=== PATIENT | female | born 1950 | race Caucasian/White ===

== ENCOUNTER 2019-11-02 08:11 | Outpatient (CLI) | payer MEDICARE, OTHER, SELFPAY ==
--- NOTE | ~2019-11-02 | CT_ITS ---
EXAMINATION: CT abdomen pelvis wo/w con EXAM DATE: 11/02/2019 08:54 INDICATION: Left kidney neoplasm. TECHNIQUE: Spiral CT of the abdomen without contrast followed by both abdomen and pelvis with 100 cc intravenous Omnipaque 350. Axial, coronal and sagittal images were reviewed. The dose-length produc t (DLP) for this examination was 1644.03 mGy-cm. The exposure was tailored according to patient size (auto mA exposure control), and iterative reconstruction (ASIR) was used as additional dose reductio n technique. There is no prior study for comparison. FINDINGS: There is a splenule. The liver, spleen, adrenal glands and pancreas are unremarkable. The re are surgical clips in the gallbladder fossa. Some biliary duct dilation which is common finding f ollowing cholecystectomy. Portal and splenic veins are patent. Noncontrast study demonstrates multiple left calyceal stones, left renal pelvic stone casting the inf erior calyces. Previously seen 5 mm right calyceal stone is no longer identified. Kidneys enhance sym metrically. There is no hydronephrosis. There is solid relatively homogeneously enhancing left renal mass at the mid pole posterior lateral cortex measuring 3.4 cm, not significantly changed. There is another slightly more heterogeneously enhancing mass in the left kidney lower pole posterior medially measuring about 2.8 cm. This also appears not significantly changed. The uterus is not identified a nd has likely been surgically resected. The bladder is unremarkable. There is no retroperitoneal or pelvic lymphadenopathy. There is mild to moderate scattered arteriosclerotic disease. The appendix is not positively visualized. There is no pericecal inflammatory change to suggest appe ndicitis. The stomach and small bowel are unremarkable. There is expected amount of colonic stool. There is mild sigmoid colonic diverticulosis. There is no adjacent inflammatory change to suggest d iverticulitis. No free intraperitoneal gas. There is cardiomegaly. There are no pleural or pericar dial effusions. There are dense mitral annular calcifications. There is a right lower lobe nodule me asuring 9 mm, stable. There are no osteoblastic or osteolytic lesions identified. IMPRESSION: 1. Two enhancing left renal masses, not significantly changed in size and appearance. 2. Stable right lower lobe pulmonary nodule. 3. Mild colonic diverticulosis. 4. Left nephrolithiasis. Reviewed, dictated and finalized at location A. ON ATTENDANT IMPRESSION: 1. Two enhancing left renal masses, not significantly changed in size and appe arance. 2. Stable right lower lobe pulmonary nodule. 3. Mild colonic diverticulosis. 4. Left nephrolithiasis.
[2019-11-02 08:44] LABS: Blood Urea Nitrogen 18 mg/dL (8-26); Estimated Glomerular Filt Rate 44
== END 2019-11-02 08:12 | disposition home or self-care (01) ==
PROVIDERS: PCP Family Medicine; Visit Provider Urology
DX: D41.02 Neoplasm of uncertain behavior of left kidney (principal); R91.1 Solitary pulmonary nodule; K57.90 Diverticulosis of intestine, part unspecified, without perforation or abscess without bleeding; N20.0 Calculus of kidney
CPT/HCPCS: 74178; Q9967

== ENCOUNTER 2019-11-07 09:12 | Outpatient (CLI) | payer MEDICARE, OTHER, SELFPAY | END 2019-11-07 09:13 | disposition home or self-care (01) | LOC: ANHAUDIO 09:17 | PROVIDERS: PCP Family Medicine; Visit Provider Family Medicine | DX: H91.93 Unspecified hearing loss, bilateral (principal) | CPT/HCPCS: 92557 ==

== ENCOUNTER 2020-06-05 08:53 | Outpatient (CLI) | payer MEDICARE, OTHER, SELFPAY ==
--- NOTE | ~2020-06-05 | MM_ITS ---
EXAMINATION: MM screening catrina BI w power HISTORY: Screening mammogram TECHNIQUE: Craniocaudal and mediolateral oblique 3-D tomosynthesis images were obtained and synthetic 2-D images were generated. Bilateral rotated lateral cc views. CAD analysis was submitted and interp reted. COMPARISON: 06/01/2019, 05/17/2018, 03/15/2017 bilateral digital screening mammogram examinations BREAST PARENCHYMAL COMPOSITION: There are scattered areas of fibroglandular density. FINDINGS: Surgical clips are noted on the right; history of partial right mastectomy for breast cance r. There is a history of bilateral breast reduction surgery. Scattered bilateral benign calcification s are noted. There is no evidence of suspicious mass, calcification, or architectural distortion to s uggest malignancy in either breast. There has been no suspicious interval change. IMPRESSION: 1. No mammographic evidence of malignancy. 2. Recommend routine screening mammography in one year. BI-RADS Category 2: Benign finding(s). Reviewed, dictated and finalized at location A.
== END 2020-06-05 08:54 | disposition home or self-care (01) ==
PROVIDERS: PCP Family Medicine; Visit Provider Family Medicine
DX: Z12.31 Encounter for screening mammogram for malignant neoplasm of breast (principal)
CPT/HCPCS: 77063; 77067

== ENCOUNTER 2020-09-04 05:48 | Day surgery (SDC) | payer MEDICARE, OTHER, SELFPAY ==
[2020-09-04] VITALS (12 sets, daily range): BP systolic 116–142; BP diastolic 51–73; PULSE 72–94; RESP 8–20; TEMP 36.3–36.7; O2SAT 93–100
--- NOTE | ~2020-09-04 | XR_ITS ---
EXAMINATION: XR retrograde pyelo w/stent LT EXAM DATE: 09/04/2020 10:31 INDICATION: Left-sided obstructive nephropathy, left renal masses. TECHNIQUE: Fluoroscopy used during XR retrograde pyelo w/stent LT performed by Dr. Raul roy MD. The DAP for this procedure was 386 radcm2. FINDINGS: Left ureter was cannulated, injected. There is severe left-sided hydroureteronephrosis. A double-J ureteral stent was positioned. Correlate with procedure note. IMPRESSION: Fluoroscopy used during XR retrograde pyelo w/stent LT. Reviewed, dictated and finalized at location B. SOFTWARE DEVELOPER
--- NOTE | ~2020-09-04 | CT_ITS ---
EXAMINATION: CT abdomen pelvis wo con DATE: 09/04/2020 06:17 INDICATION: Left flank tenderness. History of nephrolithiasis. TECHNIQUE: Computed tomography (CT) of the abdomen and pelvis was performed without intravenous contr ast. Automated exposure control and iterative reconstruction technique were employed. Exam dose: 579 .21 mGy-cm total exam DLP. COMPARISON: 11/02/2019 CT abdomen without and with IV contrast material FINDINGS: Stable approximately 8.7 mm right lower lobe nodule (series 4 image 14). A couple of severa l millimeter nodular densities are noted at the lingula. Cardiomegaly. Coronary artery calcifications. Prominent mitral annular calcification. No pericardial or pleural effusion. Status post cholecystectomy. No hepatic, splenic, pancreatic, and adrenal space-occupying mass lesion . Small nonobstructing right renal calculus. There is extensive nephrolithiasis on the left with numerous calculi, some quite large, particularly at the lower pole of the kidney. Density measurements range from approximately 1000 to 1400 Hounsfiel d units. Moderately severe left hydroureteronephrosis and perinephric stranding and mild pyelosinus extravasat ion due to a large left ureterovesical junction calculus measuring up to 6.6 x 7.3 x 8 mm dimension, with attenuation of 1600 Hounsfield units. Stable previously reported approximately 2.8 and 3.4 cm left renal masses. There is atherosclerotic calcification of the abdominal aorta and iliac arteries but no aneurysm. No intraperitoneal or retroperitoneal or pelvic mass lesion or adenopathy or ascites is noted otherwise. Diverticulosis of the colon; no CT evidence of diverticulitis. No bowel obstruction, bowel wall thick ening, pneumatosis or intraperitoneal free air. Diffuse idiopathic skeletal hyperostosis of the thoracic spine. Moderately severe degenerative disc d isease at L1-2. No suspicious osteolytic or osteoblastic lesions are noted. IMPRESSION: Moderately severe left hydroureteronephrosis, perinephric stranding and pyelosinus extra vasation secondary to left ureterovesical junction up to 8 mm calculus Prominent left nephrolithiasis Slight right nephrolithiasis Cardiomegaly, coronary artery atherosclerosis Status post cholecystectomy Stable right lower lobe 8 mm nodule Reviewed, dictated and finalized at Location A. Reviewed, dictated and finalized at location A. NICIAN PREVENTATIVE MEDICINE IMPRESSION: Moderately severe left hydroureteronephrosis, perinephric strandin g and pyelosinus extravasation secondary to left ureterovesical junction up to 8 mm calculus Prominent left nephrolithiasis Slight right nephrolithiasis Cardiomegaly, coronary artery atherosclerosis Status post cholecystectomy Stable right lower lobe 8 mm nodule
--- NOTE | 2020-09-04 05:51 | ED.ABDPAIN ---
HPI - Abdominal Pain General Chief Complaint: Urogenital-Female Stated Complaint: Kidney Stone Time Seen by Provider: 09/04/20 05:50 Source: patient and family Mode of arrival: wheelchair Limitations: no limitations History of Present Illness HPI narrative: Patient is a 70-year-old female with a history of Parkinson's disease, nephrolithiasis who presents for evaluation of left-sided flank pain. Patient initially started with some dysuria and urinary frequency on Wednesday which symptoms spontaneously resolved. She states she has had some dull, aching left flank pain tonight that seems consistent with pain she has had with past kidney stones. She denies fever, chills, nausea or vomiting. Pain radiates into the left lower abdomen. She continues to have frequency without dysuria or hematuria. Patient follows with Dr. Pires. Related Data Home Medications Medication Instructions Recorded Confirmed aspirin 81 mg tablet,delayed 81 mg PO DAILY 10/12/19 02/29/20 release carbidopa ER 25 mg-levodopa 100 mg 1 tablet PO TID 10/12/19 02/29/20 tablet,extended release cariprazine 4.5 mg capsule 4.5 mg PO DAILY 10/12/19 02/29/20 diazepam 5 mg tablet 5 mg PO DAILY PRN tablet 10/12/19 02/29/20 lamotrigine 200 mg tablet 200 mg PO DAILY tablet 10/12/19 02/29/20 memantine 28 mg capsule 28 mg PO DAILY 10/12/19 02/29/20 sprinkle,extended release 24hr Allergies Allergy/AdvReac Type Severity Reaction Status Date / Time codeine Allergy Unknown Unknown Verified 02/29/20 14:34 Review of Systems Review of Systems: Narrative: CONSTITUTIONAL: Denies fever, chills, or sweats. ENT: Denies rhinorrhea, congestion, sore throat, or otalgia. CARDIOVASCULAR: Denies chest pain, palpitations, or edema. RESPIRATORY: Denies cough or dyspnea. GASTROINTESTINAL: Reports right-sided abdominal pain, denies nausea or vomiting GENITOURINARY: Denies dysuria or hematuria. Reports frequency of urination. SKIN: Denies rash or itching. MUSCULOSKELETAL: Reports left flank pain, denies other joint pain, or myalgia. NEUROLOGIC: Denies headache, numbness, or weakness. [facility] Past Medical History Medical History (Updated 09/04/20 @ 07:25 by Zara Dyer MD) Anxiety Bipolar affective disorder Breast cancer 03/2012 Dyslipidemia Essential (primary) hypertension History of right breast cancer Hypertension Hypertrophic obstructive cardiomyopathy Meniere disease Renal calculus Unspecified osteoarthritis, unspecified site Surgical History Surgical History H/O total hysterectomy with bilateral salpingo-oophorectomy (BSO) History of breast surgery 03/2012 History of partial mastectomy 2011 Hx of section Hx of total knee arthroplasty Family History Family History Father Family history of diabetes mellitus in first degree relative, Onset Age: 77 Mother Family history of malignant neoplasm of ovary, Onset Age: 62 Grandparent Diabetes mellitus, Onset Age: 80 Other Hypertension Social History Social History Smoking status: Never smoker Second hand tobacco smoke exposure: No Alcohol intake: never Substance use: never Substance use type: does not use Exam Narrative: Exam Narrative: GENERAL: Awake, alert, hard of hearing, conversant HEAD: Normocephalic, atraumatic. EYES: PERRLA and EOMI. ENT: Nares clear, no rhinorrhea or epistaxis. Mucous membranes moist. NECK: Supple. CHEST: No respiratory distress, breathing even and non labored HEART: Regular rate, sinus rhythm ABDOMEN:Non distended, no reproducible left lower quadrant tenderness, no rebound, no rigidity, no guarding, positive left flank tenderness, no right flank tenderness EXTREMITIES: Normal range of motion. No edema. SKIN: Warm, dry, no rash. NEURO:No focal deficits. Alert and oriented x3
[2020-09-04 06:13] LABS: Basophils Absolute Auto 0.1 K/mm3 (0.0-0.1); Basophils Percent Auto 0.5 % (0.2-1.2); Eosinophils Absolute Auto 0.2 K/mm3 (0-0.3); Eosinophils Percent Auto 2.5 % (0-4.4); Hematocrit 42.2 % (37.0-47.0); Hemoglobin 13.4 g/dL (12.0-15.0); Immature Granulocyte Absolute 0.04 K/mm3 (0.00-0.031); Immature Granulocyte Percent A 0.4 % (0-0.5); Lymphocytes Absolute Auto 1.42 K/mm3 (0.9-3.2); Lymphocytes Percent Auto 14.7 % (18.3-44.2); Mean Corpuscular HGB Conc 31.8 g/dl (32-36); Mean Corpuscular Hemoglobin 29.6 pg (26-34); Mean Corpuscular Volume 93.2 fl (80-100); Mean Platelet Volume 9.2 fl (7.4-10.4); Monocytes Absolute Auto 0.8 K/mm3 (0.1-0.6); Neutrophils Absolute Auto 7.2 K/mm3 (1.3-6.7); Neutrophils Percent Auto 73.9 % (45.5-73.1); Platelet Count Result 188 k/mm3 (150-375); Red Blood Count 4.53 M/mm3 (4.2-5.4); Red Cell Distribution Width 12.2 % (11.5-14.5); White Blood Count 9.7 K/mm3 (4.5-10.0)
[2020-09-04 06:24] LABS: Alanine Aminotransferase 13 U/L (4-35); Albumin Level 4.1 g/dL (3.5-5.1); Alkaline Phosphatase 110 U/L (38-126); Anion Gap 5 mmol/L (8-16); Aspartate Amino Transferase 29 U/L (14-36); Bilirubin,Total 0.8 mg/dL (0.2-1.3); Blood Urea Nitrogen 16 mg/dL (7-17); Calcium 9.5 mg/dL (8.4-10.2); Carbon Dioxide 34 mmol/L (22-30); Chloride 104 mmol/L (98-107); Estimated CRCL calculation 41 ml/min; Estimated Glomerular Filt Rate 55; Glucose 118 mg/dL (65-105); Potassium 3.3 mmol/L (3.4-5.0); Sodium 143 mmol/L (137-145)
[2020-09-04] MEDS: ONDANSETRON INJ 4 MG/2 ML VIAL IV PUSH (06:25)
[2020-09-04] MEDS: MORPHINE SULFATE (*CRX) 4 MG/ML INJ 2 MG IV PUSH (06:25)
[2020-09-04] MEDS: SODIUM CHLORIDE 0.9% IV 1,000 ML 999 ML IV CONT (06:26)
--- NOTE | 2020-09-04 07:20 | PM.IMHP ---
H&P: HPI History of Present Illness Date/Time: 09/04/20 07:20 Chief Complaint: 8 mm left UVJ calculus with hydronephrosis Narrative: Karina Arroyo is a 70 year old female with Parkinson's disease and a history of kidney stones who presented to the emergency room with left renal colic. It progressed to the point where she was having significant pain. Evaluation in the emergency room with a CT scan revealed an 8 mm left UVJ stone with moderate hydronephrosis and perinephric stranding. She has no white count or fever at this time. Given the size of the stone and discomfort she is reluctant to manage as an outpatient. Will proceed with definitive treatment with cystoscopy, ureteroscopy with laser of stone and stone extraction with stent placement today. Review of Systems Review of Systems: All systems reviewed & are unremarkable except as noted in HPI and below PMFSH Past Medical History Medical History Anxiety Bipolar affective disorder Breast cancer 03/2012 Dyslipidemia Essential (primary) hypertension History of right breast cancer Hypertension Hypertrophic obstructive cardiomyopathy Meniere disease Renal calculus Unspecified osteoarthritis, unspecified site Surgical History Surgical History H/O total hysterectomy with bilateral salpingo-oophorectomy (BSO) History of breast surgery 03/2012 History of partial mastectomy 2011 Hx of section Hx of total knee arthroplasty Family History Family History Father Family history of diabetes mellitus in first degree relative, Onset Age: 77 Mother Family history of malignant neoplasm of ovary, Onset Age: 62 Grandparent Diabetes mellitus, Onset Age: 80 Other Hypertension Social History Social History Smoking status: Never smoker Second hand tobacco smoke exposure: No Alcohol intake: never Substance use: never Substance use type: does not use Meds Home Medications and Allergies Home Medications Medication Instructions Recorded Confirmed Type aspirin 81 mg tablet,delayed 81 mg PO DAILY 10/12/19 02/29/20 History release carbidopa ER 25 mg-levodopa 100 mg 1 tablet PO TID 10/12/19 02/29/20 History tablet,extended release cariprazine 4.5 mg capsule 4.5 mg PO DAILY 10/12/19 02/29/20 History diazepam 5 mg tablet 5 mg PO DAILY PRN tablet 10/12/19 02/29/20 History lamotrigine 200 mg tablet 200 mg PO DAILY tablet 10/12/19 02/29/20 History memantine 28 mg capsule 28 mg PO DAILY 10/12/19 02/29/20 History sprinkle,extended release 24hr neomycin 3.5 mg-polymyxin 10,000 1 drop EACH EYE Q6H #7.5 ml 02/29/20 02/29/20 Rx unit-hydrocort 10 mg/mL eye drop,susp diltiazem HCl 240 mg See Rx Instructions .ROUTE 07/11/20 Rx capsule,extended release 24 hr .COMPLEX #90 cap rosuvastatin 10 mg tablet See Rx Instructions .ROUTE 07/11/20 Rx .COMPLEX #90 tablet Allergies Allergy/AdvReac Type Severity Reaction Status Date / Time codeine Allergy Unknown Unknown Verified 02/29/20 14:34 Vital Signs Vital Signs - 24 hr 09/04/20 05:55 09/04/20 07:01 09/04/20 07:15 Temperature 36.3 C L Pulse Rate 72 84 Respiratory Rate 16 16 Blood Pressure 142/67 H 137/73 Pulse Oximetry 95 100 95 Exam Const: General: cooperative Eyes: General: appearance normal, both eyes and all related structures Resp: Effort & Inspection: normal respiratory effort Cardio: Rate: regular rate GI: Inspection: normal to inspection H&P: Results Labs Labs: Short CBC 09/04/20 Range/Units 06:04 WBC 9.7 (4.5-10.0) K/mm3 Hgb 13.4 (12.0-15.0) g/dL Hct 42.2 (37.0-47.0) % Plt Count 188 (150-375) k/mm3 BMP 09/04/20 06:04 Sodium 143 Potassium 3.3 L Chloride 104 Carbon Di
[2020-09-04 07:22] LABS: Add Urine Microscopic? YES; Amorphous Sediment Urine Few; Appearance Urine Clear (Clear); Bilirubin Urine Negative (Negative); Blood Urine 3+ (Negative); Color Urine Amber (Yellow); Glucose Urine UA Negative (Negative); Ketones Urine Negative (Negative); Leukocyte Esterase Ur Negative LEU/UL (Negative); Mucus Urine Rare /lpf; Nitrate Urine Positive (Negative); Protein Urine 1+ mg/dL (Negative); RBC Urine >75 /hpf (0-2); Specific Grav Ur 1.013 (1.001-1.035); WBC Urine 0-3 /hpf
--- NOTE | 2020-09-04 07:23 | WPDHPUPDATE1 ---
History and Physical Update Update Date/Time: 09/04/20 07:23 History and Physical has been reviewed, including an updated exam of the patient. There are NO changes in the patient's condition. Risks, benefits, and alternatives have been discussed and questions answered. Patient agrees to proceed with procedure.
--- NOTE | 2020-09-04 07:37 | PC.NURSE ---
Consent signed after Dr. Foote at bedside to explain procedure and stent placement. Pt and s.o. have no further questions. Pt's rings removed and placed in secured cup in with bag of clothing. Pt's s.o. planning to take clothing and walker to vehicle during surgery.
--- NOTE | 2020-09-04 08:20 | WPDANESEPPF ---
Anes - Initial Pre Proc Eval Procedure: Operation Date: 09/04/20 09:30 Proposed Procedures p CYSTOSCOPY,LEFT URETEROSCOPY,LEFT RETROGRADE PYELOGRAM,STONE EXTRACTION,POSSIBLE HOLMIUM LASER,POSSIBLE STENT PLACEMENT. - Raul Foote MD Date/Time: 09/04/20 08:20 Surgeon: Raul Foote MD Pre Op Diagnosis: Kidney Stone Patient Data Age: 70 Gender: F Height: 1.52 m Weight: 74 kg Last Vital Signs Temp 36.3 C L 09/04/20 05:55 Pulse 84 09/04/20 07:01 Resp 16 09/04/20 07:01 BP 137/73 09/04/20 07:01 Pulse Ox 95 09/04/20 07:15 Allergies Allergy/AdvReac Type Severity Reaction Status Date / Time codeine Allergy Intermediate Confusion Verified 09/04/20 08:33 Home Medications Medication Instructions Recorded Confirmed Type aspirin 81 mg tablet,delayed 81 mg PO DAILY 10/12/19 02/29/20 History release carbidopa ER 25 mg-levodopa 100 mg 1 tablet PO TID 10/12/19 02/29/20 History tablet,extended release cariprazine 4.5 mg capsule 4.5 mg PO DAILY 10/12/19 02/29/20 History diazepam 5 mg tablet 5 mg PO DAILY PRN tablet 10/12/19 02/29/20 History lamotrigine 200 mg tablet 200 mg PO DAILY tablet 10/12/19 02/29/20 History memantine 28 mg capsule 28 mg PO DAILY 10/12/19 02/29/20 History sprinkle,extended release 24hr neomycin 3.5 mg-polymyxin 10,000 1 drop EACH EYE Q6H #7.5 ml 02/29/20 02/29/20 Rx unit-hydrocort 10 mg/mL eye drop,susp diltiazem HCl 240 mg See Rx Instructions .ROUTE 07/11/20 Rx capsule,extended release 24 hr .COMPLEX #90 cap rosuvastatin 10 mg tablet See Rx Instructions .ROUTE 07/11/20 Rx .COMPLEX #90 tablet Laboratory Tests 09/04/20 09/04/20 09/04/20 06:04 06:04 06:58 WBC 9.7 K/mm3 K/mm3 (4.5-10.0) RBC 4.53 M/mm3 M/mm3 (4.2-5.4) Hgb 13.4 g/dL g/dL (12.0-15.0) Hct 42.2 % % (37.0-47.0) MCV 93.2 fl fl (80-100) MCH 29.6 pg pg (26-34) MCHC 31.8 g/dl L g/dl (32-36) RDW 12.2 % % (11.5-14.5) Plt Count 188 k/mm3 k/mm3 (150-375) MPV 9.2 fl fl (7.4-10.4) Immature Gran % (Auto) 0.4 % % (0-0.5) Neut % (Auto) 73.9 % H % (45.5-73.1) Lymph % (Auto) 14.7 % L % (18.3-44.2) [place] % (Auto) 8.0 % % (2.6-8.5) Eos % (Auto) 2.5 % % (0-4.4) Baso % (Auto) 0.5 % % (0.2-1.2) Lymph # (Auto) 1.42 K/mm3 K/mm3 (0.9-3.2) [place] # (Auto) 0.8 K/mm3 H K/mm3 (0.1-0.6) Eos # (Auto) 0.2 K/mm3 K/mm3 (0-0.3) Baso # (Auto) 0.1 K/mm3 K/mm3 (0.0-0.1) Abs Immat Gran (auto) 0.04 K/mm3 H K/mm3 (0.00-0.031) Absolute Neuts (auto) 7.2 K/mm3 H K/mm3 (1.3-6.7) Absolute Nucleated RBC 0.0 K/mm3 K/mm3 (0.0-0.012) Nucleated RBC % 0.0 % % (0.0-0.2) Sodium 143 mmol/L mmol/L (137-145) Potassium 3.3 mmol/L L mmol/L (3.4-5.0) Chloride 104 mmol/L mmol/L (98-107) Carbon Dioxide 34 mmol/L H mmol/L (22-30) Anion Gap 5 mmol/L L mmol/L (8-16) BUN 16 mg/dL mg/dL (7-17) Creatinine 1.00 mg/dL mg/dL (0.7-1.0) Estim Creat Clear Calc 41 ml/min ml/min Estimated GFR 55 L (59 - ) Glucose 118 mg/dL H mg/dL (65-105) Calcium 9.5 mg/dL mg/dL (8.4-10.2) Total Bilirubin 0.8 mg/dL mg/dL (0.2-1.3) AST 29 U/L U/L (14-36) ALT 13 U/L U/L (4-35) Alkaline Phosphatase 110 U/L U/L (38-126) Total Protein 7.0 g/dL g/dL (6.3-8.2) Albumin 4.1 g/dL g/dL (3.5-5.1) Urine Color Kristy (Yellow) Urine Appearance Clear (Clear) Urine pH 7.0 (5.0-9.0) Ur Specific [place] 1.013 (1.001-1.035) Urine Protein 1+ mg/dL H mg/dL (Negative) Urine Glucose (UA) Negative mg/dL mg/dL (Negative) Urine Ketones
[2020-09-04] MEDS: LACTATED RINGERS 1,000 ML 30 ML IV CONT (09:00)
--- NOTE | 2020-09-04 10:23 | SUR.OPER ---
4.8 Fr stent left exp 06-06-2023 [facility] [id number]
[2020-09-04] MEDS: LIDOCAINE HCL 2% GEL UROJET 10 ML PKG MUCOUS MEM (10:28)
--- NOTE | 2020-09-04 10:28 | PM.PROC ---
Procedure Note - Detailed Date of procedure: 09/04/20 Pre-op diagnosis: Kidney Stone 8 mm right UVJ calculus with hydronephrosis Post-op diagnosis: same Procedure performed: Cystoscopy, right retrograde pyelogram, right ureteroscopy with stone extraction, right ureteral stent placement 4.8 Cambodian contour Description of procedure: Patient is taken the operative suite and correctly identified. Once anesthesia was obtained she was placed in dorsal lithotomy position and prepped and draped usual sterile fashion. Twenty-two Cambodian scope was inserted into the bladder. There are no tumors noted. The right ureteral orifice was cannulated with a guidewire and dilated with an 8/10 dilator. Rigid ureteral scope was inserted. Using a Aydee basket we grasped the stone were able to retrieve it in its entirety. Reinspection revealed no residual stones. Pyelogram was then performed there is a tortuous proximal ureter. We were able to manipulate the guidewire up into the renal pelvis. 4.8 Cambodian contour stent was then placed with the proximal end coiled up in the renal pelvis and the distal in the bladder. Bladder was drained. 2% viscous lidocaine was inserted into the urethra. Patient is taken recovery room stable condition. She will be discharged home with pain meds antibiotics and follow up in 1-2 weeks for stent removal. She is to call for that appointment. Anesthesia: GLMA Surgeon: Raul Foote MD Drains: Yes Packing: No Pathology: yes Complications: No immediate complications Condition: stable Disposition: PACU
== END 2020-09-04 12:43 | disposition home or self-care (01) ==
LOC: ANHED 07:13 → ANHSURGERY 07:15
PROVIDERS: Emergency Provider Emergency Medicine; PCP Family Medicine; Visit Provider Urology
PROC: (CPT 52352; principal; 2020-09-04 09:30)
DX: N13.2 Hydronephrosis with renal and ureteral calculous obstruction (principal); K44.9 Diaphragmatic hernia without obstruction or gangrene; F41.9 Anxiety disorder, unspecified; F31.9 Bipolar disorder, unspecified; E78.5 Hyperlipidemia, unspecified; I10 Essential (primary) hypertension; H81.09 Meniere's disease, unspecified ear; Z85.3 Personal history of malignant neoplasm of breast; N13.30 Unspecified hydronephrosis; I48.21 Permanent atrial fibrillation; G20 Parkinson's disease
CPT/HCPCS: 52352; 52332; 36415; 51701; 74176; 74420; 80053; 81001; 82365; 85025; 88300; 96365; 96375; 99285; A9270; C1758; C1769; C2617; J0131; J0696; J1100; J2270; J2405; J2704; J3010; J7030; J7120; Q9966

== ENCOUNTER 2021-02-13 08:24 | Outpatient (CLI) | payer MEDICARE, OTHER, SELFPAY ==
--- NOTE | ~2021-02-13 | CT_ITS ---
EXAMINATION: CT abdomen pelvis wo con DATE: 02/13/2021 09:02 INDICATION: Follow-up left renal mass TECHNIQUE: Computed tomography (CT) of the abdomen and pelvis was performed without intravenous contr ast. Automated exposure control and iterative reconstruction technique were employed. The dose-length product was 565.23 mGy-cm. COMPARISON: 09/04/2020 and 11/02/2019 FINDINGS: Lung bases are clear. Heart size is normal. No pericardial or pleural effusion. Atherosclerotic coron zaid artery calcific location and dense mitral annular calcification. Cholecystectomy clips the gallbl adder fossa. Chronic mild intrahepatic biliary ductal dilation. Liver is otherwise unremarkable. Sple en, pancreas and bilateral adrenal glands are normal. 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 Smaller 1.3 cm stone/cluster of stones in the right cesar l pelvis. No ureteral stones or hydronephrosis. Gradual increase in size of a now 3.8 cm exophytic ma ss at the lower pole of the left kidney which measured 3.2 cm with enhancement on study dated 11/02/19 and increasing to 3.6 cm on study dated 09/04/2020. There is a second 2.9 cm mass at the lower jose e of the left kidney which also demonstrated enhancement and measured 2.[address] dated 11/02/2019. 1 2 mm exophytic cyst at the upper pole of the right kidney. There is mild colonic diverticulosis with a sigmoid predominance. There is no adjacent inflammatory change to suggest diverticulitis. Small b owel is normal. The appendix is not visualized. No pericecal inflammatory change to suggest acute stella endicitis. Bladder is normal. The uterus is not identified and has likely been surgically resected. N o free intraperitoneal gas or fluid. No pathologically enlarged abdominal or pelvic lymphadenopathy. Mild thoracic and lumbar spondylosis. IMPRESSION: 1. Continued increase in size of a now 3.8 cm mass at the lower pole of the left kidney and no signif icant change in a second 2.9 cm mass at the lower pole of the left kidney, both demonstrating enhance ment which could represent either renal cell carcinomas or metastatic disease in the appropriate clin ical setting. 2. Bilateral nonobstructing nephrolithiasis. 3. Mild diverticulosis. Reviewed, dictated and finalized at location A. IMPRESSION: 1. Continued increase in size of a now 3.8 cm mass at the lower pole of the lef t kidney and no significant change in a second 2.9 cm mass at the lower pole of the left kidney, both demonstrating enhancement which could represent either r enal cell carcinomas or metastatic disease in the appropriate clinical setting. 2. Bilateral nonobstructing nephrolithiasis. 3. Mild diverticulosis.
== END 2021-02-13 08:25 | disposition home or self-care (01) ==
PROVIDERS: PCP Family Medicine; Visit Provider Urology
DX: D41.02 Neoplasm of uncertain behavior of left kidney (principal); K57.30 Diverticulosis of large intestine without perforation or abscess without bleeding; N20.0 Calculus of kidney
CPT/HCPCS: 74176

== ENCOUNTER 2021-05-26 02:36 | Observation (INO) | payer MEDICARE, OTHER, SELFPAY ==
[2021-05-26] VITALS (21 sets, daily range): BP systolic 123–145; BP diastolic 45–73; PULSE 60–71; RESP 14–18; TEMP 36.2–37.2; O2SAT 90–100; BMI 31.5
--- NOTE | ~2021-05-26 | XR_ITS ---
EXAMINATION: XR retrograde pyelo w/stent BI EXAM DATE: 05/26/2021 15:36 INDICATION: Bilateral stent placement. TECHNIQUE: Fluoroscopy used during XR retrograde pyelo w/stent BI performed by Dr. Davidson Ryder MD, urologist. The radiologist Jonathan Wright M.D. dictating this report of the image(s) available wa s not present for the procedure. Total fluoroscopic time of 82 seconds. The DAP for this procedure was 1259 radcm2. A total of 57 images sent to PACS from the exam. Cine run(s) available for review. FINDINGS: Left ureter cannulated, injected. There is large stone in the distal aspect of the left ur eter. A left double-J ureteral stent was placed. Right ureter was then cannulated and injected. Mild right hydronephrosis. A right ureteral stent was also placed. Large bilateral nephrolithiasis was dem onstrated. Correlate with procedure note. IMPRESSION: Left distal ureteral stone and bilateral nephrolithiasis. Stents in position. Reviewed, dictated and finalized at location B.
--- NOTE | ~2021-05-26 | CT_ITS ---
EXAMINATION: CT abdomen pelvis wo con EXAM DATE: 05/26/2021 03:16 INDICATION: Left flank pain hx of stones. TECHNIQUE: Spiral CT of the abdomen and pelvis was performed without contrast. Axial, coronal and sa gittal images were reviewed. The dose-length product (DLP) for this examination was 251.17 mGy-cm. The exposure was tailored according to patient size, and iterative reconstruction (ASIR) was used as additional dose reduction technique. Comparison is made to prior examination from 02/13/2021, 8. FINDINGS: There is a 2 cm stone in the distal aspect of the left ureter, 5 cm from the ureterovesicul ar junction. Moderate left hydroureteronephrosis. Similar sized left inferior calyceal stones casting calyces. There is a left mid renal mass measuring 3.7 cm, another at the lower pole less well-define d but measuring about 2.3 cm. Right renal pelvic stone measuring 1.6 cm. The uterus is not identifie d and has likely been surgically resected. The bladder is unremarkable. The liver, spleen, adrenal glands and pancreas are unremarkable. There are cholecystectomy clips. T here is no retroperitoneal or pelvic lymphadenopathy. There is mild to moderate scattered arteriosc lerotic disease. There are no findings to suggest appendicitis. The stomach and small bowel are unremarkable. There i s moderate sigmoid colonic diverticulosis. There is no adjacent inflammatory change to suggest diver ticulitis. No free intraperitoneal gas. The heart is normal in size. There are no pericardial or pleural effusions. There is 8mm right lower lobe nodule on image 16, stable going back to CT abdomen 2018. Mild emphysema. There are no osteoblastic or osteolytic lesions identified. IMPRESSION: 1. Left distal ureteral 2 cm stone, moderate obstructive nephropathy. 2. Large bilateral nephrolithiasis. 3. Left renal masses likely RCCs. 4. Sigmoid diverticulosis. 5. Stable right lower lobe nodule. Reviewed, dictated and finalized at location B.
--- NOTE | 2021-05-26 03:09 | PC.NURSE ---
Patient in CT.
--- NOTE | 2021-05-26 03:16 | ED.GENADULT ---
HPI - General Adult General Chief complaint: Abdominal Pain Stated complaint: left abd/flank pain h/o kidney stones Time Seen by Provider: 05/26/21 02:55 History of Present Illness HPI narrative: Patient 70-year-old female presents the emergency department with complaint of left-sided flank pain patient reports she has prior history of kidney stones is usually been able to pass them on her own except for the last time about 2 years ago reports she had to have a surgical procedure by urology and sees urology locally. patient states this evening her pain started reports it radiates to the left lower quadrant reports not improved by anything nor is worsened by anything. Related Data Home Medications Medication Instructions Recorded Confirmed aspirin 81 mg tablet,delayed 81 mg PO DAILY 10/12/19 02/29/20 release carbidopa ER 25 mg-levodopa 100 mg 1 tablet PO TID 10/12/19 02/29/20 tablet,extended release cariprazine 4.5 mg capsule 4.5 mg PO DAILY 10/12/19 02/29/20 diazepam 5 mg tablet 5 mg PO DAILY PRN tablet 10/12/19 02/29/20 lamotrigine 200 mg tablet 200 mg PO DAILY tablet 10/12/19 02/29/20 memantine 28 mg capsule 28 mg PO DAILY 10/12/19 02/29/20 sprinkle,extended release 24hr Allergies Allergy/AdvReac Type Severity Reaction Status Date / Time codeine Allergy Intermediate Confusion Verified 05/26/21 03:53 Review of Systems Review of Systems: A 10 system review of systems was completed on the patient and is negative except for what is stated in the HPI. Nursing and ancillary documentation was reviewed. FOR[facility]LY [facility] Past Medical History Medical History Anxiety Bipolar affective disorder Breast cancer 03/2012 Cardiomegaly Dyslipidemia Essential (primary) hypertension History of right breast cancer Hypertension Hypertrophic obstructive cardiomyopathy Meniere disease Parkinson disease Renal calculus Unspecified osteoarthritis, unspecified site Surgical History Surgical History H/O total hysterectomy with bilateral salpingo-oophorectomy (BSO) History of breast surgery 03/2012 History of partial mastectomy 2011 Hx of section Hx of total knee arthroplasty Family History Family History Father Family history of diabetes mellitus in first degree relative, Onset Age: 77 Mother Family history of malignant neoplasm of ovary, Onset Age: 62 Grandparent Diabetes mellitus, Onset Age: 80 Other Hypertension Social History Social History Smoking status: Never smoker Second hand tobacco smoke exposure: No Alcohol intake: never Substance use: never Substance use type: does not use Exam Narrative: GENERAL: Well-appearing, well-nourished, and in no acute distress. HEAD: Normocephalic, atraumatic. EYES: PERRLA and EOMI. ENT: Nares clear, no rhinorrhea or epistaxis. Mucous membranes moist. NECK: Supple. CHEST: Clear to auscultation. No respiratory distress. HEART: Regular rate and rhythm. No murmur heard. Normal peripheral pulses. ABDOMEN: Soft, nontender, nondistended, normal active bowel sounds. EXTREMITIES: Normal range of motion. No edema. SKIN: Warm, dry, no rash. NEURO: No focal deficits. Alert and oriented x3. PSYCH: Normal mood and affect. Course Course Emergency Course: CT scan shows a 1.9 cm distal ureteral stone on the left Vital Signs Vital signs: Vital Signs Temperature 36.2 C L 05/26/21 02:41 Pulse Rate 66 05/26/21 02:41 Respiratory Rate 18 05/26/21 02:41 Blood Pressure 123/56 L 05/26/21 02:41 Pulse Oximetry 96 05/26/21 02:41 Temperature 36.2 C L 05/26/21 02:41 Pulse Rate 66 05/26/21 02:41 Respiratory Rate 18 05/26/21 02:41 Blood Pressure 123/56 L 05/26/21 02:41 Pulse Oximetry 96 05/26/21
[2021-05-26] MEDS: SODIUM CHLORIDE 0.9% IV 1,000 ML 999 ML IV CONT (03:23)
[2021-05-26] MEDS: MORPHINE SULFATE (*CRX) 4 MG/ML INJ IV PUSH (03:24)
[2021-05-26] MEDS: ONDANSETRON INJ 4 MG/2 ML VIAL IV PUSH (03:24)
[2021-05-26 03:29] LABS: Basophils Absolute Auto 0.1 K/mm3 (0.0-0.1); Basophils Percent Auto 0.8 % (0.2-1.2); Eosinophils Absolute Auto 0.2 K/mm3 (0-0.3); Eosinophils Percent Auto 2.6 % (0-4.4); Hematocrit 37.2 % (37.0-47.0); Hemoglobin 11.8 g/dL (12.0-15.0); Immature Granulocyte Absolute 0.02 K/mm3 (0.00-0.031); Immature Granulocyte Percent A 0.3 % (0-0.5); Lymphocytes Absolute Auto 0.94 K/mm3 (0.9-3.2); Lymphocytes Percent Auto 13.1 % (18.3-44.2); Mean Corpuscular HGB Conc 31.7 g/dl (32-36); Mean Corpuscular Hemoglobin 29.9 pg (26-34); Mean Corpuscular Volume 94.2 fl (80-100); Mean Platelet Volume 8.9 fl (7.4-10.4); Monocytes Absolute Auto 0.6 K/mm3 (0.1-0.6); Monocytes Percent Auto 7.9 % (2.6-8.5); Neutrophils Absolute Auto 5.4 K/mm3 (1.3-6.7); Neutrophils Percent Auto 75.3 % (45.5-73.1); Platelet Count Result 154 k/mm3 (150-375); Red Blood Count 3.95 M/mm3 (4.2-5.4); Red Cell Distribution Width 12.1 % (11.5-14.5); White Blood Count 7.2 K/mm3 (4.5-10.0)
[2021-05-26 03:39] LABS: Alanine Aminotransferase 16 U/L (4-35); Albumin Level 4.1 g/dL (3.5-5.1); Alkaline Phosphatase 90 U/L (38-126); Anion Gap 8 mmol/L (8-16); Aspartate Amino Transferase 27 U/L (14-36); Bilirubin,Total 0.7 mg/dL (0.2-1.3); Blood Urea Nitrogen 22 mg/dL (7-17); Calcium 9.2 mg/dL (8.4-10.2); Carbon Dioxide 31 mmol/L (22-30); Chloride 103 mmol/L (98-107); Estimated CRCL calculation 34 ml/min; Estimated Glomerular Filt Rate 44; Glucose 118 mg/dL (65-110); Lipase 74 U/L (23-300); Potassium 3.2 mmol/L (3.4-5.0); Sodium 142 mmol/L (137-145)
[2021-05-26 03:40] LABS: Lactic Acid Reflex 1.3 mmol/L (0.7-2.1)
--- NOTE | 2021-05-26 03:40 | PC.NURSE ---
Patient placed on 5L via NC due to O2 sat decreased to 84% on RA after pain medications. Patient states she is very relaxed and pain has improved to 99%. Patient a/ox3.
--- NOTE | 2021-05-26 04:38 | PC.NURSE ---
Patient titrated off oxygen. Patient still rates pain 8/10. Patient at 96% on RA.
--- NOTE | 2021-05-26 04:58 | PC.NURSE ---
Patient oxygen sat decreased to 87% on RA when falling asleep. Patient placed back on 2L via NC, O2 sat now at 94%.
[2021-05-26 05:12] LABS: Add Urine Microscopic? YES; Appearance Urine Clear (Clear); Bacteria Urine Trace /hpf; Bilirubin Urine Negative (Negative); Blood Urine 3+ (Negative); Color Urine Yellow (Yellow); Glucose Urine UA Negative (Negative); Ketones Urine Negative (Negative); Leukocyte Esterase Ur Negative LEU/UL (Negative); Mucus Urine Rare /lpf; Nitrate Urine Negative (Negative); Protein Urine 2+ mg/dL (Negative); RBC Urine 51-75 /hpf (0-2); Specific Grav Ur 1.008 (1.001-1.035); Urobilinogen Urine Negative mg/dL (<2.0); WBC Urine 0-3 /hpf
[2021-05-26] MEDS: SODIUM CHLORIDE 0.9% IV 1,000 ML 125 ML IV CONT ×2 (05:45→19:30)
--- NOTE | 2021-05-26 06:11 | PCRCNOTE ---
pt refused CPAP.
--- NOTE | 2021-05-26 06:29 | PC.NURSE ---
This patient, Karina Arroyo, was admitted to Medical Room 250-01. Patient/family oriented to hospital policies and general routines including ID bracelet, bed and alarms, visiting hours, pain management, procedures, bathroom and other care routines, personal items, smoking policy, room service/diet, and visiting hours. Information on how to activate the Rapid Response Team has been discussed. Patient/Family are encouraged to report perceived risks to care and to ask questions if they do not understand what they are told or what they should do.
--- NOTE | 2021-05-26 08:43 | WPDANESEPPF ---
Anes - Initial Pre Proc Eval Procedure: Operation Date: 05/26/21 15:30 Proposed Procedures p Cystoscopy, Left Stent Placement - Davidson Ryder MD Date/Time: 05/26/21 08:43 Surgeon: Davidson Ryder MD Pre Op Diagnosis: Left ureterolithiasis Patient Data Age: 70 Gender: F Height: 1.52 m Weight: 73.3 kg Last Vital Signs Temp 37.1 C 05/26/21 05:50 Pulse 61 05/26/21 05:50 Resp 17 05/26/21 05:50 BP 123/45 L 05/26/21 05:50 Pulse Ox 96 05/26/21 05:50 Allergies Allergy/AdvReac Type Severity Reaction Status Date / Time codeine Allergy Intermediate Confusion Verified 05/26/21 03:53 Home Medications Medication Instructions Recorded Confirmed Type diazepam 5 mg tablet 5 mg PO BID PRN tablet 10/12/19 05/26/21 History lamotrigine 200 mg tablet 200 mg PO BID tablet 10/12/19 05/26/21 History memantine 28 mg capsule 28 mg PO DAILY 10/12/19 05/26/21 History sprinkle,extended release 24hr cariprazine [Vraylar] 6 mg PO DAILY 05/26/21 05/26/21 History diltiazem HCl 1 mg PO DAILY 05/26/21 05/26/21 History rosuvastatin 10 mg PO DAILY 05/26/21 05/26/21 History sertraline 50 mg PO DAILY 05/26/21 05/26/21 History Laboratory Tests 05/26/21 05/26/21 05/26/21 03:22 03:22 03:22 WBC 7.2 K/mm3 K/mm3 (4.5-10.0) RBC 3.95 M/mm3 L M/mm3 (4.2-5.4) Hgb 11.8 g/dL L g/dL (12.0-15.0) Hct 37.2 % % (37.0-47.0) MCV 94.2 fl fl (80-100) MCH 29.9 pg pg (26-34) MCHC 31.7 g/dl L g/dl (32-36) RDW 12.1 % % (11.5-14.5) Plt Count 154 k/mm3 k/mm3 (150-375) MPV 8.9 fl fl (7.4-10.4) Immature Gran % (Auto) 0.3 % % (0-0.5) Neut % (Auto) 75.3 % H % (45.5-73.1) Lymph % (Auto) 13.1 % L % (18.3-44.2) [place] % (Auto) 7.9 % % (2.6-8.5) Eos % (Auto) 2.6 % % (0-4.4) Baso % (Auto) 0.8 % % (0.2-1.2) Lymph # (Auto) 0.94 K/mm3 K/mm3 (0.9-3.2) [place] # (Auto) 0.6 K/mm3 K/mm3 (0.1-0.6) Eos # (Auto) 0.2 K/mm3 K/mm3 (0-0.3) Baso # (Auto) 0.1 K/mm3 K/mm3 (0.0-0.1) Abs Immat Gran (auto) 0.02 K/mm3 K/mm3 (0.00-0.031) Absolute Neuts (auto) 5.4 K/mm3 K/mm3 (1.3-6.7) Absolute Nucleated RBC 0.0 K/mm3 K/mm3 (0.0-0.012) Nucleated RBC % 0.0 % % (0.0-0.2) Sodium 142 mmol/L mmol/L (137-145) Potassium 3.2 mmol/L L mmol/L (3.4-5.0) Chloride 103 mmol/L mmol/L (98-107) Carbon Dioxide 31 mmol/L H mmol/L (22-30) Anion Gap 8 mmol/L mmol/L (8-16) BUN 22 mg/dL H mg/dL (7-17) Creatinine 1.20 mg/dL H mg/dL (0.7-1.0) Estim Creat Clear Calc 34 ml/min ml/min Estimated GFR 44 L (59 - ) Glucose 118 mg/dL H mg/dL (65-110) Lactic Acid 1.3 mmol/L mmol/L (0.7-2.1) Calcium 9.2 mg/dL mg/dL (8.4-10.2) Total Bilirubin 0.7 mg/dL mg/dL (0.2-1.3) AST 27 U/L U/L (14-36) ALT 16 U/L U/L (4-35) Alkaline Phosphatase 90 U/L U/L (38-126) Total Protein 7.0 g/dL g/dL (6.3-8.2) Albumin 4.1 g/dL g/dL (3.5-5.1) Lipase 74 U/L U/L (23-300) Urine Color Urine Appearance Urine pH Ur Specific [place] Urine Protein Urine Glucose (UA) Urine Ketones Ur Blood (Man) Urine Nitrate Urine Bilirubin Urine Urobilinogen Leukocyte Esterase Rfl Urine RBC Urine WBC Urine Bacteria Urine Mucus 05/26/21 04:58 WBC RBC Hgb Hct MCV MCH MCHC RDW Plt Count MPV Immature Gran % (Auto) Neut % (Auto) Lymph % (Auto) [place] % (Auto)
--- NOTE | 2021-05-26 10:23 | PM.IMHP ---
H&P: HPI History of Present Illness Date/Time: 05/26/21 10:23 This is a 70-year-old female. She is followed by my partner Dr. Brian Pires. She has history of a left renal mass for which she is undergoing observation. She also has a history of stone disease. She has required intervention in the past. She presented to the emergency room in the middle the night complaining of acute onset left flank pain. She denied any blood in the urine. She denied symptoms of urinary tract infection. She denied fevers or chills. She did say she felt sick to her stomach but denied nausea or vomiting. She was found have a very large left ureteral stone measuring nearly 2 cm. She has hydronephrosis proximal to that stone. She has several large stones in her left kidney. She also has a right UPJ stone without hydronephrosis. Chief Complaint: Left ureteral stone Review of Systems Review of Systems: All systems reviewed & are unremarkable except as noted in HPI and below PMFSH Past Medical History Medical History Anxiety Bipolar affective disorder Breast cancer 03/2012 Cardiomegaly Dyslipidemia Essential (primary) hypertension History of right breast cancer Hypertension Hypertrophic obstructive cardiomyopathy Meniere disease Parkinson disease Renal calculus Unspecified osteoarthritis, unspecified site Surgical History Surgical History H/O total hysterectomy with bilateral salpingo-oophorectomy (BSO) History of breast surgery 03/2012 History of partial mastectomy 2011 Hx of section Hx of total knee arthroplasty Family History Family History Father Family history of diabetes mellitus in first degree relative, Onset Age: 77 Mother Family history of malignant neoplasm of ovary, Onset Age: 62 Grandparent Diabetes mellitus, Onset Age: 80 Other Hypertension Social History Social History Smoking status: Never smoker Second hand tobacco smoke exposure: No Alcohol intake: never Substance use: never Substance use type: does not use Spiritual care concerns: No Meds Home Medications and Allergies Home Medications Medication Instructions Recorded Confirmed Type diazepam 5 mg tablet 5 mg PO BID PRN tablet 10/12/19 05/26/21 History lamotrigine 200 mg tablet 200 mg PO BID tablet 10/12/19 05/26/21 History memantine 28 mg capsule 28 mg PO DAILY 10/12/19 05/26/21 History sprinkle,extended release 24hr cariprazine [Vraylar] 6 mg PO DAILY 05/26/21 05/26/21 History diltiazem HCl 1 mg PO DAILY 05/26/21 05/26/21 History rosuvastatin 10 mg PO DAILY 05/26/21 05/26/21 History sertraline 50 mg PO DAILY 05/26/21 05/26/21 History Allergies Allergy/AdvReac Type Severity Reaction Status Date / Time codeine Allergy Intermediate Confusion Verified 05/26/21 03:53 Vital Signs Vital Signs - 24 hr 05/26/21 02:41 05/26/21 03:29 05/26/21 03:31 Temperature 97.2 F L Pulse Rate 66 Respiratory Rate 18 Blood Pressure 123/56 L 139/73 141/67 H Pulse Oximetry 96 90 05/26/21 03:47 05/26/21 04:02 05/26/21 04:16 Temperature Pulse Rate Respiratory Rate Blood Pressure Pulse Oximetry 100 100 99 05/26/21 04:30 05/26/21 05:00 05/26/21 05:01 Temperature Pulse Rate 64 Respiratory Rate 14 Blood Pressure 135/64 Pulse Oximetry 98 95 95 05/26/21 05:29 05/26/21 05:50 05/26/21 08:43 Temperature 98.1 F 98.8 F 98.4 F Pulse Rate 60 61 60 Respiratory Rate 17 17 16 Blood Pressure 135/64 123/45 L 134/53 L Pulse Oximetry 96 96 98 05/26/21 10:12 Temperature Pulse Rate Respiratory Rate Blood Pressure Pulse Oximetry 98 Exam Const: General: cooperative, healthy appearing, alert and awake; No acute distress Nutritional Appearance: average bod
--- NOTE | 2021-05-26 10:28 | WPDHPUPDATE1 ---
History and Physical Update Update Date/Time: 05/26/21 10:28 History and Physical has been reviewed, including an updated exam of the patient. There are NO changes in the patient's condition. Risks, benefits, and alternatives have been discussed and questions answered. Patient agrees to proceed with procedure.
[2021-05-26] MEDS: MORPHINE SULFATE (*CRX) 2 MG/ML INJ IV PUSH (12:37)
[2021-05-26] MEDS: LACTATED RINGERS 1,000 ML 30 ML IV CONT (13:45)
[2021-05-26] MEDS: ceFAZolin 2 GM/D5W 50 ML 2 GM/50 ML BAG IVPB (14:59)
[2021-05-26] MEDS: LIDOCAINE HCL 2% GEL UROJET 10 ML PKG MUCOUS MEM (15:30)
--- NOTE | 2021-05-26 15:41 | P.OP_ITS ---
Procedure Note - Detailed Date of Procedure 05/26/21 Pre-op Diagnosis Bilateral ureteral stone Post-op Diagnosis same Procedure Performed Cystoscopy, left retrograde pyelogram, left stent placement, right retrograde pyelogram, right stent placement Surgeon Davidson Ryder MD Anesthesia MAC Indications She has a 2 cm left mid distal ureteral stone and staghorn calculus in the left kidney. She also has a 1.6 cm right UPJ stone she presents for bilateral stents. Definitive stone management to follow Findings All stones visible on fluoroscopy Description of Procedure She was correctly identified. Informed consent obtained. She was from the operating room. She was given MAC anesthesia. She was placed in the dorsal lithotomy position. She was prepped in a sterile fashion. A time-out performed. Examination revealed lichen sclerosis. Her bladder is examined via cystoscopy. She had mild trabeculations. No other bladder abnormalities. 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 I did a gentle retrograde pyelogram. Some contrast was seen to get around ureteral stone. There was hydronephrosis proximal to the stone. With an angled Glidewire I was able to negotiate around the left ureteral stone. The guidewire went up to the kidney. I placed a 4.8 variable length stent. Proximal coil renal pelvis. Distal coil in the bladder. I then turned my to treat the right-sided stone. I did retrograde pyelogram on the right. There is no significant hydronephrosis. There is no filling defects in the ureter. A large UPJ stone was seen. I placed a guidewire into the kidney. I then placed a 4.8 variable length stent. Proximal coil in the kidney and renal pelvis. Distal coil in the bladder. The bladder was drained. Uro jet was applied. She was awakened and transferred to PACU in stable condition. Estimated Blood Loss 1 Urine Output 700 Drains No Packing No Pathology none sent Complications No immediate complications Condition stable Disposition PACU
[2021-05-26] MEDS: lamoTRIgine 100 MG TABLET 200 MG PO (21:00)
[2021-05-27] MEDS: SODIUM CHLORIDE 0.9% IV 1,000 ML 125 ML IV CONT (03:25)
[2021-05-27] MEDS: ONDANSETRON INJ 4 MG/2 ML VIAL IV PUSH (03:49)
[2021-05-27 05:23] VITALS: BP 130/61; PULSE 70; RESP 16; TEMP 36.8; O2SAT 92
[2021-05-27 08:00] VITALS: O2SAT 93
[2021-05-27] MEDS: lamoTRIgine 100 MG TABLET 200 MG PO (08:01)
[2021-05-27] MEDS: ROSUVASTATIN 10 MG TABLET PO (08:01)
[2021-05-27] MEDS: SERTRALINE HCL 50 MG TABLET PO (08:01)
[2021-05-27] MEDS: MEMANTINE HCL XR 28 MG CAP PO (08:01)
[2021-05-27 14:23] VITALS: BP 130/59; PULSE 73; RESP 18; TEMP 36.2; O2SAT 94
--- NOTE | 2021-06-06 16:59 | PM.DS ---
DS: Admitting Diagnosis Discharge Date 05/27/21 Admitting Diagnosis Bilateral ureteral stones DS: Discharge Diagnosis Discharge Diagnosis (1) Left ureteral calculus: Code(s): N20.1 - Calculus of ureter Status: Acute (2) Obstruction of right ureteropelvic junction (UPJ) due to stone: Code(s): N20.1 - Calculus of ureter Status: Acute DS: Summary Hospital Course Hospital Course: She underwent uncomplicated stent placement. She was discharged home the next day. Time Spent with Patient Time attestation: Total time spent providing and/or coordinating discharge services: 10 minutes Patient was admitted with bilateral ureteral stones. One side had hydronephrosis. The other side had a large renal pelvic stone without hydronephrosis. She underwent bilateral stent placement. She was discharged home the next morning for definitive stone management to follow Exam Const: General: cooperative HENMT: Head: normal to inspection Eyes: General: appearance normal, both eyes and all related structures Chest: Chest palpation & inspection: normal inspection of the chest Skin: General skin exam: normal color Discharge Plan Discharge Attending physician on discharge: Davidson Ryder Consulting providers: Jonathan Wright Discharging Clinician: Davidson Ryder Anticipated Discharge Date/Time: 05/26/21 15:39 Patient Disposition: Home, Self-Care Activity: may shower Diet: as tolerated Discharge Instructions: Light activity and no driving for 24 hours Patient Instructions: Antibiotic Form Stand Alone Forms: General Discharge Information Follow-up/Referrals: Davidson Ryder MD [Physician] - (f/u Dr Pires [phone]) Discharge Medications: New hydrocodone-acetaminophen 5-325 mg tablet 1 tablet PO Q6H PRN (Reason: pain) Qty: 30 RF: 0 Continued diazepam 5 mg tablet 5 mg PO BID PRN (Reason: Anxiety) RF: 0 memantine 28 mg capsule,sprinkle,ER 24hr 28 mg PO DAILY RF: 0 lamotrigine 200 mg tablet 200 mg PO BID RF: 0 sertraline 50 mg Tablet 50 mg PO DAILY RF: 0 Vraylar 6 mg Capsule 6 mg PO DAILY RF: 0 diltiazem HCl 240 mg capsule,extended release 24hr 1 mg PO DAILY RF: 0 rosuvastatin 10 mg tablet 10 mg PO DAILY RF: 0 Date of admission: 05/26/21 04:16 Primary Care Provider: Kelsie De Los Santos Admitting Provider: Davidson Ryder Attending physician on admission: Davidson Ryder Condition: Stable
== END 2021-05-27 14:40 | disposition home or self-care (01) ==
LOC: ANHED 04:14 → ANH2MED 05:25
PROVIDERS: Admitting Provider Urology; Emergency Provider Emergency Medicine; PCP Family Medicine; Visit Provider Urology
PROC: (CPT 52352; principal; 2021-05-26 15:30)
DX: N13.2 Hydronephrosis with renal and ureteral calculous obstruction (principal); I10 Essential (primary) hypertension; E78.5 Hyperlipidemia, unspecified; F31.9 Bipolar disorder, unspecified; F41.9 Anxiety disorder, unspecified; I42.1 Obstructive hypertrophic cardiomyopathy; G20 Parkinson's disease; M19.90 Unspecified osteoarthritis, unspecified site; H81.09 Meniere's disease, unspecified ear; Z85.3 Personal history of malignant neoplasm of breast; Z79.82 Long term (current) use of aspirin; E66.9 Obesity, unspecified; Z68.31 Body mass index [BMI] 31.0-31.9, adult
CPT/HCPCS: 52332; 36415; 51701; 74176; 74420; 80053; 81001; 83605; 83690; 85025; 96361; 96365; 96375; 96376; 99285; A9270; C1769; C2617; G0378; J0690; J2270; J2405; J2704; J3010; J7030; J7120; Q9966

== ENCOUNTER 2021-06-19 09:22 | Outpatient (CLI) | payer MEDICARE, OTHER, SELFPAY ==
--- NOTE | 2021-06-19 09:30 | ECG_ITS ---
Measurements Intervals [place] Rate: 61 P: -20 SD: 141 QRS: -33 QRSD: 111 T: -1 QT: 453 QTc: 458 Interpretive Statements SINUS RHYTHM INTRAVENTRICULAR CONDUCTION DELAY POOR R WAVE PROGRESSION, ANTERIOR LEADS INFERIOR INFARCT, AGE INDETERMINATE BASELINE ARTIFACT- I, II, III, AVR, AVL, AVF ABNORMAL ECG Electronically Signed On 06-19-2021 10:09:09 CDT by Shola Weiss D.O.
[2021-06-19 10:49] LABS: INR 0.9; Prothrombin Time 12.2 Seconds (11.1-14.7)
[2021-06-19 10:50] LABS: Partial Thromboplastin Time 28.6 SECONDS (22.3-36.8)
== END 2021-06-19 09:23 | disposition home or self-care (01) ==
LOC: ANHSURGERY 09:28
PROVIDERS: PCP Family Medicine; Visit Provider Urology
DX: N20.0 Calculus of kidney (principal); I10 Essential (primary) hypertension; Z01.818 Encounter for other preprocedural examination; I45.9 Conduction disorder, unspecified
CPT/HCPCS: 36415; 85610; 85730; 87086; 93005

== ENCOUNTER 2021-06-27 00:19 | Day surgery (SDC) | payer MEDICARE, OTHER, SELFPAY ==
[2021-06-16 13:25] VITALS: BMI 31.0
--- NOTE | 2021-06-23 08:57 | PM.HPGS ---
History of Present Illness History of Present Illness Consent: Risks, benefits, and alternatives have been discussed and questions answered. Patient agrees to proceed with procedure. Chief complaint: right renal stone Narrative: Karina Arroyo is a 70 year old female, With a complicated urological history involving no solid masses in her left kidney likely consistent with renal cell carcinoma. She has refused definitive intervention for those solid masses. She recently presented with a large obstructing left distal ureteral calculus and large right renal calculus. After lengthy discussions with the patient we have elected to manage her left side with a chronic indwelling stent (as he continues to refuse definitive intervention for the solid masses). We will schedule right ESWL. Review of Systems Cardiovascular: Cardiovascular: Denies chest pain, Denies lightheadedness, Denies palpitations and Denies dyspnea Respiratory: Respiratory: Denies dyspnea Gastrointestinal: Gastrointestinal: Denies diarrhea, Denies nausea and Denies vomiting Genitourinary: Genitourinary: Denies hematuria and Denies dysuria Endocrine: Endocrine: Denies palpitations PMFSH Past Medical History Medical History Anxiety Bipolar affective disorder Breast cancer 03/2012 Cardiomegaly Dyslipidemia Essential (primary) hypertension History of right breast cancer Hypertension Hypertrophic obstructive cardiomyopathy Meniere disease Parkinson disease Renal calculus Unspecified osteoarthritis, unspecified site Surgical History Surgical History H/O total hysterectomy with bilateral salpingo-oophorectomy (BSO) History of breast surgery 03/2012 History of partial mastectomy 2011 Hx of section Hx of total knee arthroplasty Family History Family History Father Family history of diabetes mellitus in first degree relative, Onset Age: 77 Mother Family history of malignant neoplasm of ovary, Onset Age: 62 Grandparent Diabetes mellitus, Onset Age: 80 Other Hypertension Social History Social History Smoking status: Never smoker Second hand tobacco smoke exposure: No Alcohol intake: never Substance use: never Substance use type: does not use Spiritual care concerns: No Meds Home Medications and Allergies Home Medications Medication Instructions Recorded Confirmed Type diazepam 5 mg tablet 5 mg PO BID PRN tablet 10/12/19 06/16/21 History lamotrigine 200 mg tablet 200 mg PO BID tablet 10/12/19 06/16/21 History memantine 28 mg capsule 28 mg PO DAILY 10/12/19 06/16/21 History sprinkle,extended release 24hr Vraylar 6 mg PO DAILY 05/26/21 06/16/21 History diltiazem HCl 1 mg PO DAILY 05/26/21 06/16/21 History hydrocodone-acetaminophen 1 tablet PO Q6H PRN #30 tablet 05/26/21 06/16/21 Rx rosuvastatin 10 mg PO DAILY 05/26/21 06/16/21 History sertraline 50 mg PO DAILY 05/26/21 06/16/21 History acetaminophen [Tylenol Arthritis] 650 mg PO Q8H PRN 06/16/21 06/16/21 History carbidopa-levodopa 1 tablet PO QID 06/16/21 06/16/21 History Allergies Allergy/AdvReac Type Severity Reaction Status Date / Time codeine Allergy Intermediate Confusion Verified 06/16/21 12:55 Exam Const: General: no acute distress Resp: Effort & Inspection: normal respiratory effort GI: Inspection: non-distended GI Palp: No abdominal tenderness and No Guarding due to palpation present (GI) Auscultation: normal bowel sounds Assessment and Plan Assessment and plan (1) Left renal mass: Code(s): N28.89 - Other specified disorders of kidney and ureter Status: Acute (2) Obstruction of right ureteropelvic junction (UPJ) due to stone: Code(s): N20.1 - Calculus of ureter Status: Acute (3) L
[2021-06-27] VITALS (7 sets, daily range): BP systolic 137–164; BP diastolic 63–77; PULSE 57–69; RESP 9–18; TEMP 36.3–36.8; O2SAT 94–100
--- NOTE | ~2021-06-27 | XR_ITS ---
XR abdomen/kub 1V DATE: 06/27/2021 08:49 INDICATION: Preoperative examination prior to lithotripsy TECHNIQUE: AP projection COMPARISON: 05/26/2021 right retrograde pyelogram 05/26/[address] abdomen pelvis FINDINGS: Bilateral internal urinary stents are present in expected position. Proxy 1 x 2.1 cm calcified calculus is noted in the distal left ureter. There is extensive staghorn c alculus formation of the left kidney. There is an approximately 1.5 x 1.9 cm calcified calculus of th e right renal pelvis. There is a moderate amount of fecal material in the colon but no apparent bowel obstruction. No visce romegaly is evident. IMPRESSION: Bilateral internal urinary stents Bilateral nephrolithiasis including prominent staghorn calculi of left kidney and 1 x 2 cm distal lef t ureteral calcified calculus Reviewed, dictated and finalized at [facility]. Reviewed, dictated and finalized at location [facility]. IMPRESSION: Bilateral internal urinary stents Bilateral nephrolithiasis including prominent staghorn calculi of left kidney a nd 1 x 2 cm distal left ureteral calcified calculus
--- NOTE | 2021-06-27 06:53 | WPDHPUPDATE1 ---
History and Physical Update Update Date/Time: 06/27/21 06:53 History and Physical has been reviewed, including an updated exam of the patient. There are NO changes in the patient's condition. Risks, benefits, and alternatives have been discussed and questions answered. Patient agrees to proceed with procedure.
--- NOTE | 2021-06-27 09:16 | WPDANESEPPF ---
Anes - Initial Pre Proc Eval Procedure: Operation Date: 06/27/21 10:30 Proposed Procedures p Right Renal Extracorporeal Shock Wave Lithotripsy - Brian Pires MD Date/Time: 06/27/21 09:16 Surgeon: Brian Pires MD Pre Op Diagnosis: right renal stone Patient Data Age: 70 Gender: F Height: 1.52 m Weight: 68.1 kg Last Vital Signs Temp 36.8 C 06/27/21 09:03 Pulse 62 06/27/21 09:03 Resp 16 06/27/21 09:03 BP 137/63 06/27/21 09:03 Pulse Ox 100 06/27/21 09:03 Allergies Allergy/AdvReac Type Severity Reaction Status Date / Time codeine Allergy Intermediate Confusion Verified 06/27/21 08:55 Home Medications Medication Instructions Recorded Confirmed Type diazepam 5 mg tablet 5 mg PO BID PRN tablet 10/12/19 06/27/21 History lamotrigine 200 mg tablet 200 mg PO BID tablet 10/12/19 06/27/21 History memantine 28 mg capsule 28 mg PO DAILY 10/12/19 06/27/21 History sprinkle,extended release 24hr Vraylar 6 mg PO DAILY 05/26/21 06/27/21 History diltiazem HCl 1 mg PO DAILY 05/26/21 06/27/21 History hydrocodone-acetaminophen 1 tablet PO Q6H PRN #30 tablet 05/26/21 06/16/21 Rx rosuvastatin 10 mg PO DAILY 05/26/21 06/27/21 History sertraline 50 mg PO DAILY 05/26/21 06/27/21 History acetaminophen [Tylenol Arthritis] 650 mg PO Q8H PRN 06/16/21 06/27/21 History carbidopa-levodopa 1 tablet PO QID 06/16/21 06/27/21 History Patient hx anesthesia problems: none Family hx anesthesia problems: none Results Review: All pre-operative results and documents have been reviewed as part of the pre-operative evaluation. [facility] Past Medical History Medical History Anxiety Bipolar affective disorder Breast cancer 03/2012 Cardiomegaly Dyslipidemia Essential (primary) hypertension History of right breast cancer Hypertension Hypertrophic obstructive cardiomyopathy Meniere disease Parkinson disease Renal calculus Unspecified osteoarthritis, unspecified site Surgical History Surgical History H/O total hysterectomy with bilateral salpingo-oophorectomy (BSO) History of breast surgery 03/2012 History of partial mastectomy 2011 Hx of section Hx of total knee arthroplasty Family History Family History Father Family history of diabetes mellitus in first degree relative, Onset Age: 77 Mother Family history of malignant neoplasm of ovary, Onset Age: 62 Grandparent Diabetes mellitus, Onset Age: 80 Other Hypertension Social History Social History Smoking status: Never smoker Second hand tobacco smoke exposure: No Alcohol intake: never Substance use: never Substance use type: does not use Living arrangements: with family Spiritual care concerns: No Anes - Eval Final PreProcedure Day of Procedure 06/27/21 09:16 Patient weight: overweight Heart: regular rate and rhythm Lungs: clear to auscultation Airway: Mallampati scale class II Neurological: other (alert) Last oral intake: >/= 8 hours ASA classification: III Emergent: no Anesthetic plan: proceed Anesthesia type and monitoring: general LMA and standard monitoring Results Review: All pre-operative results and documents have been reviewed as part of the pre-operative evaluation. Informed Consent: The patient's anesthetic plan and its attendant risks and benefits were discussed with the patient/family/POA. Questions were solicited and answers provided to the satisfaction of the patient/family/POA.
[2021-06-27] MEDS: LACTATED RINGERS 1,000 ML 30 ML IV CONT (09:17)
[2021-06-27] MEDS: ceFAZolin 2 GM/D5W 50 ML 2 GM/50 ML BAG IVPB (09:32)
--- NOTE | 2021-06-27 09:43 | W.PM.PROC2 ---
Procedure Note - Detailed Date of Procedure 06/27/21 Pre-op Diagnosis Right renal stone Post-op Diagnosis same Procedure Performed Right ESWL Surgeon Brian Pires MD Anesthesia general Description of Procedure The patient was brought to the operative suite where she was placed in the supine position on the Dornier lithotripsy table. The focal point of the lithotripter was placed at a 08x36mi right renal pelvic calculus. A total of 2500 shocks were delivered at a power setting of 4. There appeared to be good fragmentation of the stone. The patient tolerated the procedure well and was taken to the recovery room in good condition. Estimated Blood Loss 0 Drains No Packing No Pathology none sent Complications No immediate complications Condition stable Disposition PACU
== END 2021-06-27 11:47 | disposition home or self-care (01) ==
PROVIDERS: PCP Family Medicine; Visit Provider Urology
PROC: (CPT 50590; principal; 2021-06-27 10:30)
DX: N20.0 Calculus of kidney (principal); F31.9 Bipolar disorder, unspecified; N28.89 Other specified disorders of kidney and ureter; I51.7 Cardiomegaly; I10 Essential (primary) hypertension; I42.9 Cardiomyopathy, unspecified; G20 Parkinson's disease; M19.90 Unspecified osteoarthritis, unspecified site
CPT/HCPCS: 50590; 74018; J0690; J1100; J2405; J2704; J3010; J7120

== ENCOUNTER 2021-07-04 13:13 | Outpatient (CLI) | payer MEDICARE, OTHER, SELFPAY ==
--- NOTE | ~2021-07-04 | XR_ITS ---
XR abdomen/kub 1V 07/04/2021 13:45 Indication: Renal stone Procedure: KUB Comparison: 06/27/2021 Findings: Stable position to bilateral ureteral stents. Large stone in the right renal pelvis on prio r examination not visualized on the current current study, likely resolved from previous lithotripsy. There are large left renal stones including a distal ureteral stone adjacent to the stent. The urete ral stone measures approximately 2.3 x 1.0 cm. Gas pattern nonobstructive. There are proximal right u reteral stones near the expected location of the UPJ. Lung bases are unremarkable. Moderate colonic f ecal loading. Impression: 1: Bilateral ureteral and left renal stones. Bilateral internal ureteral stents in expected position. Reviewed, dictated and finalized at location [facility]. Impression: 1: Bilateral ureteral and left renal stones. Bilateral internal ureteral stents in expected position.
== END 2021-07-04 13:14 | disposition home or self-care (01) ==
PROVIDERS: PCP Family Medicine; Visit Provider Urology
DX: N20.2 Calculus of kidney with calculus of ureter (principal)
CPT/HCPCS: 74018

== ENCOUNTER 2021-07-24 12:37 | Outpatient (CLI) | payer MEDICARE, OTHER, SELFPAY ==
--- NOTE | ~2021-07-24 | XR_ITS ---
EXAMINATION: XR abdomen/kub 1V EXAM DATE: 07/24/2021 12:56 INDICATION: Left ureteral stone. TECHNIQUE: Frontal projection(s) of the abdomen for interpretation. Comparison is made to prior exami nation from 07/04/2021. FINDINGS: There are bilateral double-J ureteral stents in position. There is large left mid to dista l ureteral stone. There may be several small right ureteral stones. Right-sided stone fragments in th e calyces. Large left nephrolithiasis. Nonobstructive bowel gas pattern. There are bony degenerative changes. IMPRESSION: Bilateral kidney and ureteral stones. Stents in position. Reviewed, dictated and finalized at location A. PING MACHINE OPERATOR
== END 2021-07-24 12:38 | disposition home or self-care (01) ==
PROVIDERS: PCP Family Medicine; Visit Provider Urology
DX: N20.2 Calculus of kidney with calculus of ureter (principal)
CPT/HCPCS: 74018

== ENCOUNTER 2021-08-06 09:50 | Outpatient (CLI) | payer MEDICARE, OTHER, SELFPAY ==
[2021-08-06 11:05] LABS: INR 0.9; Prothrombin Time 12.1 Seconds (11.1-14.7)
[2021-08-06 11:06] LABS: Partial Thromboplastin Time 28.7 SECONDS (22.3-36.8)
== END 2021-08-06 09:51 | disposition home or self-care (01) ==
LOC: ANHSURGERY 09:55
PROVIDERS: PCP Family Medicine; Visit Provider Urology
DX: N20.0 Calculus of kidney (principal); Z01.818 Encounter for other preprocedural examination
CPT/HCPCS: 36415; 85610; 85730; 87086

== ENCOUNTER 2021-08-15 00:48 | Day surgery (SDC) | payer MEDICARE, OTHER, SELFPAY ==
[2021-07-31 13:40] VITALS: BMI 29.3
--- NOTE | 2021-07-31 13:52 | PC.NURSE ---
Report to the Outpatient Waiting Room, entrance under the green pavilion located off [facility], at time _0600_ on date _08/15/21_. OR Time: _0730__. - You and your visitor will be asked a series of questions to screen for COVID 19 for your protection. - A mask is required within the hospital. - Only one visitor is allowed at this time. Patient visitors will be guided where to wait when not with patient. Preoperative COVID Testing Requirements: No COVID Test needed if: (proof is required; if not received patient will have Rapid Test prior to entry) - Patient has received COVID Vaccine at least 14 days prior to procedure date or - Patient has positive COVID test result within last 90 days of surgery date. COVID Test needed if above criteria is not met If not COVID vaccinated a COVID test must be conducted within 72 hours of surgery and patient is asked to isolate self from time of testing until procedure. You will go to the [employer] for your COVID testing. The [employer] [facility] site is located at the corner of [address] [facility]. You will only be called if COVID results are positive and your surgeon may reschedule your elective surgery date. Patients may have clear liquids (water, carbonated beverages, clear teas, apple juice) until 3 hours prior to surgery with a maximum of 20 ounces. - No food from midnight until time of surgery - Infants may have breast milk until 4 hours before surgery, formula 6 hours prior to surgery. - Children will be allowed to drink immediately following surgery. If applicable, please bring a bottle or sippy cup to assist with drinking. Juice, water, soda, and popsicles are readily available. For infants on formula, please bring formula the day of surgery. Pacifiers are allowed. Take the following medications with a SIP of water the morning of surgery: _CARBIDOPA-LEVODOPA, DILTIAZEM, LAMOTRIGINE, MEMANTINE, SERTRALINE, VRAYLAR & DIAZEPAM IF NEEDED____ Medications to discontinue per physician NONE Date to take last dose Please no make-up, nail irish, hairspray, perfume, deodorant, or body powder the day of surgery. No jewelry (including any body piercings) or valuables the day of surgery, leave them at home. Please take a shower or bath the night before, or the morning of, surgery with an antibacterial soap. Wear comfortable, loose fitting clothing. Children are encouraged to wear pajamas. - Jewelry must be removed prior to entering the operating room. Rings and piercings that are not removed may be cut off. - The hospital will not accept responsibility for valuables. - Please leave all valuables, including medications, at home the day of surgery. If you are going home after surgery, a licensed boom truck driver must drive you home. - NO public transportation without another adult. - We recommend that an adult stay with you for 24 hours following discharge. - We also recommend that you do not drive, make important decision, drink alcoholic beverages, or take any drugs that were not prescribed by your health care provider for at least 24 hours after your discharge time. For Pediatric surgeries, we recommend two adults accompany the child home (only one inside the building at this time). Follow any additional instructions given to you from your surgeon. Telephone instructions given to __PT'S SPOUSE____and asked if any additional questions and then verbalized understanding. Patient advised to call surgeon office or pre surgery nurse liaison [phone] if any additional questions.
--- NOTE | 2021-08-04 12:47 | PM.HPGS ---
History of Present Illness History of Present Illness Consent: Risks, benefits, and alternatives have been discussed and questions answered. Patient agrees to proceed with procedure. Chief complaint: Ton Kidney Stones Narrative: Karina Arroyo is a 70 year old female with a known solid mass in her left kidney likely consistent with renal cell carcinoma. She the recently presented with bilateral ureteral obstruction secondary to ureteral calculi. She has undergone right ESWL on 1 occasion and still has to residual sizable fragments, requiring a 2nd ESWL. She has large stones in her left kidney which we will manage with a chronic indwelling catheter, given her decision not to proceed with left nephrectomy. Review of Systems Cardiovascular: Cardiovascular: Denies chest pain, Denies lightheadedness, Denies palpitations and Denies dyspnea Respiratory: Respiratory: Denies dyspnea Gastrointestinal: Gastrointestinal: Denies diarrhea, Denies nausea and Denies vomiting Genitourinary: Genitourinary: Denies hematuria and Denies dysuria Endocrine: Endocrine: Denies palpitations PMFSH Past Medical History Medical History Anxiety Bipolar affective disorder Breast cancer 03/2012 Cardiomegaly Dyslipidemia Essential (primary) hypertension History of right breast cancer Hypertension Hypertrophic obstructive cardiomyopathy Meniere disease Parkinson disease Renal calculus Unspecified osteoarthritis, unspecified site Surgical History Surgical History H/O total hysterectomy with bilateral salpingo-oophorectomy (BSO) History of breast surgery 03/2012 History of partial mastectomy 2011 Hx of section Hx of total knee arthroplasty Family History Family History Father Family history of diabetes mellitus in first degree relative, Onset Age: 77 Mother Family history of malignant neoplasm of ovary, Onset Age: 62 Grandparent Diabetes mellitus, Onset Age: 80 Other Hypertension Social History Social History Smoking status: Never smoker Second hand tobacco smoke exposure: No Alcohol intake: never Substance use: never Substance use type: does not use Spiritual care concerns: No Meds Home Medications and Allergies Home Medications Medication Instructions Recorded Confirmed Type diazepam 5 mg tablet 5 mg PO BID PRN tablet 10/12/19 07/31/21 History lamotrigine 200 mg tablet 200 mg PO BID tablet 10/12/19 07/31/21 History memantine 28 mg capsule 28 mg PO DAILY 10/12/19 07/31/21 History sprinkle,extended release 24hr Vraylar 6 mg PO DAILY 05/26/21 07/31/21 History sertraline 50 mg PO DAILY 05/26/21 07/31/21 History acetaminophen 650 mg PO Q8H PRN 06/16/21 07/31/21 History carbidopa-levodopa 1 tablet PO QID 06/16/21 07/31/21 History diltiazem HCl 240 mg 240 mg PO DAILY #90 cap 07/29/21 07/31/21 Rx capsule,extended release 24 hr rosuvastatin 10 mg tablet 10 mg PO DAILY #90 tablet 07/29/21 07/31/21 Rx Allergies Allergy/AdvReac Type Severity Reaction Status Date / Time codeine Allergy Intermediate Confusion Verified 07/31/21 13:40 Exam Const: General: no acute distress Resp: Effort & Inspection: normal respiratory effort GI: Inspection: non-distended GI Palp: No abdominal tenderness and No Guarding due to palpation present (GI) Auscultation: normal bowel sounds Assessment and Plan Assessment and plan (1) Bilateral renal stones: Code(s): N20.0 - Calculus of kidney Status: Acute Assessment and Plan: Right ESWL
--- NOTE | 2021-08-14 12:47 | WPDANESEPPF ---
Anes - Initial Pre Proc Eval Procedure: Operation Date: 08/15/21 07:30 Proposed Procedures p Right Extracorporeal Shock Wave Lithotripsy - Brian Pires MD Date/Time: 08/14/21 12:47 Surgeon: Brian Pires MD Pre Op Diagnosis: Ton Kidney Stones Patient Data Age: 70 Gender: F Height: 1.52 m Weight: 68.1 kg Allergies Allergy/AdvReac Type Severity Reaction Status Date / Time codeine Allergy Intermediate Confusion Verified 07/31/21 13:40 Home Medications Medication Instructions Recorded Confirmed Type diazepam 5 mg tablet 5 mg PO BID PRN tablet 10/12/19 08/15/21 History lamotrigine 200 mg tablet 200 mg PO BID tablet 10/12/19 08/15/21 History memantine 28 mg capsule 28 mg PO DAILY 10/12/19 08/15/21 History sprinkle,extended release 24hr Vraylar 6 mg PO DAILY 05/26/21 08/15/21 History sertraline 50 mg PO DAILY 05/26/21 08/15/21 History acetaminophen 650 mg PO Q8H PRN 06/16/21 08/15/21 History carbidopa-levodopa 1 tablet PO QID 06/16/21 08/15/21 History diltiazem HCl 240 mg 240 mg PO DAILY #90 cap 07/29/21 08/15/21 Rx capsule,extended release 24 hr rosuvastatin 10 mg tablet 10 mg PO DAILY #90 tablet 07/29/21 08/15/21 Rx Patient hx anesthesia problems: none Family hx anesthesia problems: none Results Review: All pre-operative results and documents have been reviewed as part of the pre-operative evaluation. [facility] Past Medical History Medical History (Updated 08/14/21 @ 12:48 by Olayinka Cheney DO) Anxiety Bipolar affective disorder Breast cancer 03/2012 Cardiomegaly Dyslipidemia Essential (primary) hypertension History of right breast cancer Hyperlipidemia Hypertension Hypertrophic obstructive cardiomyopathy Meniere disease PAM (obstructive sleep apnea) non compliant with CPAP Parkinson disease Renal calculus TIA (transient ischemic attack) Unspecified osteoarthritis, unspecified site Surgical History Surgical History H/O total hysterectomy with bilateral salpingo-oophorectomy (BSO) History of breast surgery 03/2012 History of partial mastectomy 2011 Hx of section Hx of total knee arthroplasty Family History Family History Father Family history of diabetes mellitus in first degree relative, Onset Age: 77 Mother Family history of malignant neoplasm of ovary, Onset Age: 62 Grandparent Diabetes mellitus, Onset Age: 80 Other Hypertension Social History Social History Smoking status: Never smoker Second hand tobacco smoke exposure: No Alcohol intake: never Substance use: never Substance use type: does not use Living arrangements: with family Spiritual care concerns: No Anes - Eval Final PreProcedure Day of Procedure 08/14/21 12:47 Patient weight: overweight Heart: regular rate and rhythm Lungs: clear to auscultation and normal air movement Airway: Mallampati scale class II Neurological: alert and oriented Last oral intake: >/= 8 hours ASA classification: III Emergent: no Anesthetic plan: proceed Anesthesia type and monitoring: general LMA and standard monitoring Results Review: All pre-operative results and documents have been reviewed as part of the pre-operative evaluation. Informed Consent: The patient's anesthetic plan and its attendant risks and benefits were discussed with the patient/family/POA. Questions were solicited and answers provided to the satisfaction of the patient/family/POA.
[2021-08-15] VITALS (7 sets, daily range): BP systolic 110–143; BP diastolic 63–79; PULSE 61–85; RESP 12–16; TEMP 36.8–36.9; O2SAT 92–100
--- NOTE | ~2021-08-15 | XR_ITS ---
EXAMINATION: XR abdomen/kub 1V DATE: 08/15/2021 06:14 INDICATION: Nephrolithiasis for shockwave lithotripsy. TECHNIQUE: A supine view of the abdomen was obtained. COMPARISON: 07/24/2021 FINDINGS: No interval change in bilateral internal ureteral stents which are in expected position with loops fo rmed over the bladder and expected location of the bilateral renal pelvises. Bilateral nephrolithiasi s this includes 5 left renal stones measuring between 1.5 and 2.8 cm, 5 irregular stone/stone fragmen ts in the right kidney measuring between 6-9 mm and 1.4 cm and 1.5 cm stones in the distal left urete r. There are multiple additional phleboliths in the pelvis. Normal bowel gas pattern. Severe lower kolby mbar spondylosis. IMPRESSION: 1. Bilateral nephrolithiasis and left ureteral stones. 2. Unchanged bilateral internal ureteral stents in expected locations. Reviewed, dictated and finalized at location A. WIRE CHIEF
[2021-08-15] MEDS: LACTATED RINGERS 1,000 ML 30 ML IV CONT (06:51)
--- NOTE | 2021-08-15 06:56 | WPDHPUPDATE1 ---
History and Physical Update Update Date/Time: 08/15/21 06:56 History and Physical has been reviewed, including an updated exam of the patient. There are NO changes in the patient's condition. Risks, benefits, and alternatives have been discussed and questions answered. Patient agrees to proceed with procedure.
[2021-08-15] MEDS: ceFAZolin 2 GM/D5W 50 ML 2 GM/50 ML BAG IVPB (07:22)
--- NOTE | 2021-08-15 07:55 | W.PM.PROC2 ---
Procedure Note - Detailed Date of Procedure 08/15/21 Pre-op Diagnosis Ton Kidney Stones Post-op Diagnosis same Procedure Performed Right renal ESWL Surgeon Brian Pires MD Anesthesia general Description of Procedure The patient was brought to the operative suite where she was placed in the supine position on the Dornier lithotripsy table. The focal point of the lithotripter was placed at several/all residual stone fragments in her right kidney. A total of 2500 shocks were delivered at a power setting of 3. There appeared to be good fragmentation of the stone. The patient tolerated the procedure well and was taken to the recovery room in good condition. Estimated Blood Loss 0 Drains No Packing No Pathology none sent Complications No immediate complications Condition stable Disposition PACU
== END 2021-08-15 09:45 | disposition home or self-care (01) ==
PROVIDERS: PCP Family Medicine; Visit Provider Urology
PROC: (CPT 50590; principal; 2021-08-15 07:30)
DX: N20.0 Calculus of kidney (principal); I10 Essential (primary) hypertension; E78.5 Hyperlipidemia, unspecified; I42.1 Obstructive hypertrophic cardiomyopathy; G47.33 Obstructive sleep apnea (adult) (pediatric); F31.9 Bipolar disorder, unspecified; F41.9 Anxiety disorder, unspecified; G20 Parkinson's disease; M19.90 Unspecified osteoarthritis, unspecified site; Z86.73 Personal history of transient ischemic attack (TIA), and cerebral infarction without residual deficits; Z85.3 Personal history of malignant neoplasm of breast
CPT/HCPCS: 50590; 74018; J0690; J2405; J2704; J3010; J7120

== ENCOUNTER 2021-09-08 10:15 | Outpatient (CLI) | payer MEDICARE, OTHER, SELFPAY ==
--- NOTE | ~2021-09-08 | XR_ITS ---
EXAMINATION: XR abdomen/kub 1V INDICATION: Calculus of kidney TECHNIQUE: Supine views of the abdomen were obtained on 2 radiographs. COMPARISON: 08/15/2021 FINDINGS: There are bilateral internal ureteral stents in expected position. Small stone fragments ar e identified along the proximal right ureteral stent at the level of the L3 and L4 transverse process es as well as over the distal aspect of the stent projecting over the sacrum. There is a 1.5 cm stone or cluster of stones projecting in the right kidney lower pole. Stones previously identified in the right renal pelvis are no longer evident. There are multiple large stones of the left kidney which me asure up to 2.6 cm. Cyst domes previously seen in the lateral aspect of the mid kidney and lower pole appear decreased in density, possibly due to treatment change. There are stones adjacent to the dist al aspect of the left internal ureteral stent with slight change in configuration, possibly due to in terval lithotripsy. Phleboliths are noted in the pelvis. The bowel gas pattern is normal. IMPRESSION: 1. Bilateral nephrolithiasis with stones adjacent to the bilateral internal ureteral stents. Reviewed, dictated and finalized at location F. RAL LIMOUSINE DRIVER IMPRESSION: 1. Bilateral nephrolithiasis with stones adjacent to the bilateral internal ure teral stents.
== END 2021-09-08 10:16 | disposition home or self-care (01) ==
PROVIDERS: PCP Family Medicine; Visit Provider Urology
DX: N20.2 Calculus of kidney with calculus of ureter (principal)
CPT/HCPCS: 74018

== ENCOUNTER 2021-09-24 10:06 | Outpatient (CLI) | payer MEDICARE, OTHER, SELFPAY ==
--- NOTE | ~2021-09-24 | XR_ITS ---
EXAMINATION: XR abdomen/kub 1V DATE: 09/24/2021 10:33 INDICATION: Bilateral kidney stones. TECHNIQUE: A supine view of the abdomen on 2 radiographs was obtained. COMPARISON: Abdomen radiographs 09/08/2021, CT abdomen and pelvis 05/26/2021 FINDINGS: There are bilateral internal ureteral stents in expected positions. There are at least 3 st ones in right kidney measuring up to 7 mm. There are multiple stones in left kidney measuring up to 2 .4 cm. There are multiple stones in left ureter including a cluster of stones in distal left ureter o f uncertain largest size. There are phleboliths in the pelvis. There are no dilated loops of bowel. S urgical clips in the right upper quadrant are likely from cholecystectomy. IMPRESSION: 1. Stones in the kidneys and left ureter with bilateral internal ureteral stents in expected position s. Reviewed, dictated and finalized at location B. IED EXERCISE PHYSIOLOGIST IMPRESSION: 1. Stones in the kidneys and left ureter with bilateral internal ureteral stent s in expected positions.
== END 2021-09-24 10:07 | disposition home or self-care (01) ==
LOC: ANHIMG 10:12
PROVIDERS: PCP Family Medicine; Visit Provider Urology
DX: N20.2 Calculus of kidney with calculus of ureter (principal)
CPT/HCPCS: 74018

== ENCOUNTER 2021-12-09 12:39 | Outpatient (CLI) | payer MEDICARE, OTHER, SELFPAY | END 2021-12-09 12:40 | disposition home or self-care (01) | LOC: ANHAUDIO 12:41 | PROVIDERS: PCP Family Medicine; Visit Provider Nurse Practitioner Family | DX: H91.90 Unspecified hearing loss, unspecified ear (principal) | CPT/HCPCS: 92557; 92567 ==

== ENCOUNTER 2022-01-08 01:14 | Day surgery (SDC) | payer MEDICARE, OTHER, SELFPAY ==
--- NOTE | 2021-12-29 10:26 | PC.NURSE ---
Report to the Outpatient Waiting Room, entrance under the green pavilion located off [facility], at time 0900 on date 01/08/22 . OR Time: 1100___. - You and your visitor will be asked a series of questions to screen for COVID 19 for your protection. - A mask is required within the hospital. Preoperative COVID Testing Requirements: No COVID Test needed if: (proof is required; if not received patient will have Rapid Test prior to entry) - Patient has received COVID Vaccine at least 14 days prior to procedure date or - Patient has positive COVID test result within last 90 days of surgery date. COVID Test needed if above criteria is not met If not COVID vaccinated a COVID test must be conducted within 72 hours of surgery and patient is asked to isolate self from time of testing until procedure. You will go to the [facility] for your COVID testing. The [facility] is located at the corner of [address] [facility]. You will only be called if COVID results are positive and your surgeon may reschedule your elective surgery date. Patients may have clear liquids (water, carbonated beverages, clear teas, apple juice) until 3 hours prior to surgery with a maximum of 20 ounces. - No food from midnight until time of surgery - Infants may have breast milk until 4 hours before surgery, formula 6 hours prior to surgery. - Children will be allowed to drink immediately following surgery. If applicable, please bring a bottle or sippy cup to assist with drinking. Juice, water, soda, and popsicles are readily available. For infants on formula, please bring formula the day of surgery. Pacifiers are allowed. Take the following medications with a SIP of water the morning of surgery: _CARBIDOPA-LEVODOPA,DILTIAZEM,DIAZEPAM,,LAMOTRIGINE,,MEMANTINE,__SERTRALINE AND VRAYLAR Medications to discontinue per physician ALL VITAMINS 3 DAYS PRE OP Date to take last dose___01/04/22 Please no make-up, nail czech, hairspray, perfume, deodorant, or body powder the day of surgery. No jewelry (including any body piercings) or valuables the day of surgery, leave them at home. Please take a shower or bath the night before, or the morning of, surgery with an antibacterial soap. Wear comfortable, loose fitting clothing. Children are encouraged to wear pajamas. - Jewelry must be removed prior to entering the operating room. Rings and piercings that are not removed may be cut off. - The hospital will not accept responsibility for valuables. - Please leave all valuables, including medications, at home the day of surgery. If you are going home after surgery, a licensed motor driver must drive you home. - NO public transportation without another adult. - We recommend that an adult stay with you for 24 hours following discharge. - We also recommend that you do not drive, make important decision, drink alcoholic beverages, or take any drugs that were not prescribed by your health care provider for at least 24 hours after your discharge time. For Pediatric surgeries, we recommend two adults accompany the child home (only one inside the building at this time). One visitor will be allowed to accompany the patient into the hospital. Patients visitor will be instructed to remain with patient at all times or leave the building. We will allow the visitor to come back to the postoperative area when patient is ready. Follow any additional instructions given to you from your surgeon. Telephone instructions given to __PT'S ENRIQUE and asked if any additional questions and then verbalized understanding. Patient advised to call surgeon office or pre surgery nurse liaison [phone] if any additional questions.
[2021-12-29 10:33] VITALS: BMI 25.4
--- NOTE | 2021-12-30 08:34 | PM.HPGS ---
History of Present Illness History of Present Illness Consent: Risks, benefits, and alternatives have been discussed and questions answered. Patient agrees to proceed with procedure. Chief complaint: Bilateral Kidney Stones Narrative: Karina Arroyo is a 71 year old female with a known solid mass in her left kidney likely consistent with renal cell carcinoma. She the recently presented with bilateral ureteral obstruction secondary to ureteral calculi. She has undergone right ESWL on 1 occasion and still has to residual sizable fragments, requiring a 2nd ESWL. She has large stones in her left kidney which we will manage with a chronic indwelling stent, given her decision not to proceed with left nephrectomy. Review of Systems Cardiovascular: Cardiovascular: Denies chest pain, Denies lightheadedness, Denies palpitations and Denies dyspnea Respiratory: Respiratory: Denies dyspnea Gastrointestinal: Gastrointestinal: Denies diarrhea, Denies nausea and Denies vomiting Genitourinary: Genitourinary: Denies hematuria and Denies dysuria Endocrine: Endocrine: Denies palpitations PMFSH Past Medical History Medical History Anxiety Bipolar affective disorder Breast cancer 03/2012 Cardiomegaly Dementia Dyslipidemia Essential (primary) hypertension History of right breast cancer Hyperlipidemia Hypertrophic obstructive cardiomyopathy Meniere disease PAM (obstructive sleep apnea) non compliant with CPAP Parkinson disease Renal calculus TIA (transient ischemic attack) Unspecified osteoarthritis, unspecified site Surgical History Surgical History H/O total hysterectomy with bilateral salpingo-oophorectomy (BSO) (Unknown) History of breast surgery 03/2012 History of partial mastectomy 2011 Hx of section (Unknown) Hx of total knee arthroplasty (Unknown) Family History Family History Father Family history of diabetes mellitus in first degree relative, Onset Age: 77 Mother Family history of malignant neoplasm of ovary, Onset Age: 62 Grandparent Diabetes mellitus, Onset Age: 80 Other Hypertension Social History Social History Smoking status: Never smoker Second hand tobacco smoke exposure: No Alcohol intake: never Substance use: never Substance use type: does not use Living arrangements: with family Spiritual care concerns: No Meds Home Medications and Allergies Home Medications Medication Instructions Recorded Confirmed Type diazepam 5 mg tablet 5 mg PO BID PRN tablet 10/12/19 12/29/21 History lamotrigine 200 mg tablet 200 mg PO BID tablet 10/12/19 12/29/21 History memantine 28 mg capsule 28 mg PO DAILY 10/12/19 12/29/21 History sprinkle,extended release 24hr Vraylar 6 mg PO DAILY 05/26/21 12/29/21 History sertraline 150 mg PO DAILY 05/26/21 12/29/21 History acetaminophen 650 mg PO Q8H PRN 06/16/21 12/29/21 History carbidopa-levodopa 1 tablet PO QID 06/16/21 12/29/21 History rosuvastatin 10 mg tablet 10 mg PO DAILY #90 tablet 10/27/21 12/29/21 Rx diltiazem HCl 240 mg 240 mg PO DAILY #90 cap 10/28/21 12/29/21 Rx capsule,extended release 24 hr potassium chloride 10 mEq 10 meq PO DAILY #90 tablet 11/24/21 12/29/21 Rx tablet,extended release cholecalciferol (vitamin D3) 50 mcg PO DAILY 12/29/21 12/29/21 History Allergies Allergy/AdvReac Type Severity Reaction Status Date / Time codeine Allergy Intermediate Confusion Verified 12/29/21 10:08 Exam Const: General: no acute distress Resp: Effort & Inspection: normal respiratory effort GI: Inspection: non-distended GI Palp: No abdominal tenderness and No Guarding due to palpation present (GI) Auscultation: normal bowel sounds Assessment and Plan Assessment and plan (1) Bilateral renal s
--- NOTE | 2022-01-07 11:31 | WPDANESEPPF ---
Anes - Initial Pre Proc Eval Procedure: Operation Date: 01/08/22 10:15 Proposed Procedures p Cystoscopy with Left Stent Exchange - Brian Pires MD Date/Time: 01/07/22 11:31 Surgeon: Brian Pires MD Pre Op Diagnosis: Bilateral Kidney Stones Patient Data Age: 71 Gender: F Height: 1.52 m Weight: 58.99 kg Allergies Allergy/AdvReac Type Severity Reaction Status Date / Time codeine Allergy Intermediate Confusion Verified 01/08/22 08:47 Home Medications Medication Instructions Recorded Confirmed Type diazepam 5 mg tablet 5 mg PO BID PRN tablet 10/12/19 01/08/22 History lamotrigine 200 mg tablet 200 mg PO BID tablet 10/12/19 01/08/22 History memantine 28 mg capsule 28 mg PO DAILY 10/12/19 01/08/22 History sprinkle,extended release 24hr Vraylar 6 mg PO DAILY 05/26/21 01/08/22 History sertraline 150 mg PO DAILY 05/26/21 01/08/22 History acetaminophen 650 mg PO Q8H PRN 06/16/21 01/08/22 History carbidopa-levodopa 1 tablet PO QID 06/16/21 01/08/22 History rosuvastatin 10 mg tablet 10 mg PO DAILY #90 tablet 10/27/21 01/08/22 Rx diltiazem HCl 240 mg 240 mg PO DAILY #90 cap 10/28/21 01/08/22 Rx capsule,extended release 24 hr potassium chloride 10 mEq 10 meq PO DAILY #90 tablet 11/24/21 01/08/22 Rx tablet,extended release cholecalciferol (vitamin D3) 50 mcg PO DAILY 12/29/21 01/08/22 History Patient hx anesthesia problems: none Family hx anesthesia problems: none Results Review: All pre-operative results and documents have been reviewed as part of the pre-operative evaluation. FORMERLY [facility], [facility] Past Medical History Medical History Anxiety Bipolar affective disorder Breast cancer 03/2012 Cardiomegaly Dementia Dyslipidemia Essential (primary) hypertension History of right breast cancer Hyperlipidemia Hypertrophic obstructive cardiomyopathy Meniere disease PAM (obstructive sleep apnea) non compliant with CPAP Parkinson disease Renal calculus TIA (transient ischemic attack) Unspecified osteoarthritis, unspecified site Surgical History Surgical History H/O total hysterectomy with bilateral salpingo-oophorectomy (BSO) (Unknown) History of breast surgery 03/2012 History of partial mastectomy 2011 Hx of section (Unknown) Hx of total knee arthroplasty (Unknown) Family History Family History Father Family history of diabetes mellitus in first degree relative, Onset Age: 77 Mother Family history of malignant neoplasm of ovary, Onset Age: 62 Grandparent Diabetes mellitus, Onset Age: 80 Other Hypertension Social History Social History Smoking status: Never smoker Second hand tobacco smoke exposure: No Alcohol intake: never Substance use: never Substance use type: does not use Living arrangements: with family Spiritual care concerns: No Anes - Eval Final PreProcedure Day of Procedure 01/07/22 11:31 Patient weight: overweight Heart: regular rate and rhythm Lungs: clear to auscultation and normal air movement Airway: Mallampati scale class III Neurological: alert and oriented Last oral intake: >/= 8 hours ASA classification: III Emergent: no Anesthetic plan: proceed Anesthesia type and monitoring: general LMA and standard monitoring Results Review: All pre-operative results and documents have been reviewed as part of the pre-operative evaluation. Informed Consent: The patient's anesthetic plan and its attendant risks and benefits were discussed with the patient/family/POA. Questions were solicited and answers provided to the satisfaction of the patient/family/POA.
--- NOTE | ~2022-01-08 | XR_ITS ---
EXAMINATION: XR stent kub - surgery DATE: 01/08/2022 11:07 INDICATION: Left internal ureteral stent exchange TECHNIQUE: 4 fluoroscopic images of the abdomen and pelvis were obtained during procedure performed brooks Pires. Radiologist was not present for the imaging or procedure. The amount of fluoroscopy maddy e used during this procedure was 0.6 minutes. COMPARISON: 09/24/2021 FINDINGS: Psychiatric Nursing Assistant images demonstrate a left internal ureteral stent in expected position. Persistent large stagho rn calculus at the left renal pelvis extending into middle and inferior calyces of the left kidney. A dditional large stones at the upper pole of the left kidney and in the distal left ureter. No evident interval change on the final 2 images which demonstrates an internal ureteral stent in identical pos ition, presumably a new exchange stent but would correlate with procedure note. Additional phlebolith in the left hemipelvis. IMPRESSION: 1. Fluoroscopy utilized during reported left internal ureteral stent exchange. 2. Persistent large left renal and distal left ureteral stones. Reviewed, dictated and finalized at location B.
--- NOTE | 2022-01-08 06:41 | WPDHPUPDATE1 ---
History and Physical Update Update Date/Time: 01/08/22 06:41 History and Physical has been reviewed, including an updated exam of the patient. There are NO changes in the patient's condition. Risks, benefits, and alternatives have been discussed and questions answered. Patient agrees to proceed with procedure.
[2022-01-08 08:34] VITALS: BP 110/94; PULSE 62; RESP 16; TEMP 36.4; O2SAT 98
[2022-01-08] MEDS: LACTATED RINGERS 1,000 ML 30 ML IV CONT (09:25)
[2022-01-08] MEDS: ceFAZolin 2 GM/D5W 50 ML 2 GM/50 ML BAG IVPB (10:45)
[2022-01-08] MEDS: LIDOCAINE HCL 2% GEL UROJET 10 ML PKG MUCOUS MEM (10:59)
--- NOTE | 2022-01-08 11:08 | W.PM.PROC2 ---
Procedure Note - Detailed Date of Procedure 01/08/22 Pre-op Diagnosis Left ureteral and renal stones Post-op Diagnosis Same Procedure Performed Cystoscopy with left ureteral stent exchange Surgeon Brian Pires MD Anesthesia MAC Description of Procedure Patient frothy op 3 she is prepped draped in routine sterile fashion while in dorsal lithotomy position. 2% xylocaine jelly was introduced intraurethrally and systemic sedation is administered per the anesthesia department. Cystoscopy is undertaken with a 19F rigid cystoscope. There was an indwelling left ureteral stent with moderate encrustation of the bladder coil. Remainder of the bladder was endoscopically normal with the exception of some mild hyperemia around the left ureteral orifice as a result of the stent. There was no intravesical foreign body neoplasm of significance. The stent is grasped and it is removed with ease. She has a staghorn calculus which outlined the collecting system. A new 4.8 F ureteral stent was positioned with proximal coil in the renal pelvis and distal coil bladder. Scopes and wires removed the external taken recovery room good condition. I will plan to changes again in 6 months. Drains Yes Packing No Pathology None sent Complications No immediate complications Condition Stable Disposition PACU
[2022-01-08 11:12] VITALS: BP 113/54; PULSE 64; RESP 10; O2SAT 96
[2022-01-08 11:40] VITALS: BP 131/62; PULSE 64; RESP 14; O2SAT 95
== END 2022-01-08 12:15 | disposition home or self-care (01) ==
PROVIDERS: PCP Family Medicine; Visit Provider Urology
PROC: (CPT 52352; principal; 2022-01-08 10:15)
DX: N20.2 Calculus of kidney with calculus of ureter (principal); I10 Essential (primary) hypertension; E78.5 Hyperlipidemia, unspecified; I42.1 Obstructive hypertrophic cardiomyopathy; G20 Parkinson's disease; F02.80 Dementia in other diseases classified elsewhere, unspecified severity, without behavioral disturbance, psychotic disturbance, mood disturbance, and anxiety; F31.9 Bipolar disorder, unspecified; F41.9 Anxiety disorder, unspecified; G47.33 Obstructive sleep apnea (adult) (pediatric); Z85.3 Personal history of malignant neoplasm of breast; Z86.73 Personal history of transient ischemic attack (TIA), and cerebral infarction without residual deficits
CPT/HCPCS: 52332; A9270; C1769; C2617; J0690; J1100; J2405; J2704; J3010; J7120; Q9966

== ENCOUNTER 2022-04-07 09:00 | Outpatient (RCR) | payer MEDICARE, OTHER, SELFPAY | END 2022-04-07 23:59 | disposition home or self-care (01) | LOC: ANHAUDIO 09:00 | PROVIDERS: PCP Family Medicine; Visit Provider Nurse Practitioner Family | DX: Z46.1 Encounter for fitting and adjustment of hearing aid (principal) | CPT/HCPCS: 99199; V5261; V5264 ==

== ENCOUNTER 2022-06-21 18:34 | Inpatient (IN) | payer MEDICARE, OTHER, SELFPAY ==
[2022-06-21] VITALS (19 sets, daily range): BP systolic 97–156; BP diastolic 55–79; PULSE 52–60; RESP 12–17; TEMP 36.2–36.8; O2SAT 93–100; BMI 29.2
--- NOTE | ~2022-06-21 | CT_ITS ---
EXAMINATION: CTA chest abdomen pelvis DATE: 06/21/2022 20:27 INDICATION: back pain, difficulty swallowing, weakness . TECHNIQUE: Computed tomography (CT) of the chest, abdomen, and pelvis was performed with 100 mL Omnip aque-350 intravenous contrast in the arterial phase. Automated exposure control and iterative reconst ruction technique were employed. The dose-length product was 717.17 mGy-cm. COMPARISON: X-ray chest, same date CT abdomen and pelvis 05/26/2021 and 07/12/2018 FINDINGS: Thoracic aorta: Aortic ectasia and mild arch calcification, ascending aorta measures up to 3.9 cm. Lung parenchyma and airways: 7 mm right lower lobe pulmonary nodule, stable going back to 2018. Senes cent changes in the lungs. Thoracic inlet, axillae and chest wall: Subcentimeter right thyroid hypodensity, of doubtful clinical significance and requires no additional follow-up. No axillary lymphadenopathy. Mediastinum: No mass or lymphadenopathy. Dilated central pulmonary arteries as can be seen with pulmo nary arterial hypertension. Although not optimized for their evaluation, no obvious central or segmen conchita pulmonary embolus detected. Patulous esophagus. Hiatal hernia. Heart and pericardium: Cardiomegaly. Mitral annulus calcification. No pericardial effusion. Coronary artery calcifications: Mild. Pleura: No effusion or mass. Thoracic bones: No acute osseous finding in the chest. ABDOMEN/PELVIS: Liver: Stable intrahepatic bile duct dilation. Biliary/Gallbladder: Gallbladder is absent. Stable mild extrahepatic bile duct dilation. Pancreas: No mass or duct dilation. Spleen: Normal. Adrenals:No mass. Kidneys: Staghorn calculus on the left. Left ureteral stent, in good position. Solid left mid and low er pole renal masses, measuring 4.3 cm and 2.9 cm respectively. Irregular margins and anatomy of the renal pelvis, calyces, and proximal ureter on the left. Nonobstructing right-sided calculi. Presumed simple right upper pole cysts. GI tract: Distal esophageal and gastric wall edema. No small or large bowel dilation. Appendix not vi sualized Mesentery/Peritoneum: No ascites, mass, or free air. Retroperitoneum: No mass. Atherosclerotic abdominal aortic and/or arterial calcifications. Pelvis: Absent uterus. Mild bladder wall thickening. Soft Tissues: Soft tissues and body wall unremarkable. Abdominopelvic bones: No acute osseous finding in the abdomen/pelvis. IMPRESSION: 1. No significant aortic aneurysm or evidence of dissection. Stable 7 mm right lower lobe pulmonary n odule, of doubtful clinical significance, requiring no additional follow-up. 3. Pulmonary arterial hypertension. 4. Stable intra and extrahepatic bile duct dilation, presumed to be related to the postcholecystectom y state, unless complete by concerning symptoms and/or laboratory values. 5. Enlarging left renal masses, likely representing renal cell carcinomas. 7. Distorted anatomy of the proximal collecting system on the left of uncertain significance, possibl y due, to tumor involvement, rupture, or infection. 8. Left staghorn calculi. 8 x 11 mm distal left ureteral stone. 9. Bladder wall thickening, as can be seen with cystitis. 10. Esophagitis/gastritis. Reviewed, dictated and finalized at location K. IMPRESSION: 1. No significant aortic aneurysm or evidence of dissection. Stable 7 mm right lower lobe pulmonary nodule, of doubtful clinical significance, requiring no ad ditional follow-up. 3. Pulmonary arterial hypertension. 4. Stable intra and extrahepatic bile duct dilation, presumed to be related to the postcholecystectomy state, unless complete by concerning symptoms and/or la boratory values. 5. Enlarging left renal masses, likely representing renal cell ca
--- NOTE | ~2022-06-21 | XR_ITS ---
EXAMINATION: XR chest 1V portable Exam Date/Time: 06/21/2022 19:20 CDT HISTORY: weakness Comparison: 11/02/2017. RESULT: Lines, tubes, and devices: Cholecystectomy clips. Lungs and pleura: Low lung volumes. Senescent changes. Cardiomediastinal silhouette: Stable. Mitral calcification. Other: No acute osseous or upper abdominal finding. IMPRESSION: No acute cardiopulmonary process. Reviewed, dictated and finalized at location K.
--- NOTE | 2022-06-21 18:42 | ECG_ITS ---
Measurements Intervals [place] Rate: 51 P: -7 TX: 145 QRS: -18 QRSD: 118 T: 14 QT: 467 QTc: 433 Interpretive Statements SINUS BRADYCARDIA POSSIBLE LEFT ATRIAL ENLARGEMENT INTRAVENTRICULAR CONDUCTION DELAY [110+ ms QRS DURATION] NONSPECIFIC T-WAVE ABNORMALITY COMPARED TO ECG 06/19/2021 09:51:01 SINUS BRADYCARDIA NOW PRESENT Electronically Signed On 06-22-2022 11:36:17 CDT by Emeka Mora M.D.
[2022-06-21 19:12] LABS: Basophils Percent Auto 0.4 % (0.2-1.2); Eosinophils Absolute Auto 0.2 K/mm3 (0-0.3); Eosinophils Percent Auto 3.3 % (0-4.4); Hematocrit 40.1 % (37.0-47.0); Hemoglobin 12.4 g/dL (12.0-15.0); Immature Granulocyte Absolute 0.01 K/mm3 (0.00-0.031); Immature Granulocyte Percent A 0.2 % (0-0.5); Lymphocytes Absolute Auto 1.26 K/mm3 (0.9-3.2); Mean Corpuscular HGB Conc 30.9 g/dl (32-36); Mean Corpuscular Hemoglobin 29.5 pg (26-34); Mean Corpuscular Volume 95.2 fl (80-100); Mean Platelet Volume 8.9 fl (7.4-10.4); Monocytes Absolute Auto 0.5 K/mm3 (0.1-0.6); Monocytes Percent Auto 8.6 % (2.6-8.5); Neutrophils Absolute Auto 3.5 K/mm3 (1.3-6.7); Neutrophils Percent Auto 64.5 % (45.5-73.1); Platelet Count Result 166 k/mm3 (150-375); Red Blood Count 4.21 M/mm3 (4.2-5.4); Red Cell Distribution Width 12.4 % (11.5-14.5); White Blood Count 5.5 K/mm3 (4.5-10.0)
[2022-06-21 19:23] LABS: INR 1.1; Prothrombin Time 13.4 Seconds (11.1-14.7)
[2022-06-21] MEDS: NITROGLYCERIN SL 0.4 MG TABLET SUBLINGUAL (19:23)
[2022-06-21 19:24] LABS: Partial Thromboplastin Time 30.4 SECONDS (22.3-36.8)
[2022-06-21 19:27] LABS: Alanine Aminotransferase 13 U/L (6-35); Albumin Level 4.2 g/dL (3.5-5.1); Alkaline Phosphatase 86 U/L (38-126); Anion Gap 11 mmol/L (8-16); Aspartate Amino Transferase 23 U/L (14-36); Bilirubin,Total 0.6 mg/dL (0.2-1.3); Blood Urea Nitrogen 18 mg/dL (7-17); Carbon Dioxide 32 mmol/L (22-30); Chloride 101 mmol/L (98-107); D Dimer 0.39 ug/mL (<0.48); Estimated Glomerular Filt Rate 44; Glucose 97 mg/dL (65-110); Lipase 82 U/L (23-300); Potassium 3.7 mmol/L (3.4-5.0); Sodium 144 mmol/L (137-145)
--- NOTE | 2022-06-21 19:34 | ED.GENADULT ---
HPI - General Adult General Chief complaint: Chest Pain Stated complaint: upper back pain and numbness Time Seen by Provider: 06/21/22 18:50 Source: patient, EMS and RN notes reviewed Mode of arrival: EMS Limitations: no limitations History of Present Illness HPI narrative: This is a 71 year old female with history of hypertension, bipolar disorder, and hyperlipidemia who presents for evaluation of weakness and neck pain. Patient states she was laying in bed around at 430 pm and she developed weakness. She also reports neck pain and throat pain. She states it hurts to swallow. She denies associated chest pain, sob. Her states she has not been to a doctor in years and she does not like to leave the house. Patient has been complaining of indigestion for a couple of months. Today she told him that she was tired and she just wanted to lay down. She then asked to come to ER. Related Data Home Medications Medication Instructions Recorded Confirmed diazepam 5 mg tablet 5 mg PO BID 10/12/19 06/21/22 lamotrigine 200 mg tablet 200 mg PO Q12H 10/12/19 06/21/22 memantine 28 mg capsule 28 mg PO DAILY 10/12/19 06/21/22 sprinkle,extended release 24hr cariprazine 6 mg capsule (Vraylar) 6 mg PO DAILY 05/26/21 06/21/22 acetaminophen 650 mg 650 mg PO Q8H PRN Pain 06/16/21 06/21/22 tablet,extended release carbidopa 25 mg-levodopa 100 mg 1 tablet PO QID 06/16/21 06/21/22 tablet cholecalciferol (vitamin D3) 50 50 mcg PO DAILY 12/29/21 06/21/22 mcg (2,000 unit) capsule sertraline 100 mg tablet 150 mg PO DAILY 06/21/22 06/21/22 Allergies Allergy/AdvReac Type Severity Reaction Status Date / Time codeine Allergy Intermediate Confusion Verified 06/21/22 18:46 Review of Systems Review of Systems: All systems reviewed & are unremarkable except as noted in HPI and below Constitutional: Constitutional: Denies chills, Reports fatigue and Denies fever(s) ENT: Reports dizziness, Denies nasal congestion and Reports sore throat Cardiovascular: Cardiovascular: Denies chest pain and Reports radiating jaw, neck or arm pain Respiratory: Respiratory: Denies chest congestion, Denies cough and Denies dyspnea Gastrointestinal: Gastrointestinal: Denies abdominal pain, Denies nausea and Denies vomiting Musculoskeletal: Musculoskeletal: Reports back pain Neurologic: Denies headache(s) and Reports weakness PMFSH Past Medical History Medical History Anxiety Bipolar affective disorder Breast cancer 03/2012 Cardiomegaly Dementia Dyslipidemia Essential (primary) hypertension History of right breast cancer Hyperlipidemia Hypertrophic obstructive cardiomyopathy Meniere disease PAM (obstructive sleep apnea) non compliant with CPAP Parkinson disease Renal calculus TIA (transient ischemic attack) Unspecified osteoarthritis, unspecified site Surgical History Surgical History H/O total hysterectomy with bilateral salpingo-oophorectomy (BSO) (Unknown) History of breast surgery 03/2012 History of partial mastectomy 2011 Hx of section (Unknown) Hx of total knee arthroplasty (Unknown) Family History Family History Father Family history of diabetes mellitus in first degree relative, Onset Age: 77 Mother Family history of malignant neoplasm of ovary, Onset Age: 62 Grandparent Diabetes mellitus, Onset Age: 80 Other Hypertension Social History Social History Smoking status: Never smoker Second hand tobacco smoke exposure: No Alcohol intake: never Substance use: never Substance use type: does not use Spiritual care concerns: No Exam Const: General: no acute distress; No diaphoretic Orientation/consciousness: patient oriented x3 Other: appears lethargic HENMT:
[2022-06-21 19:38] LABS: Troponin I < 0.012 ng/mL (0.000-0.034)
[2022-06-21] MEDS: SODIUM CHLORIDE 0.9% IV 500 ML 999 ML IV CONT (19:56)
[2022-06-21 19:58] LABS: SARS-CoV-2 RNA PCR Negative
[2022-06-21 21:59] LABS: Troponin I < 0.012 ng/mL (0.000-0.034)
--- NOTE | 2022-06-21 22:30 | PM.IMHP ---
H&P: HPI History of Present Illness Date/Time: 06/21/22 22:30 Chief Complaint: neck pain Narrative: This is a 71-year-old female with past medical history significant for Parkinson's disease, hypertrophic obstructive cardiomyopathy, obstructive sleep apnea, renal calculus, chronic kidney disease. patient was brought to the emergency room after having an episode of pain in her neck with debilitation, patient also with epigastric pain has been taking Apple-Benedict for it. Patient is unable to give much history but denies any fevers, rigors, chills, cough, shortness of breath, sputum production, leg swelling, nausea, vomiting, diarrhea. Patient uses a walker as an ambulation aid. preliminary workup was significant for CT of chest abdomen and pelvis was reported as: IMPRESSION: 1. No significant aortic aneurysm or evidence of dissection. Stable 7 mm right lower lobe pulmonary nodule, of doubtful clinical significance, requiring no additional follow-up. 3. Pulmonary arterial hypertension. 4. Stable intra and extrahepatic bile duct dilation, presumed to be related to the postcholecystectomy state, unless complete by concerning symptoms and/or laboratory values. 5. Enlarging left renal masses, likely representing renal cell carcinomas. 7. Distorted anatomy of the proximal collecting system on the left of uncertain significance, possibly due, to tumor involvement, rupture, or infection. 8. Left staghorn calculi. 8 x 11 mm distal left ureteral stone. 9. Bladder wall thickening, as can be seen with cystitis. 10. Esophagitis/gastritis. Review of Systems Review of Systems: neck pain, epigastric pain Constitutional: Constitutional: Denies chills, Denies fever(s), Denies frequent falls and Reports weakness Eyes: Eyes: Denies change in vision ENT: Denies dysphagia, Denies vertigo, Denies dizziness and Denies odynophagia Cardiovascular: Cardiovascular: Denies chest pain, Denies lightheadedness and Denies dyspnea on exertion Respiratory: Respiratory: Denies chest congestion, Denies cough, Denies pain on inspiration and Denies dyspnea Gastrointestinal: Gastrointestinal: Reports abdominal pain (epigastric), Reports dyspepsia, Reports heartburn, Denies nausea and Denies vomiting Genitourinary: Genitourinary: Denies dysuria and Denies flank pain Musculoskeletal: Musculoskeletal: Reports muscle weakness Integumentary/Breasts: Skin/Breast: Denies rash Neurologic: Denies focal weakness and Denies Sensory deficit (Neuro) Psychiatric: Psychiatric: Reports no additional psychiatric complaints and Reports as per HPI Endocrine: Endocrine: Denies cold intolerance, Denies flushing, Denies heat intolerance, Denies polyphagia, Denies polydipsia and Denies palpitations Hematologic/Lymphatic: Hematologic/Lymphatic: Reports no additional hematologic/lymphatic complaints and Reports as per HPI Allergic/Immunologic: Allergic/Immunologic: Reports no additional allergic/immunologic complaints and Reports as per HPI PMFSH Past Medical History Medical History (Updated 06/22/22 @ 04:03 by Aly Price MD) Anxiety Bipolar affective disorder Breast cancer 03/2012 Cardiomegaly Dementia Dyslipidemia Essential (primary) hypertension History of right breast cancer Hyperlipidemia Hypertrophic obstructive cardiomyopathy Meniere disease PAM (obstructive sleep apnea) non compliant with CPAP Parkinson disease Renal calculus TIA (transient ischemic attack) Unspecified osteoarthritis, unspecified site Surgical History Surgical History H/O total hysterectomy with bilateral salpingo-oophorectomy (BSO) (Unknown) History of breast surgery 03/2012 History of partial mastectomy 2011 Hx of section (Unknown) Hx of total knee arthroplasty (Unknown) Family History Family History Father Family history of diabetes mellitus in first degree
[2022-06-21] MEDS: ASPIRIN 81 MG CHEWABLE TABLET 324 MG PO (22:39)
--- NOTE | 2022-06-21 23:09 | PC.NURSE ---
This patient, Karina Arroyo, was admitted to IMU Room 214-01. Patient/family oriented to hospital policies and general routines including ID bracelet, bed and alarms, visiting hours, pain management, procedures, bathroom and other care routines, personal items, smoking policy, room service/diet, and visiting hours. Information on how to activate the Rapid Response Team has been discussed. Patient/Family are encouraged to report perceived risks to care and to ask questions if they do not understand what they are told or what they should do.
[2022-06-22] VITALS (13 sets, daily range): BP systolic 112–127; BP diastolic 46–60; PULSE 52–64; RESP 16–22; TEMP 36.2–36.8; O2SAT 93–97
--- NOTE | 2022-06-22 | ECHO_ITS ---
Patient Info Name: Karina Arroyo Age: 71 years : 1950 Gender: Female Ht: 60 in Wt: 149 lbs BSA: 1.72 m2 HR: 57 bpm BP: 127 / 54 mmHg Heart Rhythm: Sinus Rhythm Technical Quality: Fair Exam Date: 06/22/2022 11:51 AM Exam Location: [facility] Pulmonary Patient Status: Inpatient Admit Date: 06/21/2022 Staff Ordering Physician: Aly Price MD Technology Auditor: Tess Donahue RDCS Attending Provider: Aly Price MD Referring Physician: Albert DAVIDSON; Exam Type: CA echo doppler color flow Study Info Indications - chest pain Complete two-dimensional, color flow and Doppler transthoracic echocardiogram is performed. Summary 1. Complete two-dimensional, color flow and Doppler transthoracic echocardiogram is performed. 2. There is moderate concentric increased left ventricular wall thickness. 3. Left ventricular systolic function is hyperdynamic, estimated at >70%. 4. The left ventricular diastolic function is grade II diastolic dysfunction. 5. Left atrial chamber dimension is severely enlarged. 6. There is mild aortic valve sclerosis. 7. The mitral valve has thickened leaflets. 8. The mitral valve annulus is severely calcified. Left Ventricle Left ventricular chamber dimension is normal. Left ventricular systolic function is hyperdynamic, estimated at >70%. There is moderate concentric increased left ventricular wall thickness. The left ventricular diastolic function is grade II diastolic dysfunction. Right Ventricle Right ventricular chamber dimension is normal. Left Atria Left atrial chamber dimension is severely enlarged. Right Atria Right atrial chamber dimension is normal. Aortic Valve The aortic valve is trileaflet. There is mild aortic valve sclerosis. There is trace aortic valve regurgitation. Pulmonic Valve The pulmonic valve is not well visualized. Mitral Valve The mitral valve has thickened leaflets. The mitral valve annulus is severely calcified. Tricuspid Valve The tricuspid valve leaflets are normal. Pericardium/Pleural The pericardium appears normal. Aorta The aortic root size at the sinus of Valsalva is normal. Left Ventricular Outflow Tract Name Value Normal LVOT 2D LVOT Diameter 2.0 cm LVOT Doppler LVOT Peak Gradient 9 mmHg LVOT Mean Gradient 6 mmHg LVOT VTI 32 cm LVOT VTI/AV VTI Ratio 0.6 LVOT Stroke Volume 105 ml LVOT CO 6.2 l/min LVOT CI 3.6 l/min/m2 Pulmonic Valve Name Value Normal RVOT Doppler RVOT Peak Gradient 3 mmHg PV Doppler PV Peak Gradient
[2022-06-22 01:40] LABS: Troponin I < 0.012 ng/mL (0.000-0.034)
[2022-06-22 04:37] LABS: Basophils Percent Auto 0.6 % (0.2-1.2); Eosinophils Absolute Auto 0.2 K/mm3 (0-0.3); Eosinophils Percent Auto 2.9 % (0-4.4); Hematocrit 35.9 % (37.0-47.0); Hemoglobin 11.1 g/dL (12.0-15.0); Immature Granulocyte Absolute 0.02 K/mm3 (0.00-0.031); Immature Granulocyte Percent A 0.3 % (0-0.5); Lymphocytes Absolute Auto 1.49 K/mm3 (0.9-3.2); Lymphocytes Percent Auto 23.6 % (18.3-44.2); Mean Corpuscular HGB Conc 30.9 g/dl (32-36); Mean Corpuscular Hemoglobin 29.4 pg (26-34); Mean Platelet Volume 9.4 fl (7.4-10.4); Monocytes Absolute Auto 0.5 K/mm3 (0.1-0.6); Monocytes Percent Auto 8.1 % (2.6-8.5); Neutrophils Absolute Auto 4.1 K/mm3 (1.3-6.7); Neutrophils Percent Auto 64.5 % (45.5-73.1); Platelet Count Result 156 k/mm3 (150-375); Red Blood Count 3.78 M/mm3 (4.2-5.4); Red Cell Distribution Width 12.3 % (11.5-14.5); White Blood Count 6.3 K/mm3 (4.5-10.0)
[2022-06-22 04:53] LABS: Alanine Aminotransferase 12 U/L (6-35); Albumin Level 3.9 g/dL (3.5-5.1); Alkaline Phosphatase 74 U/L (38-126); Anion Gap 8 mmol/L (8-16); Aspartate Amino Transferase 23 U/L (14-36); Bilirubin,Total 0.5 mg/dL (0.2-1.3); Blood Urea Nitrogen 16 mg/dL (7-17); Calcium 8.8 mg/dL (8.4-10.2); Carbon Dioxide 32 mmol/L (22-30); Chloride 103 mmol/L (98-107); Estimated CRCL calculation 39 ml/min; Estimated Glomerular Filt Rate 55; Glucose 88 mg/dL (65-110); Potassium 3.6 mmol/L (3.4-5.0); Sodium 143 mmol/L (137-145)
[2022-06-22 05:34] LABS: Add Urine Microscopic? YES; Appearance Urine Turbid (Clear); Bilirubin Urine Negative (Negative); Blood Urine 2+ (Negative); Color Urine Yellow (Yellow); Glucose Urine UA Negative (Negative); Ketones Urine Negative (Negative); Leukocyte Esterase Ur 3+ LEU/UL (Negative); Mucus Urine Few /lpf; Nitrate Urine Negative (Negative); Protein Urine 2+ mg/dL (Negative); RBC Urine >75 /hpf (0-2); Squamous Epithelial Cell Urine Many /hpf (Few); Urobilinogen Urine Negative mg/dL (<2.0); WBC Urine >75 /hpf
[2022-06-22 05:37] LABS: Specific Grav Ur 1.054 (1.001-1.035)
[2022-06-22] MEDS: MEMANTINE HCL XR 28 MG CAP PO (08:52)
[2022-06-22] MEDS: POTASSIUM CHLORIDE 10 MEQ TABLET.ER PO (08:52)
[2022-06-22] MEDS: ROSUVASTATIN 10 MG TABLET PO (08:52)
[2022-06-22] MEDS: ASPIRIN 81 MG CHEWABLE TABLET PO (08:52)
[2022-06-22] MEDS: lamoTRIgine 100 MG TABLET 200 MG PO ×2 (08:52→20:05)
[2022-06-22] MEDS: CARBIDOPA/LEVODOPA 25/100 MG TABLET 1 TABLET PO ×3 (08:52→20:04)
[2022-06-22] MEDS: HEPARIN SODIUM 5,000 UNITS/ML VIAL 5000 UNITS SUB-Q ×2 (08:53→20:05)
[2022-06-22] MEDS: diazePAM (*CRX) 5 MG TABLET PO ×2 (08:53→20:05)
[2022-06-22] MEDS: SERTRALINE HCL 50 MG TABLET 150 MG PO (08:53)
[2022-06-22] MEDS: CHOLECALCIFEROL 1,000 UNITS TABLET 2000 UNITS PO (08:53)
--- NOTE | 2022-06-22 09:20 | PM.CNCAR ---
Assessment and Plan Assessment and plan (1) Epigastric pain: Code(s): R10.13 - Epigastric pain Status: Acute (2) PAM (obstructive sleep apnea): Code(s): G47.33 - Obstructive sleep apnea (adult) (pediatric) Status: Acute (3) Weakness: Code(s): R53.1 - Weakness Status: Acute (4) Neck pain: Code(s): M54.2 - Cervicalgia Status: Acute (5) Parkinson disease: Code(s): G20 - Parkinson's disease Status: Acute (6) Dementia: Qualifiers: Dementia type: unspecified type Dementia behavioral disturbance: without behavioral disturbance Qualified Code(s): F03.90 - Unspecified dementia without behavioral disturbance Code(s): F03.90 - Unspecified dementia, unspecified severity, without behavioral disturbance, psychotic disturbance, mood disturbance, and anxiety Status: Acute (7) Essential (primary) hypertension: Code(s): I10 - Essential (primary) hypertension Status: Acute Plan Troponins negative x 3. EKG without ischemic changes, EKG unchanged compared to prior. No evidence of ischemia. Echo has been ordered - will follow up on the results. Further recommendations pending results of echo. History of Present Illness History of Present Illness Consult date/time: 06/22/22 09:20 Requesting physician: Aggie Jacobs MD Consult reason: chest pain Reason For Visit: Weakness, Possible Angina Narrative: Patient is a 71-year-old female who we are being consulted for angina. Patient has seen Dr. Luciano in our Cardiology [facility]. Last seen 12/2018. Patient has a history of HTN, HLD, GERD, breast cancer s/p lumpectomy and radiation, depression/anxiety. Prior echocardiogram from 2018 showed LVEF 70-75%, grade 1 diastolic dysfunction, severe MAC with mild mitral stenosis with a mean gradient of 6.5mmHg and valve area of 1.8cm2, as well as mild with valve area of 1.7cm2. Patient presented to the ED this time with pain in her neck. Had also reported epigastric pain. No shortness of breath, lightheadedness, dizziness, lower extremity swelling. Workup thus far included a CT which shows enlarging left renal masses, likely representing renal cell carcinomas, a left staghorn calculi, esophagitis/gastritis. Her symptoms occurred at rest. Not associated with exertion. Patient denies symptoms this morning. Troponins are negative x 3. ECG without acute ischemic changes, no changes compared to old EKG from 2020. Lexiscan from 2019 showed normal LVEF of 66%, myocardial perfusion imaging showed a moderate sized area of moderate intensity lateral ischemia. No infarction. Most recent echocardiogram from 2019 showed: Normal LV size. LVH with LVOT gradient of 47mmHg with Valsalva. Normal LVEF <70%. Grade 1 diastolic dysfunction. Severe MAC. No significant MS. No significant . Review of Systems Review of Systems: All systems reviewed & are unremarkable except as noted in HPI and below (HPI) [facility] Past Medical History Medical History Anxiety Bipolar affective disorder Breast cancer 03/2012 Cardiomegaly Dementia Dyslipidemia Essential (primary) hypertension History of right breast cancer Hyperlipidemia Hypertrophic obstructive cardiomyopathy Meniere disease PAM (obstructive sleep apnea) non compliant with CPAP Parkinson disease Renal calculus TIA (transient ischemic attack) Unspecified osteoarthritis, unspecified site Surgical History Surgical History H/O total hysterectomy with bilateral salpingo-oophorectomy (BSO) (Unknown) History of breast surgery 03/2012 History of partial mastectomy 2011 Hx of section (Unknown) Hx of total knee arthroplasty (Unknown) Family History Family History Father Family history of diabetes mellitus in first degree relative, Onset Age: 77 Mother
--- NOTE | 2022-06-22 10:22 | PM.IMPN ---
Progress Note: A&P Assessment and Plan (1) Epigastric pain: Code(s): R10.13 - Epigastric pain Status: Acute Assessment and Plan: admit to IMU no chest pain is more patient with prior history of fixed defect in a stress test performed in 2019 patient with debilitation cardiology consult supportive care CTA chest abdomen and pelvis reviewed (2) Neck pain: Code(s): M54.2 - Cervicalgia Status: Acute Assessment and Plan: denies pain today (3) General weakness: Code(s): R53.1 - Weakness Status: Acute Assessment and Plan: likely secondary to chronic illness PT OT (4) Parkinson disease: Code(s): G20 - Parkinson's disease Status: Acute Assessment and Plan: continue carbidopa levodopa (5) Essential (primary) hypertension: Code(s): I10 - Essential (primary) hypertension Status: Acute Assessment and Plan: continue home meds continue to monitor (6) Hypertrophic obstructive cardiomyopathy: Code(s): I42.1 - Obstructive hypertrophic cardiomyopathy Status: Acute Assessment and Plan: echocardiogram in a.m. (7) PAM (obstructive sleep apnea): Code(s): G47.33 - Obstructive sleep apnea (adult) (pediatric) Status: Acute Assessment and Plan: encouraged the use of CPAP at nighttime Subjective Date/time seen: 06/22/22 10:22 No chest pain Exam Const: General: cooperative, comfortable, no acute distress, well developed, alert, awake, ill appearing chronically, tired appearing and average body habitus Nutritional Appearance: average body habitus Orientation/consciousness: patient oriented x3 HENMT: Head: normal to inspection, normocephalic and atraumatic Ears: hearing grossly normal bilaterally Face/Nose/Sinus: normal facial exam and Other nasal findings present ( mask like face) Face and sinus: normal facial exam Eyes: General: appearance normal, both eyes and all related structures Pupils: Equal, round and reactive pupils present EOM: EOMs intact bilaterally Neck: Neck: full ROM, no lymphadenopathy and no JVD Thyroid: thyroid normal Lymphatic: no lymphadenopathy noted Resp: Effort & Inspection: normal respiratory effort and able to speak in complete sentences Auscultation: clear to auscultation bilaterally Cardio: Jugular venous distension: no JVD Rate: regular rate Rhythm: regular rhythm Heart sounds: S1 normal heart sound present and S2 normal heart sound present : General: Yes deferred Skin: Rashes: no rashes Wounds: no wounds Neuro: General: patient oriented x3 and CN's II-XI intact bilaterally Cranial nerves: Yes CN's II-XII intact bilaterally and Yes Equal, round and reactive pupils present Cognition (Neuro): normal cognition Speech: normal speech Gait exam (Neuro): Normal gait present Motor exam (neuro): 5/5 motor strength present throughout Sensory Exam: No Sensory deficit (Neuro) Extrem: General: normal to inspection, full ROM, no joint enlargement and no pedal edema Objective Data Vital Signs Vital Signs: Vital Signs - 24 hr 06/21/22 18:35 06/21/22 18:53 06/21/22 18:45 Temperature 98.2 F Pulse Rate 60 54 L Respiratory Rate 13 16 Blood Pressure 155/73 H 132/79 Pulse Oximetry 95 95 97 Oxygen Delivery Room Air Room Air 06/21/22 19:00 06/21/22 19:15 06/21/22 19:30 Temperature Pulse Rate 52 L 53 L 59 L Respiratory Rate 17 14 16 Blood Pressure 155/69 H 156/64 H 97/64 L Pulse Oximetry 97 95 95 Oxygen Delivery 06/21/22 19:45 06/21/22 20:00 06/21/22 22:00 Temperature Pulse Rate 54 L 53 L 55 L Respiratory Rate 16 15 14 Blood Pressure 112/69 116/68 124/69 Pulse Oximetry 95 93 94 Oxygen Delivery 06/21/22 21:30 06/21/22 21:15 06/21/22 21:00 Temperature Pulse Rate 57 L 57 L 58 L Respiratory Rate 13 13 13 Blood Pressure 124/66 131/62 120/55 L Pulse Oximetry 94 94 94 Oxygen Delivery 06/21/22 20:45
[2022-06-23] VITALS (9 sets, daily range): BP systolic 114–135; BP diastolic 56–73; PULSE 52–85; RESP 14–16; TEMP 36.2–36.6; O2SAT 94–98
[2022-06-23] MEDS: CARBIDOPA/LEVODOPA 25/100 MG TABLET 1 TABLET PO (09:12)
[2022-06-23] MEDS: MEMANTINE HCL XR 28 MG CAP PO (09:12)
[2022-06-23] MEDS: CHOLECALCIFEROL 1,000 UNITS TABLET 2000 UNITS PO (09:13)
[2022-06-23] MEDS: ROSUVASTATIN 10 MG TABLET PO (09:13)
[2022-06-23] MEDS: HEPARIN SODIUM 5,000 UNITS/ML VIAL 5000 UNITS SUB-Q (09:13)
[2022-06-23] MEDS: lamoTRIgine 100 MG TABLET 200 MG PO (09:13)
[2022-06-23] MEDS: ASPIRIN 81 MG CHEWABLE TABLET PO (09:13)
[2022-06-23] MEDS: POTASSIUM CHLORIDE 10 MEQ TABLET.ER PO (09:13)
[2022-06-23] MEDS: SERTRALINE HCL 50 MG TABLET 150 MG PO (09:13)
--- NOTE | 2022-06-23 09:39 | PHAR ---
The patient's home med of Vraylar 6mg has been verified.
--- NOTE | 2022-06-23 11:15 | PM.DS ---
DS: Admitting Diagnosis Discharge Date June 23, 2022 Admitting Diagnosis chest pain DS: Discharge Diagnosis Discharge Diagnosis (1) Epigastric pain: Code(s): R10.13 - Epigastric pain Status: Acute (2) Neck pain: Code(s): M54.2 - Cervicalgia Status: Acute (3) General weakness: Code(s): R53.1 - Weakness Status: Acute (4) Parkinson disease: Code(s): G20 - Parkinson's disease Status: Acute (5) Essential (primary) hypertension: Code(s): I10 - Essential (primary) hypertension Status: Acute (6) Hypertrophic obstructive cardiomyopathy: Code(s): I42.1 - Obstructive hypertrophic cardiomyopathy Status: Acute (7) PAM (obstructive sleep apnea): Code(s): G47.33 - Obstructive sleep apnea (adult) (pediatric) Status: Acute DS: Summary Hospital Course Hospital Course: patient is a 71-year-old female who came with chest pain. She underwent echocardiogram which showed some chronic issues that were there before. She does have mitral valve stenosis which will likely need to be evaluated in the future. Nonetheless cardiology evaluated patient And recommended no further workup. In the hospital troponins were negative x3 otherwise workup was negative. 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 Time Spent with Patient Time attestation: Total time spent providing and/or coordinating discharge services: Exam Narrative: General: alert and oriented Psych: appropriate mood nad affect Eyes: PERRLA Neck: Trachea midline, no new lesions Skin: no changes Lungs: CTA Cardiac: Normal S1,S2, no MGR ABD: soft, nd, nt, nbs Ext: no new lesions, no cce Vasc: Pulses intact Discharge Plan Discharge Attending physician on discharge: Miko Reynolds Consulting providers: Miko Sullivan Discharging Clinician: Miko Reynolds Patient Disposition: Home, Self-Care Activity: no preference Diet: as tolerated Patient Instructions: Antibiotic Form, Parkinson Disease (DC), Weakness (DC) Stand Alone Forms: General Discharge Information Follow-up/Referrals: Miko Sullivan MD [Physician] - Kelsie De Los Santos MD [Primary Care Provider] - Discharge Medications: New aspirin [Children's Aspirin] 81 mg Tablet,Chewable 81 mg PO DAILY@0800 30 Days Qty: 30 0RF Continued diazepam 5 mg tablet 5 mg PO BID memantine 28 mg capsule,sprinkle,ER 24hr 28 mg PO DAILY lamotrigine 200 mg tablet 200 mg PO Q12H carbidopa-levodopa 25-100 mg tablet 1 tablet PO QID acetaminophen 650 mg Tablet Extended Release 650 mg PO Q8H PRN (Reason: Pain) cholecalciferol (vitamin D3) 50 mcg (2,000 unit) Capsule 50 mcg PO DAILY sertraline 100 mg tablet 150 mg PO DAILY Vraylar 6 mg Capsule 6 mg PO DAILY rosuvastatin 10 mg tablet 10 mg PO DAILY Qty: 90 0RF Rx Instructions: TAKE 1 TABLET BY MOUTH DAILY diltiazem HCl 240 mg capsule,extended release 24hr 240 mg PO DAILY Qty: 90 1RF Rx Instructions: TAKE 1 CAPSULE BY MOUTH DAILY potassium chloride 10 mEq tablet extended release 10 meq PO DAILY Qty: 90 1RF Date of admission: 06/22/22 19:55 Primary Care Provider: Kelsie De Los Santos Admitting Provider: Aly Price V. Attending physician on admission: Aly Price V. Condition: Stable
--- NOTE | 2022-06-23 13:18 | PM.PNCARD ---
Progress Note: A&P Assessment and Plan (1) PAM (obstructive sleep apnea): Code(s): G47.33 - Obstructive sleep apnea (adult) (pediatric) Status: Acute (2) Parkinson disease: Code(s): G20 - Parkinson's disease Status: Acute (3) Dementia: Qualifiers: Dementia type: unspecified type Dementia behavioral disturbance: without behavioral disturbance Qualified Code(s): F03.90 - Unspecified dementia without behavioral disturbance Code(s): F03.90 - Unspecified dementia, unspecified severity, without behavioral disturbance, psychotic disturbance, mood disturbance, and anxiety Status: Acute (4) General weakness: Code(s): R53.1 - Weakness Status: Acute (5) Essential (primary) hypertension: Code(s): I10 - Essential (primary) hypertension Status: Acute Plan Troponins negative x 3. EKG without ischemic changes, EKG unchanged compared to prior. No evidence of ischemia. Echo done yesterday afternoon - no significant changes compared to prior study. I looked at patient's prior cath films from 2019. She had NOCAD at that time. Given the above, no further inpatient cardiac workup or evaluation needed at this time. Patient used to see Dr. Luciano, will have patient follow up with Dr. Luciano again. Subjective Date/time seen: 06/23/22 13:18 Interval history: Patient seen and examined this morning. at bedside. Patient has not had any episodes of chest or jaw pain. states patient had a cardiac cath done here in 2019. TTE was done yesterday, and findings are largely unchanged compared to her last echo. Review of Systems Review of Systems: All systems reviewed & are unremarkable except as noted in HPI and below (subjective) Exam Const: General: comfortable and no acute distress HENMT: Mouth: Yes moist mucous membranes Neck: Neck: no JVD Resp: Effort & Inspection: normal respiratory effort Auscultation: diminished lung sounds Cardio: Rate: regular rate Rhythm: regular rhythm Skin: General skin exam: normal color Neuro: Speech: normal speech Extrem: General: no edema Psych: Mental Status: mental status grossly normal Objective Data Vital Signs Vital Signs: Vital Signs - 24 hr 06/22/22 16:00 06/22/22 14:00 06/22/22 16:00 Temperature 36.8 C Pulse Rate 59 L 55 L 52 L Respiratory Rate 18 Blood Pressure 112/52 L Pulse Oximetry 95 Oxygen Delivery 06/22/22 18:00 06/22/22 16:00 06/22/22 20:00 Temperature Pulse Rate 56 L 61 Respiratory Rate 19 Blood Pressure Pulse Oximetry Oxygen Delivery Room Air Room Air 06/22/22 20:00 06/22/22 20:00 06/22/22 22:00 Temperature 36.4 C Pulse Rate 58 L 64 58 L Respiratory Rate 16 Blood Pressure 120/60 Pulse Oximetry 94 Oxygen Delivery 06/23/22 00:00 06/23/22 00:00 06/23/22 00:00 Temperature 36.5 C Pulse Rate 57 L 62 56 L Respiratory Rate 16 Blood Pressure 132/56 L Pulse Oximetry 94 Oxygen Delivery Room Air 06/23/22 02:00 06/23/22 03:10 06/23/22 04:00 Temperature Pulse Rate 54 L 57 L 52 L Respiratory Rate Blood Pressure Pulse Oximetry Oxygen Delivery Room Air 06/23/22 04:00 06/23/22 06:00 06/23/22 07:51 Temperature 36.6 C 36.3 C L Pulse Rate 55 L 56 L 60 Respiratory Rate 16 14 Blood Pressure 135/73 Pulse Oximetry 98 94 Oxygen Delivery 06/23/22 08:00 06/23/22 08:00 06/23/22 10:00 Temperature Pulse Rate 57 L 85 Respiratory Rate Blood Pressure Pulse Oximetry Oxygen Delivery Room Air 06/23/22 12:00 06/23/22 12:00 06/23/22 12:00 Temperature 36.2 C L Pulse Rate 61 58 L Respiratory Rate 14 Blood Pressure 114/61 Pulse Oximetry 94 Oxygen Delivery Room Air Intake/Output Intake/Output: Intake & Output 06/20/22 06/21/22 06/22/22 06/23/22 23:59 23:59 23:59 23:59 Intake Total 500 1100 240 Output Total 1950 400 Balance 500 -640 -160 Meds
== END 2022-06-23 12:45 | disposition home or self-care (01) | DRG 392 ==
LOC: ANHED 19:47 → ANHIMU 23:10
PROVIDERS: Admitting Provider Internal Medicine; Emergency Provider General Practice; PCP Family Medicine; Visit Provider Chiropractor
DX: R10.13 Epigastric pain (principal); I42.1 Obstructive hypertrophic cardiomyopathy; I05.0 Rheumatic mitral stenosis; M54.2 Cervicalgia; R53.1 Weakness; G47.33 Obstructive sleep apnea (adult) (pediatric); N28.9 Disorder of kidney and ureter, unspecified; N20.0 Calculus of kidney; I12.9 Hypertensive chronic kidney disease with stage 1 through stage 4 chronic kidney disease, or unspecified chronic kidney disease; N18.9 Chronic kidney disease, unspecified; G20 Parkinson's disease; F02.80 Dementia in other diseases classified elsewhere, unspecified severity, without behavioral disturbance, psychotic disturbance, mood disturbance, and anxiety; E78.5 Hyperlipidemia, unspecified; F31.9 Bipolar disorder, unspecified; F41.9 Anxiety disorder, unspecified; Z20.822 Contact with and (suspected) exposure to COVID-19; Z28.21 Immunization not carried out because of patient refusal; Z79.899 Other long term (current) drug therapy; Z86.73 Personal history of transient ischemic attack (TIA), and cerebral infarction without residual deficits; Z91.198 Patient's noncompliance with other medical treatment and regimen for other reason
CPT/HCPCS: 36415; 71045; 71275; 74174; 80053; 81001; 83690; 84484; 85025; 85380; 85610; 85730; 87081; 87086; 87088; 87880; 93005; 93306; 96360; 97161; 97165; 99285; A9270; C9803; J1644; J7040; Q9967; U0003; U0005

== ENCOUNTER 2022-07-23 01:27 | Day surgery (SDC) | payer MEDICARE, OTHER, SELFPAY ==
[2022-07-13 13:25] VITALS: BMI 30.1
--- NOTE | 2022-07-13 13:51 | PC.NURSE ---
Report to the Outpatient Waiting Room, entrance under the green pavilion located off [facility], at time __11:30AM on date __07/23/22 . Planned Procedure Time: __1:30PM . Time changes happen often and if your time is changed the preop area will call you the afternoon before. - You and your visitor will be asked to self-screen and do not enter if you have any COVID symptoms. - We encourage only one visitor and NO visitors under age 16 are allowed at this time. Your visitor will receive communication by the phone number that is given day of service. - The patient visitor is requested to social distance or may leave the building when not with patient due to restrictions. - A mask is required within the hospital. Patients may have clear liquids (water, carbonated beverages, clear teas, apple juice) until 3 hours prior to surgery with a maximum of 20 ounces. - No food from midnight until time of surgery Take the following medications with a SIP of water the morning of surgery: _CARBIDOPA-LEVODOPA, VRAYLAR, DIAZEPAM, LAMOTRIGINE, SERTRALINE, DILTIAZEM Medications to discontinue per physician ___HOLD ASPIRIN 7 DAYS PRE-OP PER DR RUSSELL(PER )-LAST DOSE-07/16/22. HOLD ALL VITAMINS/SUPPLEMENTS 3 DAYS PRE-OP, LAST DOSE 07/20/22 Please no make-up, nail anguillan, hairspray, perfume, deodorant, or body powder the day of surgery. No jewelry (including any body piercings) or valuables the day of surgery, leave them at home. Please take a shower or bath the night before, or the morning of, surgery with an antibacterial soap. Wear comfortable, loose fitting clothing. Children are encouraged to wear pajamas. - Jewelry must be removed prior to entering the operating room. Rings and piercings that are not removed may be cut off. - The hospital will not accept responsibility for valuables. - Please leave all valuables, including medications, at home the day of surgery. If you are going home after surgery, a licensed taxi cab driver must drive you home. - NO public transportation without another adult. - We recommend that an adult stay with you for 24 hours following discharge. - We also recommend that you do not drive, make important decision, drink alcoholic beverages, or take any drugs that were not prescribed by your health care provider for at least 24 hours after your discharge time. Follow any additional instructions given to you from your surgeon. If you or anyone in your household have experienced Covid symptoms in the past week, please notify your surgeon or the nurse liaison at the phone number below for possible testing. Telephone instructions given to __ PATIENT'S HUSBAND___and asked if any additional questions and then verbalized understanding. Patient advised to call surgeon office or pre surgery nurse liaison [phone] if any additional questions.
--- NOTE | 2022-07-17 08:28 | PM.HPGS ---
History of Present Illness History of Present Illness Consent: Risks, benefits, and alternatives have been discussed and questions answered. Patient agrees to proceed with procedure. Chief complaint: Left Staghorn Calculus, Lt Ureteral Kidney Stones Narrative: Karina Arroyo is a 71 year old female with a known solid mass in her left kidney likely consistent with renal cell carcinoma.? She the recently presented with bilateral ureteral obstruction secondary to ureteral calculi.? She has undergone right ESWL on 1 occasion and still has to residual sizable fragments, requiring a 2nd ESWL.? She has large stones in her left kidney which we will manage with a chronic indwelling stent, given her decision not to proceed with left nephrectomy. Review of Systems Cardiovascular: Cardiovascular: Denies chest pain, Denies lightheadedness, Denies palpitations and Denies dyspnea Respiratory: Respiratory: Denies dyspnea Gastrointestinal: Gastrointestinal: Denies diarrhea, Denies nausea and Denies vomiting Genitourinary: Genitourinary: Denies hematuria and Denies dysuria Endocrine: Endocrine: Denies palpitations [facility] Past Medical History Medical History Anxiety Bipolar affective disorder Breast cancer 03/2012 Cardiomegaly Dementia Dyslipidemia Essential (primary) hypertension History of right breast cancer Hyperlipidemia Hypertrophic obstructive cardiomyopathy Meniere disease PAM (obstructive sleep apnea) non compliant with CPAP Parkinson disease Renal calculus TIA (transient ischemic attack) Unspecified osteoarthritis, unspecified site Surgical History Surgical History H/O total hysterectomy with bilateral salpingo-oophorectomy (BSO) (Unknown) History of breast surgery 03/2012 History of partial mastectomy 2011 Hx of section (Unknown) Hx of total knee arthroplasty (Unknown) Family History Family History Father Family history of diabetes mellitus in first degree relative, Onset Age: 77 Mother Family history of malignant neoplasm of ovary, Onset Age: 62 Grandparent Diabetes mellitus, Onset Age: 80 Other Hypertension Social History Social History Smoking status: Never smoker Second hand tobacco smoke exposure: No Alcohol intake: never Substance use: never Substance use type: does not use Living arrangements: with family Additional living arrangements comments: [facility] Spiritual care concerns: No Meds Home Medications and Allergies Home Medications Medication Instructions Recorded Confirmed Type diazepam 5 mg tablet 5 mg PO BID 10/12/19 07/13/22 History lamotrigine 200 mg tablet 200 mg PO Q12H 10/12/19 07/13/22 History memantine 28 mg capsule 28 mg PO DAILY 10/12/19 07/13/22 History sprinkle,extended release 24hr cariprazine 6 mg capsule (Vraylar) 6 mg PO DAILY 05/26/21 07/13/22 History carbidopa 25 mg-levodopa 100 mg 1 tablet PO QID 06/16/21 07/13/22 History tablet cholecalciferol (vitamin D3) 50 50 mcg PO DAILY 12/29/21 07/13/22 History mcg (2,000 unit) capsule diltiazem HCl 240 mg 240 mg PO DAILY #90 caps 05/19/22 07/13/22 Rx capsule,extended release 24 hr rosuvastatin 10 mg tablet 10 mg PO DAILY #90 tabs 05/19/22 07/13/22 Rx potassium chloride 10 mEq 10 meq PO DAILY #90 tabs 06/15/22 07/13/22 Rx tablet,extended release sertraline 100 mg tablet 150 mg PO DAILY 06/21/22 07/13/22 History aspirin 81 mg chewable tablet 81 mg PO DAILY@0800 30 days #30 06/23/22 07/13/22 Rx (Children's Aspirin) tabs famotidine 20 mg tablet (Pepcid AC) 20 mg PO DAILY 07/13/22 07/13/22 History ibuprofen 600 mg tablet 600 mg PO Q6H PRN Pain 07/13/22 07/13/22 History Allergies Allergy/AdvReac Type Severity Reaction Status Date / Time codeine Allergy Intermediate Conf
[2022-07-23] VITALS (8 sets, daily range): BP systolic 107–134; BP diastolic 45–65; PULSE 51–69; RESP 14–18; TEMP 36.3–36.4; O2SAT 93–100
--- NOTE | ~2022-07-23 | XR_ITS ---
EXAMINATION: XR retrograde pyelo w/stent LT DATE: 07/23/2022 13:57 INDICATION: Left ureteral stone. TECHNIQUE: 33 intraoperative fluoroscopic views of the abdomen and pelvis were obtained. I was not pr esent. Fluoroscopy exposure time was 60 seconds. COMPARISON: CT 06/21/2022 FINDINGS: There is a left internal ureteral stent. There are stones in the distal left ureter. Images demonstrate removal of the stent. A left-sided retrograde pyelogram demonstrates a left-sided stagho rn calculus. Left-sided hydronephrosis is noted. The following images demonstrate a left internal ure teral stent in expected position. IMPRESSION: 1. Left internal ureteral stent in expected position. 2. Stones in the left kidney and distal left ureter. Reviewed, dictated and finalized at location A. EL TRACTOR ENGINE MECHANIC
--- NOTE | 2022-07-23 07:43 | WPDHPUPDATE1 ---
History and Physical Update Update Date/Time: 07/23/22 07:43 History and Physical has been reviewed, including an updated exam of the patient. There are NO changes in the patient's condition. Risks, benefits, and alternatives have been discussed and questions answered. Patient agrees to proceed with procedure.
[2022-07-23] MEDS: LACTATED RINGERS 1,000 ML 30 ML IV CONT (11:34)
--- NOTE | 2022-07-23 12:09 | WPDANESEPPF ---
Anes - Initial Pre Proc Eval Procedure: Operation Date: 07/23/22 13:00 Proposed Procedures p Cystoscopy, Ureteral Left Stent Exchange, Possible Left Retrograde Pyelogram - Brian Pires MD Date/Time: 07/23/22 12:09 Surgeon: Brian Pires MD Pre Op Diagnosis: Left Staghorn Calculus, Lt Ureteral Kidney Stones Patient Data Age: 71 Gender: F Height: 1.52 m Weight: 67.9 kg Last Vital Signs Temp 36.4 C 07/23/22 11:29 Pulse 69 07/23/22 11:29 Resp 14 07/23/22 11:29 BP 120/58 L 07/23/22 11:29 Pulse Ox 97 07/23/22 11:29 O2 Del Method Room Air 07/23/22 11:29 Allergies Allergy/AdvReac Type Severity Reaction Status Date / Time codeine Allergy Intermediate Confusion Verified 07/23/22 11:35 Home Medications Medication Instructions Recorded Confirmed Type diazepam 5 mg tablet 5 mg PO BID 10/12/19 07/13/22 History lamotrigine 200 mg tablet 200 mg PO Q12H 10/12/19 07/23/22 History memantine 28 mg capsule 28 mg PO DAILY 10/12/19 07/13/22 History sprinkle,extended release 24hr cariprazine 6 mg capsule (Vraylar) 6 mg PO DAILY 05/26/21 07/23/22 History carbidopa 25 mg-levodopa 100 mg 1 tablet PO QID 06/16/21 07/23/22 History tablet cholecalciferol (vitamin D3) 50 50 mcg PO DAILY 12/29/21 07/13/22 History mcg (2,000 unit) capsule diltiazem HCl 240 mg 240 mg PO DAILY #90 caps 05/19/22 07/23/22 Rx capsule,extended release 24 hr rosuvastatin 10 mg tablet 10 mg PO DAILY #90 tabs 05/19/22 07/13/22 Rx potassium chloride 10 mEq 10 meq PO DAILY #90 tabs 06/15/22 07/13/22 Rx tablet,extended release sertraline 100 mg tablet 150 mg PO DAILY 06/21/22 07/23/22 History aspirin 81 mg chewable tablet 81 mg PO DAILY@0800 30 days #30 06/23/22 07/13/22 Rx (Children's Aspirin) tabs famotidine 20 mg tablet (Pepcid AC) 20 mg PO DAILY 07/13/22 07/13/22 History ibuprofen 600 mg tablet 600 mg PO Q6H PRN Pain 07/13/22 07/13/22 History Patient hx anesthesia problems: none Family hx anesthesia problems: none Results Review: All pre-operative results and documents have been reviewed as part of the pre-operative evaluation. [facility] Past Medical History Medical History Anxiety Bipolar affective disorder Breast cancer 03/2012 Cardiomegaly Dementia Dyslipidemia Essential (primary) hypertension History of right breast cancer Hyperlipidemia Hypertrophic obstructive cardiomyopathy Meniere disease PAM (obstructive sleep apnea) non compliant with CPAP Parkinson disease Renal calculus TIA (transient ischemic attack) Unspecified osteoarthritis, unspecified site Surgical History Surgical History H/O total hysterectomy with bilateral salpingo-oophorectomy (BSO) (Unknown) History of breast surgery 03/2012 History of partial mastectomy 2011 Hx of section (Unknown) Hx of total knee arthroplasty (Unknown) Family History Family History Father Family history of diabetes mellitus in first degree relative, Onset Age: 77 Mother Family history of malignant neoplasm of ovary, Onset Age: 62 Grandparent Diabetes mellitus, Onset Age: 80 Other Hypertension Social History Social History Smoking status: Never smoker Second hand tobacco smoke exposure: No Alcohol intake: never Substance use: never Substance use type: does not use Living arrangements: with family Additional living arrangements comments: HUSB Spiritual care concerns: No Anes - Eval Final PreProcedure Day of Procedure 07/23/22 12:09 Patient weight: overweight Heart: regular rate and rhythm Lungs: clear to auscultation Airway: Mallampati scale class III and special considerations poor opening Neurological: lethargic Last oral intake: >/= 8 hours ASA classification: II
[2022-07-23] MEDS: ONDANSETRON INJ 4 MG/2 ML VIAL IV PUSH (12:13)
[2022-07-23] MEDS: ceFAZolin 2 GM/D5W 50 ML 2 GM/50 ML BAG IVPB (12:51)
[2022-07-23] MEDS: LIDOCAINE HCL 2% GEL UROJET 10 ML PKG MUCOUS MEM (13:11)
--- NOTE | 2022-07-23 13:49 | P.OP_ITS ---
Procedure Note - Detailed Date of Procedure 07/23/22 Pre-op Diagnosis Left Staghorn Calculus, Lt Ureteral Kidney Stones Post-op Diagnosis Same Procedure Performed Cystoscopy, laser lithotripsy left ureteral stones, left ureteral stent ex change Surgeon Brian Pires MD Anesthesia General Description of Procedure patient is brought the op suite where she was prepped draped in routine sterile fashion while in dorsal lithotomy position after the uneventful induction of a general LMA anesthetic. Cystoscopy is undertaken with a 19 F rigid cystoscope. There was some calcifications on the bladder coil of her double-J ureteral stent. Went over in to remove the stent came into her mid to distal ureter and got obstructed from calcifications on the proximal tip. I therefore did left ureteroscopy with a semi-rigid ureteral scope UB. Using the 272 micron holmium laser fiber fractured all the stones off the surface of the stent and was able to remove the stent. I replaced the with another 4.8 F stent after performing a retrograde pyelogram over [place] catheter to ensure proper positioning. Patient tolerated the procedure well. On this occasion I will move the interval for stent change up from 6 months to 4 months. Drains Yes Packing No Pathology None sent Condition Stable Disposition PACU
--- NOTE | 2022-07-23 15:58 | SUR.PHASEII ---
1519: Called Dr. Pires because patient had pressure and couldn't urinate on own. Dr. Pires said to bladder scan patient and if it was over 300 to go ahead and straight cath patient. RN bladder scanned her and it showed 467. RN got 450mL bright red urine.
== END 2022-07-23 15:49 | disposition home or self-care (01) ==
PROVIDERS: PCP Family Medicine; Visit Provider Urology
PROC: (CPT 52352; principal; 2022-07-23 13:00)
DX: N20.1 Calculus of ureter (principal); N28.9 Disorder of kidney and ureter, unspecified; I10 Essential (primary) hypertension; E78.5 Hyperlipidemia, unspecified; G20 Parkinson's disease; F02.80 Dementia in other diseases classified elsewhere, unspecified severity, without behavioral disturbance, psychotic disturbance, mood disturbance, and anxiety; I42.1 Obstructive hypertrophic cardiomyopathy; G47.33 Obstructive sleep apnea (adult) (pediatric); F31.9 Bipolar disorder, unspecified; F41.9 Anxiety disorder, unspecified; Z85.3 Personal history of malignant neoplasm of breast; Z86.73 Personal history of transient ischemic attack (TIA), and cerebral infarction without residual deficits
CPT/HCPCS: 52356; 74420; C1758; C1769; C2617; J0690; J2405; J2704; J3010; J7120

== ENCOUNTER 2022-07-24 14:03 | Inpatient (IN) | payer MEDICARE, OTHER, SELFPAY ==
[2022-07-24] VITALS (11 sets, daily range): BP systolic 108–123; BP diastolic 51–59; PULSE 66–79; RESP 12–18; TEMP 36.4–36.8; O2SAT 89–100; BMI 26.9
--- NOTE | ~2022-07-24 | CT_ITS ---
EXAMINATION: CT brain wo con DATE: 07/24/2022 16:13 INDICATION: Slurred speech. Weakness. TECHNIQUE: Computed tomography (CT) of the head was performed without intravenous contrast. The mA wa s adjusted according to patient size. Iterative reconstruction technique was employed. The dose-lengt h product was 605.33 mGy-cm. COMPARISON: Head CT 11/02/2017 FINDINGS: There is no intracranial hemorrhage, acute infarction, or abnormal intracranial mass lesion . There is an old lacunar infarct in right caudate nucleus. The ventricles are normal in size. The or bits are normal. There is mild mucosal thickening in the ethmoid sinuses. The mastoid air cells are n ormal. IMPRESSION: 1. 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 Reviewed, dictated and finalized at location A. T CHANGER
--- NOTE | ~2022-07-24 | XR_ITS ---
EXAMINATION: XR chest 1V portable INDICATION: Weakness TECHNIQUE: Portable AP chest at 1445 hours COMPARISON: 06/21/2022 FINDINGS: The lung volumes are low. There is a small left pleural effusion. There are minimal airspac e opacities of the left lung base. No pneumothorax is identified. There is calcification of the jacqueline l annulus. The heart size is normal for technique. IMPRESSION: 1. Small left pleural effusion with minimal atelectasis versus pneumonia of the left lung base. Reviewed, dictated and finalized at location B. CULTURAL INSPECTOR
--- NOTE | ~2022-07-24 | XR_ITS ---
EXAMINATION: XR knee RT 2V DATE: 07/25/2022 14:05 INDICATION: Right knee pain TECHNIQUE: Two views of the right knee were obtained. COMPARISON: 07/01/2004 FINDINGS: Alignment is normal. No fracture or osteochondral lesion. There are changes of interval kne e arthroplasty. No joint effusion/synovitis. Soft tissues are unremarkable. IMPRESSION: 1. No acute osseous abnormality. Reviewed, dictated and finalized at location A. Y DIRECTOR
--- NOTE | ~2022-07-24 | XR_ITS ---
EXAMINATION: XR knee LT 2V DATE: 07/25/2022 14:05 INDICATION: Left knee pain and swelling TECHNIQUE: Two views of the left knee were obtained. COMPARISON: None. FINDINGS: Alignment is normal. No fracture or osteochondral lesion. There are changes of knee arthrop lasty. No joint effusion/synovitis. Soft tissues are unremarkable. IMPRESSION: 1. No acute osseous abnormality. Reviewed, dictated and finalized at location A. NCIAL SERVICE PROFESSIONAL
--- NOTE | ~2022-07-24 | MR_ITS ---
EXAMINATION: MR brain/brain stem wo con DATE: 07/25/2022 15:18 INDICATION: New onset weakness. Slurred speech. TECHNIQUE: Magnetic resonance imaging (MRI) of the brain and brainstem was performed without intraven ous contrast. COMPARISON: Brain MRI 12/15/2018 FINDINGS: There are scattered areas of nonspecific increased T2-weighted signal intensity in the cere bral white matter, which is within normal limits for the patient's age. There is an old lacunar infar ct in right caudate nucleus. There is no intracranial hemorrhage, acute infarction, or abnormal intra cranial mass lesion. The ventricles are normal in size. The paranasal sinuses are clear. The orbits a re normal. There is a left mastoid effusion. IMPRESSION: 1. 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 Reviewed, dictated and finalized at location E. UM CLEANER MECHANIC
--- NOTE | ~2022-07-24 | XR_ITS ---
EXAMINATION: XR abdomen/kub 1V INDICATION: Ureteral stent, left-sided urolithiasis TECHNIQUE: Supine view of the abdomen is obtained. COMPARISON: 09/24/2021 FINDINGS: A left internal ureteral stent is in expected position. There is staghorn calculus of the l eft kidney. Multiple stones project adjacent to the distal aspect of the left internal ureteral stent without significant change. The right-sided stent has been removed. The bowel gas pattern is normal. There is moderate osteoarthritis of the right hip. IMPRESSION: 1. Left internal ureteral stent in expected position with unchanged left staghorn calculus and stones adjacent to the distal aspect of the stent. Reviewed, dictated and finalized at location B. ARCH PROFESSIONAL IMPRESSION: 1. Left internal ureteral stent in expected position with unchanged left stagho rn calculus and stones adjacent to the distal aspect of the stent.
--- NOTE | ~2022-07-24 | CT_ITS ---
EXAMINATION: CT abdomen pelvis wo con DATE: 07/24/2022 16:13 INDICATION: Kidney stones. Ureteral stent. TECHNIQUE: Computed tomography (CT) of the abdomen and pelvis was performed without intravenous contr ast. Automated exposure control and iterative reconstruction technique were employed. Exam dose: 973 .49 mGy-cm total exam DLP. COMPARISON: 07/12/2018 CT abdomen 06/21/2022 CTA chest abdomen pelvis FINDINGS: There is discoid atelectasis and/or scarring at the lung bases. 7 mm right lower lobe lung mass, stable since 07/12/2018, therefore most likely benign. Cardiomegaly, coronary artery atherosclerosis. Prominent mitral annulus calcification. No pericardial or pleural effusion. Status post cholecystectomy. No bile duct or pancreatic duct dilatation. There are several right nonobstructing calculi, measuring up to 8 mm. There is moderate right hydronephrosis and pelviectasis, with relatively normal caliber of the right ureter, suggesting ureteropelvic disproportion. 12 mm upper pole right renal cyst. 4 cm exophytic mass of the lateral left kidney, likely hypernephroma. 2.4 cm exophytic mass at the po sterior lower pole left kidney, also likely hypernephroma. Large staghorn left renal calculi. Left internal urinary stent. Steinstrasse of distal left ureter. Multiple small stones in the dependent urinary bladder. Moderate left hydroureteronephrosis. There is left ureteral wall thickening and apparent pyelosinus extravasation as well as prominent periureteral stranding and air in the left ureter, suggesting infe ction. Multiple diverticula of the colon; no evidence of diverticulitis. No bowel obstruction or intraperito rogerio free air. Diffuse idiopathic skeletal hyperostosis of the thoracic spine. No suspicious osteolytic or osteoblas tic lesions are noted. IMPRESSION: Left internal urinary stent with distal ureteral Steinstrasse Large staghorn calculus left kidney Left hydroureteronephrosis, air in the left ureter, prominent left ureteral wall thickening and periu reteral stranding, pyelosinus extravasation. Left urinary tract infection is suggested. Multiple small stones in the dependent right urinary bladder Mild nonobstructive right nephrolithiasis 12 mm upper pole right renal cyst Mid left renal and lower pole left renal probable hypernephromas Possible right ureteropelvic disproportion with moderate right hydronephrosis and pelviectasis Status post cholecystectomy Diverticulosis of the colon Chronic 7 mm right lower lobe lung mass, stable since 07/12/2018, therefore benign Cardiomegaly Reviewed, dictated and finalized at [facility] Reviewed, dictated and finalized at [facility] [employer] IMPRESSION: Left internal urinary stent with distal ureteral Steinstrasse Large staghorn calculus left kidney Left hydroureteronephrosis, air in the left ureter, prominent left ureteral wal l thickening and periureteral stranding, pyelosinus extravasation. Left urinary tract infection is suggested. Multiple small stones in the dependent right urinary bladder Mild nonobstructive right nephrolithiasis 12 mm upper pole right renal cyst Mid left renal and lower pole left renal probable hypernephromas Possible right ureteropelvic disproportion with moderate right hydronephrosis a nd pelviectasis Status post cholecystectomy Diverticulosis of the colon Chronic 7 mm right lower lobe lung mass, stable since 07/12/2018, therefore cyndee ign Cardiomegaly
--- NOTE | 2022-07-24 14:20 | ECG_ITS ---
Measurements Intervals Stokes Rate: 75 P: -15 NJ: 150 QRS: -21 QRSD: 114 T: 13 QT: 417 QTc: 468 Interpretive Statements SINUS RHYTHM POSSIBLE LEFT ATRIAL ENLARGEMENT INTRAVENTRICULAR CONDUCTION DELAY DELAYED PRECORDIAL R/S TRANSITION INFERIOR INFARCT, AGE INDETERMINATE BORDERLINE T WAVE ABNORMALITY- ANTEROLATERAL LEADS ABNORMAL ECG COMPARED TO ECG 06/21/2022 18:53:07 SINUS RHYTHM NOW PRESENT Electronically Signed On 07-25-2022 6:37:25 STRUCTURAL STEEL TRADES WORKER by Shola Weiss D.O.
[2022-07-24 14:39] LABS: Alveolar/Arterial O2 Gradient 32.7 mmHg; Base Excess ABG 1.9 mEq/l (+/-2.0); Carboxyhemoglobin 0.8 % THb (0-2.0); Device NASAL CANNULA; Fractional Inspired Oxygen 24 %; HCO3 ABG 27.6 mEq/l (22.0-26.0); Methemoglobin ABG 0.1 %THb (0-1.5); Modified Allen's Test Pass; Oxygen Content ABG 16.2 %vol (16.0-22.0); Oxygen Saturation ABG 95.7 % (95.0-100.0); Oxyhemoglobin 94.6 % THb (90.0-100.0); PCO2 ABG 47.9 mmHg (35.0-45.0); PO2 ABG 81.4 mmHg (80.0-100.0); PO2 FiO2 Ratio Arterial Blood 3.39 %; Reduced Hemoglobin 4.5 %THb (0-5.0); Site Drawn RIGHT RADIAL; Total Hemoglobin 12.1 g/dL (12.0-18.0); pH ABG 7.379 (7.350-7.450)
--- NOTE | 2022-07-24 14:51 | ED.WEAKNESS ---
HPI - Weakness General Chief complaint: Weakness Stated complaint: weakness, new stents yesterday Time Seen by Provider: 07/24/22 14:10 Source: patient, family, EMS, RN notes reviewed and old records reviewed Mode of arrival: EMS Limitations: clinical condition History of Present Illness HPI Narrative: This is a 71 year old female who presents from home for evaluation of weakness. EMT reports patient had ureteral stent placed yesterday and she has been weak. Patient is unable provide good history. She does admit to taking pain medication but she is unaware of name or what time. Patient's states around 6 am this morning patient was complaining about weakness and she has some slurred speech. She was also reporting vaginal pain from her procedure today. He has given her 4 hydrocodone over a period of 8 hours for her pain . He states patient was unable to walk with her walker and this started before she was given hydrocodone. Related Data Home Medications Medication Instructions Recorded Confirmed diazepam 5 mg tablet 5 mg PO BID 10/12/19 07/24/22 lamotrigine 200 mg tablet 200 mg PO Q12H 10/12/19 07/24/22 memantine 28 mg capsule 28 mg PO DAILY 10/12/19 07/24/22 sprinkle,extended release 24hr cariprazine 6 mg capsule (Vraylar) 6 mg PO DAILY 05/26/21 07/24/22 carbidopa 25 mg-levodopa 100 mg 1 tablet PO QID 06/16/21 07/24/22 tablet cholecalciferol (vitamin D3) 50 50 mcg PO DAILY 12/29/21 07/24/22 mcg (2,000 unit) capsule sertraline 100 mg tablet 150 mg PO DAILY 06/21/22 07/24/22 ibuprofen 600 mg tablet 600 mg PO Q6H PRN Pain 07/13/22 07/24/22 Allergies Allergy/AdvReac Type Severity Reaction Status Date / Time codeine Allergy Intermediate Confusion Verified 07/24/22 14:18 Review of Systems Review of Systems: ROS unobtainable: Yes unobtainable due to medical condition PMFSH Past Medical History Medical History Anxiety Bipolar affective disorder Breast cancer 03/2012 Cardiomegaly Dementia Dyslipidemia Essential (primary) hypertension History of right breast cancer Hyperlipidemia Hypertrophic obstructive cardiomyopathy Meniere disease PAM (obstructive sleep apnea) non compliant with CPAP Parkinson disease Renal calculus TIA (transient ischemic attack) Unspecified osteoarthritis, unspecified site Surgical History Surgical History H/O total hysterectomy with bilateral salpingo-oophorectomy (BSO) (Unknown) History of breast surgery 03/2012 History of partial mastectomy 2011 Hx of section (Unknown) Hx of total knee arthroplasty (Unknown) Family History Family History Father Family history of diabetes mellitus in first degree relative, Onset Age: 77 Mother Family history of malignant neoplasm of ovary, Onset Age: 62 Grandparent Diabetes mellitus, Onset Age: 80 Other Hypertension Social History Social History Smoking status: Never smoker Second hand tobacco smoke exposure: No Alcohol intake: never Substance use: never Substance use type: does not use Lack of Transportation: YES Lack of Food: Never True Current Housing: I Have Housing Concerned About Future Housing: No Difficulty Paying Gas/Electric Bills: No Difficulty Paying for Meds: No Currently Unemployed: No Education: Decline to Answer Difficulty w/ Childcare or Family Care: No Additional living arrangements comments: HUSB Spiritual care concerns: No Exam Const: Orientation/consciousness: patient oriented x3 Other: lethargic HENMT: Head: normal to inspection Face and sinus: normal facial exam Eyes: Pupils: Equal, round and reactive pupils present EOM: EOMs intact bilaterally Chest: Chest palpation & inspection: normal inspection of the chest Resp:
[2022-07-24] MEDS: NALOXONE HCL 0.4 MG/ML VIAL IV PUSH (15:04)
[2022-07-24] MEDS: SODIUM CHLORIDE 0.9% IV 1,000 ML 999 ML IV CONT ×2 (15:04→19:39)
[2022-07-24 15:56] LABS: Add Urine Microscopic? YES; Appearance Urine Turbid (Clear); Bilirubin Urine 2+ (Negative); Blood Urine 3+ (Negative); Color Urine Red (Yellow); Glucose Urine UA Negative (Negative); Ketones Urine 1+ mg/dL (Negative); Leukocyte Esterase Ur 3+ LEU/UL (Negative); Nitrate Urine Negative (Negative); Protein Urine 3+ mg/dL (Negative); Specific Grav Ur 1.025 (1.001-1.035)
[2022-07-24 16:02] LABS: RBC Urine >75 /hpf (0-2); Squamous Epithelial Cell Urine Few /hpf (Few); WBC Urine >75 /hpf (0-3)
[2022-07-24 16:03] LABS: Bacteria Urine Trace /hpf
[2022-07-24 16:56] LABS: Basophils Percent Auto 0.3 % (0.2-1.2); Eosinophils Absolute Auto 0.1 K/mm3 (0-0.3); Hematocrit 36.4 % (37.0-47.0); Immature Granulocyte Absolute 0.02 K/mm3 (0.00-0.031); Immature Granulocyte Percent A 0.3 % (0-0.5); Lymphocytes Absolute Auto 0.69 K/mm3 (0.9-3.2); Lymphocytes Percent Auto 10.1 % (18.3-44.2); Mean Corpuscular HGB Conc 30.2 g/dl (32-36); Mean Corpuscular Hemoglobin 29.1 pg (26-34); Mean Corpuscular Volume 96.3 fl (80-100); Mean Platelet Volume 9.3 fl (7.4-10.4); Monocytes Absolute Auto 0.5 K/mm3 (0.1-0.6); Monocytes Percent Auto 7.9 % (2.6-8.5); Neutrophils Absolute Auto 5.5 K/mm3 (1.3-6.7); Neutrophils Percent Auto 80.4 % (45.5-73.1); Platelet Count Result 142 k/mm3 (150-375); Red Blood Count 3.78 M/mm3 (4.2-5.4); Red Cell Distribution Width 12.6 % (11.5-14.5); White Blood Count 6.9 K/mm3 (4.5-10.0)
[2022-07-24 17:05] LABS: INR 1.1; Prothrombin Time 13.6 Seconds (11.1-14.7)
[2022-07-24 17:13] LABS: Lactic Acid Reflex 0.9 mmol/L (0.7-2.0)
[2022-07-24 17:17] LABS: Alanine Aminotransferase 15 U/L (6-35); Albumin Level 4.1 g/dL (3.5-5.1); Alkaline Phosphatase 226 U/L (38-126); Anion Gap 12 mmol/L (8-16); Aspartate Amino Transferase 187 U/L (14-36); Blood Urea Nitrogen 21 mg/dL (7-17); CRP 2.8 mg/dL (<1.0); Calcium 8.9 mg/dL (8.4-10.2); Carbon Dioxide 30 mmol/L (22-30); Chloride 102 mmol/L (98-107); Estimated CRCL calculation 27 ml/min; Estimated Glomerular Filt Rate 34; Glucose 120 mg/dL (65-110); Lipase 667 U/L (23-300); Potassium 3.6 mmol/L (3.4-5.0); Sodium 144 mmol/L (137-145)
[2022-07-24 17:26] LABS: Troponin I 0.024 ng/mL (0.000-0.034)
[2022-07-24 17:29] LABS: Influenza A QL RT-PCR Negative (Negative); Influenza B QL RT-PCR Negative (Negative); SARS-CoV-2 RNA PCR Negative
[2022-07-24] MEDS: SODIUM CHLORIDE 0.9% IV 1,000 ML 125 ML IV CONT (21:08)
[2022-07-24 21:32] LABS: Glucose Point of Care 107 mg/dl (65-105)
--- NOTE | 2022-07-24 21:47 | PC.NURSE ---
This patient, Karina Arroyo, was admitted to 2 Medical Room 251-01. Patient/family oriented to hospital policies and general routines including ID bracelet, bed and alarms, visiting hours, pain management, procedures, bathroom and other care routines, personal items, smoking policy, room service/diet, and visiting hours. Information on how to activate the Rapid Response Team has been discussed. Patient/Family are encouraged to report perceived risks to care and to ask questions if they do not understand what they are told or what they should do.
--- NOTE | 2022-07-24 23:49 | PM.IMHP ---
H&P: HPI History of Present Illness Date/Time: 07/24/22 23:49 Chief Complaint: Weakness Narrative: This is a 71-year-old female who presents to the emergency room from home for evaluation of weakness. The patient had a cystoscopy, laser lithotripsy left ureter stone, left ureteral stent exchange by Dr. Gustafson yesterday. The patient stated that she is very weak since then. The patient keeps falling asleep on me during the interview. The patient's stated around 6:00 a.m. this morning the patient was complaining about weakness and she had some slurred speech. She was also complaining of vaginal pain from her procedure. The patient was unable to walk with her walker. Patient was given her oxycodone on over period of 8 hours for her pain. H&H is 10 0 in 36.4. She is above her baseline. Patient has wine colored urine. A Lawler catheter was placed in the emergency room. Her platelets are 142. Creatinine is 1.5 with the last creatinine being normal last month. AST is 187 and alkaline phosphatase 226. C reactive protein 2.8. Patient's urine was found to be infectious. The patient is negative for influenza A/B and COVID. The patient was given narcan, ceftriaxone, acetaminophen and 2 L of IV fluids. Urology has been consulted. The patient is being admitted to observation status on the date of service of 07/24/2022. Review of Systems Review of Systems: See HPI All systems reviewed & are unremarkable except as noted in HPI and below Constitutional: Constitutional: Reports as per HPI and Reports no additional constitutional complaints Eyes: Eyes: Reports as per HPI and Reports no additional eye complaints ENT: Reports system reviewed and no additional complaints, except as documented and Reports Normal hearing present Cardiovascular: Cardiovascular: Reports no additional cardiovascular complaints Respiratory: Respiratory: Reports no additional respiratory complaints and Reports no additional respiratory complaints Gastrointestinal: Gastrointestinal: Reports as per HPI and Reports no additional gastrointestinal complaints Musculoskeletal: Musculoskeletal: Reports no additional musculoskeletal complaints Integumentary/Breasts: Skin/Breast: Reports system reviewed and no additional complaints, except as docu and Reports as per HPI Neurologic: Reports system reviewed and no additional complaints, except as documented, Reports as per HPI and Reports Normal hearing present Psychiatric: Psychiatric: Reports no additional psychiatric complaints and Reports as per HPI Endocrine: Endocrine: Reports no additional endocrine complaints Hematologic/Lymphatic: Hematologic/Lymphatic: Reports no additional hematologic/lymphatic complaints Allergic/Immunologic: Allergic/Immunologic: Reports no additional allergic/immunologic complaints [facility] Past Medical History Medical History (Updated 07/25/22 @ 01:33 by Lashanda Aguilar NP) Anxiety Bipolar affective disorder Breast cancer 03/2012 Cardiomegaly Dementia Dyslipidemia Essential (primary) hypertension History of CVA (cerebrovascular accident) History of right breast cancer Hyperlipidemia Hypertrophic obstructive cardiomyopathy Left renal mass Meniere disease PAM (obstructive sleep apnea) non compliant with CPAP Parkinson disease Renal calculus TIA (transient ischemic attack) Unspecified osteoarthritis, unspecified site Surgical History Surgical History H/O total hysterectomy with bilateral salpingo-oophorectomy (BSO) (Unknown) History of breast surgery 03/2012 History of partial mastectomy 2011 Hx of section (Unknown) Hx of total knee arthroplasty (Unknown) Family History Family History Father Family history of diabetes mellitus in first degree relative, Onset Age: 77 Mother Family history of malignant neoplasm of ovary, Onset Age: 62 Grandpa
[2022-07-25] VITALS (11 sets, daily range): BP systolic 118–127; BP diastolic 61–66; PULSE 56–77; RESP 16–20; TEMP 36.5–37; O2SAT 92–99
[2022-07-25] MEDS: SODIUM CHLORIDE 0.9% IV 1,000 ML 75 ML IV CONT (05:17)
[2022-07-25 05:57] LABS: Basophils Percent Auto 0.5 % (0.2-1.2); Eosinophils Absolute Auto 0.2 K/mm3 (0-0.3); Hematocrit 32.4 % (37.0-47.0); Hemoglobin 10.1 g/dL (12.0-15.0); Immature Granulocyte Absolute 0.03 K/mm3 (0.00-0.031); Immature Granulocyte Percent A 0.5 % (0-0.5); Lymphocytes Absolute Auto 0.99 K/mm3 (0.9-3.2); Lymphocytes Percent Auto 16.8 % (18.3-44.2); Mean Corpuscular HGB Conc 31.2 g/dl (32-36); Mean Corpuscular Hemoglobin 29.5 pg (26-34); Mean Corpuscular Volume 94.7 fl (80-100); Mean Platelet Volume 9.5 fl (7.4-10.4); Monocytes Absolute Auto 0.6 K/mm3 (0.1-0.6); Monocytes Percent Auto 10.8 % (2.6-8.5); Neutrophils Percent Auto 68.4 % (45.5-73.1); Platelet Count Result 128 k/mm3 (150-375); Red Blood Count 3.42 M/mm3 (4.2-5.4); Red Cell Distribution Width 12.5 % (11.5-14.5); White Blood Count 5.9 K/mm3 (4.5-10.0)
[2022-07-25 06:05] LABS: Alanine Aminotransferase 35 U/L (6-35); Albumin Level 3.5 g/dL (3.5-5.1); Alkaline Phosphatase 202 U/L (38-126); Anion Gap 6 mmol/L (8-16); Aspartate Amino Transferase 104 U/L (14-36); Bilirubin,Total 0.8 mg/dL (0.2-1.3); Blood Urea Nitrogen 14 mg/dL (7-17); Calcium 7.9 mg/dL (8.4-10.2); Carbon Dioxide 28 mmol/L (22-30); Chloride 106 mmol/L (98-107); Estimated CRCL calculation 46 ml/min; Estimated Glomerular Filt Rate > 60; Glucose 90 mg/dL (65-110); Potassium 3.6 mmol/L (3.4-5.0); Sodium 140 mmol/L (137-145)
[2022-07-25] MEDS: CHOLECALCIFEROL 1,000 UNITS TABLET 2000 UNITS PO (08:17)
[2022-07-25] MEDS: lamoTRIgine 100 MG TABLET 200 MG PO ×2 (08:18→20:27)
[2022-07-25] MEDS: CARBIDOPA/LEVODOPA 25/100 MG TABLET 1 TABLET PO ×4 (08:18→20:26)
[2022-07-25] MEDS: SERTRALINE HCL 50 MG TABLET 150 MG PO (08:19)
[2022-07-25] MEDS: POTASSIUM CHLORIDE 10 MEQ TABLET.ER PO (08:19)
[2022-07-25] MEDS: MEMANTINE HCL XR 28 MG CAP PO (08:19)
[2022-07-25 08:45] LABS: Glucose Point of Care 82 mg/dl (65-105)
--- NOTE | 2022-07-25 08:49 | PM.IMPN ---
Progress Note: A&P Assessment and Plan (1) Encephalopathy acute: Code(s): G93.40 - Encephalopathy, unspecified Status: Acute Assessment and Plan: Multifactorial, will treat UTI, IV fluids for possible dehydration, hold sedating/altering medications and pain meds Appears to be resolving MRI and neuro consult pending (2) UTI (urinary tract infection): Code(s): N39.0 - Urinary tract infection, site not specified Status: Acute Assessment and Plan: Continue Rocephin, follow up urine culture (3) BLAKE (acute kidney injury): Code(s): N17.9 - Acute kidney failure, unspecified Status: Acute Assessment and Plan: IV fluids, monitor (4) Hematuria: Code(s): R31.9 - Hematuria, unspecified Status: Acute Assessment and Plan: Urology consult pending, monitor hemoglobin She recently had a urological stent replaced (5) Left renal stone: Code(s): N20.0 - Calculus of kidney Status: Acute Assessment and Plan: Appreciate urology consultation (6) Parkinson disease: Code(s): G20 - Parkinson's disease Status: Acute Assessment and Plan: Continue home medications Neurology consult pending, patient does not have outpatient Neurology follow-up nearby Suspect Parkinson's is exacerbated by the UTI, would like to confirm no other underlying neurological abnormalities prior to assuming this Brain MRI pending to rule out stroke, other etiology to patient's encephalopathy (7) Dyslipidemia: Code(s): E78.5 - Hyperlipidemia, unspecified Status: Acute Assessment and Plan: Statin being held (8) Essential (primary) hypertension: Code(s): I10 - Essential (primary) hypertension Status: Acute Assessment and Plan: Continue home medications, monitor (9) Anxiety: Code(s): F41.9 - Anxiety disorder, unspecified Status: Acute Assessment and Plan: Continue Zoloft and Lamictal (10) Weakness: Code(s): R53.1 - Weakness Status: Acute Assessment and Plan: PT/OT eval pending (11) Dementia: Qualifiers: Dementia behavioral disturbance: without behavioral disturbance Dementia type: unspecified type Qualified Code(s): F03.90 - Unspecified dementia without behavioral disturbance Code(s): F03.90 - Unspecified dementia, unspecified severity, without behavioral disturbance, psychotic disturbance, mood disturbance, and anxiety Status: Acute Assessment and Plan: Continue Namenda Plan DVT prophylaxis with SCDs GI prophylaxis not indicated Code status full code Subjective Date/time seen: 07/25/22 08:49 Interval history: No overnight events noted. No chest pain or shortness of breath. No nausea, vomiting or diarrhea. No fevers or chills. Patient also is complaining of bilateral knee pain that she thinks is contributing to her weakness. is in the room and gives a lot a history. He feels like ever since she got a bladder infection her Parkinson's has been significantly worse. She is very stiff, rigid and has a shuffling gait. Review of Systems Review of Systems: 12 point review of systems was assessed and was negative except as noted in the HPI Exam Narrative: General: No acute distress, alert and oriented per baseline, slowed somewhat slurred speech HEENT: Atraumatic, normocephalic, mucous membranes moist CV: Regular rate and rhythm, S1, S2 Lungs: Clear to auscultation bilaterally, no rales or crackles noted, no wheezes, good air entry Abdomen: Soft, nontender, nondistended Extremities: Normal to inspection Skin: No rashes noted, no lesions or wounds seen Psych: Euthymic, normal affect Neuro: Cranial nerves 2-12 grossly intact, strength +5/5 upper and lower extremities bilaterally Objective Data Vital Signs Vital Signs: Vital Signs - 24 hr 07/24/22 14:13 07/24/22 20:16 07/24/22 19:05 Temperature 98.2 F Pulse
[2022-07-25] MEDS: ACETAMINOPHEN 500 MG TABLET 1000 MG PO (10:35)
--- NOTE | 2022-07-25 12:10 | WPDURCON ---
Assessment and Plan Assessment and plan (1) Encephalopathy acute: Code(s): G93.40 - Encephalopathy, unspecified Status: Acute (2) UTI (urinary tract infection): Code(s): N39.0 - Urinary tract infection, site not specified Status: Acute (3) BLAKE (acute kidney injury): Code(s): N17.9 - Acute kidney failure, unspecified Status: Acute (4) Hematuria: Code(s): R31.9 - Hematuria, unspecified Status: Acute (5) Left renal stone: Code(s): N20.0 - Calculus of kidney Status: Acute Plan 71 yr old female admitted with weakness, urinary retention, and hematuria after recent left ureteroscopy and stent change. - clinically improving. Pain has resolved. Cr normalized with watson and IVF - continue IV abx while awaiting culture results - chronic L staghorn and distal L ureteral stones with stent change 07/23/22; hydro is stable and Cr is at baseline - continue watson until weakness improves and will plan for voiding trial before discharge - hematuria resolving (urine light pink in tubing today) - needs to work with therapy and supportive care - please call with questions Urology Consult Note HPI Date Seen: 07/25/22 Requesting Physician: Sandra Bar MD Primary Care Provider: Mando De Los Santos MD Consult Narrative Reason for consult: weakness, retention and hematuria Narrative: Karina Arroyo is a 71 year old female who is a patient of my partner Dr. Pires. She had left ureteroscopy and stent change on for chronic indwelling left ureteral stent for left staghorn calculus and left ureteral stone. Per the notes, patient has history of left renal mass and left staghorn calculus. She has declined nephrectomy and is managed with stent changes. Was discharged home after her procedure on . Since then, was having issues with urinary frequency and difficulty voiding. Her noted progressive weakness yesterday in addition to difficulty voiding and suprapubic pain. He gave her narcotic that was prescribed. Due to worsening weakness, she was brought to ER for further evaluation. In ER, she was noted to have CR 1.5. CT showed left hydro with left distal stone (less stone burden than on prior CT), air in left collecting system, known left staghorn calculus, distended bladder and mild right hydronephrosis with no ureteral stone (this looked unchanged from CT 06/21/22). From review of chart, patient has chronic left hydro. Watson was placed in ER, she received IV fluids and IV antibiotics. Encephalopathy has improved and pain has resolved. Review of Systems Constitutional: Constitutional: Reports fatigue and Reports weakness Eyes: Eyes: Reports as per HPI ENT: Reports system reviewed and no additional complaints, except as documented Cardiovascular: Cardiovascular: Reports no additional cardiovascular complaints Respiratory: Respiratory: Reports no additional respiratory complaints Gastrointestinal: Gastrointestinal: Reports as per HPI Genitourinary: Genitourinary: Reports as per HPI Neurologic: Reports as per HPI PMF Past Medical History Medical History (Updated 07/25/22 @ 01:33 by Lashanda Aguilar NP) Anxiety Bipolar affective disorder Breast cancer 03/2012 Cardiomegaly Dementia Dyslipidemia Essential (primary) hypertension History of CVA (cerebrovascular accident) History of right breast cancer Hyperlipidemia Hypertrophic obstructive cardiomyopathy Left renal mass Meniere disease PAM (obstructive sleep apnea) non compliant with CPAP Parkinson disease Renal calculus TIA (transient ischemic attack) Unspecified osteoarthritis, unspecified site Surgical History Surgical History H/O total hysterectomy with bilateral salpingo-oophorectomy (BSO) (Unknown) History of breast surgery 03/2012 History of partial mastectomy 2011 Hx of section (Unknown) Hx of total
[2022-07-25 12:13] LABS: Glucose Point of Care 95 mg/dl (65-105)
--- NOTE | 2022-07-25 15:09 | PCPTNOTE ---
Patient down getting an MRI will check on her tomorrow
[2022-07-25 16:22] LABS: Hemoglobin 9.8 g/dL (12.0-15.0)
[2022-07-25 17:28] LABS: Glucose Point of Care 91 mg/dl (65-105)
--- NOTE | 2022-07-25 19:12 | PHAR ---
[id number] CONTAINS: DRUG NAME: MARISELA INGREDIENTS: CARIPRAZINE -- 6 MG RELATED DOCUMENTS: DRUGDEX EVALUATIONS - CARIPRAZINE COLOR: PURPLE , WHITE IMPRINT: FL 6 FORM: ORAL CAPSULE
[2022-07-25 19:35] LABS: Hematocrit 30.6 % (37.0-47.0); Hemoglobin 9.7 g/dL (12.0-15.0)
[2022-07-25 21:24] LABS: Glucose Point of Care 90 mg/dl (65-105)
[2022-07-26] VITALS (9 sets, daily range): BP systolic 113–140; BP diastolic 53–67; PULSE 56–80; RESP 12–20; TEMP 36.5–36.9; O2SAT 94–98
[2022-07-26 05:36] LABS: Basophils Percent Auto 0.7 % (0.2-1.2); Eosinophils Absolute Auto 0.2 K/mm3 (0-0.3); Eosinophils Percent Auto 3.9 % (0-4.4); Hematocrit 34.5 % (37.0-47.0); Hemoglobin 10.5 g/dL (12.0-15.0); Immature Granulocyte Absolute 0.03 K/mm3 (0.00-0.031); Immature Granulocyte Percent A 0.5 % (0-0.5); Lymphocytes Absolute Auto 0.99 K/mm3 (0.9-3.2); Lymphocytes Percent Auto 16.1 % (18.3-44.2); Mean Corpuscular HGB Conc 30.4 g/dl (32-36); Mean Corpuscular Hemoglobin 28.8 pg (26-34); Mean Corpuscular Volume 94.8 fl (80-100); Mean Platelet Volume 9.1 fl (7.4-10.4); Monocytes Absolute Auto 0.7 K/mm3 (0.1-0.6); Monocytes Percent Auto 10.6 % (2.6-8.5); Neutrophils Absolute Auto 4.2 K/mm3 (1.3-6.7); Neutrophils Percent Auto 68.2 % (45.5-73.1); Platelet Count Result 132 k/mm3 (150-375); Red Blood Count 3.64 M/mm3 (4.2-5.4); Red Cell Distribution Width 12.2 % (11.5-14.5); White Blood Count 6.1 K/mm3 (4.5-10.0)
[2022-07-26 05:46] LABS: Alanine Aminotransferase 8 U/L (6-35); Albumin Level 3.2 g/dL (3.5-5.1); Alkaline Phosphatase 164 U/L (38-126); Anion Gap 9 mmol/L (8-16); Aspartate Amino Transferase 54 U/L (14-36); Bilirubin,Total 0.5 mg/dL (0.2-1.3); Blood Urea Nitrogen 10 mg/dL (7-17); Calcium 8.3 mg/dL (8.4-10.2); Carbon Dioxide 27 mmol/L (22-30); Chloride 106 mmol/L (98-107); Estimated CRCL calculation 52 ml/min; Estimated Glomerular Filt Rate > 60; Glucose 78 mg/dL (65-110); Potassium 3.3 mmol/L (3.4-5.0); Sodium 142 mmol/L (137-145)
--- NOTE | 2022-07-26 08:15 | PM.IMPN ---
Progress Note: A&P Assessment and Plan (1) Encephalopathy acute: Code(s): G93.40 - Encephalopathy, unspecified Status: Acute Assessment and Plan: Resolved MRI showed old lacunar infarct, nothing acute (2) UTI (urinary tract infection): Code(s): N39.0 - Urinary tract infection, site not specified Status: Acute Assessment and Plan: Continue Rocephin, follow up urine culture (3) BLAKE (acute kidney injury): Code(s): N17.9 - Acute kidney failure, unspecified Status: Acute Assessment and Plan: IV fluids, monitor (4) Hematuria: Code(s): R31.9 - Hematuria, unspecified Status: Acute Assessment and Plan: Urology consult pending, monitor hemoglobin She recently had a urological stent replaced (5) Left renal stone: Code(s): N20.0 - Calculus of kidney Status: Acute Assessment and Plan: Appreciate urology consultation (6) Parkinson disease: Code(s): G20 - Parkinson's disease Status: Acute Assessment and Plan: Continue home medications Neurology consult appreciated, patient does not have outpatient Neurology follow-up nearby Suspect Parkinson's is exacerbated by the UTI, would like to confirm no other underlying neurological abnormalities (7) Dyslipidemia: Code(s): E78.5 - Hyperlipidemia, unspecified Status: Acute Assessment and Plan: Statin being held (8) Essential (primary) hypertension: Code(s): I10 - Essential (primary) hypertension Status: Acute Assessment and Plan: Continue home medications, monitor (9) Anxiety: Code(s): F41.9 - Anxiety disorder, unspecified Status: Acute Assessment and Plan: Continue Zoloft and Lamictal (10) Weakness: Code(s): R53.1 - Weakness Status: Acute Assessment and Plan: OT is recommending SNF at discharge, PT eval pending (11) Dementia: Qualifiers: Dementia behavioral disturbance: without behavioral disturbance Dementia type: unspecified type Qualified Code(s): F03.90 - Unspecified dementia without behavioral disturbance Code(s): F03.90 - Unspecified dementia, unspecified severity, without behavioral disturbance, psychotic disturbance, mood disturbance, and anxiety Status: Acute Assessment and Plan: Continue Namenda Plan Bilateral knee x-rays negative for any acute abnormalities or significant arthritis DVT prophylaxis with SCDs GI prophylaxis not indicated Code status full code Subjective Date/time seen: 07/26/22 08:15 Interval history: No overnight events noted. No chest pain or shortness of breath. No nausea, vomiting or diarrhea. No fevers or chills. Patient states she feels extremely weak, stiff and depressed. is in the room and states that patient appears to be hopeless and thinks that she will not get any better. and patient are both happy with neurology consultation and plan to follow-up with her outpatient. Review of Systems Review of Systems: 12 point review of systems was assessed and was negative except as noted in the HPI Exam Narrative: General: No acute distress, alert and oriented per baseline, slowed and somewhat slurred speech HEENT: Atraumatic, normocephalic, mucous membranes moist CV: Regular rate and rhythm, S1, S2 Lungs: Clear to auscultation bilaterally, no rales or crackles noted, no wheezes, good air entry Abdomen: Soft, nontender, nondistended Extremities: Normal to inspection Skin: No rashes noted, no lesions or wounds seen Psych: Flattened affect, dysthymic Neuro: Cranial nerves 2-12 grossly intact, strength +5/5 upper and lower extremities bilaterally Objective Data Vital Signs Vital Signs: Vital Signs - 24 hr 07/25/22 14:10 07/25/22 14:00 07/25/22 12:00 Temperature 98.6 F Pulse Rate 63 70 Respiratory Rate 18 Blood Pressure 122/66 Pulse Oximetry 96 Oxygen Delivery Nasal C
[2022-07-26] MEDS: lamoTRIgine 100 MG TABLET 200 MG PO ×2 (08:35→20:15)
[2022-07-26] MEDS: POTASSIUM CHLORIDE 10 MEQ TABLET.ER PO (08:35)
[2022-07-26] MEDS: SERTRALINE HCL 50 MG TABLET 150 MG PO (08:35)
[2022-07-26] MEDS: CHOLECALCIFEROL 1,000 UNITS TABLET 2000 UNITS PO (08:35)
[2022-07-26] MEDS: MEMANTINE HCL XR 28 MG CAP PO (08:36)
[2022-07-26] MEDS: CARBIDOPA/LEVODOPA 25/100 MG TABLET 1 TABLET PO ×4 (08:36→20:15)
--- NOTE | 2022-07-26 09:25 | PCPTNOTE ---
Attempted to evaluate patient, but patient getting an IV put in, will check on her later if time permits otherwise tomorrow.
[2022-07-26 09:29] LABS: Glucose Point of Care 79 mg/dl (65-105)
--- NOTE | 2022-07-26 10:51 | WPDNEURCNPN ---
Assessment and Plan Assessment and plan (1) Parkinson disease: Code(s): G20 - Parkinson's disease Status: Acute (2) Weakness: Code(s): R53.1 - Weakness Status: Acute (3) Encephalopathy acute: Code(s): G93.40 - Encephalopathy, unspecified Status: Acute (4) UTI (urinary tract infection): Code(s): N39.0 - Urinary tract infection, site not specified Status: Acute Plan Ms. Arroyo is a 71 year old female with a history of Parkinson's diseased presenting with encephalopathy and generalized weakness after left ureteroscopy and stent change, ultimately found to have a UTI. Suspect that the acute weakness is likely due to underlying infection. recounts the gait issues she has been having. Discussed that a large component may be the Parkinson's, but her gait may also be limited due to pain in her knees. - No changes to Sinemet indicated at this time - Provided with [facility] Neurology office number to schedule follow-up appt Consult date: 07/26/22 Time Seen: 10:51 Reason for consult: Weakness, Parkinson's Disease HPI: Karina Arroyo is a 71 year old female with a history of Parkinson's Diseased who presented with generalized weakness and altered mental status left ureteroscopy and stent change on 07/23. After the procedure she was having difficulty with urinating and started having progressive weakness, mostly in the lower extremities to the point she could no longer stand. At baseline, she uses a walker. had also given her several doses of hydrocodone for pain, but reports that the amount he gave her was not atypical for her. She was taken to [facility] ED where?she had a CT head, which was negative for acute process. UA was concerning for UTI. MRI brain done already which only showed old lacunar infarct in the R caudate. Patient reports that she feels about the same since admission. Patient was previously seeing Neurologist at [facility]. She is presently on Sinemet 25-100mg QID. would like to establish care with a new Neurologist. Review of Systems Constitutional: Constitutional: Reports weakness Eyes: Eyes: Reports no additional eye complaints ENT: Reports system reviewed and no additional complaints, except as documented Cardiovascular: Cardiovascular: Reports no additional cardiovascular complaints Respiratory: Respiratory: Reports no additional respiratory complaints Gastrointestinal: Gastrointestinal: Reports no additional gastrointestinal complaints Genitourinary: Genitourinary: Reports as per HPI Musculoskeletal: Musculoskeletal: Reports arthralgias Integumentary/Breasts: Skin/Breast: Reports system reviewed and no additional complaints, except as docu Neurologic: Reports as per HPI [facility] Past Medical History Medical History Anxiety Bipolar affective disorder Breast cancer 03/2012 Cardiomegaly Dementia Dyslipidemia Essential (primary) hypertension History of CVA (cerebrovascular accident) History of right breast cancer Hyperlipidemia Hypertrophic obstructive cardiomyopathy Left renal mass Meniere disease PAM (obstructive sleep apnea) non compliant with CPAP Parkinson disease Renal calculus TIA (transient ischemic attack) Unspecified osteoarthritis, unspecified site Surgical History Surgical History H/O total hysterectomy with bilateral salpingo-oophorectomy (BSO) (Unknown) History of breast surgery 03/2012 History of partial mastectomy 2011 Hx of section (Unknown) Hx of total knee arthroplasty (Unknown) Family History Family History Father Family history of diabetes mellitus in first degree relative, Onset Age: 77 Mother Family history of malignant neoplasm of ovary, Onset Age: 62 Grandparent Diabetes mellitus, Onset Age: 80 Other Hypertension
--- NOTE | 2022-07-26 11:44 | WPDUROPN2 ---
Progress Note: A&P Assessment and Plan (1) Encephalopathy acute: Code(s): G93.40 - Encephalopathy, unspecified Status: Acute (2) BLAKE (acute kidney injury): Code(s): N17.9 - Acute kidney failure, unspecified Status: Acute (3) Hematuria: Code(s): R31.9 - Hematuria, unspecified Status: Acute (4) Bilateral renal stones: Code(s): N20.0 - Calculus of kidney Status: Acute Plan 71 yo female admitted with weakness and pain after URS/L stent change 07/23/22 - clinically improving. Nl wbc ct and Cr normalized - hematuria has resolved - pain resolved - neurology has seen her. Will be seeing PT/OT to determine if she needs rehab - L hydro and stone burden are stable on recent CT; stent changed 07/23/22 - final urine culture is negative. OK to stop abx from perspective - issues with retention on admission- plan for voiding trial in AM Subjective Subjective Date/Time Seen: 07/26/22 11:44 Feeling better. Denies pain. Saw neurology this AM Review of Systems Constitutional: Constitutional: Denies difficulty sleeping and Reports fatigue Respiratory: Respiratory: Reports no additional respiratory complaints Gastrointestinal: Gastrointestinal: Denies abdominal pain Genitourinary: Genitourinary: Denies hematuria (resolved) Psychiatric: Psychiatric: Reports no additional psychiatric complaints Exam Const: General: cooperative, healthy appearing, comfortable and no acute distress HENMT: Head: normal to inspection Eyes: General: appearance normal, both eyes and all related structures Neck: Neck: normal visual inspection Chest: Chest palpation & inspection: normal inspection of the chest Resp: Effort & Inspection: normal respiratory effort (on 1 L O2) GI: Inspection: normal to inspection GI Palp: No abdominal tenderness Urinary Catheter: Urinary Catheter: urine clear (hematuria resolved) Objective Data Vital Signs Vital Signs: Vital Signs - 24 hr 07/25/22 14:10 07/25/22 14:00 07/25/22 12:00 Temperature 37.0 C Pulse Rate 63 70 Respiratory Rate 18 Blood Pressure 122/66 Pulse Oximetry 96 Oxygen Delivery Nasal Cannula Oxygen Flow Rate 1 07/25/22 16:00 07/25/22 20:32 07/25/22 20:00 Temperature 36.5 C Pulse Rate 60 64 56 L Respiratory Rate 20 Blood Pressure 118/63 Pulse Oximetry 99 Oxygen Delivery Oxygen Flow Rate 07/25/22 20:00 07/26/22 00:00 07/26/22 04:00 Temperature Pulse Rate 64 62 60 Respiratory Rate 20 Blood Pressure Pulse Oximetry 99 Oxygen Delivery Nasal Cannula Oxygen Flow Rate 1 07/26/22 05:28 07/26/22 08:00 07/26/22 08:00 Temperature 36.7 C Pulse Rate 60 80 Respiratory Rate 12 Blood Pressure 140/67 Pulse Oximetry 94 94 Oxygen Delivery Nasal Cannula Oxygen Flow Rate 1 Intake/Output Intake/Output: Intake & Output 07/23/22 07/24/22 07/25/22 07/26/22 23:59 23:59 23:59 23:59 Intake Total 2049 2170 240 Output Total 2750 Balance 2050 -580 240 Meds/Results Medications: Active Medications Generic Name Dose Route Start Last Admin Trade Name Freq PRN Reason Stop Dose Admin Acetaminophen 1,000 mg 07/25/22 10:10 07/25/22 10:35 Acetaminophen 500 Mg Tablet PO 1,000 mg Q6H PRN Administration Mild Pain (1-3) or Fever Carbidopa/Levodopa 1 tablet 07/25/22 08:00 07/26/22 08:36 Carbidopa/Levodopa 25/100 Mg Tablet PO 1 tablet [facility] MARGE Administration Diltiazem HCl 240 mg 07/25/22 09:00 07/26/22 08:35 Diltiazem Hcl Cd 240 Mg Cap.Er.24h PO 240 mg DAILY MARGE Administration Home Med 1 each 07/26/22 09:00 *Home Med* Cariprazine [Vraylar] 6 Mg Capsule PO 08/25/22 08:59 DAILY MARGE Sodium Chloride 1,000 mls @ 75 mls/hr 07/24/22 18:10 07/25/22 05:17 Normal Saline Iv IV CONT 75 mls/hr .[id number] MARGE Administration Ceftriaxone Sodium/Dextrose 1 gm in 50 mls @ 100 mls/hr 07/25/22 17:00 07/25/22 17:48 Bennie
[2022-07-26] MEDS: SODIUM CHLORIDE 0.9% IV 1,000 ML 75 ML IV CONT (20:20)
[2022-07-27] VITALS (8 sets, daily range): BP systolic 120–126; BP diastolic 58–65; PULSE 54–577; RESP 18–20; TEMP 36.6–36.9; O2SAT 95–99
[2022-07-27 06:42] LABS: Basophils Percent Auto 0.5 % (0.2-1.2); Eosinophils Absolute Auto 0.2 K/mm3 (0-0.3); Eosinophils Percent Auto 4.3 % (0-4.4); Hematocrit 33.9 % (37.0-47.0); Hemoglobin 10.7 g/dL (12.0-15.0); Immature Granulocyte Absolute 0.03 K/mm3 (0.00-0.031); Immature Granulocyte Percent A 0.5 % (0-0.5); Lymphocytes Absolute Auto 0.76 K/mm3 (0.9-3.2); Lymphocytes Percent Auto 13.8 % (18.3-44.2); Mean Corpuscular HGB Conc 31.6 g/dl (32-36); Mean Corpuscular Hemoglobin 29.6 pg (26-34); Mean Corpuscular Volume 93.9 fl (80-100); Mean Platelet Volume 9.3 fl (7.4-10.4); Monocytes Absolute Auto 0.4 K/mm3 (0.1-0.6); Monocytes Percent Auto 7.6 % (2.6-8.5); Neutrophils Percent Auto 73.3 % (45.5-73.1); Platelet Count Result 156 k/mm3 (150-375); Red Blood Count 3.61 M/mm3 (4.2-5.4); Red Cell Distribution Width 12.3 % (11.5-14.5); White Blood Count 5.5 K/mm3 (4.5-10.0)
[2022-07-27] MEDS: CARBIDOPA/LEVODOPA 25/100 MG TABLET 1 TABLET PO ×3 (08:42→17:20)
[2022-07-27] MEDS: CHOLECALCIFEROL 1,000 UNITS TABLET 2000 UNITS PO (08:43)
[2022-07-27] MEDS: lamoTRIgine 100 MG TABLET 200 MG PO (08:43)
[2022-07-27] MEDS: MEMANTINE HCL XR 28 MG CAP PO (08:43)
[2022-07-27] MEDS: POTASSIUM CHLORIDE 10 MEQ TABLET.ER PO (08:43)
[2022-07-27] MEDS: ACETAMINOPHEN 500 MG TABLET 1000 MG PO (08:43)
[2022-07-27] MEDS: SERTRALINE HCL 50 MG TABLET 150 MG PO (08:43)
[2022-07-27] MEDS: SODIUM CHLORIDE 0.9% IV 1,000 ML 75 ML IV CONT (10:35)
--- NOTE | 2022-07-27 11:41 | PM.DS ---
DS: Admitting Diagnosis Discharge Date July 27, 2022 Admitting Diagnosis Generalized weakness DS: Discharge Diagnosis Discharge Diagnosis (1) Encephalopathy acute: Code(s): G93.40 - Encephalopathy, unspecified Status: Acute Assessment and Plan: Resolved MRI showed old lacunar infarct, nothing acute (2) UTI (urinary tract infection): Code(s): N39.0 - Urinary tract infection, site not specified Status: Acute Assessment and Plan: Continue Rocephin, follow up urine culture (3) BLAKE (acute kidney injury): Code(s): N17.9 - Acute kidney failure, unspecified Status: Acute Assessment and Plan: IV fluids, monitor (4) Hematuria: Code(s): R31.9 - Hematuria, unspecified Status: Acute Assessment and Plan: Urology consult pending, monitor hemoglobin She recently had a urological stent replaced (5) Left renal stone: Code(s): N20.0 - Calculus of kidney Status: Acute Assessment and Plan: Appreciate urology consultation (6) Parkinson disease: Code(s): G20 - Parkinson's disease Status: Acute Assessment and Plan: Continue home medications Neurology consult appreciated, patient does not have outpatient Neurology follow-up nearby Suspect Parkinson's is exacerbated by the UTI, would like to confirm no other underlying neurological abnormalities (7) Dyslipidemia: Code(s): E78.5 - Hyperlipidemia, unspecified Status: Acute Assessment and Plan: Statin being held (8) Essential (primary) hypertension: Code(s): I10 - Essential (primary) hypertension Status: Acute Assessment and Plan: Continue home medications, monitor (9) Anxiety: Code(s): F41.9 - Anxiety disorder, unspecified Status: Acute Assessment and Plan: Continue Zoloft and Lamictal (10) Weakness: Code(s): R53.1 - Weakness Status: Acute Assessment and Plan: OT is recommending SNF at discharge, PT eval pending (11) Dementia: Qualifiers: Dementia behavioral disturbance: without behavioral disturbance Dementia type: unspecified type Qualified Code(s): F03.90 - Unspecified dementia without behavioral disturbance Code(s): F03.90 - Unspecified dementia, unspecified severity, without behavioral disturbance, psychotic disturbance, mood disturbance, and anxiety Status: Acute Assessment and Plan: Continue Namenda Plan Bilateral knee x-rays negative for any acute abnormalities or significant arthritis DVT prophylaxis with SCDs GI prophylaxis not indicated Code status full code DS: Summary Hospital Course Hospital Course: 71-year-old female who presents to the emergency room from home for evaluation of weakness.? The patient had a cystoscopy, laser lithotripsy left ureter stone, left ureteral stent exchange by Dr. Gustafson yesterday.? The patient stated that she is very weak since then.? The patient keeps falling asleep on me during the interview.? The patient's stated around 6:00 a.m. this morning the patient was complaining about weakness and she had some slurred speech.? She was also complaining of vaginal pain from her procedure.? The patient was unable to walk with her walker.? Patient was given her oxycodone on over period of 8 hours for her pain.? H&H is 10 0 in 36.4.? She is above her baseline.? Patient has wine colored urine.? A Lawler catheter was placed in the emergency room.? Her platelets are 142.? Creatinine is 1.5 with the last creatinine being normal last month.? AST is 187 and alkaline phosphatase 226.? C reactive protein 2.8.? Patient's urine was found to be infectious.? The patient is negative for influenza A/B and COVID.? The patient was given narcan, ceftriaxone, acetaminophen and 2 L of IV fluids.? Urology has been consulted.? Urine culture eventually came back negative, antibiotics were discontinued. Neurology was consulted, brain MRI was o
[2022-07-27] MEDS: POTASSIUM CHLORIDE 20 MEQ TABLET 40 MEQ PO (12:25)
--- NOTE | 2022-07-27 16:53 | WPDUROPN2 ---
Progress Note: A&P Assessment and Plan (1) S/P ureteral stent placement: Code(s): Z96.0 - Presence of urogenital implants Status: Acute Assessment and Plan: Patient will need to f/u in 6-[address] Pires in the office. No further evaluation at this time. She will need to have her stent exchanged in 4 months. She is voiding well without her watson. Ok to discharge to rehab. Subjective Subjective Date/Time Seen: 07/27/22 16:53 Cystoscopy, laser litho left ureteral stones, left stent exchange. Patient underwent voiding trial today, she is urinating well on her own without the watson catehter. Post Op day: 4 Review of Systems Cardiovascular: Cardiovascular: Denies chest pain Respiratory: Respiratory: Reports no additional respiratory complaints Gastrointestinal: Gastrointestinal: Denies abdominal pain, Denies nausea and Denies vomiting Genitourinary: Genitourinary: Denies hematuria, Denies nocturia, Denies dysuria, Denies pelvic pain, Denies flank pain, Denies urinary incontinence, Denies urinary hesitancy and Denies urinary urgency Exam Const: General: cooperative and comfortable Resp: Effort & Inspection: normal respiratory effort Cardio: Rate: bradycardic GI: GI Palp: Yes Soft to palpation and No Tenderness to palpation present (GI) : General: Yes no CVA tenderness Extrem: Right lower extremity: no edema Left lower extremity: no edema Objective Data Vital Signs Vital Signs: Vital Signs - 24 hr 07/26/22 20:00 07/26/22 20:00 07/26/22 22:00 Temperature 97.7 F Pulse Rate 58 L 56 L 56 L Respiratory Rate 20 20 Blood Pressure 113/53 L Pulse Oximetry 97 98 Oxygen Delivery Nasal Cannula Oxygen Flow Rate 1 07/27/22 00:00 07/27/22 04:00 07/27/22 06:00 Temperature 98.2 F Pulse Rate 577 H 59 L 59 L Respiratory Rate 18 Blood Pressure 126/60 Pulse Oximetry 95 Oxygen Delivery Oxygen Flow Rate 07/27/22 08:10 07/27/22 08:00 07/27/22 08:00 Temperature Pulse Rate 60 Respiratory Rate Blood Pressure Pulse Oximetry 95 Oxygen Delivery Nasal Cannula Nasal Cannula Oxygen Flow Rate 1.5 1 07/27/22 12:00 07/27/22 16:00 Temperature Pulse Rate 54 L 57 L Respiratory Rate Blood Pressure Pulse Oximetry Oxygen Delivery Oxygen Flow Rate Intake/Output Intake/Output: Intake & Output 07/24/22 07/25/22 07/26/22 07/27/22 23:59 23:59 23:59 23:59 Intake Total 2049 3220 530 1760 Output Total 2750 750 1100 Balance 2049 470 -220 660 Meds/Results Medications: Active Medications Generic Name Dose Route Start Last Admin Trade Name Freq PRN Reason Stop Dose Admin Acetaminophen 1,000 mg 07/25/22 10:10 07/27/22 08:43 Acetaminophen 500 Mg Tablet PO 1,000 mg Q6H PRN Administration Mild Pain (1-3) or Fever Carbidopa/Levodopa 1 tablet 07/25/22 08:00 07/27/22 12:25 Carbidopa/Levodopa 25/100 Mg Tablet PO 1 tablet [facility] MARGE Administration Diltiazem HCl 240 mg 07/25/22 09:00 07/27/22 08:43 Diltiazem Hcl Cd 240 Mg Cap.Er.24h PO 240 mg DAILY MARGE Administration Home Med 1 each 07/26/22 09:00 07/27/22 08:45 *Home Med* Cariprazine [Vraylar] 6 Mg Capsule PO 08/25/22 08:59 1 each DAILY MARGE Administration Sodium Chloride 1,000 mls @ 75 mls/hr 07/24/22 18:10 07/27/22 10:35 Normal Saline Iv IV CONT 75 mls/hr .[id number] MARGE Administration Ceftriaxone Sodium/Dextrose 1 gm in 50 mls @ 100 mls/hr 07/25/22 17:00 07/26/22 17:30 Rocephin 1 Gm/D5w 50 Ml IVPB Infused Q24H MARGE Infusion Lamotrigine 200 mg 07/25/22 09:00 07/27/22 08:43 Lamotrigine 100 Mg Tablet PO 200 mg Q12HR MARGE Administration Memantine 28 mg 07/25/22 09:00 07/27/22 08:43 Memantine Hcl Xr 28 Mg Cap PO 28 mg DAILY MARGE Administration Ondansetron HCl 4 mg 07/24/22 18:06 Ondansetron Inj 4 Mg/2 Ml Vial IV PUSH Q4H PRN Nausea Potassium Chloride 10 meq 07/25/22 08:00 11
== END 2022-07-27 20:00 | DRG 683 ==
LOC: ANHED 14:58 → ANH2MED 20:04
PROVIDERS: Nurse Practitioner; Admitting Provider Family Medicine; Emergency Provider General Practice; PCP Family Medicine; Visit Provider Student in an Organized Health Care Education/Training Program
DX: N17.9 Acute kidney failure, unspecified (principal); G93.40 Encephalopathy, unspecified; I42.1 Obstructive hypertrophic cardiomyopathy; E86.0 Dehydration; I10 Essential (primary) hypertension; E78.5 Hyperlipidemia, unspecified; N20.0 Calculus of kidney; R31.9 Hematuria, unspecified; M19.90 Unspecified osteoarthritis, unspecified site; G20 Parkinson's disease; G47.33 Obstructive sleep apnea (adult) (pediatric); H81.09 Meniere's disease, unspecified ear; F03.90 Unspecified dementia, unspecified severity, without behavioral disturbance, psychotic disturbance, mood disturbance, and anxiety; F31.9 Bipolar disorder, unspecified; F41.9 Anxiety disorder, unspecified; Z96.0 Presence of urogenital implants; Z20.822 Contact with and (suspected) exposure to COVID-19; Z96.659 Presence of unspecified artificial knee joint; Z87.442 Personal history of urinary calculi; Z86.73 Personal history of transient ischemic attack (TIA), and cerebral infarction without residual deficits; Z85.3 Personal history of malignant neoplasm of breast
CPT/HCPCS: 36415; 36600; 70450; 70551; 71045; 73560; 74018; 74176; 74420; 80053; 81001; 82375; 82805; 82948; 83050; 83605; 83690; 84484; 85014; 85018; 85025; 85610; 85730; 86140; 87040; 87086; 87502; 93005; 96361; 96365; 96366; 96375; 97110; 97161; 97165; 97530; 97535; 99285; A9270; C1758; C1769; C2617; G0378; J0690; J0696; J2310; J2405; J2704; J3010; J7030; J7120; U0003; U0005

== ENCOUNTER 2022-08-10 09:30 | Outpatient (RCR) | payer MEDICARE, OTHER, SELFPAY | END 2022-08-10 23:59 | disposition home or self-care (01) | LOC: ANHAUDIO 09:30 | PROVIDERS: PCP Family Medicine; Visit Provider Family Medicine | DX: Z46.1 Encounter for fitting and adjustment of hearing aid (principal) | CPT/HCPCS: 99199; V5014; V5264 ==

== ENCOUNTER 2022-09-28 07:20 | Emergency (ER) | payer MEDICARE, OTHER, SELFPAY ==
[2022-09-28] VITALS (11 sets, daily range): BP systolic 125–156; BP diastolic 60–74; PULSE 53–58; RESP 13–18; TEMP 37; O2SAT 92–99
--- NOTE | ~2022-09-28 | CT_ITS ---
EXAMINATION: CT brain wo con DATE: 09/28/2022 07:59 INDICATION: Head injury with laceration at the left eyebrow TECHNIQUE: Computed tomography (CT) of the head was performed without intravenous contrast. Sagittal and coronal reconstructions were performed. The mA was adjusted according to patient size. Iterative reconstruction technique was employed. The dose-length product was 605.33 mGy-cm. COMPARISON: head CT dated 07/24/2022 FINDINGS: Small left frontal scalp hematoma. No fracture. No acute intracranial hemorrhage, acute infarction or abnormal extra axial fluid collection. Small old lacunar infarct at the head of the right caudate nu cleus. There is mild scattered white matter hypoattenuation consistent with chronic small vessel isch emic disease. Ventricles are normal and symmetric. No mass/mass effect. The orbits, paranasal sinuses and mastoid air cells are normal. IMPRESSION: 1. No fracture or acute intracranial process. 2. Small old lacunar infarct at the right caudate nucleus and mild scattered white matter hypoattenua tion consistent with chronic small vessel ischemic disease. Reviewed, dictated and finalized at location A. SWITCH OPERATOR IMPRESSION: 1. No fracture or acute intracranial process. 2. Small old lacunar infarct at the right caudate nucleus and mild scattered wh ite matter hypoattenuation consistent with chronic small vessel ischemic diseas e.
--- NOTE | ~2022-09-28 | CT_ITS ---
EXAMINATION: CT cervical spine wo con DATE: 09/28/2022 08:00 INDICATION: Neck pain after fall TECHNIQUE: Computed tomography (CT) of the cervical spine was performed without intravenous contrast. The dose-length product was 183 mGy-cm. Automated exposure control and iterative reconstruction tech nique were employed. COMPARISON: None FINDINGS: Lung apices are unremarkable. Normal cervical alignment. Craniovertebral junction within no rmal limits. No evidence for perched facet. Mild degenerative disc disease at C5-6 and C6-7. There is a subtle degenerative anterolisthesis at C5-6 and C6-7. Mild superior endplate compression deformiti es at T1 and T2 which appear chronic. There is carotid atherosclerosis. Odontoid process is normal. M ild levoscoliosis.. No significant soft tissue abnormality.. IMPRESSION: 1. No acute abnormality of the cervical spine. 2: Mild cervical spondylosis. Reviewed, dictated and finalized at location A. ROLS PROJECT ENGINEER
--- NOTE | ~2022-09-28 | XR_ITS ---
EXAMINATION: XR wrist LT min 3V DATE: 09/28/2022 08:05 INDICATION: Left wrist injury post fall TECHNIQUE: Posteroanterior, ulnar deviation, oblique, and lateral views of the left wrist were obtain ed. COMPARISON: none FINDINGS: Mildly comminuted intra-articular fracture at the distal left radius. There is dorsal impaction resul ting in 10 degrees dorsal tilt of the distal articular surface. There is up to 1 mm maximal fracture gap and incongruity along the articular cortex. No other fractures identified. Polyarticular osteoart hritis, severe at the triscaphe and first carpal metacarpal joints, moderate severity at the metacarp ophalangeal and multiple of the visualized interphalangeal joints and mild at the distal radioulnar, wrist and midcarpal joints. Mild soft tissue swelling about the wrist. IMPRESSION: 1. Dorsally impacted mildly comminuted intra-articular fracture at the distal left radius. Reviewed, dictated and finalized at location A. TANK BUILDER IMPRESSION: 1. Dorsally impacted mildly comminuted intra-articular fracture at the distal l eft radius.
--- NOTE | 2022-09-28 07:44 | ED.FALL ---
HPI - Fall General Chief Complaint: Fall Stated Complaint: glf bathroom, struck head, left neck and arm pain Time Seen by Provider: 09/28/22 07:36 History of Present Illness HPI Narrative: Pt has a history of Parkinson's with and unsteady gait. Today about 0630 pt tripped over her left foot and fell landing on left wrist and head. Pt denies LOC. Pt complains of VILLANUEVA, a small puncture to her left scalp, neck pain and left wrist pain. Pt is somewhat hard of hearing and assisted with history. Related Data Home Medications Medication Instructions Recorded Confirmed diazepam 5 mg tablet 5 mg PO BID 10/12/19 08/03/22 lamotrigine 200 mg tablet 200 mg PO Q12H 10/12/19 08/03/22 memantine 28 mg capsule 28 mg PO DAILY 10/12/19 08/03/22 sprinkle,extended release 24hr cariprazine 6 mg capsule (Vraylar) 6 mg PO DAILY 05/26/21 08/03/22 carbidopa 25 mg-levodopa 100 mg 1 tablet PO QID 06/16/21 08/03/22 tablet cholecalciferol (vitamin D3) 50 50 mcg PO DAILY 12/29/21 08/03/22 mcg (2,000 unit) capsule sertraline 100 mg tablet 150 mg PO DAILY 06/21/22 08/03/22 Allergies Allergy/AdvReac Type Severity Reaction Status Date / Time codeine Allergy Intermediate Confusion Verified 07/24/22 14:18 Review of Systems Review of Systems: All systems reviewed & are unremarkable except as noted in HPI and below PMFSH Past Medical History Medical History (Updated 09/28/22 @ 09:27 by Elle Garcia III, DO) Anxiety Bipolar affective disorder Breast cancer 03/2012 Cardiomegaly Dementia Dyslipidemia Essential (primary) hypertension History of CVA (cerebrovascular accident) History of right breast cancer Hyperlipidemia Hypertrophic obstructive cardiomyopathy Left renal mass Meniere disease PAM (obstructive sleep apnea) non compliant with CPAP Parkinson disease Renal calculus TIA (transient ischemic attack) Unspecified osteoarthritis, unspecified site Vitamin D deficiency Surgical History Surgical History H/O total hysterectomy with bilateral salpingo-oophorectomy (BSO) (Unknown) History of breast surgery 03/2012 History of partial mastectomy 2012 Hx of section (Unknown) Hx of total knee arthroplasty (Unknown) Family History Family History Father Family history of diabetes mellitus in first degree relative, Onset Age: 77 Mother Family history of malignant neoplasm of ovary, Onset Age: 62 Grandparent Diabetes mellitus, Onset Age: 80 Other Hypertension Social History Social History Social History: The patient is and she is retired. The patient lives with her Damon who is her durable power assistant director of security for healthcare. The patient is a full code. She is a lifelong nonsmoker. The patient tells me that she is retired from [employer]. She has 2 children. Smoking status: Never smoker Second hand tobacco smoke exposure: No Alcohol intake: never Substance use: never Substance use type: does not use Lack of Transportation: YES Lack of Food: Never True Current Housing: I Have Housing Concerned About Future Housing: No Difficulty Paying Gas/Electric Bills: No Difficulty Paying for Meds: No Currently Unemployed: No Education: Decline to Answer Difficulty w/ Childcare or Family Care: No [facility] Spiritual care concerns: No Exam Const: General: healthy appearing and no acute distress Nutritional Appearance: well nourished Orientation/consciousness: patient oriented x3 Limitations: no limitations HENMT: Head: laceration (small puncture with controlled bleeding left scalp) Mouth: Yes Normal oral and palatal mucosa present Throat: posterior oropharynx normal Eyes: Conjunctivae: conjunctivae normal Pupils: Equal, round and reactive pupils present EOM: E
[2022-09-28 08:22] LABS: Basophils Percent Auto 0.6 % (0.2-1.2); Eosinophils Absolute Auto 0.2 K/mm3 (0-0.3); Eosinophils Percent Auto 3.2 % (0-4.4); Hematocrit 39.5 % (37.0-47.0); Hemoglobin 12.4 g/dL (12.0-15.0); Immature Granulocyte Absolute 0.01 K/mm3 (0.00-0.031); Immature Granulocyte Percent A 0.2 % (0-0.5); Lymphocytes Absolute Auto 1.01 K/mm3 (0.9-3.2); Lymphocytes Percent Auto 20.4 % (18.3-44.2); Mean Corpuscular HGB Conc 31.4 g/dl (32-36); Mean Corpuscular Volume 92.5 fl (80-100); Mean Platelet Volume 9.3 fl (7.4-10.4); Monocytes Absolute Auto 0.4 K/mm3 (0.1-0.6); Monocytes Percent Auto 7.9 % (2.6-8.5); Neutrophils Absolute Auto 3.3 K/mm3 (1.3-6.7); Neutrophils Percent Auto 67.7 % (45.5-73.1); Platelet Count Result 171 k/mm3 (150-375); Red Blood Count 4.27 M/mm3 (4.2-5.4); Red Cell Distribution Width 12.3 % (11.5-14.5); White Blood Count 4.9 K/mm3 (4.5-10.0)
[2022-09-28 08:32] LABS: INR 0.9; Prothrombin Time 12.1 Seconds (11.1-14.7)
[2022-09-28 08:33] LABS: Partial Thromboplastin Time 27.3 SECONDS (22.3-36.8)
[2022-09-28 08:35] LABS: Alanine Aminotransferase 13 U/L (6-35); Albumin Level 4.1 g/dL (3.5-5.1); Alkaline Phosphatase 93 U/L (38-126); Anion Gap 4 mmol/L (8-16); Aspartate Amino Transferase 24 U/L (14-36); Bilirubin,Total 0.5 mg/dL (0.2-1.3); Blood Urea Nitrogen 14 mg/dL (7-17); Calcium 8.8 mg/dL (8.4-10.2); Carbon Dioxide 33 mmol/L (22-30); Chloride 101 mmol/L (98-107); Estimated Glomerular Filt Rate 49; Glucose 98 mg/dL (65-110); Potassium 3.7 mmol/L (3.4-5.0); Sodium 138 mmol/L (137-145)
[2022-09-28] MEDS: HYDROcodone/acetaminophen (*CRX) 5-325 MG TABLET 1 TAB PO (08:53)
== END 2022-09-28 10:40 | disposition home or self-care (01) ==
PROVIDERS: Emergency Provider Emergency Medicine; PCP Family Medicine
DX: S52.572A Other intraarticular fracture of lower end of left radius, initial encounter for closed fracture (principal); S01.03XA Puncture wound without foreign body of scalp, initial encounter; G20 Parkinson's disease; F03.90 Unspecified dementia, unspecified severity, without behavioral disturbance, psychotic disturbance, mood disturbance, and anxiety; E78.5 Hyperlipidemia, unspecified; I10 Essential (primary) hypertension; I42.1 Obstructive hypertrophic cardiomyopathy; H81.09 Meniere's disease, unspecified ear; M19.90 Unspecified osteoarthritis, unspecified site; E55.9 Vitamin D deficiency, unspecified; F31.9 Bipolar disorder, unspecified; Z90.10 Acquired absence of unspecified breast and nipple; Z90.722 Acquired absence of ovaries, bilateral; F41.9 Anxiety disorder, unspecified; Z85.3 Personal history of malignant neoplasm of breast; Z87.442 Personal history of urinary calculi; Z86.73 Personal history of transient ischemic attack (TIA), and cerebral infarction without residual deficits; Z90.710 Acquired absence of both cervix and uterus; W01.0XXA Fall on same level from slipping, tripping and stumbling without subsequent striking against object, initial encounter
CPT/HCPCS: 29125; 36415; 70450; 72125; 73110; 80053; 85025; 85610; 85730; 99284; A9270

== ENCOUNTER 2022-11-19 00:40 | Day surgery (SDC) | payer MEDICARE, OTHER, SELFPAY ==
--- NOTE | 2022-11-11 07:45 | PM.HPGS ---
History of Present Illness History of Present Illness Consent: Risks, benefits, and alternatives have been discussed and questions answered. Patient agrees to proceed with procedure. Chief complaint: Lt Staghorn Calculus Narrative: Karina Arroyo is a 71 year old female?with a known solid mass in her left kidney likely consistent with renal cell carcinoma.?She's had ureteral stones in past that have required ESWL.? She has large stones in her left kidney which we will manage with a chronic indwelling stent, given her decision not to proceed with left nephrectomy. Review of Systems Cardiovascular: Cardiovascular: Denies chest pain, Denies lightheadedness, Denies palpitations and Denies dyspnea Respiratory: Respiratory: Denies dyspnea Gastrointestinal: Gastrointestinal: Denies diarrhea, Denies nausea and Denies vomiting Genitourinary: Genitourinary: Denies hematuria and Denies dysuria Endocrine: Endocrine: Denies palpitations [facility] Past Medical History Medical History Anxiety Bipolar affective disorder Breast cancer 03/2012 Cardiomegaly Dementia Dyslipidemia Essential (primary) hypertension History of CVA (cerebrovascular accident) History of right breast cancer Hyperlipidemia Hypertrophic obstructive cardiomyopathy Left renal mass Meniere disease PAM (obstructive sleep apnea) non compliant with CPAP Parkinson disease Renal calculus TIA (transient ischemic attack) Unspecified osteoarthritis, unspecified site Vitamin D deficiency Surgical History Surgical History H/O total hysterectomy with bilateral salpingo-oophorectomy (BSO) (Unknown) History of breast surgery 03/2012 History of partial mastectomy 2011 Hx of section (Unknown) Hx of total knee arthroplasty (Unknown) Family History Family History Father Family history of diabetes mellitus in first degree relative, Onset Age: 77 Mother Family history of malignant neoplasm of ovary, Onset Age: 62 Grandparent Diabetes mellitus, Onset Age: 80 Other Hypertension Social History Social History Social History: The patient is and she is retired. The patient lives with her Damon who is her durable power infection control manager for healthcare. The patient is a full code. She is a lifelong nonsmoker. The patient tells me that she is retired from [employer]. She has 2 children. Smoking status: Never smoker Second hand tobacco smoke exposure: No Alcohol intake: never Substance use: never Substance use type: does not use Lack of Transportation: YES Lack of Food: Never True Current Housing: I Have Housing Concerned About Future Housing: No Difficulty Paying Gas/Electric Bills: No Difficulty Paying for Meds: No Currently Unemployed: No Education: Decline to Answer Difficulty w/ Childcare or Family Care: No Living arrangements: with family Additional living arrangements comments: [facility] Spiritual care concerns: No Meds Home Medications and Allergies Home Medications Medication Instructions Recorded Confirmed Type diazepam 5 mg tablet 5 mg PO BID 10/12/19 10/01/22 History lamotrigine 200 mg tablet 200 mg PO Q12H 10/12/19 10/01/22 History memantine 28 mg capsule 28 mg PO DAILY 10/12/19 10/01/22 History sprinkle,extended release 24hr cariprazine 6 mg capsule (Vraylar) 6 mg PO DAILY 05/26/21 10/01/22 History carbidopa 25 mg-levodopa 100 mg 1 tablet PO QID 06/16/21 10/01/22 History tablet cholecalciferol (vitamin D3) 50 50 mcg PO DAILY 12/29/21 10/01/22 History mcg (2,000 unit) capsule diltiazem HCl 240 mg 240 mg PO DAILY #90 caps 05/19/22 10/01/22 Rx capsule,extended release 24 hr potassium chloride 10 mEq 10 meq PO DAILY #90 tabs 06/15/22 10/01/22 Rx tablet,ext
[2022-11-16 14:26] VITALS: BMI 32.9
--- NOTE | 2022-11-16 14:50 | PC.NURSE ---
Report to the Outpatient Waiting Room, entrance under the green pavilion located off [facility], at time __6:00AM on date _11/19/22 . Planned Procedure Time: __7:30AM . Time changes happen often and if your time is changed the preop area will call you the afternoon before. - You and your visitor will be asked to self-screen and do not enter if you have any COVID symptoms. - Only one visitor is requested with a max of two and NO children visitors are allowed at this time. - The patient visitor may be requested to leave or wait in car when not with patient due to distancing restrictions. - A mask is optional within the hospital at this time. Patients may have clear liquids (water, carbonated beverages, clear teas, apple juice) until 3 hours prior to surgery with a maximum of 20 ounces. - No food from midnight until time of surgery Take the following medications with a SIP of water the morning of surgery: CARBIDOPA/LEVODOPA, DIAZEPAM, DITILIAZEM, LAMOTRIGINE, SERTRALINE, VRAYLAR DO NOT STOP ANY OF YOUR OTHER PRESCRIPTION MEDICATIONS PRIOR TO SURGERY ?EXCEPT THE FOLLOWING Medications to discontinue per physician ___HOLD ASPIRIN & ALL VITAMINS/SUPPLEMENTS 7 DAYS PRE-OP PER DR RUSSELL' OFFICE (PER PATIENT'S ) Date to take last dose___11/12/22 Please no make-up, nail hebrew, hairspray, perfume, deodorant, or body powder the day of surgery. No jewelry (including any body piercings) or valuables the day of surgery, leave them at home. Please take a shower or bath the night before, or the morning of, surgery with an antibacterial soap. Wear comfortable, loose fitting clothing. Children are encouraged to wear pajamas. - Jewelry must be removed prior to entering the operating room. Rings and piercings that are not removed may be cut off. - The hospital will not accept responsibility for valuables. - Please leave all valuables, including medications, at home the day of surgery. If you are going home after surgery, a licensed delivery route driver must drive you home. - NO public transportation without another adult if you receive anesthesia. - We recommend that an adult stay with you for 24 hours following discharge. - We also recommend that you do not drive, make important decision, drink alcoholic beverages, or take any drugs that were not prescribed by your health care provider for at least 24 hours after your discharge time. Follow any additional instructions given to you from your surgeon. If you or anyone in your household have experienced Covid symptoms in the past week, please notify your surgeon or the nurse liaison at the phone number below for possible testing. Telephone instructions given to __PATIENT'S HUSBAND___and asked if any additional questions and then verbalized understanding Patient advised to call surgeon office or pre surgery nurse liaison [phone] if any additional questions.
--- NOTE | 2022-11-18 09:58 | WPDANESEPPF ---
Anes - Initial Pre Proc Eval Procedure: Operation Date: 11/19/22 07:30 Proposed Procedures p Cystoscopy, Left Ureteroscopy, Left Ureteral Stent Exchange, Possible Holmium Laser Lithotripsy Ureteral Stones - Brian Pires MD Date/Time: 11/18/22 09:58 Surgeon: Brian Pires MD Pre Op Diagnosis: Lt Staghorn Calculus Patient Data Age: 72 Gender: F Height: 1.5 m Weight: 74 kg Allergies Allergy/AdvReac Type Severity Reaction Status Date / Time codeine AdvReac Intermediate Confusion, Verified 11/16/22 14:13 NAUSEA Home Medications Medication Instructions Recorded Confirmed Type diazepam 5 mg tablet 5 mg PO BID PRN Anxiety 10/12/19 11/19/22 History lamotrigine 200 mg tablet 200 mg PO Q12H 10/12/19 11/16/22 History memantine 28 mg capsule 28 mg PO QAM 10/12/19 11/16/22 History sprinkle,extended release 24hr cariprazine 6 mg capsule (Vraylar) 6 mg PO QAM 05/26/21 11/16/22 History carbidopa 25 mg-levodopa 100 mg 1 tablet PO QID 06/16/21 11/19/22 History tablet cholecalciferol (vitamin D3) 50 50 mcg PO DAILY 12/29/21 11/19/22 History mcg (2,000 unit) capsule potassium chloride 10 mEq 10 meq PO DAILY #90 tabs 06/15/22 11/16/22 Rx tablet,extended release sertraline 100 mg tablet 150 mg PO QAM 06/21/22 11/19/22 History rosuvastatin 10 mg tablet 10 mg PO DAILY #90 tabs 08/31/22 11/16/22 Rx aspirin 81 mg tablet,delayed 81 mg PO DAILY 11/16/22 11/19/22 History release diltiazem HCl 240 mg 240 mg PO QAM 11/16/22 11/16/22 History capsule,extended release 24 hr Patient hx anesthesia problems: none Family hx anesthesia problems: none Results Review: All pre-operative results and documents have been reviewed as part of the pre-operative evaluation. [facility] Past Medical History Medical History Anxiety Bipolar affective disorder Breast cancer 03/2012 Cardiomegaly Dementia Dyslipidemia Essential (primary) hypertension History of CVA (cerebrovascular accident) History of right breast cancer Hyperlipidemia Hypertrophic obstructive cardiomyopathy Left renal mass Meniere disease PAM (obstructive sleep apnea) non compliant with CPAP Parkinson disease Renal calculus TIA (transient ischemic attack) Unspecified osteoarthritis, unspecified site Vitamin D deficiency Surgical History Surgical History H/O total hysterectomy with bilateral salpingo-oophorectomy (BSO) (Unknown) History of breast surgery 03/2012 History of partial mastectomy 2011 Hx of section (Unknown) Hx of total knee arthroplasty (Unknown) Family History Family History Father Family history of diabetes mellitus in first degree relative, Onset Age: 77 Mother Family history of malignant neoplasm of ovary, Onset Age: 62 Grandparent Diabetes mellitus, Onset Age: 80 Other Hypertension Social History Social History Social History: The patient is and she is retired. The patient lives with her Damon who is her durable power claims attorney for healthcare. The patient is a full code. She is a lifelong nonsmoker. The patient tells me that she is retired from [employer]. She has 2 children. Smoking status: Never smoker Second hand tobacco smoke exposure: No Alcohol intake: never Substance use: never Substance use type: does not use Lack of Transportation: YES Lack of Food: Never True Current Housing: I Have Housing Concerned About Future Housing: No Difficulty Paying Gas/Electric Bills: No Difficulty Paying for Meds: No Currently Unemployed: No Education: Decline to Answer Difficulty w/ Childcare or Family Care: No Living arrangements: with family Additional living arrangements comments: TIFF Spiritual care concerns: No
--- NOTE | ~2022-11-19 | XR_ITS ---
EXAMINATION: XR stent kub - surgery DATE: 11/19/2022 07:57 INDICATION: Left kidney staghorn calculus. TECHNIQUE: 4 intraoperative fluoroscopic views of the abdomen and pelvis were obtained. I was not pre sent. Fluoroscopy exposure time was 14 seconds. COMPARISON: CT abdomen and pelvis 07/24/2022 FINDINGS: There is a staghorn calculus in left kidney. There is a left internal ureteral stent in exp ected position. Images demonstrate exchange of the stent for a new stent in expected position. There are stones in the distal left ureter. IMPRESSION: 1. New left internal ureteral stent in expected position. 2. Staghorn calculus in left kidney. Stones in the distal left ureter. Reviewed, dictated and finalized at location A. [facility]
[2022-11-19 06:15] VITALS: BP 115/52; PULSE 60; RESP 14; TEMP 36.2; O2SAT 96
[2022-11-19] MEDS: LACTATED RINGERS 1,000 ML 30 ML IV CONT (06:40)
--- NOTE | 2022-11-19 06:41 | WPDHPUPDATE1 ---
History and Physical Update Update Date/Time: 11/19/22 06:41 History and Physical has been reviewed, including an updated exam of the patient. There are NO changes in the patient's condition. Risks, benefits, and alternatives have been discussed and questions answered. Patient agrees to proceed with procedure.
[2022-11-19] MEDS: ceFAZolin 2 GM/D5W 50 ML 2 GM/50 ML BAG IVPB (07:26)
[2022-11-19] MEDS: LIDOCAINE HCL 2% GEL UROJET 10 ML PKG MUCOUS MEM (07:41)
--- NOTE | 2022-11-19 07:54 | W.PM.PROC2 ---
Procedure Note - Detailed Date of Procedure 11/19/22 Pre-op Diagnosis Lt Staghorn Calculus Post-op Diagnosis Same Procedure Performed Cystoscopy, left ureteral stent exchange Surgeon Brian Pires MD Anesthesia MAC Description of Procedure Patient is brought to the operative suite where she has prepped draped in routine sterile fashion while in dorsal lithotomy position after the uneventful induction of systemic sedation. Twenty-one F cystoscope was placed in her bladder. The bladder mucosa is normal with the exception of some mild hyperemia around her left ureteral orifice with the stent emerges. Stent has minimal incrustation and is removed with ease. A 0.035 in glidewire was advanced in her left renal pelvis and a new 4.8 F variable length stent is appropriately positioned. Scopes and wires removed she was taken recovery room in good condition. Estimated Blood Loss 0 Drains Yes
[2022-11-19 07:57] VITALS: BP 101/51; PULSE 45; RESP 16; O2SAT 100
[2022-11-19 08:20] VITALS: BP 99/49; PULSE 53; RESP 16; O2SAT 100
[2022-11-19 08:45] VITALS: BP 127/53; PULSE 46; RESP 16
== END 2022-11-19 09:00 | disposition home or self-care (01) ==
PROVIDERS: PCP Family Medicine; Visit Provider Urology
PROC: (CPT 52352; principal; 2022-11-19 07:30)
DX: N13.30 Unspecified hydronephrosis (principal); I10 Essential (primary) hypertension; E78.5 Hyperlipidemia, unspecified; I42.1 Obstructive hypertrophic cardiomyopathy; F31.9 Bipolar disorder, unspecified; G47.33 Obstructive sleep apnea (adult) (pediatric); E55.9 Vitamin D deficiency, unspecified; G20 Parkinson's disease; F02.80 Dementia in other diseases classified elsewhere, unspecified severity, without behavioral disturbance, psychotic disturbance, mood disturbance, and anxiety; Z86.73 Personal history of transient ischemic attack (TIA), and cerebral infarction without residual deficits; Z85.3 Personal history of malignant neoplasm of breast; Z79.82 Long term (current) use of aspirin
CPT/HCPCS: 52332; C1769; C2617; J0690; J2704; J3010; J7120

== ENCOUNTER 2023-03-03 01:07 | Inpatient (IN) | payer MEDICARE, OTHER, SELFPAY ==
--- NOTE | 2023-02-15 09:28 | PC.NURSE ---
Report to the Outpatient Waiting Room, entrance under the green pavilion located off [facility], at time __0830 on date __02/25/23 . Planned Procedure Time: _1030 . Time changes happen often and if your time is changed the preop area will call you the afternoon before. - You and your visitor will be asked to self-screen and do not enter if you have any COVID symptoms. - A mask is optional within the hospital at this time. Patients may have clear liquids (water, carbonated beverages, clear teas, apple juice) until 3 hours prior to surgery with a maximum of 20 ounces. - No food from midnight until time of surgery - Infants may have breast milk until 4 hours before surgery, infant formula 6 hours prior to surgery. - Children will be allowed to drink immediately following surgery. If applicable, please bring a bottle or sippy cup to assist with drinking. Juice, water, soda, and popsicles are readily available. For infants on formula, please bring formula the day of surgery. Pacifiers are allowed. Take the following medications with a SIP of water the morning of surgery: CARBIDOPA-LEVODOPA,DIAZEPAM,DILTIAZEM,,LAMOTRIGINE,MEMANTINE,SERTRALINE,VRAYLAR DO NOT STOP ANY OF YOUR OTHER PRESCRIPTION MEDICATIONS PRIOR TO SURGERY ?EXCEPT THE FOLLOWING Medications to discontinue per physician __SPOUSE STATE S__ASPIRIN 7 DAYS /VITAMINS PRE OP _PER DR RUSSELL Date to take last dose____02/17/23 Please no make-up, nail danish, hairspray, perfume, deodorant, or body powder the day of surgery. No jewelry (including any body piercings) or valuables the day of surgery, leave them at home. Please take a shower or bath the night before, or the morning of, surgery with an antibacterial soap. Wear comfortable, loose fitting clothing. Children are encouraged to wear pajamas. - Jewelry must be removed prior to entering the operating room. Rings and piercings that are not removed may be cut off. - The hospital will not accept responsibility for valuables. - Please leave all valuables, including medications, at home the day of surgery. If you are going home after surgery, a licensed bobtail driver must drive you home. - NO public transportation without another adult if you receive anesthesia. - We recommend that an adult stay with you for 24 hours following discharge. - We also recommend that you do not drive, make important decision, drink alcoholic beverages, or take any drugs that were not prescribed by your health care provider for at least 24 hours after your discharge time. For Pediatric surgeries, we recommend two adults accompany the child home. Follow any additional instructions given to you from your surgeon. If you or anyone in your household have experienced Covid symptoms in the past week, please notify your surgeon or the nurse liaison at the phone number below for possible testing. Telephone instructions given to __PT'S ENRIQUE and asked if any additional questions and then verbalized understanding. Patient advised to call surgeon office or pre surgery nurse liaison [phone] if any additional questions.
[2023-02-15 09:36] VITALS: BMI 31.2
--- NOTE | 2023-02-22 06:30 | HP_ITS ---
This report was moved to the correct visit on 03/29/2023. Original report was signed by Brian Pires MD on 02/22/23 7830. History of Present Illness History of Present Illness Consent: Risks, benefits, and alternatives have been discussed and questions answered. Patient agrees to proceed with procedure. Chief complaint: left staghorn calculus Narrative: Karina Arroyo is a 71 year old female?with a known solid mass in her left kidney likely consistent with renal cell carcinoma.?She's had ureteral stones in past that have required ESWL.? She has large stones in her left kidney which we will manage with a chronic indwelling stent, given her decision not to proceed with left nephrectomy. Review of Systems Review of Systems: All systems reviewed & are unremarkable except as noted in HPI and below PMFSH Past Medical History Medical History Anxiety Bipolar affective disorder Breast cancer 03/2012 Cardiomegaly Dementia Dyslipidemia Essential (primary) hypertension History of CVA (cerebrovascular accident) History of right breast cancer Hyperlipidemia Hypertrophic obstructive cardiomyopathy Left renal mass Meniere disease PAM (obstructive sleep apnea) non compliant with CPAP Parkinson disease Renal calculus TIA (transient ischemic attack) Unspecified osteoarthritis, unspecified site Vitamin D deficiency Surgical History Surgical History H/O total hysterectomy with bilateral salpingo-oophorectomy (BSO) (Unknown) History of breast surgery 03/2012 History of partial mastectomy 2011 Hx of section (Unknown) Hx of total knee arthroplasty (Unknown) Family History Family History Father Family history of diabetes mellitus in first degree relative, Onset Age: 77 Mother Family history of malignant neoplasm of ovary, Onset Age: 62 Grandparent Diabetes mellitus, Onset Age: 80 Other Hypertension Social History Social History Social History: The patient is and she is retired. The patient lives with her Damon who is her durable power [place] attorney for healthcare. The patient is a full code. She is a lifelong nonsmoker. The patient tells me that she is retired from [employer]. She has 2 children. Smoking status: Never smoker Second hand tobacco smoke exposure: No Alcohol intake: never Substance use: never Substance use type: does not use Lack of Transportation: YES Lack of Food: Never True Current Housing: I Have Housing Concerned About Future Housing: No Difficulty Paying Gas/Electric Bills: No Difficulty Paying for Meds: No Currently Unemployed: No Education: Decline to Answer Difficulty w/ Childcare or Family Care: No Living arrangements: with family Additional living arrangements comments: HUSB Spiritual care concerns: No Meds Home Medications and Allergies Home Medications Medication Instructions Recorded Confirmed Type diazepam 5 mg tablet 5 mg PO BID PRN Anxiety 10/12/19 02/15/23 History lamotrigine 200 mg tablet 200 mg PO Q12H 10/12/19 02/15/23 History memantine 28 mg capsule 28 mg PO QAM 10/12/19 02/15/23 History sprinkle,extended release 24hr cariprazine 6 mg capsule (Vraylar) 6 mg PO QAM 05/26/21 02/15/23 History carbidopa 25 mg-levodopa 100 mg 1 tablet PO QID 06/16/21 02/15/23 History tablet cholecalciferol (vitamin D3) 50 50 mcg PO DAILY 12/29/21 02/15/23 History mcg (2,000 unit)
--- NOTE | 2023-02-26 12:52 | PC.NURSE ---
Report to the Outpatient Waiting Room, entrance under the green pavilion located off [facility], at time __1200 on date __03/04/23 . Planned Procedure Time: _1400 . Time changes happen often and if your time is changed the preop area will call you the afternoon before. - You and your visitor will be asked to self-screen and do not enter if you have any COVID symptoms. - A mask is optional within the hospital at this time. Patients may have clear liquids (water, carbonated beverages, clear teas, apple juice) until 3 hours prior to surgery with a maximum of 20 ounces. - No food from midnight until time of surgery - Infants may have breast milk until 4 hours before surgery, infant formula 6 hours prior to surgery. - Children will be allowed to drink immediately following surgery. If applicable, please bring a bottle or sippy cup to assist with drinking. Juice, water, soda, and popsicles are readily available. For infants on formula, please bring formula the day of surgery. Pacifiers are allowed. Take the following medications with a SIP of water the morning of surgery: ____CARBIDOPA-LEVODOPA,DIAZEPAM,DILTIAZEM,LAMOTRIGINE,MEMANTINE,SERTRALINE,VRAYLAR DO NOT STOP ANY OF YOUR OTHER PRESCRIPTION MEDICATIONS PRIOR TO SURGERY ?EXCEPT THE FOLLOWING Medications to discontinue per physician ____SPOUSE STATES ASPIRIN /ALL VITAMINS 7 DAYS PRE OP PER DR RUSSELL.LAST DOSE 02/17/23 Please no make-up, nail scottish, hairspray, perfume, deodorant, or body powder the day of surgery. No jewelry (including any body piercings) or valuables the day of surgery, leave them at home. Please take a shower or bath the night before, or the morning of, surgery with an antibacterial soap. Wear comfortable, loose fitting clothing. Children are encouraged to wear pajamas. - Jewelry must be removed prior to entering the operating room. Rings and piercings that are not removed may be cut off. - The hospital will not accept responsibility for valuables. - Please leave all valuables, including medications, at home the day of surgery. If you are going home after surgery, a licensed concrete mixing truck driver must drive you home. - NO public transportation without another adult if you receive anesthesia. - We recommend that an adult stay with you for 24 hours following discharge. - We also recommend that you do not drive, make important decision, drink alcoholic beverages, or take any drugs that were not prescribed by your health care provider for at least 24 hours after your discharge time. For Pediatric surgeries, we recommend two adults accompany the child home. Follow any additional instructions given to you from your surgeon. If you or anyone in your household have experienced Covid symptoms in the past week, please notify your surgeon or the nurse liaison at the phone number below for possible testing. Telephone instructions given to ___PT'S ENRIQUE and asked if any additional questions and then verbalized understanding. Patient advised to call surgeon office or pre surgery nurse liaison [phone] if any additional questions.
--- NOTE | 2023-02-26 12:55 | PC.NURSE ---
PT'S SPOUSE DBRLYNNE STATES NO CHANGE IN HEALTH HX,MEDICATIONS SINCE LAST INTERVIEW 02/15/23
[2023-03-03] VITALS (8 sets, daily range): BP systolic 104–148; BP diastolic 54–82; PULSE 65–84; RESP 14–24; TEMP 36.4–37.3; O2SAT 90–98; BMI 24.0
--- NOTE | ~2023-03-03 | NM_ITS ---
NM pulmonary perfusion INDICATION: Elevated d-dimer. Weakness. TECHNIQUE: 5 mCi Tc 99m MAA was injected intravenously for perfusion images. Multiple images were th en acquired. COMPARISON: Chest x-ray dated 03/03/2023 FINDINGS: The comparison chest radiograph demonstrates no pulmonary infiltrates or pleural fluid. Th e perfusion scan is normal. No significant perfusion abnormalities allowing for artifact. There is ar tifact in the upper lungs due to patient inability to left arms. IMPRESSION: 1: Unremarkable perfusion images. Reviewed, dictated and finalized at location []
--- NOTE | ~2023-03-03 | CT_ITS ---
Non-contrast Head CT History: Weakness, altered mental status COMPARISON: 09/28/2022 Technique: Axial non-contrast imaging of the brain was performed. Dose reduction technique was used on this scan by utilizing automated exposure control and iterative reconstruction technique. The dose -length product (DLP) was 681.00 mGy-cm. Findings: There is no evidence of intracranial hemorrhage, mass lesion, or acute infarct. Brain par enchyma appears normal. The ventricles and subarachnoid spaces are normal in size. The calvarium ap pears normal. The visualized paranasal sinuses and mastoid air cells are clear. Impression: No significant abnormality seen. Reviewed, dictated and finalized at location . Impression: No significant abnormality seen.
--- NOTE | ~2023-03-03 | XR_ITS ---
EXAMINATION: XR retrograde pyelo w/stent BI DATE: 03/04/2023 10:04 INDICATION: Bilateral ureteral stent placement/exchange TECHNIQUE: Fluoroscopic images from a bilateral stent placement/exchange are submitted for review. 14 seconds of fluoroscopy time. FINDINGS: There are bilateral double-J internal ureteral stent projecting in expected position, with proximal C ope loop at the level of the renal pelvis and distal loop in the pelvis within the bladder lumen. IMPRESSION: 1. Bilateral internal ureteral stent placement/exchange. Please refer to real-time procedural findi ngs for details. Reviewed, dictated and finalized at location L. IMPRESSION: 1. Bilateral internal ureteral stent placement/exchange. Please refer to real -time procedural findings for details.
--- NOTE | ~2023-03-03 | XR_ITS ---
Portable chest x-ray Comparison: 07/24/2022 Clinical History: Weakness Findings: Lungs are clear, without focal consolidation or pleural effusion. Cardiomediastinal silho uette is stable, prominent mitral annular calcification. Bones and soft tissues are unremarkable. Impression: Clear lungs. Reviewed, dictated and finalized at [facility]. Impression: Clear lungs.
--- NOTE | ~2023-03-03 | XR_ITS ---
Right Shoulder Technique: AP and scapular Y views were obtained. Clinical History: Pain Findings: No fracture or dislocation is seen. Osseous alignment is anatomic. Large inferomedial humer al head osteophyte is present. AC joint intact. Soft tissues are unremarkable. Impression: No fracture or dislocation. Moderate to advanced osteoarthritis of the glenohumeral joint. Reviewed, dictated and finalized at location . Impression: No fracture or dislocation. Moderate to advanced osteoarthritis of the glenohumeral joint.
--- NOTE | ~2023-03-03 | CT_ITS ---
Non-contrast CT scan of the Abdomen and Pelvis Clinical indication: Staghorn calculus Technique: 2.5 mm axial scans were obtained through the abdomen and pelvis without intravenous or or al contrast. Dose reduction technique was used on this scan by utilizing automated exposure control a nd iterative reconstruction technique. The dose-length product (DLP) was 292.19 mGy-cm. COMPARISON: 07/24/2022 Findings: Images through the lung bases reveal mild bibasilar atelectatic change. There is a 7 x 4 mm ovoid stone at the mid right ureter (axial image 111), with Hounsfield units in t he range of 1500. There is moderate to severe right hydroureteronephrosis to this level. There are ad ditional nonobstructing right renal stones, largest the right lower pole measuring 1.4 cm in diameter . Left ureteral stent is in place. There is a 2.2 x 1.4 cm ovoid stone at the left renal pelvis. There are multiple additional nonobstructing stones the left lower to midpole. There is mild left hydroneph rosis. There is an exophytic, solid appearing mass in the left kidney measuring 3.9 cm in diameter, s imilar to prior exam. There is an additional probable solid mass at the left lower renal pole posteri te measuring 2.1 cm in diameter, also similar to prior exam. Suspected stones the distal left urete r adjacent to the stent, measuring up to 7 mm in maximum diameter (axial image 130). The liver, spleen, pancreas, and adrenals appear normal. Cholecystectomy clips are present. There is no aortic aneurysm. There is no evidence of bowel obstruction. Images through the pelvis were performed. There is no evidence of ascites or lymphadenopathy. Urinary bladder unremarkable aside from distal portion of the ureteral stent in place. Patient is post hyste rectomy. No adnexal mass seen. No ascites. Impression: 7 x 4 mm mid right ureteral stone with moderate to severe right hydroureteronephrosis to this level. Left ureteral stent in place with stones in the distal left ureter measuring up to 7 mm. Mild left hy dronephrosis. Additional extensive left renal calculi the lower pole and left renal pelvis. Additional nonobstructi ng right renal stones, as detailed above. 2 solid left renal masses, as detailed above, stable from prior exam. Renal cell carcinomas are suspe cted until proven otherwise. Reviewed, dictated and finalized at location M. Impression: 7 x 4 mm mid right ureteral stone with moderate to severe right hydroureteronep hrosis to this level. Left ureteral stent in place with stones in the distal left ureter measuring up to 7 mm. Mild left hydronephrosis. Additional extensive left renal calculi the lower pole and left renal pelvis. A dditional nonobstructing right renal stones, as detailed above. 2 solid left renal masses, as detailed above, stable from prior exam. Renal gris l carcinomas are suspected until proven otherwise.
--- NOTE | ~2023-03-03 | XR_ITS ---
Left Shoulder Technique: AP and scapular Y views were obtained. Clinical History: Pain Findings: No fracture or dislocation is seen. Osseous alignment is anatomic. The glenohumeral and acr omioclavicular joint spaces are preserved. Soft tissues are unremarkable. Impression: Unremarkable left shoulder radiographs. Reviewed, dictated and finalized at [facility]. Impression: Unremarkable left shoulder radiographs.
--- NOTE | 2023-03-03 01:18 | ED.FALL ---
HPI - Fall General Chief Complaint: Fall Stated Complaint: fall Time Seen by Provider: 03/03/23 01:18 Source: patient and EMS Mode of arrival: EMS Limitations: clinical condition and dementia History of Present Illness HPI Narrative: Patient is a 72-year-old female with a history of hypertension, hyperlipidemia, breast cancer, renal cell carcinoma, CVA, presenting to the emergency department for evaluation of generalized weakness. Patient reports using a walker and sometimes a wheelchair at home to help with transfers. Patient tried to get out of bed to go to the bathroom, when she missed the wheelchair, causing her to slide onto the floor. Patient currently reporting bilateral shoulder pain. Patient's called EMS as he could not get her up off the floor. EMS noted the patient's oxygen saturation to be low, 88% on room air, thus patient was placed on 4 L oxygen via nasal cannula and transported to our facility. Patient is currently alert and oriented to person, place, not to time. States it is 1992, states that the month is April. Patient does not believe that she hit her head. She denies any neck pain, anterior chest pain, abdominal pain. However, history limited secondary to patient's weakness, not a reliable historian. I reviewed patient's previous clinic notes including urology notes.The patient has had ureteral stones in past that have required ESWL.? She has a history of left nephrolithiasis, managed with chronic indwelling stent, patient had decided not to proceed with left nephrectomy. Related Data Home Medications Medication Instructions Recorded Confirmed diazepam 5 mg tablet 5 mg PO BID PRN Anxiety 10/12/19 02/15/23 lamotrigine 200 mg tablet 200 mg PO Q12H 10/12/19 02/15/23 memantine 28 mg capsule 28 mg PO QAM 10/12/19 02/15/23 sprinkle,extended release 24hr cariprazine 6 mg capsule (Vraylar) 6 mg PO QAM 05/26/21 02/15/23 carbidopa 25 mg-levodopa 100 mg 1 tablet PO QID 06/16/21 02/15/23 tablet cholecalciferol (vitamin D3) 50 50 mcg PO DAILY 12/29/21 02/15/23 mcg (2,000 unit) capsule sertraline 100 mg tablet 150 mg PO QAM 06/21/22 02/15/23 aspirin 81 mg tablet,delayed 81 mg PO DAILY 11/16/22 02/15/23 release Allergies Allergy/AdvReac Type Severity Reaction Status Date / Time codeine AdvReac Intermediate Confusion, Verified 02/15/23 09:19 NAUSEA Review of Systems Review of Systems: ROS unobtainable: Yes unobtainable due to mental status [facility] Past Medical History Medical History Anxiety Bipolar affective disorder Breast cancer 03/2012 Cardiomegaly Dementia Dyslipidemia Essential (primary) hypertension History of CVA (cerebrovascular accident) History of right breast cancer Hyperlipidemia Hypertrophic obstructive cardiomyopathy Left renal mass Meniere disease PAM (obstructive sleep apnea) non compliant with CPAP Parkinson disease Renal calculus TIA (transient ischemic attack) Unspecified osteoarthritis, unspecified site Vitamin D deficiency Surgical History Surgical History H/O total hysterectomy with bilateral salpingo-oophorectomy (BSO) (Unknown) History of breast surgery 03/2012 History of partial mastectomy 2011 Hx of section (Unknown) Hx of total knee arthroplasty (Unknown) Family History Family History Father Family history of diabetes mellitus in first degree relative, Onset Age: 77 Mother Family history of malignant neoplasm of ovary, Onset Age: 62 Grandparent Diabetes mellitus, Onset Age: 80 Other Hypertension Social History Social History Social History: The patient is and she is retired. The patient lives with her Damon who is her durable power estate planning attorney for healthcare. The patient is a full code.
--- NOTE | 2023-03-03 01:24 | ECG_ITS ---
Measurements Intervals [place] Rate: 85 P: -7 MS: 150 QRS: -1 QRSD: 107 T: 32 QT: 411 QTc: 491 Interpretive Statements SINUS RHYTHM POSSIBLE LEFT ATRIAL ENLARGEMENT [-0.1mV P-WAVE IN V1/V2] COMPARED TO ECG 07/24/2022 17:11:53 NO SIGNIFICANT CHANGES Electronically Signed On 03-03-2023 14:15:05 CDT by Emeka Mora M.D.
[2023-03-03 01:39] LABS: Basophils Percent Auto 0.4 % (0.2-1.2); Eosinophils Absolute Auto 0.1 K/mm3 (0-0.3); Eosinophils Percent Auto 1.9 % (0-4.4); Hemoglobin 10.6 g/dL (12.0-15.0); Immature Granulocyte Absolute 0.05 K/mm3 (0.00-0.031); Immature Granulocyte Percent A 0.7 % (0-0.5); Lymphocytes Percent Auto 11.4 % (18.3-44.2); Mean Corpuscular HGB Conc 31.2 g/dl (32-36); Mean Corpuscular Hemoglobin 29.4 pg (26-34); Mean Corpuscular Volume 94.4 fl (80-100); Mean Platelet Volume 9.1 fl (7.4-10.4); Monocytes Absolute Auto 0.7 K/mm3 (0.1-0.6); Monocytes Percent Auto 9.3 % (2.6-8.5); Neutrophils Absolute Auto 5.4 K/mm3 (1.3-6.7); Neutrophils Percent Auto 76.3 % (45.5-73.1); Platelet Count Result 176 k/mm3 (150-375)
[2023-03-03 01:47] LABS: Alanine Aminotransferase 13 U/L (6-35); Albumin Level 3.7 g/dL (3.5-5.1); Alkaline Phosphatase 86 U/L (38-126); Anion Gap 5 mmol/L (8-16); Aspartate Amino Transferase 24 U/L (14-36); Bilirubin,Total 0.7 mg/dL (0.2-1.3); Blood Urea Nitrogen 24 mg/dL (7-17); Calcium 8.4 mg/dL (8.4-10.2); Carbon Dioxide 33 mmol/L (22-30); Chloride 100 mmol/L (98-107); Estimated CRCL calculation 30 ml/min; Estimated Glomerular Filt Rate 37; Glucose 96 mg/dL (65-110); Potassium 3.3 mmol/L (3.4-5.0); Sodium 138 mmol/L (137-145)
[2023-03-03 01:55] LABS: Prothrombin Time 13.8 Seconds (11.1-14.7)
[2023-03-03 01:56] LABS: Partial Thromboplastin Time 34.4 SECONDS (22.3-36.8)
[2023-03-03 02:03] LABS: Troponin I < 0.012 ng/mL (0.000-0.034)
[2023-03-03 02:45] LABS: Appearance Urine Cloudy (Clear); Bilirubin Urine Negative (Negative); Blood Urine 3+ (Negative); Color Urine Yellow (Yellow); Glucose Urine UA Negative (Negative); Ketones Urine Negative (Negative); Leukocyte Esterase Ur 3+ LEU/UL (Negative); Need Manual Microscopic Reviewed; Nitrate Urine Positive (Negative); Non Pathogenic Casts 0-2; Protein Urine 2+ mg/dL (Negative); RBC Urine >100 /hpf (0-2); Specific Grav Ur 1.015 (1.001-1.035); Squamous Epithelial Cell Urine None seen /hpf (Few); WBC Urine >100 /hpf; pH Urine 7.5 (5.0-9.0)
[2023-03-03 02:47] LABS: Add Urine Microscopic? YES; Bacteria Urine 3+ /hpf
[2023-03-03 03:01] LABS: Influenza A QL RT-PCR Negative (Negative); Influenza B QL RT-PCR Negative (Negative); RSV RNA, RT-PCR Negative (Negative); SARS-CoV-2 RNA PCR Negative (Negative)
[2023-03-03 03:01] LABS: D Dimer 1.09 ug/mL (<0.48)
--- NOTE | 2023-03-03 05:00 | ADMGEN ---
This patient, Karina Arroyo, was admitted to 2 Medical Room 255-01. Patient/family oriented to hospital policies and general routines including ID bracelet, bed and alarms, visiting hours, pain management, procedures, bathroom and other care routines, personal items, smoking policy, room service/diet, and visiting hours. Information on how to activate the Rapid Response Team has been discussed. Patient/Family are encouraged to report perceived risks to care and to ask questions if they do not understand what they are told or what they should do.
[2023-03-03] MEDS: LACTATED RINGERS 1,000 ML 125 ML IV CONT ×3 (05:46→23:06)
[2023-03-03 06:49] LABS: Troponin I 0.022 ng/mL (0.000-0.034)
--- NOTE | 2023-03-03 08:00 | PM.IMHP ---
H&P: HPI History of Present Illness Date/Time: 03/03/23 08:00 Chief Complaint: Patient presented to ER overnight with complaint of weakness resulting in fall with subsequent bilateral shoulder pain. Patient now reports suprapubic abdominal pain and inability to pass urine since leaving home overnight. Patient has known pre-existing left ureteral stent in place, found on CT scan to have bilateral hydronephrosis worse on the right with obstructing stone right mid ureter and partially obstructing stone at the level of the left ureteral stent with resultant BLAKE pending Urology consult. Numerous other renal stones noted including very large stone at Left renal pelvis. Imaging also reveals 2 left renal masses suspected to be renal carcinoma which are essentially unchanged from prior imaging. Patient has previously declined left nephrectomy. Patient found to be hypoxic in ER with elevated D-Dimer, V/Q scan pending and patient has PRN oxygen ordered via nasal cannula, currently on room air. Review of Systems Review of Systems: All systems reviewed and unremarkable except as listed in HPI and below. Respiratory: Comments: no complaints, sats noted as low as 88% in ER Genitourinary: Comments: Unable to urinate with lower abdominal pain present. Neurologic: Comments: Confused to place and time which is apparently baseline [facility] Past Medical History Medical History (Updated 03/03/23 @ 12:40 by Caren Landin APRN) Anxiety Bipolar affective disorder Breast cancer 03/2012 Cardiomegaly Dementia Dyslipidemia Essential (primary) hypertension History of CVA (cerebrovascular accident) History of right breast cancer Hyperlipidemia Hypertrophic obstructive cardiomyopathy Left renal mass Meniere disease PAM (obstructive sleep apnea) non compliant with CPAP Parkinson disease Renal calculus TIA (transient ischemic attack) Unspecified osteoarthritis, unspecified site Vitamin D deficiency Surgical History Surgical History H/O total hysterectomy with bilateral salpingo-oophorectomy (BSO) (Unknown) History of breast surgery 03/2012 History of partial mastectomy 2011 Hx of section (Unknown) Hx of total knee arthroplasty (Unknown) Family History Family History Father Family history of diabetes mellitus in first degree relative, Onset Age: 77 Mother Family history of malignant neoplasm of ovary, Onset Age: 62 Grandparent Diabetes mellitus, Onset Age: 80 Other Hypertension Social History Social History Social History: The patient is and she is retired. The patient lives with her Damon who is her durable power [place] attorney for healthcare. The patient is a full code. She is a lifelong nonsmoker. The patient tells me that she is retired from [employer] She has 2 children. Smoking status: Never smoker Second hand tobacco smoke exposure: No Alcohol intake: never Substance use: never Substance use type: does not use Lack of Transportation: No Lack of Food: Never True Current Housing: I Have Housing Concerned About Future Housing: No Difficulty Paying Gas/Electric Bills: No Difficulty Paying for Meds: No Currently Unemployed: No Education: High School Diploma/GED Difficulty w/ Childcare or Family Care: No Living arrangements: with family Additional living arrangements comments: HUSB Spiritual care concerns: No Meds Home Medications and Allergies Home Medications Medication Instructions Recorded Confirmed Type diazepam 5 mg tablet 5 mg PO BID PRN Anxiety 10/12/19 03/03/23 History lamotrigine 200 mg tablet 200 mg PO Q12H 10/12/19 03/03/23 History memantine 28 mg capsule 28 mg PO QAM 10/12/19 03/03/23 History sprinkle,extended release 24hr cariprazine 6 mg caps
[2023-03-03] MEDS: ASPIRIN 81 MG ENTERIC TABLET PO (08:57)
[2023-03-03] MEDS: CARBIDOPA/LEVODOPA 25/100 MG TABLET 1 TABLET PO ×4 (08:57→20:57)
[2023-03-03] MEDS: ROSUVASTATIN 10 MG TABLET PO (08:57)
[2023-03-03] MEDS: MEMANTINE HCL XR 28 MG CAP PO (08:57)
[2023-03-03] MEDS: lamoTRIgine 100 MG TABLET 200 MG PO ×2 (08:58→20:57)
[2023-03-03] MEDS: SERTRALINE HCL 50 MG TABLET 150 MG PO (08:58)
[2023-03-03] MEDS: CHOLECALCIFEROL 1,000 UNITS TABLET 2000 UNITS PO (08:58)
[2023-03-03] MEDS: ACETAMINOPHEN 500 MG TABLET 1000 MG PO (10:03)
--- NOTE | 2023-03-03 12:29 | WPDURCON ---
Assessment and Plan Assessment and plan (1) Acute UTI: Code(s): N39.0 - Urinary tract infection, site not specified Status: Acute Assessment and Plan: Continue Ceftriaxone, tailor antibiotics to culture results. (2) BLAKE (acute kidney injury): Code(s): N17.9 - Acute kidney failure, unspecified Status: Acute Assessment and Plan: Will continue to monitor, likely improvement will be noted once right stent is placed tomorrow and left stent is exchanged. Plant o go to the OR tomorrow with Dr. Pires: Cystoscopy, right ureteral stent placement, left ureteral stent exchange, bilateral retrograde pyelogram. NPO after midnight. Ok to to eat at this time. (3) Hydronephrosis, right: Code(s): N13.30 - Unspecified hydronephrosis Status: Acute (4) Right ureteral stone: Code(s): N20.1 - Calculus of ureter Status: Acute Assessment and Plan: 7x4mm mid ureteral stone on CT (5) Left ureteral calculus: Code(s): N20.1 - Calculus of ureter Status: Acute Assessment and Plan: multiple stones measuring up to 7mm Will need a ureteroscopy bilaterally with stent exchanges bilaterally once infection has cleared as an outpatient. (6) Hydronephrosis, left: Code(s): N13.30 - Unspecified hydronephrosis Status: Acute (7) Bilateral renal stones: Code(s): N20.0 - Calculus of kidney Status: Acute Assessment and Plan: No plans to intervene at this time, will monitor with imaging ongoing. (8) Left renal mass: Code(s): N28.89 - Other specified disorders of kidney and ureter Status: Acute Assessment and Plan: Monitoring with imaging, no plans for nephrectomy at this time. Urology Consult Note HPI Date Seen: 03/03/23 Time Seen: 12:29 Requesting Physician: Aly Price MD Primary Care Provider: Mando De Los Santos MD Consult Narrative Reason for consult: Bilateral ureteral/renal stones, UTI/Left Renal Masses Narrative: Karina Arroyo is a 72 year old female who presented to the ER last night after a fall at home. She was noted to have weakness and confusion at the time of her fall. She is a patient of Dr. Pires who has known left renal masses which are presumed to be renal cell carcinoma and are being monitored with imaging. She also has a left stent in place that was scheduled to be exchanged tomorrow in the OR, however she presented to the hospital with symptoms of weakness and a UTI. She has a UA that is nitrate positive, urine cultures are pending at this time and she is currently on Ceftriaxone. She has a WBC of 7.0, creatinine is elevated at 1.40, up from her baseline of 1.10 in 10/05. She is afebrile and vitals are stable at this time. A CT scan was done yesterday showing her left stent in place, mild left hydro with stones in the left distal ureter measuring up to 7mm, as well as a 7x4mm mid right ureteral stone with moderate to severe hydronephrosis, bilateral non obstructive stones, left renal masses. Review of Systems Cardiovascular: Cardiovascular: Denies chest pain Respiratory: Respiratory: Reports no additional respiratory complaints Gastrointestinal: Gastrointestinal: Reports abdominal pain, Denies nausea and Denies vomiting Genitourinary: Genitourinary: Denies hematuria, Denies nocturia, Denies dysuria, Denies pelvic pain, Reports flank pain, Denies urinary hesitancy and Denies urinary urgency [facility] Past Medical History Medical History (Updated 03/03/23 @ 12:40 by Caren Landin, LETI) Anxiety Bipolar affective disorder Breast cancer 03/2012 Cardiomegaly Dementia Dyslipidemia Essential (primary) hypertension History of CVA (cerebrovascular accident) History of right breast cancer Hyperlipidemia Hypertrophic obstructive cardiomyopathy Left renal mass Meniere disease PAM (obstructive sleep apnea) non compliant with CPAP Parkinson disease Renal calculus TIA (transient isc
[2023-03-03] MEDS: POTASSIUM CHLORIDE 20 MEQ PACKET (FOR LIQUID) PO (13:08)
--- NOTE | 2023-03-03 16:14 | PCPTNOTE ---
On 03/03/23, the student, [Dayanna Marx], provided care and completed [facility] documentation on this patient. I have reviewed the student's documentation and agree with the findings.
[2023-03-03] MEDS: polyethylene glycoL 3350 17 GM POWD.PACK PO (20:56)
[2023-03-04] VITALS (14 sets, daily range): BP systolic 115–142; BP diastolic 53–72; PULSE 57–72; RESP 14–18; TEMP 36.3–37.1; O2SAT 89–100
[2023-03-04 05:18] LABS: Basophils Percent Auto 0.4 % (0.2-1.2); Eosinophils Absolute Auto 0.2 K/mm3 (0-0.3); Eosinophils Percent Auto 2.2 % (0-4.4); Hematocrit 33.6 % (37.0-47.0); Hemoglobin 10.5 g/dL (12.0-15.0); Immature Granulocyte Absolute 0.02 K/mm3 (0.00-0.031); Immature Granulocyte Percent A 0.3 % (0-0.5); Lymphocytes Absolute Auto 0.99 K/mm3 (0.9-3.2); Lymphocytes Percent Auto 12.9 % (18.3-44.2); Mean Corpuscular HGB Conc 31.3 g/dl (32-36); Mean Corpuscular Hemoglobin 29.2 pg (26-34); Mean Corpuscular Volume 93.6 fl (80-100); Mean Platelet Volume 9.1 fl (7.4-10.4); Monocytes Absolute Auto 0.7 K/mm3 (0.1-0.6); Monocytes Percent Auto 8.6 % (2.6-8.5); Neutrophils Absolute Auto 5.8 K/mm3 (1.3-6.7); Neutrophils Percent Auto 75.6 % (45.5-73.1); Platelet Count Result 171 k/mm3 (150-375); Red Blood Count 3.59 M/mm3 (4.2-5.4); Red Cell Distribution Width 11.9 % (11.5-14.5); White Blood Count 7.7 K/mm3 (4.5-10.0)
[2023-03-04 05:44] LABS: Anion Gap 4 mmol/L (8-16); Blood Urea Nitrogen 12 mg/dL (7-17); Calcium 8.6 mg/dL (8.4-10.2); Carbon Dioxide 31 mmol/L (22-30); Chloride 106 mmol/L (98-107); Estimated CRCL calculation 41 ml/min; Estimated Glomerular Filt Rate 54; Glucose 83 mg/dL (65-110); Potassium 3.4 mmol/L (3.4-5.0); Sodium 141 mmol/L (137-145)
[2023-03-04] MEDS: ACETAMINOPHEN 500 MG TABLET 1000 MG PO ×2 (06:07→18:09)
--- NOTE | 2023-03-04 06:18 | PC.NURSE ---
Pt complained of having a headache, rating 8/10. Only PO Tylenol available on pt's NOV. Pt is scheduled for surgery this afternoon and is NPO. Spoke with hospitalist around 0530 and asked for IV medicine since pt is NPO. Provider said it was okay to give PO Tylenol. Called Dr. Pires at 0604 to ask if it was okay to give PO Tylenol since pt is having surgery later, and he said it is fine.
--- NOTE | 2023-03-04 06:32 | WPDHPUPDATE1 ---
History and Physical Update Update Date/Time: 03/04/23 06:32 History and Physical has been reviewed, including an updated exam of the patient. There are NO changes in the patient's condition. Risks, benefits, and alternatives have been discussed and questions answered. Patient agrees to proceed with procedure.
[2023-03-04] MEDS: LACTATED RINGERS 1,000 ML 125 ML IV CONT ×2 (07:39→18:11)
--- NOTE | 2023-03-04 07:43 | PM.IMPN ---
Progress Note: A&P Assessment and Plan (1) General weakness: Code(s): R53.1 - Weakness Status: Acute Assessment and Plan: Patient still complains of generalized weakness. PT and OT-consult and await recommendations (2) Acute UTI: Code(s): N39.0 - Urinary tract infection, site not specified Status: Acute Assessment and Plan: Continue on Rocephin. Lawler catheter in place due to acute urinary retention. Removal to be coordinated urology service due to planned to go to the operating room today. (3) BLAKE (acute kidney injury): Code(s): N17.9 - Acute kidney failure, unspecified Status: Acute Assessment and Plan: Improving with IV fluids and Lawler catheter insertion. Creatinine has returned to baseline level of 1.0 (4) Urinary retention: Code(s): R33.9 - Retention of urine, unspecified Status: Acute Assessment and Plan: Lawler catheter in place with removal to be coordinated with urology service (5) Hydronephrosis, right: Code(s): N13.30 - Unspecified hydronephrosis Status: Acute Assessment and Plan: Patient going to the operating room for exchange of left ureteral stent and placement of right ureteral stent with bilateral retrograde pyelogram by Dr. Pires today (6) Right ureteral stone: Code(s): N20.1 - Calculus of ureter Status: Acute Assessment and Plan: Patient going to the operating room for exchange of left ureteral stent and placement of right ureteral stent with bilateral retrograde pyelogram by Dr. Pires today (7) Left ureteral calculus: Code(s): N20.1 - Calculus of ureter Status: Acute Assessment and Plan: Patient going to the operating room for exchange of left ureteral stent and placement of right ureteral stent with bilateral retrograde pyelogram by Dr. Pires today (8) Hydronephrosis, left: Code(s): N13.30 - Unspecified hydronephrosis Status: Acute Assessment and Plan: Patient going to the operating room for exchange of left ureteral stent and placement of right ureteral stent with bilateral retrograde pyelogram by Dr. Pires today (9) Hypoxia: Code(s): R09.02 - Hypoxemia Status: Acute Assessment and Plan: Improved/resolved since admission. Patient has been on room air since coming to the inpatient floor (10) Acute shoulder pain: Qualifiers: Laterality: bilateral Qualified Code(s): M25.511 - Pain in right shoulder; M25.512 - Pain in left shoulder Code(s): M25.519 - Pain in unspecified shoulder Status: Acute Assessment and Plan: Improved. Patient denies any pain or tenderness assessment Time Spent With Patient Time with patient: 25 - 35 minutes Subjective Date/time seen: 03/04/23 07:15 Interval history: This is the 72-year-old female patient with a history of Parkinson's disease, dementia, bipolar affective disorder, anxiety, hypokalemia, obstructive sleep apnea, renal carcinoma who was admitted to the hospital after suffering a fall due to generalized weakness. Patient had attempted to get out of bed to urinate and fell. While in the emergency department patient was noted have BLAKE on her labs and suspected urinary infection. Patient has a significant past medical history for numerous renal stones and has an indwelling left ureteral stent. Imaging of the abdomen shows an obstructing right ureteral stone with right-sided hydronephrosis as well as partially obstructing stone proximal to the existing left stent. Additionally patient has left-sided hydronephrosis and a very large stone located within the left kidney. She also has known left renal mass x2 which are grossly unchanged from previous. Initially patient complained bilateral shoulder pain there was concern for right shoulder fracture but x-ray was read as osteophyte and arthritic changes. Patient was evaluated by Urology with plan to go to the operating
--- NOTE | 2023-03-04 08:37 | WPDANESEPPF ---
Anes - Initial Pre Proc Eval Procedure: Operation Date: 03/04/23 14:00 Proposed Procedures p Cystoscopy with Left Ureteral Stent Exchange, Right Stent Placement, Bilateral Retrograde Pyelogram - Brian Pires MD Date/Time: 03/04/23 08:37 Surgeon: Ankit Schofield APRN Pre Op Diagnosis: UTI/Altered Mental Status/Generalized Weakness Patient Data Age: 72 Gender: F Height: 1.68 m Weight: 67.5 kg Last Vital Signs Temp 36.6 C 03/04/23 06:00 Pulse 72 03/04/23 06:00 Resp 14 03/04/23 06:00 BP 139/62 03/04/23 06:00 Pulse Ox 90 03/04/23 06:00 O2 Del Method Room Air 03/03/23 20:40 O2 Flow Rate 2 03/03/23 01:22 Allergies Allergy/AdvReac Type Severity Reaction Status Date / Time codeine AdvReac Intermediate Confusion, Verified 02/15/23 09:19 NAUSEA Home Medications Medication Instructions Recorded Confirmed Type diazepam 5 mg tablet 5 mg PO BID PRN Anxiety 10/12/19 03/03/23 History lamotrigine 200 mg tablet 200 mg PO Q12H 10/12/19 03/03/23 History memantine 28 mg capsule 28 mg PO QAM 10/12/19 03/03/23 History sprinkle,extended release 24hr cariprazine 6 mg capsule (Vraylar) 6 mg PO QAM 05/26/21 03/03/23 History carbidopa 25 mg-levodopa 100 mg 1 tablet PO QID 06/16/21 03/03/23 History tablet cholecalciferol (vitamin D3) 50 50 mcg PO DAILY 12/29/21 03/03/23 History mcg (2,000 unit) capsule sertraline 100 mg tablet 150 mg PO QAM 06/21/22 03/03/23 History rosuvastatin 10 mg tablet 10 mg PO DAILY #90 tabs 08/31/22 03/03/23 Rx aspirin 81 mg tablet,delayed 81 mg PO DAILY 11/16/22 03/03/23 History release potassium chloride 10 mEq 10 meq PO DAILY #30 tabs 12/18/22 03/03/23 Rx tablet,extended release diltiazem HCl 240 mg 240 mg PO QAM #90 caps 02/02/23 03/03/23 Rx capsule,extended release 24 hr Laboratory Tests 03/04/23 05:00 WBC 7.7 K/mm3 (4.5-10.0) RBC 3.59 L M/mm3 (4.2-5.4) Hgb 10.5 L g/dL (12.0-15.0) Hct 33.6 L % (37.0-47.0) MCV 93.6 fl (80-100) MCH 29.2 pg (26-34) MCHC 31.3 L g/dl (32-36) RDW 11.9 % (11.5-14.5) Plt Count 171 k/mm3 (150-375) MPV 9.1 fl (7.4-10.4) Immature Gran % (Auto) 0.3 % (0-0.5) Neut % (Auto) 75.6 H % (45.5-73.1) Lymph % (Auto) 12.9 L % (18.3-44.2) Divide % (Auto) 8.6 H % (2.6-8.5) Eos % (Auto) 2.2 % (0-4.4) Baso % (Auto) 0.4 % (0.2-1.2) Lymph # (Auto) 0.99 K/mm3 (0.9-3.2) Divide # (Auto) 0.7 H K/mm3 (0.1-0.6) Eos # (Auto) 0.2 K/mm3 (0-0.3) Baso # (Auto) 0.0 K/mm3 (0.0-0.1) Abs Immat Gran (auto) 0.02 K/mm3 (0.00-0.031) Absolute Neuts (auto) 5.8 K/mm3 (1.3-6.7) Absolute Nucleated RBC 0.0 K/mm3 (0.0-0.012) Nucleated RBC % 0.0 % (0.0-0.2) Sodium 141 mmol/L (137-145) Potassium 3.4 mmol/L (3.4-5.0) Chloride 106 mmol/L (98-107) Carbon Dioxide 31 H mmol/L (22-30) Anion Gap 4 L mmol/L (8-16) BUN 12 D mg/dL (7-17) Creatinine 1.00 mg/dL (0.7-1.0) Estim Creat Clear Calc 41 ml/min Estimated GFR 54 L (59 - ) Glucose 83 mg/dL (65-110) Calcium 8.6 mg/dL (8.4-10.2) Patient hx anesthesia problems: none Family hx anesthesia problems: none Results Review: All pre-operative results and documents have been reviewed as part of the pre-operative evaluation. [facility] Past Medical History Medical History Anxiety Bipolar affective disorder Breast cancer 03/2012 Cardiomegaly Dementia Dyslipidemia Essential (primary) hypertension History of CVA (cerebrovascular accident) History of right breast cancer Hyperlipidemia Hypertrophic obstructive cardiomyopathy Left renal mass Meniere disease PAM (obstructive sleep apnea) non compliant with CPAP Parkinson disease Renal calculus TIA (transient ischemic attack) Unspecified osteoarthritis, unspecified site Vitamin D deficiency Surgi
[2023-03-04] MEDS: LACTATED RINGERS 1,000 ML 30 ML IV CONT (08:49)
[2023-03-04] MEDS: LIDOCAINE HCL 2% GEL UROJET 10 ML PKG MUCOUS MEM (09:35)
--- NOTE | 2023-03-04 09:47 | PCOTNOTE ---
Attempted OT evaluation, patient is currently off the unit for a procedure, will follow.
--- NOTE | 2023-03-04 09:51 | P.OP_ITS ---
Procedure Note - Detailed Date of Procedure 03/04/23 Pre-op Diagnosis 1. Left staghorn renal calculus 2. Obstructing right proximal ureteral stone with obstructive pyelonephritis Post-op Diagnosis Other ( 1. Encrusted, retained left ureteral stent 2. Obstructing 7 mm right mid ureteral calculus) Procedure Performed Cystoscopy with attempted left ureteral stent exchange, right retrograde pyelography with ureteral stent placement Surgeon Brian Pires MD Anesthesia General Description of Procedure Patient is brought the op suite she has prepped draped in routine sterile fashion while in dorsal lithotomy position. 2% xylocaine jelly was introduced intraurethrally and allowed to stand for an appropriate period of time. Cystoscopy is undertaken with a 21 F rigid cystoscope. The left ureteral stent is encrusted despite the fact we just placed it 2 months ago. I attempted to remove the but the proximal coil is likewise encrusted. I did a right retrograde pyelogram with an 8 F ball-tip catheter. Can identify the point of obstruction from her mid ureteral calculus. A 4.8 F variable andreas gth stent is positioned with the proximal coil in renal pelvis and distal coil in the bladder. Scopes and wires removed and she was taken recovery room good condition. I will make arrangements for simultaneous left ESWL and right ureteroscopy with laser lithotripsy stone extraction and possible stent replacement Urine Output 550 Complications No immediate complications Disposition PACU
[2023-03-04] MEDS: fentaNYL CITRATE INJ (*CRX) 100 MCG/2 ML VIAL 25 MCG IV PUSH ×2 (10:10→10:39)
[2023-03-04] MEDS: CARBIDOPA/LEVODOPA 25/100 MG TABLET 1 TABLET PO ×3 (11:23→21:10)
[2023-03-04] MEDS: lamoTRIgine 100 MG TABLET 200 MG PO ×2 (11:24→21:10)
[2023-03-04] MEDS: ASPIRIN 81 MG ENTERIC TABLET PO (11:24)
[2023-03-04] MEDS: CHOLECALCIFEROL 1,000 UNITS TABLET 2000 UNITS PO (11:24)
[2023-03-04] MEDS: POTASSIUM CHLORIDE 10 MEQ ER TABLET PO (11:25)
[2023-03-04] MEDS: SERTRALINE HCL 50 MG TABLET 150 MG PO (11:25)
[2023-03-04] MEDS: ROSUVASTATIN 10 MG TABLET PO (11:25)
[2023-03-04] MEDS: MEMANTINE HCL XR 28 MG CAP PO (11:25)
[2023-03-04] MEDS: ONDANSETRON INJ 4 MG/2 ML VIAL IV PUSH (11:26)
--- NOTE | 2023-03-04 11:32 | PHAR ---
HOME MED: VRAYLAR (CARIPRAZINE) 6 MG CAPSULES; TAKE 1 CAPSULE BY MOUTH EVERY MORNING. VERIFIED BY PHARMACY.
--- NOTE | 2023-03-04 12:49 | WPDHPUPDATE1 ---
History and Physical Update Update Date/Time: 03/04/23 12:49 Urology took patient to the OR, unable to retrieve left stent due to encrusting. Right stent placed. Urology to make outpatient arrangements for simultaneous left ESWL and right ureteroscopy with laser lithotripsy stone extraction and possible stent replacement.
--- NOTE | 2023-03-04 13:54 | PCPTNOTE ---
Attempted to see patient for PT, however patient was eating lunch at this time. Asked patient if she wanted any PT today and patient reported no thank you. Patient declined PT this date.
[2023-03-05 03:54] LABS: Basophils Absolute Auto 0.1 K/mm3 (0.0-0.1); Basophils Percent Auto 0.6 % (0.2-1.2); Eosinophils Absolute Auto 0.2 K/mm3 (0-0.3); Eosinophils Percent Auto 2.5 % (0-4.4); Hematocrit 33.5 % (37.0-47.0); Hemoglobin 10.5 g/dL (12.0-15.0); Immature Granulocyte Absolute 0.05 K/mm3 (0.00-0.031); Immature Granulocyte Percent A 0.6 % (0-0.5); Lymphocytes Absolute Auto 0.68 K/mm3 (0.9-3.2); Lymphocytes Percent Auto 8.5 % (18.3-44.2); Mean Corpuscular HGB Conc 31.3 g/dl (32-36); Mean Corpuscular Hemoglobin 29.2 pg (26-34); Mean Corpuscular Volume 93.1 fl (80-100); Monocytes Absolute Auto 0.6 K/mm3 (0.1-0.6); Neutrophils Absolute Auto 6.4 K/mm3 (1.3-6.7); Neutrophils Percent Auto 80.8 % (45.5-73.1); Platelet Count Result 194 k/mm3 (150-375)
[2023-03-05 04:14] LABS: Anion Gap 6 mmol/L (8-16); Blood Urea Nitrogen 14 mg/dL (7-17); Calcium 8.1 mg/dL (8.4-10.2); Carbon Dioxide 31 mmol/L (22-30); Chloride 103 mmol/L (98-107); Estimated CRCL calculation 41 ml/min; Estimated Glomerular Filt Rate 54; Glucose 85 mg/dL (65-110); Potassium 3.7 mmol/L (3.4-5.0); Sodium 140 mmol/L (137-145)
[2023-03-05 05:52] VITALS: BP 125/58; PULSE 78; RESP 18; TEMP 36.6; O2SAT 90
[2023-03-05] MEDS: CARBIDOPA/LEVODOPA 25/100 MG TABLET 1 TABLET PO ×4 (09:32→20:08)
[2023-03-05] MEDS: CHOLECALCIFEROL 1,000 UNITS TABLET 2000 UNITS PO (09:33)
[2023-03-05] MEDS: DOCUSATE SODIUM 100 MG CAPSULE PO ×2 (09:34→20:09)
[2023-03-05] MEDS: POTASSIUM CHLORIDE 10 MEQ ER TABLET PO (09:35)
[2023-03-05] MEDS: SENNOSIDES 8.6 MG TABLET PO ×2 (09:35→16:26)
[2023-03-05] MEDS: MEMANTINE HCL XR 28 MG CAP PO (09:35)
[2023-03-05] MEDS: ROSUVASTATIN 10 MG TABLET PO (09:35)
[2023-03-05] MEDS: lamoTRIgine 100 MG TABLET 200 MG PO ×2 (09:35→20:09)
[2023-03-05] MEDS: SERTRALINE HCL 50 MG TABLET 150 MG PO (09:36)
[2023-03-05 09:55] VITALS: O2SAT 92
--- NOTE | 2023-03-05 10:04 | PM.IMPN ---
Progress Note: A&P Assessment and Plan Plan Continue PT/OT Encourage mobilization, up to bed with meals Continue watson catheter until further direction from Urology Evaluate for rehab placement due to weakness and mobility difficulties Trend labs Maintain oxygen saturation with supplemental oxygen as needed Time Spent With Patient Time with patient: Greater than 35 minutes Subjective Date/time seen: 03/05/23 10:04 Objective Data Vital Signs Vital Signs: Vital Signs - 24 hr 03/04/23 10:20 03/04/23 10:30 03/04/23 10:41 Temperature Pulse Rate 67 Respiratory Rate 18 Blood Pressure 134/67 Pulse Oximetry 100 93 89 L Oxygen Delivery Room Air Room Air Nasal Cannula Oxygen Flow Rate 2 03/04/23 10:45 03/04/23 11:00 03/04/23 10:15 Temperature Pulse Rate 64 67 64 Respiratory Rate 16 16 18 Blood Pressure 138/72 125/68 138/64 Pulse Oximetry 96 95 96 Oxygen Delivery Nasal Cannula Nasal Cannula Simple Face Mask Oxygen Flow Rate 2 2 6 03/04/23 11:45 03/04/23 12:00 03/04/23 12:30 Temperature 37.1 C 37.1 C 37.1 C Pulse Rate 64 62 64 Respiratory Rate 14 14 15 Blood Pressure 137/66 135/62 123/58 L Pulse Oximetry 100 100 99 Oxygen Delivery Oxygen Flow Rate 03/04/23 13:30 03/04/23 19:21 03/05/23 05:52 Temperature 37.1 C 36.8 C 36.6 C Pulse Rate 62 57 L 78 Respiratory Rate 15 18 18 Blood Pressure 119/60 115/53 L 125/58 L Pulse Oximetry 100 96 90 Oxygen Delivery Oxygen Flow Rate 03/05/23 09:55 Temperature Pulse Rate Respiratory Rate Blood Pressure Pulse Oximetry 92 Oxygen Delivery Room Air Oxygen Flow Rate Intake/Output Intake/Output: Intake & Output 03/02/23 03/03/23 03/04/23 03/05/23 23:59 23:59 23:59 23:59 Intake Total 2440 2420 120 Output Total 2950 8458 2300 [facility] -[phone] Meds/Results Medications: Active Medications Generic Name Dose Route Start Last Admin Trade Name Freq PRN Reason Stop Dose Admin Acetaminophen 1,000 mg 03/03/23 05:58 03/04/23 18:09 Acetaminophen 500 Mg Tablet PO 1,000 mg Q6H PRN Administration pain 1-3/fever Al Hydrox/Mg Hydrox/Simethicone 30 ml 03/03/23 05:56 Mag Hydrox/Al Hydrox/Simeth 30 Ml Udc PO Q6H PRN Indigestion Aspirin 81 mg 03/03/23 09:00 03/04/23 11:24 Aspirin 81 Mg Enteric Tablet PO 81 mg DAILY MARGE Administration Carbidopa/Levodopa 1 tablet 03/03/23 08:00 03/05/23 09:32 Carbidopa/Levodopa 25/100 Mg Tablet PO 1 tablet WMHS MARGE Administration Diltiazem HCl 240 mg 03/03/23 09:00 03/05/23 09:33 Diltiazem Hcl Cd 240 Mg Cap.Er.24h PO 240 mg QAM MARGE Administration Docusate Sodium 100 mg 03/05/23 09:00 03/05/23 09:34 Docusate Sodium 100 Mg Capsule PO 100 mg Q12HR MARGE Administration Home Med 1 each 03/04/23 12:00 03/05/23 09:34 Cariprazine [Vraylar] 6 Mg Capsule PO 04/03/23 11:59 1 each QAM MARGE Administration Ceftriaxone Sodium 1 gm in 50 mls @ 100 mls/hr 03/03/23 21:00 03/04/23 21:10 Rocephin 1 Gm/Ns 50 Ml IVPB 100 mls/hr Q24H MARGE Administration Lamotrigine 200 mg 03/03/23 09:00 03/05/23 09:35 Lamotrigine 100 Mg Tablet PO 200 mg Q12HR MARGE Administration Memantine 28 mg 03/03/23 09:00 03/05/23 09:35 Memantine Hcl Xr 28 Mg Cap PO 28 mg QAM MARGE Administration Ondansetron HCl 4 mg 03/03/23 03:36 03/04/23 11:26 Ondansetron Inj 4 Mg/2 Ml Vial IV PUSH 4 mg Q4H PRN Administration Nausea Polyethylene Glycol 17 gm 03/03/23 05:56 03/03/23 20:56 Polyethylene Glycol 3350 17 Gm Powd.Pack PO 17 gm QAM PRN Administration Constipation Potassium Chloride 10 meq 03/04/23 09:00 03/05/23 09:35 Potassium Chloride 10 Meq Er Tablet PO 10 meq DAILY MARGE Administration Rosuvastatin Calcium 10 mg 03/03/23 09:00 03/05/23 09:35 Rosuvastatin 10 Mg Tablet PO 10 mg DAILY MARGE Administration Senna 8.6 mg 03/05/23 09:00 03/05/23 09:35 Sennosides 8.6 Mg
--- NOTE | 2023-03-05 10:06 | WPDANESPN ---
Anes - Prog Note Post-Op Date/Time: 03/05/23 10:06 Cardiovascular status: normal Respiratory status: normal Airway patency: baseline Mental status: baseline Post-Op hydration status: normal Vital Signs: Last Vital Signs Temp 36.6 C 03/05/23 05:52 Pulse 78 03/05/23 05:52 Resp 18 03/05/23 05:52 BP 125/58 L 03/05/23 05:52 Pulse Ox 92 03/05/23 09:55 O2 Del Method Room Air 03/05/23 09:55 O2 Flow Rate 2 03/04/23 11:00 Pain Score (VAS): 0 I/O: Intake & Output 03/04/23 03/05/23 03/05/23 23:59 07:59 15:59 Intake Total 0 120 Output Total 625 2300 Balance -625 -2300 120 Laboratory Tests 03/05/23 03:48 03/05/23 03:48 03/05/23 03:48 WBC 8.0 RBC 3.60 L Hgb 10.5 L Hct 33.5 L MCV 93.1 MCH 29.2 MCHC 31.3 L RDW 12.0 Plt Count 194 MPV 9.0 Immature Gran % (Auto) 0.6 H Neut % (Auto) 80.8 H Lymph % (Auto) 8.5 L [place] % (Auto) 7.0 Eos % (Auto) 2.5 Baso % (Auto) 0.6 Lymph # (Auto) 0.68 L [place] # (Auto) 0.6 Eos # (Auto) 0.2 Baso # (Auto) 0.1 Abs Immat Gran (auto) 0.05 H Absolute Neuts (auto) 6.4 Absolute Nucleated RBC 0.0 Nucleated RBC % 0.0 Sodium 140 Potassium 3.7 Chloride 103 Carbon Dioxide 31 H Anion Gap 6 L BUN 14 Creatinine 1.00 Estim Creat Clear Calc 41 Estimated GFR 54 L Glucose 85 Calcium 8.1 L Microbiology 03/03/23 02:16 Urine Clean Catch Urine Culture - Final Post-procedural complaints: none Patient Feedback: Patient satisfied with anesthetic care.
[2023-03-05] MEDS: ASPIRIN 81 MG ENTERIC TABLET PO (11:25)
[2023-03-05] MEDS: ACETAMINOPHEN 500 MG TABLET 1000 MG PO (12:33)
[2023-03-05] MEDS: polyethylene glycoL 3350 17 GM POWD.PACK PO (12:38)
[2023-03-05 13:58] VITALS: BP 113/51; PULSE 65; RESP 16; TEMP 36.7; O2SAT 90
--- NOTE | 2023-03-05 14:38 | PM.DS ---
DS: Admitting Diagnosis Discharge Date 03/05/2023 Admitting Diagnosis Obstructive Uropathy BLAKE Hypoxemia UTI Bilateral ureteral calculi Bilateral hydronephrosis Generalized weakness Dementia Parkinson's disease Bipolar affective disorder Left renal mass PAM DS: Discharge Diagnosis Discharge Diagnosis (1) Obstruction of right ureteropelvic junction (UPJ) due to stone: Code(s): N20.1 - Calculus of ureter Status: Acute Assessment and Plan: Urology placed stent on 03/04/23 with plan to replace after UTI treated. (2) Urinary retention: Code(s): R33.9 - Retention of urine, unspecified Status: Acute Assessment and Plan: Lawler catheter in place. Per Urology, maintain catheter in place, replace monthly or as needed until follow up with Urology Clinic (3) Acute UTI: Code(s): N39.0 - Urinary tract infection, site not specified Status: Acute Assessment and Plan: Urine culture negative. Was on Rocephin for 3 days. Will discharge on cefdinir for 7 days (4) BLAKE (acute kidney injury): Code(s): N17.9 - Acute kidney failure, unspecified Status: Acute Assessment and Plan: Resolved, back to baseline after relieving obstructive uropathy (5) Right ureteral stone: Code(s): N20.1 - Calculus of ureter Status: Acute Assessment and Plan: Stent in place since 03/04/23 (6) General weakness: Code(s): R53.1 - Weakness Status: Acute Assessment and Plan: PT/OT consulted. Patient to go to [facility] for increased therapy needs due to generalized deconditioning and weakness. (7) PAM (obstructive sleep apnea): Code(s): G47.33 - Obstructive sleep apnea (adult) (pediatric) Status: Acute Assessment and Plan: Continue home CPAP at [facility] (8) Parkinson disease: Code(s): G20 - Parkinson's disease Status: Acute Assessment and Plan: Stable, continue home medications (9) Dementia: Qualifiers: Dementia behavioral disturbance: without behavioral disturbance Dementia type: unspecified type Qualified Code(s): F03.90 - Unspecified dementia without behavioral disturbance Code(s): F03.90 - Unspecified dementia, unspecified severity, without behavioral disturbance, psychotic disturbance, mood disturbance, and anxiety Status: Acute Assessment and Plan: Mildly increased confusion in hospital setting. Continue home medication and reality orientation. (10) Bipolar affective disorder: Qualifiers: Active/Remission status: remission status unspecified Qualified Code(s): F31.9 - Bipolar disorder, unspecified Code(s): F31.9 - Bipolar disorder, unspecified Status: Acute Assessment and Plan: Patient complaining of poor mood today. Continue home medications. (11) Essential (primary) hypertension: Code(s): I10 - Essential (primary) hypertension Status: Acute Assessment and Plan: Stable, continue home medications (12) Dyslipidemia: Code(s): E78.5 - Hyperlipidemia, unspecified Status: Acute Assessment and Plan: Stable, continue home medications (13) Anxiety: Code(s): F41.9 - Anxiety disorder, unspecified Status: Acute Assessment and Plan: Patient tearful on 03/04 and down on 03/05. Hold diazepam due to confusion. (14) Left renal mass: Code(s): N28.89 - Other specified disorders of kidney and ureter Status: Acute Assessment and Plan: Known left renal mass, unchanged from prior imaging. Patient/family have declined nephrectomy in the past. Continue to follow with Urology Service. DS: Summary Hospital Course Hospital Course: This is a 72-year-old female patient who was admitted to the hospital on March 03 after experiencing a fall at home with generalized weakness. Patient had a transient hypoxic episode in the emergency department was admitted to
[2023-03-05] MEDS: CEFDINIR 300 MG CAPSULE PO (16:25)
[2023-03-05 22:00] VITALS: BP 100/45; PULSE 64; RESP 16; TEMP 36.4; O2SAT 93
== END 2023-03-05 21:30 | DRG 660 ==
LOC: ANHED 01:59 → ANH2MED 04:10
PROVIDERS: Urology; Admitting Provider Internal Medicine; Emergency Provider Emergency Medicine; PCP Family Medicine; Visit Provider Nurse Practitioner
PROC: BT1D1ZZ Fluoroscopy of Right Kidney, Ureter and Bladder using Low Osmolar Contrast (ICD-10-PCS; CPT 52310; principal; 2023-03-04 14:00)
DX: N13.6 Pyonephrosis (principal); C64.9 Malignant neoplasm of unspecified kidney, except renal pelvis; I42.1 Obstructive hypertrophic cardiomyopathy; N17.9 Acute kidney failure, unspecified; I10 Essential (primary) hypertension; R33.9 Retention of urine, unspecified; E78.5 Hyperlipidemia, unspecified; E55.9 Vitamin D deficiency, unspecified; F41.9 Anxiety disorder, unspecified; F31.9 Bipolar disorder, unspecified; F03.90 Unspecified dementia, unspecified severity, without behavioral disturbance, psychotic disturbance, mood disturbance, and anxiety; G47.33 Obstructive sleep apnea (adult) (pediatric); G20 Parkinson's disease; Z20.822 Contact with and (suspected) exposure to COVID-19; Z96.659 Presence of unspecified artificial knee joint; Z86.73 Personal history of transient ischemic attack (TIA), and cerebral infarction without residual deficits; Z85.3 Personal history of malignant neoplasm of breast; Z79.82 Long term (current) use of aspirin; Z99.3 Dependence on wheelchair
CPT/HCPCS: 36415; 70450; 71045; 73030; 74176; 74420; 78580; 80048; 80053; 81001; 84484; 85025; 85380; 85610; 85730; 87086; 87637; 93005; 96361; 96365; 97110; 97161; 97166; 97530; 99285; A4565; A9270; A9540; C1758; C1769; C2617; G0378; J0696; J2405; J2704; J3010; J7120; Q9966

== ENCOUNTER 2023-03-26 02:39 | Day surgery (SDC) | payer MEDICARE, OTHER, SELFPAY ==
--- NOTE | 2023-03-18 10:59 | PC.NURSE ---
Report to the Outpatient Waiting Room, entrance under the green pavilion located off [facility], at time __0630 on date __03/26/23 . Planned Procedure Time: __829 . Time changes happen often and if your time is changed the preop area will call you the afternoon before. - You and your visitor will be asked to self-screen and do not enter if you have any COVID symptoms. - A mask is optional within the hospital at this time. Patients may have clear liquids (water, carbonated beverages, clear teas, apple juice) until 3 hours prior to surgery with a maximum of 20 ounces. - No food from midnight until time of surgery - Infants may have breast milk until 4 hours before surgery, infant formula 6 hours prior to surgery. - Children will be allowed to drink immediately following surgery. If applicable, please bring a bottle or sippy cup to assist with drinking. Juice, water, soda, and popsicles are readily available. For infants on formula, please bring formula the day of surgery. Pacifiers are allowed. Take the following medications with a SIP of water the morning of surgery: ___CARBIDOPA-LEVODOPA,DIAZEPAM IF NEEDED,DILTIAZEM,LAMOTRIGINE,MEMANTINE,SERTRALINE,VRAYLAR DO NOT STOP ANY OF YOUR OTHER PRESCRIPTION MEDICATIONS PRIOR TO SURGERY ?EXCEPT THE FOLLOWING Medications to discontinue per physician ___SPOUSE STATES HOLD ASPIRIN 7 DAYS PRE OP PER DR RUSSELL.LAST DOSE 03/18/23. ALL VITAMINS/SUPP 3 DAYS PRE OP.LAST DOSE 03/23/23 Please no make-up, nail serbian, hairspray, perfume, deodorant, or body powder the day of surgery. No jewelry (including any body piercings) or valuables the day of surgery, leave them at home. Please take a shower or bath the night before, or the morning of, surgery with an antibacterial soap. Wear comfortable, loose fitting clothing. Children are encouraged to wear pajamas. - Jewelry must be removed prior to entering the operating room. Rings and piercings that are not removed may be cut off. - The hospital will not accept responsibility for valuables. - Please leave all valuables, including medications, at home the day of surgery. If you are going home after surgery, a licensed rear load truck driver must drive you home. - NO public transportation without another adult if you receive anesthesia. - We recommend that an adult stay with you for 24 hours following discharge. - We also recommend that you do not drive, make important decision, drink alcoholic beverages, or take any drugs that were not prescribed by your health care provider for at least 24 hours after your discharge time. For Pediatric surgeries, we recommend two adults accompany the child home. Follow any additional instructions given to you from your surgeon. If you or anyone in your household have experienced Covid symptoms in the past week, please notify your surgeon or the nurse liaison at the phone number below for possible testing. Telephone instructions given to ___PT'S SPOUSE ENRIQUE and asked if any additional questions and then verbalized understanding. Patient advised to call surgeon office or pre surgery nurse liaison [phone] if any additional questions.
[2023-03-18 11:15] VITALS: BMI 29.2
--- NOTE | 2023-03-19 15:17 | PM.HPGS ---
History of Present Illness History of Present Illness Consent: Risks, benefits, and alternatives have been discussed and questions answered. Patient agrees to proceed with procedure. Chief complaint: bilateral kidney stones, left ureteral stones Narrative: Karina Arroyo is a 72 year old female Well known to me with a chronic indwelling left ureteral stent that is managed with intermittent changes. Approximately 3 weeks ago we attempted to change her left ureteral stent with the proximal coil was encrusted. Additionally, imaging reveals an obstructing shot mm right mid ureteral calculus. After discussion of options she elects for left ESWL to her encrusted stent with replacement and right ureteroscopy with laser lithotripsy, stone extraction with possible retrograde pyelography and stent placement Review of Systems Review of Systems: All systems reviewed & are unremarkable except as noted in HPI and below PMFSH Past Medical History Medical History Anxiety Bipolar affective disorder Breast cancer 03/2012 Cardiomegaly Dementia Dyslipidemia Essential (primary) hypertension History of CVA (cerebrovascular accident) History of right breast cancer Hyperlipidemia Hypertrophic obstructive cardiomyopathy Left renal mass Meniere disease PAM (obstructive sleep apnea) non compliant with CPAP Parkinson disease Renal calculus TIA (transient ischemic attack) Unspecified osteoarthritis, unspecified site Vitamin D deficiency Surgical History Surgical History H/O total hysterectomy with bilateral salpingo-oophorectomy (BSO) (Unknown) History of breast surgery 03/2012 History of partial mastectomy 2011 Hx of section (Unknown) Hx of total knee arthroplasty (Unknown) Family History Family History Father Family history of diabetes mellitus in first degree relative, Onset Age: 77 Mother Family history of malignant neoplasm of ovary, Onset Age: 62 Grandparent Diabetes mellitus, Onset Age: 80 Other Hypertension Social History Social History Social History: The patient is and she is retired. The patient lives with her Damon who is her durable power business attorney for healthcare. The patient is a full code. She is a lifelong nonsmoker. The patient tells me that she is retired from [employer]. She has 2 children. Smoking status: Never smoker Second hand tobacco smoke exposure: No Alcohol intake: unknown Substance use: never Substance use type: does not use Lack of Transportation: No Lack of Food: Never True Current Housing: I Have Housing Concerned About Future Housing: No Difficulty Paying Gas/Electric Bills: No Difficulty Paying for Meds: No Currently Unemployed: No Education: High School Diploma/GED Difficulty w/ Childcare or Family Care: No Living arrangements: with family Additional living arrangements comments: HUSB Spiritual care concerns: No Meds Home Medications and Allergies Home Medications Medication Instructions Recorded Confirmed Type diazepam 5 mg tablet 5 mg PO BID PRN Anxiety 10/12/19 03/18/23 History lamotrigine 200 mg tablet 200 mg PO Q12H 10/12/19 03/18/23 History cariprazine 6 mg capsule (Vraylar) 6 mg PO QAM 05/26/21 03/18/23 History carbidopa 25 mg-levodopa 100 mg 1 tablet PO QID 06/16/21 03/18/23 History tablet cholecalciferol (vitamin D3) 50 50 mcg PO DAILY 12/29/21 03/18/23 History mcg (2,000 unit) capsule sertraline 100 mg tablet 150 mg PO QAM 06/21/22 03/18/23 History rosuvastatin 10 mg tablet 10 mg PO DAILY #90 tabs 08/31/22 03/18/23 Rx aspirin 81 mg tablet,delayed 81 mg PO DAILY 11/16/22 03/18/23 History release potassium chloride 10 mEq 10 meq PO DAILY #30 tabs 12/18/22 03/18/23 Rx tablet,
--- NOTE | 2023-03-25 12:57 | WPDANESEPPF ---
Anes - Initial Pre Proc Eval Procedure: Operation Date: 03/26/23 08:30 Proposed Procedures p Left Extracorporeal Shock Wave Lithotripsy, Encrusted Retained Left Ureteral Stent Removal or Exchange, - Brian Pires MD s Cystoscopy, Right Ureteroscopy, Possible Right Retrograde Pyelogram, Possible Right Stone Extraction, Possible Right Stent Placement, Possible Holmium Laser Procedure - Brian Pires MD Date/Time: 03/25/23 12:57 Surgeon: Brian Pires MD Pre Op Diagnosis: bilateral kidney stones, left ureteral stones Patient Data Age: 72 Gender: F Height: 1.52 m Weight: 68.05 kg Allergies Allergy/AdvReac Type Severity Reaction Status Date / Time codeine AdvReac Intermediate Confusion, Verified 03/26/23 07:17 NAUSEA Home Medications Medication Instructions Recorded Confirmed Type diazepam 5 mg tablet 5 mg PO BID PRN Anxiety 10/12/19 03/26/23 History lamotrigine 200 mg tablet 200 mg PO Q12H 10/12/19 03/26/23 History cariprazine 6 mg capsule (Vraylar) 6 mg PO QAM 05/26/21 03/26/23 History carbidopa 25 mg-levodopa 100 mg 1 tablet PO QID 06/16/21 03/26/23 History tablet cholecalciferol (vitamin D3) 50 50 mcg PO DAILY 12/29/21 03/26/23 History mcg (2,000 unit) capsule sertraline 100 mg tablet 150 mg PO QAM 06/21/22 03/26/23 History rosuvastatin 10 mg tablet 10 mg PO DAILY #90 tabs 08/31/22 03/26/23 Rx aspirin 81 mg tablet,delayed 81 mg PO DAILY 11/16/22 03/26/23 History release potassium chloride 10 mEq 10 meq PO DAILY #30 tabs 12/18/22 03/26/23 Rx tablet,extended release diltiazem HCl 240 mg 240 mg PO QAM #90 caps 02/02/23 03/26/23 Rx capsule,extended release 24 hr docusate sodium 100 mg capsule 100 mg PO Q12HR #0 caps 03/05/23 03/26/23 Rx polyethylene glycol 3350 17 gram 17 g PO QAM PRN Constipation #10 ea 03/05/23 03/26/23 Rx oral powder packet (Miralax) sennosides 8.6 mg tablet 8.6 mg PO PRN PRN constipation #0 03/05/23 03/18/23 Rx tabs acetaminophen 500 mg tablet 1,000 mg PO Q6H PRN pain 1-3/fever 03/15/23 03/18/23 History memantine 28 mg capsule 28 mg PO QAM 03/16/23 03/26/23 History sprinkle,extended release 24hr omeprazole 20 mg capsule,delayed 20 mg PO DAILY #90 caps 03/18/23 03/26/23 Rx release ondansetron 8 mg disintegrating 8 mg PO Q8H PRN nausea and 03/18/23 03/26/23 Rx tablet vomiting #10 tabs Patient hx anesthesia problems: none Family hx anesthesia problems: none Results Review: All pre-operative results and documents have been reviewed as part of the pre-operative evaluation. [facility] Past Medical History Medical History Anxiety Bipolar affective disorder Breast cancer 03/2012 Cardiomegaly Dementia Dyslipidemia Essential (primary) hypertension History of CVA (cerebrovascular accident) History of right breast cancer Hyperlipidemia Hypertrophic obstructive cardiomyopathy Left renal mass Meniere disease PAM (obstructive sleep apnea) non compliant with CPAP Parkinson disease Renal calculus TIA (transient ischemic attack) Unspecified osteoarthritis, unspecified site Vitamin D deficiency Surgical History Surgical History H/O total hysterectomy with bilateral salpingo-oophorectomy (BSO) (Unknown) History of breast surgery 03/2012 History of partial mastectomy 2011 Hx of section (Unknown) Hx of total knee arthroplasty (Unknown) Family History Family History Father Family history of diabetes mellitus in first degree relative, Onset Age: 77 Mother Family history of malignant neoplasm of ovary, Onset Age: 62 Grandparent Diabetes mellitus, Onset Age: 80 Other Hypertension Social History Social History Social History: The patient is and she is retired. The patient lives with her
[2023-03-26] VITALS (8 sets, daily range): BP systolic 118–140; BP diastolic 52–81; PULSE 57–62; RESP 12–16; TEMP 36.3–37; O2SAT 94–100
--- NOTE | ~2023-03-26 | XR_ITS ---
Supine and upright views of the abdomen Clinical history: Lithotripsy COMPARISON: 07/24/2022 Findings: Bowel gas pattern is nonspecific. No evidence for obstruction or free air. Bilateral ureter al stents are in place. Large staghorn left renal calculus is unchanged. There is a 1.6 cm ovoid ston e in the right kidney right renal pelvis. Suspected 7 mm stone adjacent to the distal left ureteral s tent. Osseous structures are intact. Impression: Staghorn left renal calculus and 1.6 cm right renal calculus, as detailed above. Probable 7 mm stone adjacent to the distal third of the left ureteral stent. Bilateral ureteral stents in place. Reviewed, dictated and finalized at location M. Impression: Staghorn left renal calculus and 1.6 cm right renal calculus, as detailed above . Probable 7 mm stone adjacent to the distal third of the left ureteral stent. Bilateral ureteral stents in place.
--- NOTE | 2023-03-26 06:34 | WPDHPUPDATE1 ---
History and Physical Update Update Date/Time: 03/26/23 06:34 History and Physical has been reviewed, including an updated exam of the patient. There are NO changes in the patient's condition. Risks, benefits, and alternatives have been discussed and questions answered. Patient agrees to proceed with procedure.
[2023-03-26] MEDS: LACTATED RINGERS 1,000 ML 30 ML IV CONT (07:43)
[2023-03-26 07:56] LABS: INR 1.1; Partial Thromboplastin Time 33.7 SECONDS (22.3-36.8); Prothrombin Time 14.3 Seconds (11.1-14.7)
[2023-03-26] MEDS: ceFAZolin 2 GM/D5W 50 ML 2 GM/50 ML BAG IVPB (09:11)
[2023-03-26] MEDS: fentaNYL CITRATE INJ (*CRX) 100 MCG/2 ML VIAL 25 MCG IV PUSH ×2 (10:10→10:13)
--- NOTE | 2023-03-26 10:34 | P.OP_ITS ---
Procedure Note - Detailed Date of Procedure 03/26/23 Pre-op Diagnosis Left staghorn calculus, left retained ureteral stent Right renal and ureteral stones Post-op Diagnosis Same Procedure Performed Left renal ESWL, left ureteral stent exchange Right ureteroscopy with laser lithotripsy, stone extraction and stent replacement Surgeon Brian Pires MD Anesthesia General Description of Procedure patient has a retained left ureteral stent. She was 1st placed on the Lithotripter table, after the uneventful induction of a general LMA anesthetic. After about 1000 shocks it was able to move her left ureteral stent and replaced it with a 4.8 F variable length ureteral stent with the proximal coil in an upp er pole calyx and distal coil bladder. On the right side removed her ureteral stent and performed new rigid ureteroscopy with a semi-rigid ureteral scope. I was able to identify her 7 mm right mid ureteral stone. Using the 200 micron holmium laser I dusted the stone and removed all sizable fragments. I did replace her right ureteral stent with a 7 F variable length size. Large stone in her right kidney will be treated with ESWL at the time of her next planned a stent exchange on the left. Scopes wires removed she was taken recovery room in good condition. Estimated Blood Loss 0 Drains Yes Packing No Pathology Yes Complications No immediate complications Disposition PACU
== END 2023-03-26 11:10 | disposition home or self-care (01) ==
PROVIDERS: Anesthesiology; PCP Family Medicine; Visit Provider Urology
PROC: (CPT 50590; principal; 2023-03-26 08:30)
PROC: (CPT 52352; 2023-03-26 08:30)
DX: N20.2 Calculus of kidney with calculus of ureter (principal); T83.192A Other mechanical complication of indwelling ureteral stent, initial encounter; I10 Essential (primary) hypertension; E78.5 Hyperlipidemia, unspecified; G20 Parkinson's disease; E55.9 Vitamin D deficiency, unspecified; G47.33 Obstructive sleep apnea (adult) (pediatric); Z86.73 Personal history of transient ischemic attack (TIA), and cerebral infarction without residual deficits; Z85.3 Personal history of malignant neoplasm of breast; F03.90 Unspecified dementia, unspecified severity, without behavioral disturbance, psychotic disturbance, mood disturbance, and anxiety
CPT/HCPCS: 52356; 52332; 50590; 36415; 74018; 82365; 85610; 85730; 88300; C1769; C2617; J0690; J2405; J2704; J3010; J7120

== ENCOUNTER 2023-06-16 08:25 | Outpatient (NON) | payer MEDICARE, OTHER, SELFPAY | END 2023-06-16 08:26 | disposition home or self-care (01) | LOC: ANHGOSHLAB 08:27 | PROVIDERS: PCP Family Medicine; Visit Provider Nurse Practitioner Family | DX: N28.89 Other specified disorders of kidney and ureter (principal) | CPT/HCPCS: 87086 ==

== ENCOUNTER 2023-06-28 11:21 | Outpatient (CLI) | payer MEDICARE, OTHER, SELFPAY ==
[2023-06-28 12:13] LABS: Partial Thromboplastin Time 32.1 SECONDS (22.3-36.8); Prothrombin Time 13.5 Seconds (11.1-14.7)
== END 2023-06-28 11:22 | disposition home or self-care (01) ==
LOC: ANHSURGERY 11:29
PROVIDERS: PCP Family Medicine; Visit Provider Urology
DX: Z01.818 Encounter for other preprocedural examination (principal); N20.0 Calculus of kidney
CPT/HCPCS: 36415; 85610; 85730; 87086

== ENCOUNTER 2023-07-02 00:58 | Day surgery (SDC) | payer MEDICARE, OTHER, SELFPAY ==
--- NOTE | 2023-06-24 07:36 | PM.HPGS ---
History of Present Illness History of Present Illness Consent: Risks, benefits, and alternatives have been discussed and questions answered. Patient agrees to proceed with procedure. Chief complaint: right ureteral kidney stone Narrative: Karina Arroyo is a 72 year old female with known chronic left indwelling ureteral stent. ?In December 2022 we shocked the encrusted proximal coil of her stent placed a new 4.8 F stent on that side. ??Her left kidney as both a staghorn calculus and a 4 cm renal neoplasm we have opted not to treat neoplasm because ?of her chronic kidney disease and the potential for dialysis where she to have a nephrectomy. ?Reviewed that decision with the patient and today. ? On her right side, we did right ureteroscopy with mid ureteral stone extraction. ?She is developing a sizable stone in her right kidney. ?After options we elected to set up a right ESWL at the time of her next stent exchange. ?I did replace her right ureteral stent which I will remove in the short term. Review of Systems Review of Systems: All systems reviewed & are unremarkable except as noted in HPI and below PMFSH Past Medical History Medical History Anxiety Bipolar affective disorder Breast cancer 03/2012 Cardiomegaly Dementia Dyslipidemia Essential (primary) hypertension History of CVA (cerebrovascular accident) History of right breast cancer Hyperlipidemia Hypertrophic obstructive cardiomyopathy Left renal mass Meniere disease PAM (obstructive sleep apnea) non compliant with CPAP Parkinson disease Renal calculus TIA (transient ischemic attack) Unspecified osteoarthritis, unspecified site Vitamin D deficiency Surgical History Surgical History H/O total hysterectomy with bilateral salpingo-oophorectomy (BSO) (Unknown) History of breast surgery 03/2012 History of partial mastectomy 2011 Hx of section (Unknown) Hx of total knee arthroplasty (Unknown) Family History Family History Father Family history of diabetes mellitus in first degree relative, Onset Age: 77 Mother Family history of malignant neoplasm of ovary, Onset Age: 62 Grandparent Diabetes mellitus, Onset Age: 80 Other Hypertension Social History Social History Social History: The patient is and she is retired. The patient lives with her Damon who is her durable power assistant county attorney for healthcare. The patient is a full code. She is a lifelong nonsmoker. The patient tells me that she is retired from [employer]. She has 2 children. Smoking status: Never smoker Second hand tobacco smoke exposure: No Alcohol intake: unknown Substance use: never Substance use type: does not use Lack of Transportation: No Lack of Food: Never True Current Housing: I Have Housing Concerned About Future Housing: No Difficulty Paying Gas/Electric Bills: No Difficulty Paying for Meds: No Currently Unemployed: No Education: High School Diploma/GED Difficulty w/ Childcare or Family Care: No Living arrangements: with family Additional living arrangements comments: TIFF Spiritual care concerns: No Meds Home Medications and Allergies Home Medications Medication Instructions Recorded Confirmed Type diazepam 5 mg tablet 5 mg PO BID PRN Anxiety 10/12/19 03/26/23 History lamotrigine 200 mg tablet 200 mg PO Q12H 10/12/19 03/26/23 History cariprazine 6 mg capsule (Vraylar) 6 mg PO QAM 05/26/21 03/26/23 History carbidopa 25 mg-levodopa 100 mg 1 tablet PO QID 06/16/21 03/26/23 History tablet cholecalciferol (vitamin D3) 50 50 mcg PO DAILY 12/29/21 03/26/23 History mcg (2,000 unit) capsule sertraline 100 mg tablet 150 mg PO QAM 06/21/22 03/26/23 History aspirin 81 mg tabl
--- NOTE | 2023-06-24 14:29 | PC.NURSE ---
Report to the Outpatient Waiting Room, entrance under the green pavilion located off [facility], at time _0830 on date __07/02/23 . Planned Procedure Time: __1030 . Time changes happen often and if your time is changed the preop area will call you the afternoon before. - You and your visitor will be asked to self-screen and do not enter if you have any COVID symptoms. - A mask is optional within the hospital at this time. Patients may have clear liquids (water, carbonated beverages, clear teas, apple juice) until 3 hours prior to surgery with a maximum of 20 ounces. - No food from midnight until time of surgery - Infants may have breast milk until 4 hours before surgery, formula 6 hours prior to surgery. - Children will be allowed to drink immediately following surgery. If applicable, please bring a bottle or sippy cup to assist with drinking. Juice, water, soda, and popsicles are readily available. For infants on formula, please bring formula the day of surgery. Pacifiers are allowed. Take the following medications with a SIP of water the morning of surgery: _CARBIDOPA-LEVODOPA,DILTIAZEM,DIAZEPAM IF NEEDED,LAMOTRIGINE,SERTRALINE,VRAYLAR DO NOT STOP ANY OF YOUR OTHER PRESCRIPTION MEDICATIONS PRIOR TO SURGERY ?EXCEPT THE FOLLOWING Medications to discontinue per physician ____ALL VITAMINS AND SUPPLEMENTS 3 DAYS PRE OP.LAST DOSE 06/28/23 Please no make-up, nail faroese, hairspray, perfume, deodorant, or body powder the day of surgery. No jewelry (including any body piercings) or valuables the day of surgery, leave them at home. Please take a shower or bath the night before, or the morning of, surgery with an antibacterial soap. Wear comfortable, loose fitting clothing. Children are encouraged to wear pajamas. - Jewelry must be removed prior to entering the operating room. Rings and piercings that are not removed may be cut off. - The hospital will not accept responsibility for valuables. - Please leave all valuables, including medications, at home the day of surgery. If you are going home after surgery, a licensed contract driver must drive you home. - NO public transportation without another adult if you receive anesthesia. - We recommend that an adult stay with you for 24 hours following discharge. - We also recommend that you do not drive, make important decision, drink alcoholic beverages, or take any drugs that were not prescribed by your health care provider for at least 24 hours after your discharge time. For Pediatric surgeries, we recommend two adults accompany the child home. Follow any additional instructions given to you from your surgeon. If you or anyone in your household have experienced Covid symptoms in the past week, please notify your surgeon or the nurse liaison at the phone number below for possible testing. Telephone instructions given to __SPOUSE DBMICHELLEL and asked if any additional questions and then verbalized understanding. Patient advised to call surgeon office or pre surgery nurse liaison [phone] if any additional questions.
[2023-06-24 14:50] VITALS: BMI 27.7
[2023-07-02] VITALS (9 sets, daily range): BP systolic 119–143; BP diastolic 58–79; PULSE 60–78; RESP 10–17; TEMP 36.2–36.6; O2SAT 95–100
--- NOTE | ~2023-07-02 | XR_ITS ---
Supine and upright views of the abdomen Clinical history: Lithotripsy COMPARISON: 03/26/2023 Findings: Bowel gas pattern is nonspecific. No evidence for obstruction or free air. Bilateral ureter al stents are in place. Stable stone at the distal left ureteral stone versus pelvic phlebolith. Stag horn calculus in the left kidney is unchanged. Prominent stone at the right renal pelvis measuring ap proximately 2 cm in diameter is also unchanged. Osseous structures are intact. Impression: Bilateral nephrolithiasis, unchanged, with bilateral ureteral stents in place. Stable possible left ureteral stone distally versus calcified pelvic phlebolith. Reviewed, dictated and finalized at location M. Impression: Bilateral nephrolithiasis, unchanged, with bilateral ureteral stents in place. Stable possible left ureteral stone distally versus calcified pelvic phlebolith .
[2023-07-02] MEDS: LACTATED RINGERS 1,000 ML 30 ML IV CONT (06:30)
--- NOTE | 2023-07-02 06:35 | WPDANESEPPF ---
Anes - Initial Pre Proc Eval Procedure: Operation Date: 07/02/23 07:30 Proposed Procedures p Right Ureteral Extracorporeal Shock Wave Lithotripsy, - Brian Pires MD s Cystoscopy, Left Ureteral Stent Exchange - Brian Pires MD Date/Time: 07/02/23 06:35 Surgeon: Brian Pires MD Pre Op Diagnosis: right ureteral kidney stone Patient Data Age: 72 Gender: F Height: 1.52 m Weight: 64.5 kg Allergies Allergy/AdvReac Type Severity Reaction Status Date / Time codeine AdvReac Intermediate Confusion, Verified 06/24/23 14:28 NAUSEA Home Medications Medication Instructions Recorded Confirmed Type diazepam 5 mg tablet 5 mg PO BID PRN Anxiety 10/12/19 06/24/23 History lamotrigine 200 mg tablet 200 mg PO Q12H 10/12/19 06/24/23 History cariprazine 6 mg capsule (Vraylar) 6 mg PO QAM 05/26/21 06/24/23 History carbidopa 25 mg-levodopa 100 mg 1 tablet PO QID 06/16/21 06/24/23 History tablet cholecalciferol (vitamin D3) 50 50 mcg PO DAILY 12/29/21 06/24/23 History mcg (2,000 unit) capsule sertraline 100 mg tablet 150 mg PO QAM 06/21/22 06/24/23 History diltiazem HCl 240 mg 240 mg PO QAM #90 caps 02/02/23 06/24/23 Rx capsule,extended release 24 hr docusate sodium 100 mg capsule 100 mg PO Q12HR #0 caps 03/05/23 06/24/23 Rx polyethylene glycol 3350 17 gram 17 g PO QAM PRN Constipation #10 ea 03/05/23 06/24/23 Rx oral powder packet (Miralax) sennosides 8.6 mg tablet 8.6 mg PO PRN PRN constipation #0 03/05/23 06/24/23 Rx tabs acetaminophen 500 mg tablet 1,000 mg PO Q6H PRN pain 1-3/fever 03/15/23 06/24/23 History memantine 28 mg capsule 28 mg PO QAM 03/16/23 06/24/23 History sprinkle,extended release 24hr omeprazole 20 mg capsule,delayed 20 mg PO DAILY #90 caps 03/18/23 06/24/23 Rx release ondansetron 8 mg disintegrating 8 mg PO Q8H PRN nausea and 03/18/23 06/24/23 Rx tablet vomiting #10 tabs potassium chloride 10 mEq 10 meq PO DAILY #90 tabs 04/20/23 06/24/23 Rx tablet,extended release doxycycline monohydrate 100 mg 100 mg PO BID #20 caps 06/15/23 06/24/23 Rx capsule rosuvastatin 10 mg tablet 10 mg PO DAILY #90 tabs 06/15/23 06/24/23 Rx Patient hx anesthesia problems: none Family hx anesthesia problems: none Results Review: All pre-operative results and documents have been reviewed as part of the pre-operative evaluation. [facility] Past Medical History Medical History Anxiety Bipolar affective disorder Breast cancer 03/2012 Cardiomegaly Dementia Dyslipidemia Essential (primary) hypertension History of CVA (cerebrovascular accident) History of right breast cancer Hyperlipidemia Hypertrophic obstructive cardiomyopathy Left renal mass Meniere disease PAM (obstructive sleep apnea) non compliant with CPAP Parkinson disease Renal calculus TIA (transient ischemic attack) Unspecified osteoarthritis, unspecified site Vitamin D deficiency Surgical History Surgical History H/O total hysterectomy with bilateral salpingo-oophorectomy (BSO) (Unknown) History of breast surgery 03/2012 History of partial mastectomy 2011 Hx of section (Unknown) Hx of total knee arthroplasty (Unknown) Family History Family History Father Family history of diabetes mellitus in first degree relative, Onset Age: 77 Mother Family history of malignant neoplasm of ovary, Onset Age: 62 Grandparent Diabetes mellitus, Onset Age: 80 Other Hypertension Social History Social History Social History: The patient is and she is retired. The patient lives with her Damon who is her durable power assistant prosecuting attorney for healthcare. The patient is a full code. She is a lifelong nonsmoker. The patient tells me that she is retired from [employer]. She has 2 childre
--- NOTE | 2023-07-02 07:24 | WPDHPUPDATE1 ---
History and Physical Update Update Date/Time: 07/02/23 07:24 History and Physical has been reviewed, including an updated exam of the patient. There are NO changes in the patient's condition. Risks, benefits, and alternatives have been discussed and questions answered. Patient agrees to proceed with procedure.
[2023-07-02] MEDS: ceFAZolin 2 GM/D5W 50 ML 2 GM/50 ML BAG IVPB (07:30)
--- NOTE | 2023-07-02 07:57 | W.PM.PROC2 ---
Procedure Note - Detailed Date of Procedure 07/02/23 Pre-op Diagnosis Bilateral kidney stones Post-op Diagnosis Same Procedure Performed Cystoscopy, bilateral ureteral stent exchange, right ESWL Surgeon Brian Pires MD Anesthesia General Description of Procedure patient brought the op suite she has prepped draped in routine sterile fashion frog-leg position after the uneventful induction of a general LMA anesthetic. Cystoscopy is undertaken with a 19 F rigid cystoscope. Tip of each indwelling ureteral stent is grasped from the stents removed with ease. There replaced with new 4.8 F variable length stent. There was encrustation on the stents. The focal point of the Lithotripter is in place that her 14 mm right renal calculus. A fracture is quite nicely at low power. A total of 2500 shocks were power of 1-4 patient procedure well was taken recovery good condition Drains No Packing No Pathology None sent
[2023-07-02] MEDS: LIDOCAINE HCL 2% GEL UROJET 10 ML PKG MUCOUS MEM (08:31)
--- NOTE | 2023-07-02 08:49 | SUR.PHASEI ---
0847: Simple mask removed.
[2023-07-02] MEDS: HYOSCYAMINE SULFATE 0.125 MG TABLET SUBLINGUAL (10:00)
--- NOTE | 2023-07-02 10:00 | SUR.PHASEII ---
DR. RUSSELL CALLED RE: SEVERE URGENCY. PATIENT URINATING EVERY 2-3 MINUTES.
== END 2023-07-02 10:25 | disposition home or self-care (01) ==
PROVIDERS: PCP Family Medicine; Visit Provider Urology
PROC: (CPT 50590; principal; 2023-07-02 07:30)
PROC: (CPT 52352; 2023-07-02 07:30)
DX: N13.2 Hydronephrosis with renal and ureteral calculous obstruction (principal); N28.89 Other specified disorders of kidney and ureter; I10 Essential (primary) hypertension; E78.5 Hyperlipidemia, unspecified; G20.A1 Parkinson's disease without dyskinesia, without mention of fluctuations; F02.80 Dementia in other diseases classified elsewhere, unspecified severity, without behavioral disturbance, psychotic disturbance, mood disturbance, and anxiety; I42.1 Obstructive hypertrophic cardiomyopathy; G47.33 Obstructive sleep apnea (adult) (pediatric); F31.9 Bipolar disorder, unspecified; F41.9 Anxiety disorder, unspecified; E55.9 Vitamin D deficiency, unspecified; Z86.73 Personal history of transient ischemic attack (TIA), and cerebral infarction without residual deficits; Z85.3 Personal history of malignant neoplasm of breast; Z79.82 Long term (current) use of aspirin
CPT/HCPCS: 50590; 52332; 74018; A9270; C1769; C2617; J0690; J2405; J2704; J7030; J7120

== ENCOUNTER 2023-07-14 07:10 | Outpatient (CLI) | payer MEDICARE, OTHER, SELFPAY ==
--- NOTE | ~2023-07-14 | XR_ITS ---
XR abdomen/kub 1V 07/14/2023 07:29 Indication: Bilateral kidney stones Procedure: KUB Comparison: Comparison to multiple prior studies sequentially, with oldest reviewed study dated 09/24. Findings: There are bilateral internal ureteral stents present. There are bilateral large renal stone s, largest in the left renal pelvis measuring up to 3 cm. There are left proximal and distal ureteral stones. Bowel gas pattern nonobstructive. Moderate colonic fecal loading. Moderate lumbar spondylosi s. Impression: 1: Bilateral renal and left ureteral stones. Reviewed, dictated and finalized at location B. Impression: 1: Bilateral renal and left ureteral stones.
== END 2023-07-14 07:11 | disposition home or self-care (01) ==
PROVIDERS: PCP Family Medicine; Visit Provider Nurse Practitioner Adult Health
DX: N20.0 Calculus of kidney (principal)
CPT/HCPCS: 74018

== ENCOUNTER 2023-07-17 03:42 | Emergency (ER) | payer MEDICARE, OTHER, SELFPAY ==
--- NOTE | ~2023-07-17 | XR_ITS ---
EXAMINATION: XR chest 1V portable INDICATION: Chest pain after fall TECHNIQUE: Portable AP chest at 0513 hours COMPARISON: 03/03/2023 FINDINGS: The lung volumes are low. The lungs are free of acute opacities. No pleural effusion or pne umothorax. The cardiomediastinal silhouette is stable. There is calcification of the mitral annulus. There are partially imaged bilateral internal ureteral stents in expected position. There appear to b e stones in the bilateral renal pelves. IMPRESSION: 1. No acute cardiopulmonary abnormality. Reviewed, dictated and finalized at location F.
--- NOTE | ~2023-07-17 | XR_ITS ---
EXAMINATION: XR pelvis 1-2V INDICATION: Pain after fall TECHNIQUE: AP view of the pelvis is obtained. COMPARISON: 12/22/2006 FINDINGS: Bone alignment is normal. There is no fracture. There is mild osteoarthritis of the hips. T here are partially imaged bilateral internal ureteral stent in expected position. There appears to be a 6 mm stone adjacent to the distal aspect of the left stent. There is a moderate volume of stool in the rectum. No dilated loops of bowel are identified. IMPRESSION: 1. No acute osseous abnormality. Reviewed, dictated and finalized at location F.
--- NOTE | ~2023-07-17 | CT_ITS ---
EXAMINATION: CT cervical spine wo con DATE: 07/17/2023 05:11 INDICATION: Head injury TECHNIQUE: Computed tomography (CT) of the cervical spine was performed without intravenous contrast. The dose-length product (DLP) was 208.03 mGy-cm. Automated exposure control and iterative reconstruc tion technique were employed. COMPARISON: 09/28/2022 FINDINGS: There are 2 mm of anterolisthesis of C5 on C6. The vertebral body heights are normal. There is mild loss of intervertebral disc space height at C5-6. The odontoid process is intact. There is m ultilevel mild to moderate facet and uncovertebral joint osteoarthritis. The prevertebral soft tissue s are normal. Bilateral thyroid nodules are noted. IMPRESSION: 1. Mild cervical spondylosis without acute findings. 2. Bilateral thyroid nodules. Consider nonemergent thyroid ultrasound for risk stratification. Reviewed, dictated and finalized at location F.
--- NOTE | ~2023-07-17 | CT_ITS ---
EXAMINATION: CT brain wo con INDICATION: Head injury COMPARISON: 03/03/2023 TECHNIQUE: Standard unenhanced head CT. The dose-length product (DLP) was 681.00 mGy-cm. The mA was a djusted according to patient size. Iterative reconstruction technique was employed. FINDINGS: No acute intraparenchymal hemorrhage. No evidence of mass lesion. No evidence of acute infa rction. There is mild periventricular and subcortical hypodensity probably related to small vessel is chemic disease. There is mild prominence of the sulci and ventricles related to cerebral atrophy. Int racranial calcified cerebral atherosclerosis is noted. No extra-axial collections. No mass effect or midline shift. There is right occipital scalp soft tissue swelling. The visualized sinuses and mastoi d air cells are well aerated. IMPRESSION: 1. No acute intracranial abnormality. 2. Age related findings. Reviewed, dictated and finalized at location F.
--- NOTE | ~2023-07-17 | XR_ITS ---
EXAMINATION: XR elbow RT 2V INDICATION: Right elbow pain TECHNIQUE: Two views of the right elbow are obtained. COMPARISON: None available FINDINGS: Bone alignment is normal. There is no fracture. The soft tissues are unremarkable. IMPRESSION: 1. No acute osseous abnormality. Reviewed, dictated and finalized at location F.
[2023-07-17 03:42] VITALS: BP 144/70; PULSE 70; RESP 16; TEMP 36.4; O2SAT 95
--- NOTE | 2023-07-17 03:45 | ED.FALL ---
HPI - Fall General Chief Complaint: Fall Stated Complaint: fall Time Seen by Provider: 07/17/23 03:45 History of Present Illness HPI Narrative: Patient is a 72-year-old female with history of Parkinson's here after a fall. Patient states that she was getting out of bed to go to the bathroom and fell out of bed landing on the floor. She states that she had her head as well as her right elbow. Her grandson was at her house watching her and found her on the ground and family was called. EMS arrived to bring patient into the emergency department. Patient Denies loss of consciousness, does not believe she was on the ground for much time before her family got to her. She is currently complaining of pain in her head as well as her right elbow. She is unsure of when her last tetanus shot was. She denies any prodromal chest pain or shortness of breath. No cough, congestion, fever, chills. No urinary symptoms. Related Data Home Medications Medication Instructions Recorded Confirmed diazepam 5 mg tablet 5 mg PO BID PRN Anxiety 10/12/19 07/02/23 lamotrigine 200 mg tablet 200 mg PO Q12H 10/12/19 07/02/23 cariprazine 6 mg capsule (Vraylar) 6 mg PO QAM 05/26/21 07/02/23 carbidopa 25 mg-levodopa 100 mg 1 tablet PO QID 06/16/21 07/02/23 tablet cholecalciferol (vitamin D3) 50 50 mcg PO DAILY 12/29/21 07/02/23 mcg (2,000 unit) capsule sertraline 100 mg tablet 150 mg PO QAM 06/21/22 07/02/23 acetaminophen 500 mg tablet 1,000 mg PO Q6H PRN pain 1-3/fever 03/15/23 07/02/23 memantine 28 mg capsule 28 mg PO QAM 03/16/23 07/02/23 sprinkle,extended release 24hr Allergies Allergy/AdvReac Type Severity Reaction Status Date / Time codeine AdvReac Intermediate Confusion, Verified 07/17/23 03:52 NAUSEA Review of Systems Review of Systems: All systems reviewed & are unremarkable except as noted in HPI and below PMFSH Past Medical History Medical History Anxiety Bipolar affective disorder Breast cancer 03/2012 Cardiomegaly Dementia Dyslipidemia Essential (primary) hypertension History of CVA (cerebrovascular accident) History of right breast cancer Hyperlipidemia Hypertrophic obstructive cardiomyopathy Left renal mass Meniere disease PAM (obstructive sleep apnea) non compliant with CPAP Parkinson disease Renal calculus TIA (transient ischemic attack) Unspecified osteoarthritis, unspecified site Vitamin D deficiency Surgical History Surgical History H/O total hysterectomy with bilateral salpingo-oophorectomy (BSO) (Unknown) History of breast surgery 03/2012 History of partial mastectomy 2011 Hx of section (Unknown) Hx of total knee arthroplasty (Unknown) Family History Family History Father Family history of diabetes mellitus in first degree relative, Onset Age: 77 Mother Family history of malignant neoplasm of ovary, Onset Age: 62 Grandparent Diabetes mellitus, Onset Age: 80 Other Hypertension Social History Social History Social History: The patient is and she is retired. The patient lives with her Damon who is her durable power mother baby rn for healthcare. The patient is a full code. She is a lifelong nonsmoker. The patient tells me that she is retired from [employer]. She has 2 children. Smoking status: Never smoker Second hand tobacco smoke exposure: No Alcohol intake: unknown Substance use: never Substance use type: does not use Lack of Transportation: No Lack of Food: Never True Current Housing: I Have Housing Concerned About Future Housing: No Difficulty Paying Gas/Electric Bills: No Difficulty Paying for Meds: No Currently Unemployed: No Education: High School Diploma/GED Difficulty w/ Childcare or Family Care: No Living ar
[2023-07-17 04:00] LABS: Basophils Percent Auto 0.6 % (0.2-1.2); Eosinophils Absolute Auto 0.2 K/mm3 (0-0.3); Hematocrit 37.1 % (37.0-47.0); Hemoglobin 11.3 g/dL (12.0-15.0); Immature Granulocyte Absolute 0.05 K/mm3 (0.00-0.031); Immature Granulocyte Percent A 0.8 % (0-0.5); Lymphocytes Absolute Auto 1.67 K/mm3 (0.9-3.2); Lymphocytes Percent Auto 26.3 % (18.3-44.2); Mean Corpuscular HGB Conc 30.5 g/dl (32-36); Mean Corpuscular Hemoglobin 28.6 pg (26-34); Mean Corpuscular Volume 93.9 fl (80-100); Monocytes Absolute Auto 0.6 K/mm3 (0.1-0.6); Monocytes Percent Auto 9.3 % (2.6-8.5); Neutrophils Absolute Auto 3.8 K/mm3 (1.3-6.7); Platelet Count Result 184 k/mm3 (150-375); Red Blood Count 3.95 M/mm3 (4.2-5.4); Red Cell Distribution Width 12.8 % (11.5-14.5); White Blood Count 6.4 K/mm3 (4.5-10.0)
[2023-07-17] MEDS: ACETAMINOPHEN 500 MG TABLET 1000 MG PO (04:01)
[2023-07-17] MEDS: TETANUS,DIPHTHERIA,AC PERTUSSIS ADULT (0.5 ML) BOOSTRIX IM (04:01)
[2023-07-17 04:12] LABS: Alanine Aminotransferase 17 U/L (6-35); Albumin Level 4.3 g/dL (3.5-5.1); Alkaline Phosphatase 102 U/L (38-126); Anion Gap 6 mmol/L (8-16); Aspartate Amino Transferase 31 U/L (14-36); Bilirubin,Total 0.6 mg/dL (0.2-1.3); Blood Urea Nitrogen 20 mg/dL (7-17); Calcium 9.4 mg/dL (8.4-10.2); Carbon Dioxide 34 mmol/L (22-30); Chloride 103 mmol/L (98-107); Estimated CRCL calculation 32 ml/min; Estimated Glomerular Filt Rate 44; Glucose 96 mg/dL (65-110); Potassium 3.9 mmol/L (3.4-5.0); Sodium 143 mmol/L (137-145)
[2023-07-17 04:22] LABS: Troponin I < 0.012 ng/mL (0.000-0.034)
[2023-07-17 05:35] VITALS: BP 113/58; PULSE 61; RESP 16; O2SAT 94
[2023-07-17 06:04] LABS: Appearance Urine Turbid (Clear); Bacteria Urine 4+ /hpf; Bilirubin Urine Negative (Negative); Blood Urine 2+ (Negative); Color Urine Yellow (Yellow); Glucose Urine UA Negative (Negative); Ketones Urine Negative (Negative); Leukocyte Esterase Ur 3+ LEU/UL (Negative); Nitrate Urine Negative (Negative); Non Pathogenic Casts 0-2; Protein Urine 2+ mg/dL (Negative); RBC Urine 51-100 /hpf (0-2); Specific Grav Ur 1.011 (1.001-1.035); Squamous Epithelial Cell Urine None seen /hpf (Few); Urobilinogen Urine 0.2 mg/dL (<2.0); WBC Urine >100 /hpf; pH Urine 7.5 (5.0-9.0)
[2023-07-17 06:09] LABS: Add Urine Microscopic? YES
--- NOTE | 2023-07-17 06:21 | ECG_ITS ---
Measurements Intervals [place] Rate: 57 P: -23 VA: 157 QRS: -23 QRSD: 100 T: 13 QT: 476 QTc: 464 Interpretive Statements SINUS BRADYCARDIA WITH SINUS ARRHYTHMIA POSSIBLE LEFT ATRIAL ENLARGEMENT BORDERLINE R WAVE PROGRESSION, ANTERIOR LEADS INFERIOR INFARCT, AGE INDETERMINATE BASELINE ARTIFACT- V5-V6 ABNORMAL ECG COMPARED TO ECG 03/03/2023 01:15:44 SINUS BRADYCARDIA NOW PRESENT SINUS ARRHYTHMIA NOW PRESENT Electronically Signed On 07-17-2023 9:30:20 CDT by Shola Weiss D.O.
[2023-07-17 07:00] VITALS: BP 123/60; PULSE 59; RESP 16; O2SAT 95
--- NOTE | 2023-07-17 07:03 | PC.NURSE ---
Report given to DAGOBERTO Sotomayor at this time.
== END 2023-07-17 07:37 | disposition home or self-care (01) ==
PROVIDERS: Emergency Provider Student in an Organized Health Care Education/Training Program; PCP Family Medicine
DX: S51.011A Laceration without foreign body of right elbow, initial encounter (principal); S00.03XA Contusion of scalp, initial encounter; N39.0 Urinary tract infection, site not specified; Z23 Encounter for immunization; G20.A1 Parkinson's disease without dyskinesia, without mention of fluctuations; F03.90 Unspecified dementia, unspecified severity, without behavioral disturbance, psychotic disturbance, mood disturbance, and anxiety; E78.5 Hyperlipidemia, unspecified; I10 Essential (primary) hypertension; I42.1 Obstructive hypertrophic cardiomyopathy; G47.33 Obstructive sleep apnea (adult) (pediatric); E55.9 Vitamin D deficiency, unspecified; M19.90 Unspecified osteoarthritis, unspecified site; F41.9 Anxiety disorder, unspecified; F31.9 Bipolar disorder, unspecified; Z96.659 Presence of unspecified artificial knee joint; Z86.73 Personal history of transient ischemic attack (TIA), and cerebral infarction without residual deficits; Z85.3 Personal history of malignant neoplasm of breast; Z87.442 Personal history of urinary calculi; Z90.710 Acquired absence of both cervix and uterus; Z90.722 Acquired absence of ovaries, bilateral; Z90.79 Acquired absence of other genital organ(s); Z90.11 Acquired absence of right breast and nipple; M47.812 Spondylosis without myelopathy or radiculopathy, cervical region; E04.1 Nontoxic single thyroid nodule; R00.1 Bradycardia, unspecified; R94.31 Abnormal electrocardiogram [ECG] [EKG]; W06.XXXA Fall from bed, initial encounter
CPT/HCPCS: 36415; 70450; 71045; 72125; 72170; 73070; 80053; 81001; 84484; 85025; 87086; 87088; 90471; 90715; 93005; 96365; 99284; A9270; J0696

== ENCOUNTER 2023-11-11 00:36 | Day surgery (SDC) | payer MEDICARE, OTHER, SELFPAY ==
--- NOTE | 2023-10-14 11:19 | PC.NURSE ---
Report to the Outpatient Waiting Room, entrance under the green pavilion located off [facility], at time __1300 on date __10/28/23 . Planned Procedure Time: _1500 . Time changes happen often and if your time is changed the preop area will call you the afternoon before. - You and your visitor will be asked to self-screen and do not enter if you have any COVID symptoms. - A mask is optional within the hospital at this time. Patients may have clear liquids (water, carbonated beverages, clear teas, apple juice) until 3 hours prior to surgery (NOON)with a maximum of 20 ounces. - No food from midnight until time of surgery - Infants may have breast milk until 4 hours before surgery, formula 6 hours prior to surgery. - Children will be allowed to drink immediately following surgery. If applicable, please bring a bottle or sippy cup to assist with drinking. Juice, water, soda, and popsicles are readily available. For infants on formula, please bring formula the day of surgery. Pacifiers are allowed. Take the following medications with a SIP of water the morning of surgery: __CARBIDOPA-LEVODOPA,DIAZEPAM IF NEEDED,DILTIAZEM,LAMOTRIGINE,SERTRALINE AND VRAYLAR DO NOT STOP ANY OF YOUR OTHER PRESCRIPTION MEDICATIONS PRIOR TO SURGERY ?EXCEPT THE FOLLOWING Medications to discontinue per physician ___HOLD ALL VITAMINS 3 DAYS PRE OP LAST DOSE 10/24/23 Please no make-up, nail cameroonian, hairspray, perfume, deodorant, or body powder the day of surgery. No jewelry (including any body piercings) or valuables the day of surgery, leave them at home. Please take a shower or bath the night before, or the morning of, surgery with an antibacterial soap. Wear comfortable, loose fitting clothing. Children are encouraged to wear pajamas. - Jewelry must be removed prior to entering the operating room. Rings and piercings that are not removed may be cut off. - The hospital will not accept responsibility for valuables. - Please leave all valuables, including medications, at home the day of surgery. If you are going home after surgery, a licensed wagon driver must drive you home. - NO public transportation without another adult if you receive anesthesia. - We recommend that an adult stay with you for 24 hours following discharge. - We also recommend that you do not drive, make important decision, drink alcoholic beverages, or take any drugs that were not prescribed by your health care provider for at least 24 hours after your discharge time. For Pediatric surgeries, we recommend two adults accompany the child home. Follow any additional instructions given to you from your surgeon. If you or anyone in your household have experienced Covid symptoms in the past week, please notify your surgeon or the nurse liaison at the phone number below for possible testing. Telephone instructions given to _PT'S SPOUSE ENRIQUE and asked if any additional questions and then verbalized understanding. Patient advised to call surgeon office or pre surgery nurse liaison [phone] if any additional questions.
[2023-10-14 11:22] VITALS: BMI 29.3
--- NOTE | 2023-10-26 14:08 | PM.HPGS ---
History of Present Illness History of Present Illness Consent: Risks, benefits, and alternatives have been discussed and questions answered. Patient agrees to proceed with procedure. Chief complaint: left staghorn stone Narrative: Karina Arroyo is a 73 year old female with known chronic left indwelling ureteral stent.? ?In December 2022 we shocked the encrusted proximal coil of her stent placed a new 4.8 F stent on that side. ??Her left kidney as both a staghorn calculus and a 4 cm renal neoplasm we have opted not to treat neoplasm because ?of her chronic kidney disease and the potential for dialysis where she to have a nephrectomy. ?Reviewed that decision with the patient and today. Review of Systems Cardiovascular: Cardiovascular: Denies chest pain, Denies lightheadedness, Denies palpitations and Denies dyspnea Respiratory: Respiratory: Denies dyspnea Gastrointestinal: Gastrointestinal: Denies diarrhea, Denies nausea and Denies vomiting Genitourinary: Genitourinary: Denies hematuria and Denies dysuria Endocrine: Endocrine: Denies palpitations PMFSH Past Medical History Medical History Anxiety Bipolar affective disorder Breast cancer 03/2012 Cardiomegaly Dementia Dyslipidemia Essential (primary) hypertension History of CVA (cerebrovascular accident) History of right breast cancer Hyperlipidemia Hypertrophic obstructive cardiomyopathy Left renal mass Meniere disease PAM (obstructive sleep apnea) non compliant with CPAP Parkinson disease Renal calculus TIA (transient ischemic attack) Unspecified osteoarthritis, unspecified site Vitamin D deficiency Surgical History Surgical History H/O total hysterectomy with bilateral salpingo-oophorectomy (BSO) (Unknown) History of breast surgery 03/2012 History of partial mastectomy 2011 Hx of section (Unknown) Hx of total knee arthroplasty (Unknown) Family History Family History Father Family history of diabetes mellitus in first degree relative, Onset Age: 77 Mother Family history of malignant neoplasm of ovary, Onset Age: 62 Grandparent Diabetes mellitus, Onset Age: 80 Other Hypertension Social History Social History Social History: The patient is and she is retired. The patient lives with her Damon who is her durable power director of content and programming for healthcare. The patient is a full code. She is a lifelong nonsmoker. The patient tells me that she is retired from [employer]. She has 2 children. Smoking status: Never smoker Second hand tobacco smoke exposure: No Alcohol intake: unknown Substance use: never Substance use type: does not use Lack of Transportation: No Lack of Food: Never True Current Housing: I Have Housing Concerned About Future Housing: No Difficulty Paying Gas/Electric Bills: No Difficulty Paying for Meds: No Currently Unemployed: No Education: High School Diploma/GED Difficulty w/ Childcare or Family Care: No Living arrangements: with family Additional living arrangements comments: HUSB Spiritual care concerns: No Meds Home Medications and Allergies Home Medications Medication Instructions Recorded Confirmed Type diazepam 5 mg tablet 5 mg PO PRN PRN Anxiety 10/12/19 10/14/23 History lamotrigine 200 mg tablet 200 mg PO Q12H 10/12/19 10/14/23 History cariprazine 6 mg capsule (Vraylar) 6 mg PO QAM 05/26/21 10/14/23 History carbidopa 25 mg-levodopa 100 mg 1 tablet PO QID 06/16/21 10/14/23 History tablet cholecalciferol (vitamin D3) 50 50 mcg PO DAILY 12/29/21 10/14/23 History mcg (2,000 unit) capsule sertraline 100 mg tablet 150 mg PO QAM 06/21/22 10/14/23 History diltiazem HCl 240 mg 240 mg PO QAM #90 caps 02/02/23 10/14/23 Rx capsule,extended relea
--- NOTE | 2023-10-27 09:54 | WPDANESEPPF ---
Anes - Initial Pre Proc Eval Procedure: Operation Date: 10/28/23 15:00 Proposed Procedures p Cystoscopy, Left Ureteral Stent Exchange - Brian Pires MD Date/Time: 10/27/23 09:54 Surgeon: Brian Pires MD Pre Op Diagnosis: left staghorn stone Patient Data Age: 73 Gender: F Height: 1.52 m Weight: 68.1 kg Allergies Allergy/AdvReac Type Severity Reaction Status Date / Time codeine AdvReac Intermediate Confusion, Verified 10/14/23 10:47 NAUSEA Home Medications Medication Instructions Recorded Confirmed Type diazepam 5 mg tablet 5 mg PO PRN PRN Anxiety 10/12/19 10/14/23 History lamotrigine 200 mg tablet 200 mg PO Q12H 10/12/19 10/14/23 History cariprazine 6 mg capsule (Vraylar) 6 mg PO QAM 05/26/21 10/14/23 History carbidopa 25 mg-levodopa 100 mg 1 tablet PO QID 06/16/21 10/14/23 History tablet cholecalciferol (vitamin D3) 50 50 mcg PO DAILY 12/29/21 10/14/23 History mcg (2,000 unit) capsule sertraline 100 mg tablet 150 mg PO QAM 06/21/22 10/14/23 History diltiazem HCl 240 mg 240 mg PO QAM #90 caps 02/02/23 10/14/23 Rx capsule,extended release 24 hr acetaminophen 500 mg tablet 1,000 mg PO Q6H PRN pain 1-3/fever 03/15/23 10/14/23 History memantine 28 mg capsule 28 mg PO QAM 03/16/23 10/14/23 History sprinkle,extended release 24hr rosuvastatin 10 mg tablet 10 mg PO DAILY #90 tabs 06/15/23 10/14/23 Rx potassium chloride 10 mEq 10 meq PO DAILY #90 tabs 07/26/23 10/14/23 Rx tablet,extended release docusate sodium 100 mg capsule 100 mg PO PRN PRN Constipation 10/14/23 10/14/23 History Results Review: All pre-operative results and documents have been reviewed as part of the pre-operative evaluation. COUNTS INCLUDE 234 BEDS AT THE [facility] Past Medical History Medical History Anxiety Bipolar affective disorder Breast cancer 03/2012 Cardiomegaly Dementia Dyslipidemia Essential (primary) hypertension History of CVA (cerebrovascular accident) History of right breast cancer Hyperlipidemia Hypertrophic obstructive cardiomyopathy Left renal mass Meniere disease PAM (obstructive sleep apnea) non compliant with CPAP Parkinson disease Renal calculus TIA (transient ischemic attack) Unspecified osteoarthritis, unspecified site Vitamin D deficiency Surgical History Surgical History H/O total hysterectomy with bilateral salpingo-oophorectomy (BSO) (Unknown) History of breast surgery 03/2012 History of partial mastectomy 2011 Hx of section (Unknown) Hx of total knee arthroplasty (Unknown) Family History Family History Father Family history of diabetes mellitus in first degree relative, Onset Age: 77 Mother Family history of malignant neoplasm of ovary, Onset Age: 62 Grandparent Diabetes mellitus, Onset Age: 80 Other Hypertension Social History Social History Social History: The patient is and she is retired. The patient lives with her Damon who is her durable power document review attorney for healthcare. The patient is a full code. She is a lifelong nonsmoker. The patient tells me that she is retired from [employer]. She has 2 children. Smoking status: Never smoker Second hand tobacco smoke exposure: No Alcohol intake: unknown Substance use: never Substance use type: does not use Lack of Transportation: No Lack of Food: Never True Current Housing: I Have Housing Concerned About Future Housing: No Difficulty Paying Gas/Electric Bills: No Difficulty Paying for Meds: No Currently Unemployed: No Education: High School Diploma/GED Difficulty w/ Childcare or Family Care: No Living arrangements: with family Additional living arrangements comments: HUSB Spiritual care concerns: No Anes - Eval Final PreProcedure Day of Procedure
--- NOTE | 2023-10-28 06:14 | WPDHPUPDATE1 ---
History and Physical Update Update Date/Time: 10/28/23 06:14 History and Physical has been reviewed, including an updated exam of the patient. There are NO changes in the patient's condition. Risks, benefits, and alternatives have been discussed and questions answered. Patient agrees to proceed with procedure.
--- NOTE | 2023-11-01 08:39 | PC.NURSE ---
Report to the Outpatient Waiting Room, entrance under the green pavilion located off [facility], at time __1015 on date ___11/11/23____. Planned Procedure Time: __1215 . Time changes happen often and if your time is changed the preop area will call you the afternoon before. - You and your visitor will be asked to self-screen and do not enter if you have any COVID symptoms. - A mask is optional within the hospital at this time. Patients may have clear liquids (water, carbonated beverages, clear teas, apple juice) until 3 hours prior to surgery(0915) with a maximum of 20 ounces. - No food from midnight until time of surgery - Infants may have breast milk until 4 hours before surgery, formula 6 hours prior to surgery. - Children will be allowed to drink immediately following surgery. If applicable, please bring a bottle or sippy cup to assist with drinking. Juice, water, soda, and popsicles are readily available. For infants on formula, please bring formula the day of surgery. Pacifiers are allowed. Take the following medications with a SIP of water the morning of surgery: ___CARBIDOPA-LEVODOPA,DIAZEPAM IF NEEDED ,DILTIAZEM,LAMOTRIGINE, SERTRALINE__AND VRAYLAR DO NOT STOP ANY OF YOUR OTHER PRESCRIPTION MEDICATIONS PRIOR TO SURGERY ?EXCEPT THE FOLLOWING Medications to discontinue per physician ____HOLD ALL VITAMINS AND SUPPLEMENTS 3 DAYS PRE OP.LAST _DOSE 11/07/23 Please no make-up, nail maltese, hairspray, perfume, deodorant, or body powder the day of surgery. No jewelry (including any body piercings) or valuables the day of surgery, leave them at home. Please take a shower or bath the night before, or the morning of, surgery with an antibacterial soap. Wear comfortable, loose fitting clothing. Children are encouraged to wear pajamas. - Jewelry must be removed prior to entering the operating room. Rings and piercings that are not removed may be cut off. - The hospital will not accept responsibility for valuables. - Please leave all valuables, including medications, at home the day of surgery. If you are going home after surgery, a licensed concrete mixing truck driver must drive you home. - NO public transportation without another adult if you receive anesthesia. - We recommend that an adult stay with you for 24 hours following discharge. - We also recommend that you do not drive, make important decision, drink alcoholic beverages, or take any drugs that were not prescribed by your health care provider for at least 24 hours after your discharge time. For Pediatric surgeries, we recommend two adults accompany the child home. Follow any additional instructions given to you from your surgeon. If you or anyone in your household have experienced Covid symptoms in the past week, please notify your surgeon or the nurse liaison at the phone number below for possible testing. Telephone instructions given to __PT'S SPOUSE ENRIQUE and asked if any additional questions and then verbalized understanding. Patient advised to call surgeon office or pre surgery nurse liaison [phone] if any additional questions.
--- NOTE | 2023-11-01 08:42 | PC.NURSE ---
SPOUSE ENRIQUE STATES NO CHANGE IN HEALTH HX SINCE LAST INTERVIEW ON 10/14/23
--- NOTE | ~2023-11-11 | XR_ITS ---
EXAMINATION: XR retrograde pyelo w/stent BI DATE: 11/11/2023 12:20 INDICATION: Bilateral ureteral stent exchange TECHNIQUE: 72 fluoroscopic images of the abdomen and pelvis were obtained during procedure performed by Dr. Pires. Radiologist was not present for the imaging or procedure. The amount of fluoroscopy ti me used during this procedure was 1.2 minutes. COMPARISON: 07/14/2023 FINDINGS: Initial social sciences department chair images redemonstrate bilateral intraureteral stents in expected positions. Large stagho rn calculi filling the left renal pelvis and a couple of the renal calyces. Additional large stones a re seen at the cephalad right kidney. Subsequent images demonstrate removal of the prior left intraur eteral stent and retrograde advancement of a catheter into an upper pole calyx of the left kidney. In jected contrast demonstrates hydronephrosis in the right kidney with delayed passage of contrast into the more distal right ureter consistent with some residual obstruction at the level of the stone at the renal pelvis. Next there is removal of the right internal ureteral stent and retrograde contrast injections into the right ureter. Final images demonstrate placement of new bilateral intraureteral s tents which are in expected position with distal tips in the bilateral kidneys and urinary bladder. IMPRESSION: 1. Fluoroscopy utilized during bilateral internal ureteral stent exchange with new stents place in ex pected position. See procedure note for further detail. 2. Large bilateral renal stones. Reviewed, dictated and finalized at location L. CHAIR IMPRESSION: 1. Fluoroscopy utilized during bilateral internal ureteral stent exchange with new stents place in expected position. See procedure note for further detail. 2. Large bilateral renal stones.
--- NOTE | 2023-11-11 06:21 | WPDHPUPDATE1 ---
History and Physical Update Update Date/Time: 11/11/23 06:21 History and Physical has been reviewed, including an updated exam of the patient. There are NO changes in the patient's condition. Risks, benefits, and alternatives have been discussed and questions answered. Patient agrees to proceed with procedure.
[2023-11-11] MEDS: LACTATED RINGERS 1,000 ML 30 ML IV CONT (10:00)
--- NOTE | 2023-11-11 10:00 | WPDANESEPPF ---
Anes - Initial Pre Proc Eval Procedure: Operation Date: 11/11/23 11:30 Proposed Procedures p Cystoscopy, Left Ureteral Stent Exchange - Brian Pires MD Date/Time: 11/11/23 10:00 Surgeon: Brian Pires MD Pre Op Diagnosis: left staghorn stone Patient Data Age: 73 Gender: F Height: 1.52 m Weight: 68.1 kg Allergies Allergy/AdvReac Type Severity Reaction Status Date / Time codeine AdvReac Intermediate Confusion, Verified 11/01/23 11:37 NAUSEA Home Medications Medication Instructions Recorded Confirmed Type diazepam 5 mg tablet 5 mg PO PRN PRN Anxiety 10/12/19 11/01/23 History lamotrigine 200 mg tablet 200 mg PO Q12H 10/12/19 11/01/23 History cariprazine 6 mg capsule (Vraylar) 6 mg PO QAM 05/26/21 11/01/23 History carbidopa 25 mg-levodopa 100 mg 1 tablet PO QID 06/16/21 11/01/23 History tablet cholecalciferol (vitamin D3) 50 50 mcg PO DAILY 12/29/21 11/01/23 History mcg (2,000 unit) capsule sertraline 100 mg tablet 200 mg PO QAM 06/21/22 11/01/23 History acetaminophen 500 mg tablet 1,000 mg PO Q6H PRN pain 1-3/fever 03/15/23 11/01/23 History memantine 28 mg capsule 28 mg PO QAM 03/16/23 11/01/23 History sprinkle,extended release 24hr rosuvastatin 10 mg tablet 10 mg PO DAILY #90 tabs 06/15/23 11/01/23 Rx docusate sodium 100 mg capsule 100 mg PO PRN PRN Constipation 10/14/23 11/01/23 History diltiazem HCl 240 mg 240 mg PO QAM #90 caps 11/01/23 11/01/23 Rx capsule,extended release 24 hr ondansetron 4 mg disintegrating 4 mg PO Q6H PRN nausea and 11/01/23 11/01/23 Rx tablet vomiting #30 tabs potassium chloride 10 mEq See Rx Instructions .Route 11/10/23 Rx tablet,extended release .COMPLEX #90 tabs Patient hx anesthesia problems: none Family hx anesthesia problems: none Results Review: All pre-operative results and documents have been reviewed as part of the pre-operative evaluation. [facility] Past Medical History Medical History Anxiety Bipolar affective disorder Breast cancer 03/2012 Cardiomegaly Dementia Dyslipidemia Essential (primary) hypertension History of CVA (cerebrovascular accident) History of right breast cancer Hyperlipidemia Hypertrophic obstructive cardiomyopathy Left renal mass Meniere disease PAM (obstructive sleep apnea) non compliant with CPAP Parkinson disease Renal calculus TIA (transient ischemic attack) Unspecified osteoarthritis, unspecified site Vitamin D deficiency Surgical History Surgical History H/O total hysterectomy with bilateral salpingo-oophorectomy (BSO) (Unknown) History of breast surgery 03/2012 History of partial mastectomy 2011 Hx of section (Unknown) Hx of total knee arthroplasty (Unknown) Family History Family History Father Family history of diabetes mellitus in first degree relative, Onset Age: 77 Mother Family history of malignant neoplasm of ovary, Onset Age: 62 Grandparent Diabetes mellitus, Onset Age: 80 Other Hypertension Social History Social History Social History: The patient is and she is retired. The patient lives with her Damon who is her durable power mergers and acquisitions attorney for healthcare. The patient is a full code. She is a lifelong nonsmoker. The patient tells me that she is retired from [employer]. She has 2 children. Smoking status: Never smoker Second hand tobacco smoke exposure: No Alcohol intake: never Substance use: never Substance use type: does not use Lack of Transportation: No Lack of Food: Never True Current Housing: I Have Housing Concerned About Future Housing: No Difficulty Paying Gas/Electric Bills: No Difficulty Paying for Meds: No Currently Unemployed: No Education: High School Diploma/GED Difficulty w/ Childcare
[2023-11-11 11:00] VITALS: BP 120/64; PULSE 58; RESP 14; TEMP 36.9; O2SAT 94
[2023-11-11] MEDS: ceFAZolin 2 GM/D5W 50 ML 2 GM/50 ML BAG IVPB (11:44)
[2023-11-11] MEDS: LIDOCAINE HCL 2% GEL UROJET 10 ML PKG MUCOUS MEM (11:58)
--- NOTE | 2023-11-11 12:14 | P.OP_ITS ---
Procedure Note - Detailed Date of Procedure 11/11/23 Pre-op Diagnosis Left staghorn stone, history right renal stones Post-op Diagnosis Same Procedure Performed Cystoscopy, bilateral ureteral stent exchange Surgeon Brian Pires MD Anesthesia General Description of Procedure Patient brought the op suite she was prepped and draped in routine sterile fashion while in dorsal lithotomy position. 2% xylocaine jelly was introduced intraurethrally and systemic sedation is administered per the anesthesia depar tment. Cystoscopy was undertaken with a 21 F rigid cystoscope. The joint indwelling stent is grasped and brought to the external urethral meatus. 0.035 in glidewire was advanced in the right renal pelvis and the right ureteral stent is exchanged with ease. Opted to replace the stent because he has had no recent imaging to determine if she has significant regrowth of stones in right kidney. Retrograde pyelography was used to confirm appropriate positioning of the stent. On left the stent was moderately encrusted. Eventually, with manipulation of a ureteral catheter alongside the stent I was able to remove the stent and replace it with a 4.8 F variable length stent. She is therefore left with bilateral 4.8 F stents. I will plan to change the stent left stent in 3 months. At that time we will do preoperative imaging to determine if the right stent can be removed Pathology None sent Complications No immediate complications Condition Stable
[2023-11-11 12:19] VITALS: BP 117/64; PULSE 62; RESP 12; O2SAT 100
[2023-11-11 12:45] VITALS: BP 119/56; PULSE 48; RESP 12; O2SAT 94
[2023-11-11 13:15] VITALS: BP 117/52; PULSE 54; RESP 12; O2SAT 94
[2023-11-11 13:45] VITALS: BP 111/40; PULSE 46; RESP 12
== END 2023-11-11 14:04 | disposition home or self-care (01) ==
PROVIDERS: PCP Family Medicine; Visit Provider Urology
PROC: (CPT 52352; principal; 2023-11-11 11:30)
DX: N13.2 Hydronephrosis with renal and ureteral calculous obstruction (principal); N28.89 Other specified disorders of kidney and ureter; I10 Essential (primary) hypertension; E78.5 Hyperlipidemia, unspecified; F41.9 Anxiety disorder, unspecified; G47.33 Obstructive sleep apnea (adult) (pediatric); F31.9 Bipolar disorder, unspecified; G20.A1 Parkinson's disease without dyskinesia, without mention of fluctuations; F02.80 Dementia in other diseases classified elsewhere, unspecified severity, without behavioral disturbance, psychotic disturbance, mood disturbance, and anxiety; E55.9 Vitamin D deficiency, unspecified; Z98.890 Other specified postprocedural states; Z87.442 Personal history of urinary calculi; Z86.79 Personal history of other diseases of the circulatory system; Z85.3 Personal history of malignant neoplasm of breast; Z86.73 Personal history of transient ischemic attack (TIA), and cerebral infarction without residual deficits; Z80.41 Family history of malignant neoplasm of ovary
CPT/HCPCS: 52332; 74420; C1758; C1769; C2617; J0690; J2405; J2704; J3010; J7120; Q9966

== ENCOUNTER 2024-02-17 00:35 | Day surgery (SDC) | payer MEDICARE, OTHER, SELFPAY ==
[2024-02-10 13:36] VITALS: BMI 32.5
--- NOTE | 2024-02-10 14:02 | PC.NURSE ---
Report to the Outpatient Waiting Room, entrance under the green pavilion located off [facility], at time __10:15-10:20AM_on date _02/17/24__. Planned Procedure Time: __1:30PM . CT SCAN SCHEDULED FOR 10:30AM. Time changes happen often and if your time is changed the preop area will call you the afternoon before. - You and your visitor will be asked to self-screen and do not enter if you have any COVID symptoms. - A mask is optional within the hospital at this time. Patients may have clear liquids (water, carbonated beverages, clear teas, apple juice) until 3 hours prior to surgery with a maximum of 20 ounces. - No food from midnight until time of surgery. Take the following medications with a SIP of water the morning of surgery: ____CARBIDOPA-LEVODOPA, DILTIAZEM, LAMOTRIGINE, SERTRALINE, VRAYLAR. MAY TAKE DIAZEPAM NEEDED. DO NOT STOP ANY OF YOUR OTHER PRESCRIPTION MEDICATIONS PRIOR TO SURGERY ?EXCEPT THE FOLLOWING Medications to discontinue per physician ___HOLD ALL VITAMINS/SUPPLEMENTS 3 DAYS PRE-OP PER ANESTHESIA Date to take last dose 02/13/24 Please no make-up, nail yoruba, hairspray, perfume, deodorant, or body powder the day of surgery. No jewelry (including any body piercings) or valuables the day of surgery, leave them at home. Please take a shower or bath the night before, or the morning of, surgery with an antibacterial soap. Wear comfortable, loose fitting clothing. Children are encouraged to wear pajamas. - Jewelry must be removed prior to entering the operating room. Rings and piercings that are not removed may be cut off. - The hospital will not accept responsibility for valuables. - Please leave all valuables, including medications, at home the day of surgery. If you are going home after surgery, a licensed lead driver must drive you home. - NO public transportation without another adult if you receive anesthesia. - We recommend that an adult stay with you for 24 hours following discharge. - We also recommend that you do not drive, make important decision, drink alcoholic beverages, or take any drugs that were not prescribed by your health care provider for at least 24 hours after your discharge time. For Pediatric surgeries, we recommend two adults accompany the child home. Follow any additional instructions given to you from your surgeon. If you or anyone in your household have experienced Covid symptoms in the past week, please notify your surgeon or the nurse liaison at the phone number below for possible testing. Telephone instructions given to __PATIENT'S -ENRIQUE and asked if any additional questions and then verbalized understanding. Patient advised to call surgeon office or pre surgery nurse liaison [phone] if any additional questions.
--- NOTE | 2024-02-14 07:55 | PM.HPGS ---
History of Present Illness History of Present Illness Consent: Risks, benefits, and alternatives have been discussed and questions answered. Patient agrees to proceed with procedure. Chief complaint: staghorn calculus, hx right renal stone Narrative: Karina Arroyo is a 73 year old female with known chronic left indwelling ureteral stent.? ?In December 2022 we shocked the encrusted proximal coil of her stent placed a new 4.8 F stent on that side. ??Her left kidney as both a staghorn calculus and a 4 cm renal neoplasm we have opted not to treat neoplasm because ?of her chronic kidney disease and the potential for dialysis where she to have a nephrectomy. ?Reviewed that decision with the patient and today. Review of Systems Cardiovascular: Cardiovascular: Denies chest pain, Denies lightheadedness, Denies palpitations and Denies dyspnea Respiratory: Respiratory: Denies dyspnea Gastrointestinal: Gastrointestinal: Denies diarrhea, Denies nausea and Denies vomiting Genitourinary: Genitourinary: Denies hematuria and Denies dysuria Endocrine: Endocrine: Denies palpitations [facility] Past Medical History Medical History Anxiety Bipolar affective disorder Breast cancer 03/2012 Cardiomegaly Dementia Dyslipidemia Essential (primary) hypertension History of CVA (cerebrovascular accident) History of right breast cancer Hyperlipidemia Hypertrophic obstructive cardiomyopathy Left renal mass Meniere disease PAM (obstructive sleep apnea) non compliant with CPAP Parkinson disease Renal calculus TIA (transient ischemic attack) Unspecified osteoarthritis, unspecified site Vitamin D deficiency Surgical History Surgical History H/O total hysterectomy with bilateral salpingo-oophorectomy (BSO) (Unknown) History of breast surgery 03/2012 History of partial mastectomy 2011 Hx of section (Unknown) Hx of total knee arthroplasty (Unknown) Family History Family History Father Family history of diabetes mellitus in first degree relative, Onset Age: 77 Mother Family history of malignant neoplasm of ovary, Onset Age: 62 Grandparent Diabetes mellitus, Onset Age: 80 Other Hypertension Social History Social History Social History: The patient is and she is retired. The patient lives with her Damon who is her durable power criminal defense attorney for healthcare. The patient is a full code. She is a lifelong nonsmoker. The patient tells me that she is retired from [employer]. She has 2 children. Smoking status: Never smoker Second hand tobacco smoke exposure: No Alcohol intake: never Substance use: never Substance use type: does not use Lack of Transportation: No Lack of Food: Never True Current Housing: I Have Housing Concerned About Future Housing: No Difficulty Paying Gas/Electric Bills: No Difficulty Paying for Meds: No Currently Unemployed: No Education: High School Diploma/GED Difficulty w/ Childcare or Family Care: No Living arrangements: with family Additional living arrangements comments: HUSB Spiritual care concerns: No Meds Home Medications and Allergies Home Medications Medication Instructions Recorded Confirmed Type diazepam 5 mg tablet 5 mg PO PRN PRN Anxiety 10/12/19 02/10/24 History lamotrigine 200 mg tablet 200 mg PO Q12H 10/12/19 02/10/24 History cariprazine 6 mg capsule (Vraylar) 6 mg PO QAM 05/26/21 02/10/24 History carbidopa 25 mg-levodopa 100 mg 1 tablet PO QID 06/16/21 02/10/24 History tablet cholecalciferol (vitamin D3) 50 50 mcg PO DAILY 12/29/21 02/10/24 History mcg (2,000 unit) capsule sertraline 100 mg tablet 200 mg PO QAM 06/21/22 02/10/24 History acetaminophen 500 mg tablet 1,000 mg PO Q6H PRN pain 1-3/fever
[2024-02-17] VITALS (8 sets, daily range): BP systolic 150–186; BP diastolic 61–84; PULSE 62–67; RESP 14–18; TEMP 36.4–37.3; O2SAT 93–100
--- NOTE | ~2024-02-17 | XR_ITS ---
EXAMINATION: XR stent kub - surgery DATE: 02/17/2024 12:57 INDICATION: Kidney stone. TECHNIQUE: 3 intraoperative spot fluoroscopic views of the abdomen and pelvis were obtained. I was no t present. Fluoroscopy exposure time was 42 seconds. COMPARISON: Abdomen radiograph 02/17/2024 FINDINGS: There are stones in the kidneys. There are bilateral internal ureteral stents in expected p ositions. There is a 7 mm density overlying the left sacrum. IMPRESSION: 1. Stones in the kidneys. 2. Bilateral internal ureteral stents in expected positions. 2. 7 mm density overlying the left sacrum, which may be a stone in the distal ureter. Reviewed, dictated and finalized at location A. IMPRESSION: 1. Stones in the kidneys. 2. Bilateral internal ureteral stents in expected positions. 2. 7 mm density overlying the left sacrum, which may be a stone in the distal u reter.
--- NOTE | ~2024-02-17 | XR_ITS ---
EXAMINATION: XR abdomen/kub 1V DATE: 02/17/2024 11:07 INDICATION: Kidney stone. Preop. TECHNIQUE: A supine view of the abdomen on 3 radiographs was obtained. COMPARISON: Abdomen radiographs 07/14/2023 FINDINGS: There are no dilated loops of bowel. There is a large volume of stool in the colon. There a re multiple stones in each kidney measuring up to 3.3 cm on the left. There are bilateral internal ur eteral stents in expected positions. There is a 7 mm density overlying left sacrum in the area of the distal ureter. IMPRESSION: 1. 7 mm density overlying the left sacrum that could be a stone in the distal left ureter. 2. Bilateral kidney stones. 3. Bilateral internal ureteral stents in expected positions. Reviewed, dictated and finalized at location A. IMPRESSION: 1. 7 mm density overlying the left sacrum that could be a stone in the distal l eft ureter. 2. Bilateral kidney stones. 3. Bilateral internal ureteral stents in expected positions.
--- NOTE | 2024-02-17 06:11 | WPDHPUPDATE1 ---
History and Physical Update Update Date/Time: 02/17/24 06:11 History and Physical has been reviewed, including an updated exam of the patient. There are NO changes in the patient's condition. Risks, benefits, and alternatives have been discussed and questions answered. Patient agrees to proceed with procedure.
--- NOTE | 2024-02-17 11:47 | WPDANESEPPF ---
Anes - Initial Pre Proc Eval Procedure: Operation Date: 02/17/24 13:30 Proposed Procedures p Cystoscopy, Left Stent Exchange, Possible Right Stent Removal/Replacement - Brian Pires MD Date/Time: 02/17/24 11:47 Surgeon: Brian Pires MD Pre Op Diagnosis: staghorn calculus, hx right renal stone Patient Data Age: 73 Gender: F Height: 1.5 m Weight: 73 kg Allergies Allergy/AdvReac Type Severity Reaction Status Date / Time codeine AdvReac Intermediate Confusion, Verified 02/10/24 13:27 NAUSEA Home Medications Medication Instructions Recorded Confirmed Type diazepam 5 mg tablet 5 mg PO PRN PRN Anxiety 10/12/19 02/10/24 History lamotrigine 200 mg tablet 200 mg PO Q12H 10/12/19 02/10/24 History cariprazine 6 mg capsule (Vraylar) 6 mg PO QAM 05/26/21 02/10/24 History carbidopa 25 mg-levodopa 100 mg 1 tablet PO QID 06/16/21 02/10/24 History tablet cholecalciferol (vitamin D3) 50 50 mcg PO DAILY 12/29/21 02/10/24 History mcg (2,000 unit) capsule sertraline 100 mg tablet 200 mg PO QAM 06/21/22 02/10/24 History acetaminophen 500 mg tablet 1,000 mg PO Q6H PRN pain 1-3/fever 03/15/23 02/10/24 History memantine 28 mg capsule 28 mg PO QAM 03/16/23 02/10/24 History sprinkle,extended release 24hr docusate sodium 100 mg capsule 100 mg PO PRN PRN Constipation 10/14/23 02/10/24 History diltiazem HCl 240 mg 240 mg PO QAM #90 caps 11/01/23 02/10/24 Rx capsule,extended release 24 hr ondansetron 4 mg disintegrating 4 mg PO Q6H PRN nausea and 11/01/23 02/10/24 Rx tablet vomiting #30 tabs potassium chloride 10 mEq See Rx Instructions .Route 11/10/23 02/10/24 Rx tablet,extended release .COMPLEX #90 tabs rosuvastatin 10 mg tablet 10 mg PO DAILY #90 tabs 02/10/24 02/10/24 Rx Patient hx anesthesia problems: none Family hx anesthesia problems: none Results Review: All pre-operative results and documents have been reviewed as part of the pre-operative evaluation. [facility] Past Medical History Medical History Anxiety Bipolar affective disorder Breast cancer 03/2012 Cardiomegaly Dementia Dyslipidemia Essential (primary) hypertension History of CVA (cerebrovascular accident) History of right breast cancer Hyperlipidemia Hypertrophic obstructive cardiomyopathy Left renal mass Meniere disease PAM (obstructive sleep apnea) non compliant with CPAP Parkinson disease Renal calculus TIA (transient ischemic attack) Unspecified osteoarthritis, unspecified site Vitamin D deficiency Surgical History Surgical History H/O total hysterectomy with bilateral salpingo-oophorectomy (BSO) (Unknown) History of breast surgery 03/2012 History of partial mastectomy 2011 Hx of section (Unknown) Hx of total knee arthroplasty (Unknown) Family History Family History Father Family history of diabetes mellitus in first degree relative, Onset Age: 77 Mother Family history of malignant neoplasm of ovary, Onset Age: 62 Grandparent Diabetes mellitus, Onset Age: 80 Other Hypertension Social History Social History Social History: The patient is and she is retired. The patient lives with her Damon who is her durable power ip attorney for healthcare. The patient is a full code. She is a lifelong nonsmoker. The patient tells me that she is retired from [employer]. She has 2 children. Smoking status: Never smoker Second hand tobacco smoke exposure: No Alcohol intake: never Substance use: never Substance use type: does not use Lack of Transportation: No Lack of Food: Never True Current Housing: I Have Housing Concerned About Future Housing: No Difficulty Paying Gas/Electric Bills: No Difficulty Paying for Meds: No Currently Unemployed: No Educ
[2024-02-17] MEDS: ceFAZolin 2 GM/D5W 50 ML 2 GM/50 ML BAG IVPB (12:30)
--- NOTE | 2024-02-17 12:54 | W.PM.PROC2 ---
Procedure Note - Detailed Date of Procedure 02/17/24 Pre-op Diagnosis Staghorn calculus, hx right renal stone Post-op Diagnosis Same Procedure Performed Cystoscopy, left ureteral stent exchange Surgeon Brian Pires MD Anesthesia General Description of Procedure patient is brought to the operative suite she was prepped draped in routine sterile fashion while in dorsal lithotomy position. Cystoscopy is undertaken with a 21 F rigid cystoscope. Bladder neck and urethra endoscopically normal. Bladder is mucosa is normal without hyperemia. There was an indwelling left ureteral stent but no additional 5th for neoplasm or foreign bodies. The tip of this stent is grasped and it was removed with ease. A 0.048 F variable length stent is repositioned with the proximal coil in renal pelvis and distal coil in the bladder. Positioning can not be confirmed by the position of her left renal staghorn calculi. Drains No Packing No Complications No immediate complications
[2024-02-17] MEDS: LACTATED RINGERS 1,000 ML 30 ML IV CONT (13:00)
== END 2024-02-17 14:50 | disposition home or self-care (01) ==
PROVIDERS: PCP Family Medicine; Visit Provider Urology
PROC: (CPT 52352; principal; 2024-02-17 13:30)
DX: Z46.6 Encounter for fitting and adjustment of urinary device (principal); N20.1 Calculus of ureter; N28.89 Other specified disorders of kidney and ureter; I42.1 Obstructive hypertrophic cardiomyopathy; E78.5 Hyperlipidemia, unspecified; G47.33 Obstructive sleep apnea (adult) (pediatric); F31.9 Bipolar disorder, unspecified; F03.90 Unspecified dementia, unspecified severity, without behavioral disturbance, psychotic disturbance, mood disturbance, and anxiety; G20.A1 Parkinson's disease without dyskinesia, without mention of fluctuations; F02.80 Dementia in other diseases classified elsewhere, unspecified severity, without behavioral disturbance, psychotic disturbance, mood disturbance, and anxiety; E55.9 Vitamin D deficiency, unspecified; F41.9 Anxiety disorder, unspecified; Z86.73 Personal history of transient ischemic attack (TIA), and cerebral infarction without residual deficits; Z85.3 Personal history of malignant neoplasm of breast
CPT/HCPCS: 52332; 74018; C1769; C2617; J0690; J1100; J2405; J2704; J3010; J7120

== ENCOUNTER 2024-06-05 12:49 | Outpatient (CLI) | payer MEDICARE, OTHER, SELFPAY ==
[2024-06-05 14:10] LABS: Anion Gap 5 mmol/L (4-12); Blood Urea Nitrogen 17 mg/dL (7-17); Calcium 8.9 mg/dL (8.4-10.2); Carbon Dioxide 32 mmol/L (22-30); Chloride 100 mmol/L (98-107); Estimated Glomerular Filt Rate 54; Glucose 99 mg/dL (65-110); Potassium 4.3 mmol/L (3.4-5.0); Sodium 137 mmol/L (137-145)
[2024-06-05 14:47] LABS: INR 0.9; Prothrombin Time 12.9 Seconds (11.1-14.7)
== END 2024-06-05 12:50 | disposition home or self-care (01) ==
LOC: ANHSURGERY 12:54
PROVIDERS: Anesthesiology; PCP Family Medicine; Visit Provider Urology
DX: Z01.812 Encounter for preprocedural laboratory examination (principal); N18.9 Chronic kidney disease, unspecified
CPT/HCPCS: 36415; 80048; 85610; 85730

== ENCOUNTER 2024-06-08 01:29 | Day surgery (SDC) | payer MEDICARE, OTHER, SELFPAY ==
[2024-06-01 10:04] VITALS: BMI 31.6
--- NOTE | 2024-06-01 10:27 | PC.NURSE ---
Report to the Outpatient Waiting Room, entrance under the green pavilion located off [facility], at time _7:30AM_ on date _06/08/24_. Planned Procedure Time: _9:30AM_.? Time changes happen often and if your time is changed the preop area will call you the afternoon before. - You and your visitor will be asked to self-screen and do not enter if you have any COVID symptoms. Please call surgeon if you need to reschedule. - A mask is optional within the hospital at this time. Patients may have clear liquids (water, carbonated beverages, clear teas, apple juice) until 3 hours prior to surgery with a maximum of 20 ounces. - No food from midnight until time of surgery and no smoking. Take only the following medications with a SIP of water on the morning of surgery: ____CARBIDOPA-LEVODOPA, DILTIAZEM, LAMOTRIGINE, SERTRALINE, VRAYLAR. MAY TAKE DIAZEPAM & ONDANSETRON NEEDED. DO NOT STOP ANY OF YOUR OTHER PRESCRIPTION MEDICATIONS PRIOR TO SURGERY EXCEPT THE FOLLOWING Medications to discontinue per physician __HOLD ALL VITAMINS/SUPPLEMENTS 3 DAYS PRE-OP PER ANESTHESIA Date to take last dose 06/04/24 Please no make-up, nail portuguese, hairspray, perfume, deodorant, or body powder the day of surgery.? No jewelry (including any body piercings) or valuables the day of surgery, leave them at home.? Please take a shower or bath the night before, or the morning of, surgery with an antibacterial soap.? Wear comfortable, loose fitting clothing. - Jewelry must be removed prior to entering the operating room.? Rings and piercings that are not removed may be cut off. - The hospital will not accept responsibility for valuables.? - Please leave all valuables, including medications, at home the day of surgery. If you are going home after surgery, a licensed cdl a driver must drive you home.? - NO public transportation without another adult if you receive anesthesia. - We recommend that an adult stay with you for 24 hours following discharge. - We also recommend that you do not drive, make important decision, drink alcoholic beverages, or take any drugs that were not prescribed by your health care provider for at least 24 hours after your discharge time. Follow any additional instructions given to you from your surgeon. Telephone instructions given to ___PATIENT'S -OTONIELL and asked if any additional questions and then verbalized understanding. Patient advised to call surgeon office or pre surgery nurse liaison [phone] if any additional questions.
[2024-06-08] VITALS (8 sets, daily range): BP systolic 105–124; BP diastolic 48–55; PULSE 54–60; RESP 16–20; TEMP 36.3–37.2; O2SAT 91–100; BMI 30.4
--- NOTE | ~2024-06-08 | XR_ITS ---
EXAMINATION: XR stent kub - surgery DATE: 06/08/2024 09:38 INDICATION: Bilateral internal ureteral stent exchange TECHNIQUE: Fluoroscopic images from a bilateral internal ureteral stent exchange are submitted for re view. 121 seconds of fluoroscopy time. FINDINGS: There are bilateral double-J internal ureteral stent projecting in expected position, with proximal C ope loop at the level of the renal pelvis and distal loop in the pelvis within the bladder lumen. IMPRESSION: 1. Bilateral internal ureteral stent exchange. Please refer to real-time procedural findings for de tails. Reviewed, dictated and finalized at location B. IMPRESSION: 1. Bilateral internal ureteral stent exchange. Please refer to real-time proc edural findings for details.
--- NOTE | 2024-06-08 06:23 | WPDHPUPDATE1 ---
History and Physical Update Update Date/Time: 06/08/24 06:23 History and Physical has been reviewed, including an updated exam of the patient. There are NO changes in the patient's condition. Risks, benefits, and alternatives have been discussed and questions answered. Patient agrees to proceed with procedure.
--- NOTE | 2024-06-08 07:01 | PM.HPGS ---
History of Present Illness History of Present Illness Consent: Risks, benefits, and alternatives have been discussed and questions answered. Patient agrees to proceed with procedure. Chief complaint: right renal stones, left staghorn calculus Narrative: Karina Arroyo is a 73 year old female well known to our practice. She has a left renal staghorn calculus and a mass in her left kidney which he has opted not to treat surgically. In light of that we have opted to manage her left kidney and simply with chronic indwelling stent. She has increasing stone burden on the right, answer decision for cystoscopy with right ureteroscopy and laser lithotripsy with stone extraction. Review of Systems Cardiovascular: Cardiovascular: Denies chest pain, Denies lightheadedness, Denies palpitations and Denies dyspnea Respiratory: Respiratory: Denies dyspnea Gastrointestinal: Gastrointestinal: Denies diarrhea, Denies nausea and Denies vomiting Genitourinary: Genitourinary: Denies hematuria and Denies dysuria Endocrine: Endocrine: Denies palpitations PMFSH Past Medical History Medical History Anxiety Bipolar affective disorder Breast cancer 03/2012 Cardiomegaly Dementia Dyslipidemia Essential (primary) hypertension History of CVA (cerebrovascular accident) History of right breast cancer Hyperlipidemia Hypertrophic obstructive cardiomyopathy Left renal mass Meniere disease PAM (obstructive sleep apnea) non compliant with CPAP Parkinson disease Renal calculus TIA (transient ischemic attack) Unspecified osteoarthritis, unspecified site Vitamin D deficiency Surgical History Surgical History H/O total hysterectomy with bilateral salpingo-oophorectomy (BSO) (Unknown) History of breast surgery 03/2012 History of partial mastectomy 2011 Hx of section (Unknown) Hx of total knee arthroplasty (Unknown) Family History Family History Father Family history of diabetes mellitus in first degree relative, Onset Age: 77 Mother Family history of malignant neoplasm of ovary, Onset Age: 62 Grandparent Diabetes mellitus, Onset Age: 80 Other Hypertension Social History Social History Social History: The patient is and she is retired. The patient lives with her Damon who is her durable power energy attorney for healthcare. The patient is a full code. She is a lifelong nonsmoker. The patient tells me that she is retired from [employer]. She has 2 children. Smoking status: Never smoker Second hand tobacco smoke exposure: No Alcohol intake: never Substance use: never Substance use type: does not use Lack of Transportation: No Lack of Food: Never True Current Housing: I Have Housing Concerned About Future Housing: No Difficulty Paying Gas/Electric Bills: No Difficulty Paying for Meds: No Currently Unemployed: No Education: High School Diploma/GED Difficulty w/ Childcare or Family Care: No Living arrangements: with family Additional living arrangements comments: HUSB Spiritual care concerns: No Meds Home Medications and Allergies Home Medications Medication Instructions Recorded Confirmed Type diazepam 5 mg tablet 5 mg PO PRN PRN Anxiety 10/12/19 06/01/24 History lamotrigine 200 mg tablet 200 mg PO Q12H 10/12/19 06/01/24 History cariprazine 6 mg capsule (Vraylar) 6 mg PO QAM 05/26/21 06/01/24 History carbidopa 25 mg-levodopa 100 mg 1 tablet PO QID 06/16/21 06/01/24 History tablet cholecalciferol (vitamin D3) 50 50 mcg PO DAILY 12/29/21 06/01/24 History mcg (2,000 unit) capsule sertraline 100 mg tablet 200 mg PO QAM 06/21/22 06/01/24 History acetaminophen 500 mg tablet 1,000 mg PO Q6H PRN pain 1-3/fever 03/15/23 06/01/24 History memantine 28 mg c
[2024-06-08] MEDS: LACTATED RINGERS 1,000 ML 30 ML IV CONT (07:30)
--- NOTE | 2024-06-08 08:02 | WPDANESEPPF ---
Anes - Initial Pre Proc Eval Procedure: Operation Date: 06/08/24 09:30 Proposed Procedures p Cystoscopy, Laser Lithotripsy, Right Stone Extraction, Bilateral Stent Exchange - Brian Pires MD Date/Time: 06/08/24 08:02 Surgeon: Brian Pires MD Pre Op Diagnosis: right renal stones, left staghorn calculus Patient Data Age: 73 Gender: F Height: 1.5 m Weight: 68.4 kg Last Vital Signs Temp 98.9 F 06/08/24 07:05 Pulse 60 06/08/24 07:05 Resp 16 06/08/24 07:05 BP 124/55 L 06/08/24 07:05 Pulse Ox 96 06/08/24 07:05 O2 Del Method Room Air 06/08/24 07:05 Allergies Allergy/AdvReac Type Severity Reaction Status Date / Time codeine AdvReac Intermediate Confusion, Verified 06/08/24 07:43 NAUSEA Home Medications Medication Instructions Recorded Confirmed Type diazepam 5 mg tablet 5 mg PO PRN PRN Anxiety 10/12/19 06/01/24 History lamotrigine 200 mg tablet 200 mg PO Q12H 10/12/19 06/08/24 History cariprazine 6 mg capsule (Vraylar) 6 mg PO QAM 05/26/21 06/08/24 History carbidopa 25 mg-levodopa 100 mg 1 tablet PO QID 06/16/21 06/08/24 History tablet cholecalciferol (vitamin D3) 50 50 mcg PO DAILY 12/29/21 06/08/24 History mcg (2,000 unit) capsule sertraline 100 mg tablet 200 mg PO QAM 06/21/22 06/08/24 History acetaminophen 500 mg tablet 1,000 mg PO Q6H PRN pain 1-3/fever 03/15/23 06/01/24 History memantine 28 mg capsule 28 mg PO QAM 03/16/23 06/01/24 History sprinkle,extended release 24hr docusate sodium 100 mg capsule 100 mg PO PRN PRN Constipation 10/14/23 06/01/24 History diltiazem HCl 240 mg 240 mg PO QAM #90 caps 11/01/23 06/08/24 Rx capsule,extended release 24 hr ondansetron 4 mg disintegrating 4 mg PO Q6H PRN nausea and 11/01/23 06/01/24 Rx tablet vomiting #30 tabs rosuvastatin 10 mg tablet 10 mg PO DAILY #90 tabs 02/10/24 06/01/24 Rx potassium chloride 10 mEq 10 meq PO DAILY #30 tabs 04/24/24 06/08/24 Rx tablet,extended release ibuprofen 200 mg tablet 600 mg PO Q6H PRN Pain 06/01/24 06/01/24 History omeprazole 20 mg capsule,delayed 20 mg PO DAILY PRN GERD 06/01/24 06/01/24 History release Patient hx anesthesia problems: none Family hx anesthesia problems: none Results Review: All pre-operative results and documents have been reviewed as part of the pre-operative evaluation. [facility] Past Medical History Medical History Anxiety Bipolar affective disorder Breast cancer 03/2012 Cardiomegaly Dementia Dyslipidemia Essential (primary) hypertension History of CVA (cerebrovascular accident) History of right breast cancer Hyperlipidemia Hypertrophic obstructive cardiomyopathy Left renal mass Meniere disease PAM (obstructive sleep apnea) non compliant with CPAP Parkinson disease Renal calculus TIA (transient ischemic attack) Unspecified osteoarthritis, unspecified site Vitamin D deficiency Surgical History Surgical History H/O total hysterectomy with bilateral salpingo-oophorectomy (BSO) (Unknown) History of breast surgery 03/2012 History of partial mastectomy 2011 Hx of section (Unknown) Hx of total knee arthroplasty (Unknown) Family History Family History Father Family history of diabetes mellitus in first degree relative, Onset Age: 77 Mother Family history of malignant neoplasm of ovary, Onset Age: 62 Grandparent Diabetes mellitus, Onset Age: 80 Other Hypertension Social History Social History Social History: The patient is and she is retired. The patient lives with her Damon who is her durable power finance attorney for healthcare. The patient is a full code. She is a lifelong nonsmoker. The patient tells me that she is retired from [employer]. She has 2 children
[2024-06-08] MEDS: ceFAZolin 2 GM/D5W 50 ML 2 GM/50 ML BAG IVPB (08:17)
[2024-06-08] MEDS: LIDOCAINE HCL 2% GEL UROJET 10 ML PKG MUCOUS MEM (08:37)
--- NOTE | 2024-06-08 09:40 | W.PM.PROC2 ---
Procedure Note - Detailed Date of Procedure 06/08/24 Pre-op Diagnosis 1. Left staghorn calculus 2. Right renal calculi Post-op Diagnosis Same Procedure Performed 1. Cystoscopy with right ureteroscopy, laser lithotripsy, stone extraction and stent replacement 2. Left ureteral stent exchange Surgeon Brian Pires MD Anesthesia General Description of Procedure Challenging case today in this 73-year-old female. Cystoscopy was undertaken with a 18 F rigid cystoscope. The tip of the right indwelling stent is grasped. I attempted to extract the proximal coil is encrusted to the point that it will not freely come out. I therefore placed a 2nd guidewire into the right renal pelvis. Performed flexible ureteroscopy and using laser lithotripsy fractured the incrustations of the proximal coil to the point I was able to remove that stent. I then did laser lithotripsy of the large stone collection in her right upper pole calyx. All fragments appeared to be less than 3 mm. Larger fragments were removed with a disposable stone basket and a 6 F variable length stent was placed in the right kidney. On the left I simply replaced her left ureteral stent exchanging a 4.8 for a 6 F stent. Appropriate positioning was confirmed by fluoroscopy and cystoscopy.
== END 2024-06-08 11:21 | disposition home or self-care (01) ==
PROVIDERS: PCP Family Medicine; Visit Provider Urology
PROC: (CPT 52352; principal; 2024-06-08 09:30)
DX: N20.0 Calculus of kidney (principal); F41.9 Anxiety disorder, unspecified; I10 Essential (primary) hypertension; E55.9 Vitamin D deficiency, unspecified; E78.5 Hyperlipidemia, unspecified; F31.9 Bipolar disorder, unspecified; G47.33 Obstructive sleep apnea (adult) (pediatric); G20.A1 Parkinson's disease without dyskinesia, without mention of fluctuations; F02.80 Dementia in other diseases classified elsewhere, unspecified severity, without behavioral disturbance, psychotic disturbance, mood disturbance, and anxiety; E66.9 Obesity, unspecified; Z68.30 Body mass index [BMI] 30.0-30.9, adult; Z79.1 Long term (current) use of non-steroidal anti-inflammatories (NSAID); Z98.890 Other specified postprocedural states; Z90.11 Acquired absence of right breast and nipple; Z85.3 Personal history of malignant neoplasm of breast; Z86.79 Personal history of other diseases of the circulatory system; Z86.73 Personal history of transient ischemic attack (TIA), and cerebral infarction without residual deficits; Z80.41 Family history of malignant neoplasm of ovary
CPT/HCPCS: 52356; 82365; 88300; C1769; C1894; C2617; J0690; J1100; J2405; J2704; J3010; J7120

== ENCOUNTER 2024-08-30 11:12 | Outpatient (CLI) | payer MEDICARE, OTHER, SELFPAY ==
--- NOTE | 2024-08-30 11:30 | ECG_ITS ---
Test Date: 2024-08-30 11:50:27 Measurements Intervals [place] Rate: 61 P: -8 SD: 122 QRS: -31 QRSD: 101 T: 14 QT: 449 QTc: 454 Interpretive Statements SINUS RHYTHM WITH SINUS ARRHYTHMIA MARKED LEFT AXIS DEVIATION [QRS AXIS < -30] POSSIBLE ANTERIOR MYOCARDIAL INFARCTION [30 ms Q WAVE IN V3/V4, OR R < 0.2 mV IN V4], PROBABLY OLD No previous ECG available for comparison Electronically Signed On 08-30-2024 14:46:10 CAREER ORIENTATION TEACHER by Emeka Mora M.D.
[2024-08-30 12:14] LABS: Anion Gap 1 mmol/L (4-12); Blood Urea Nitrogen 26 mg/dL (7-17); Calcium 9.4 mg/dL (8.4-10.2); Carbon Dioxide 35 mmol/L (22-30); Chloride 100 mmol/L (98-107); Estimated Glomerular Filt Rate 31; Glucose 113 mg/dL (65-110); Potassium 4.5 mmol/L (3.4-5.0); Sodium 136 mmol/L (137-145)
[2024-08-30 13:01] LABS: INR 0.9; Prothrombin Time 12.8 Seconds (11.1-14.7)
[2024-08-30 13:02] LABS: Partial Thromboplastin Time 29.6 Seconds (22.3-36.8)
== END 2024-08-30 11:13 | disposition home or self-care (01) ==
LOC: ANHSURGERY 11:19
PROVIDERS: Anesthesiology; PCP Family Medicine; Visit Provider Urology
DX: Z01.818 Encounter for other preprocedural examination (principal); N28.9 Disorder of kidney and ureter, unspecified; I10 Essential (primary) hypertension
CPT/HCPCS: 36415; 80048; 85610; 85730; 93005

== ENCOUNTER 2024-08-31 00:39 | Day surgery (SDC) | payer MEDICARE, OTHER, SELFPAY ==
--- NOTE | 2024-08-18 07:31 | P.HP_ITS ---
History of Present Illness History of Present Illness Consent: Risks, benefits, and alternatives have been discussed and questions answered. Patient agrees to proceed with procedure. Chief complaint: Right Renal Calculous Narrative: Karina Arroyo is a 73 year old female well known to our practice. She has a left renal staghorn calculus and a mass in her left kidney which he has opted not to treat surgically. In light of that we have opted to manage her left kidney and simply with chronic indwelling stent. She has increasing stone burden on the right, answer decision for cystoscopy with right ureteroscopy and laser lithotripsy with stone extraction. Review of Systems Review of Systems: All systems reviewed & are unremarkable except as noted in HPI and below PMFSH Past Medical History Medical History (Updated 07/05/24 @ 10:39 by Katelyn Blackman NP) Anxiety Bipolar affective disorder Breast cancer 03/2012 Cardiomegaly Chronic idiopathic constipation Dementia Dyslipidemia Essential (primary) hypertension History of CVA (cerebrovascular accident) History of right breast cancer Hyperlipidemia Hypertrophic obstructive cardiomyopathy Left renal mass Meniere disease PAM (obstructive sleep apnea) non compliant with CPAP Parkinson disease Renal calculus TIA (transient ischemic attack) Unspecified osteoarthritis, unspecified site Vitamin D deficiency Surgical History Surgical History (Updated 07/05/24 @ 10:38 by Katelyn Blackman NP) H/O total hysterectomy with bilateral salpingo-oophorectomy (BSO) (Unknown) History of breast surgery 03/2012 History of partial mastectomy 2011 Hx of section (Unknown) Hx of cholecystectomy Hx of total knee arthroplasty (Unknown) Family History Family History Father Family history of diabetes mellitus in first degree relative, Onset Age: 77 Mother Family history of malignant neoplasm of ovary, Onset Age: 62 Grandparent Diabetes mellitus, Onset Age: 80 Other Hypertension Social History Social History Social History: The patient is and she is retired. The patient lives with her Damon who is her durable power supervisor international reservations for healthcare. The patient is a full code. She is a lifelong nonsmoker. The patient tells me that she is retired from [employer]. She has 2 children. Smoking status: Never smoker Second hand tobacco smoke exposure: No Alcohol intake: never Substance use: never Substance use type: does not use Lack of Transportation: No Lack of Food: Never True Current Housing: I Have Housing Concerned About Future Housing: No Difficulty Paying Gas/Electric Bills: No Difficulty Paying for Meds: No Currently Unemployed: No Education: High School Diploma/GED Difficulty w/ Childcare or Family Care: No Living arrangements: with family Additional living arrangements comments: HUSB Spiritual care concerns: No Meds Home Medications and Allergies Home Medications Medication Instructions Recorded Confirmed Type diazepam 5 mg tablet 5 mg PO PRN PRN Anxiety 10/12/19 07/05/24 History lamotrigine 200 mg tablet 200 mg PO Q12H 10/12/19 07/05/24 History cariprazine 6 mg capsule (Vraylar) 6 mg PO QAM 05/26/21 07/05/24 History carbidopa 25 mg-levodopa 100 mg 1 tablet PO QID 06/16/21 07/05/24 History tablet cholecalciferol (vitamin D3) 50 50 mcg PO DAILY 12/29/21 07/05/24 History mcg (2,000 unit) capsule sertraline 100 mg tablet 200 mg PO QAM 06/21/22 07/05/24 History acetaminophen 500 mg tablet 1,000 mg PO Q6H PRN pain 1-3/fever 03/15/23 07/05/24 History memantine 28 mg capsule 28 mg PO QAM 03/16/23 07/05/24 History sprinkle,extended release 24hr docusate sodium 100 mg capsule 100 mg PO PRN PRN Constipation 10/14/23 07/05/24 History rosuvastatin 10 mg tablet 10 mg PO DAILY #90 tabs 02/10/24 07/05/24 Rx ibuprofen 200 mg tablet 600 mg PO Q6H PRN Pain 06/01/24 07/05/24 History ciprofloxacin HCl 500 mg tablet 500 mg PO Q12H #10 tabs 06/08/24 07/05/24 Rx hydrocodone 5 mg-acetaminophen 325 1 - 2 tablet PO Q6H PRN pain #20 06/08/24 07/05/24 Rx mg tablet tabs omeprazole 20 mg capsule,delayed 20 mg PO DAILY GERD #90 caps 07/05/24 07/05/24 Rx release ondansetron 4 mg disintegrating 4 mg PO Q6H PRN nausea and 07/05/24 07/05/24 Rx tablet vomiting #30 tabs polyethylene glycol 3350 17 17 g PO DAILY #510 grams 07/05/24 07/05/24 Rx gram/dose oral powder (Miralax) diltiazem HCl 240 mg 240 mg PO QAM #90 caps 07/31/24 Rx capsule,extended release 24 hr potassium chloride 10 mEq 10 meq PO DAILY #90 tabs 07/31/24 Rx tablet,extended release Allergies Allergy/AdvReac Type Severity Reaction Status Date / Time codeine AdvReac Intermediate Confusion, Verified 07/05/24 09:47 NAUSEA Exam Const: General: no acute distress Resp: Effort & Inspection: normal respiratory effort GI: Inspection: non-distended GI Palp: No abdominal tenderness and No Guarding due to palpation present (GI) Auscultation: normal bowel sounds Assessment and Plan Assessment and plan (1) Left renal mass: Code(s): N28.89 - Other specified disorders of kidney and ureter Status: Acute (2) Bilateral renal stones: Code(s): N20.0 - Calculus of kidney Status: Acute Assessment and Plan: * cystoscopy, bilateral ureteral stent exchange, right ureteroscopy with laser lithotripsy, stone extraction with possible retrograde pyelography
[2024-08-22 12:16] VITALS: BMI 28.5
--- NOTE | 2024-08-22 12:50 | PC.NURSE ---
Report to the Outpatient Waiting Room, entrance under the green pavilion located off [facility], at time _10:15AM on date __08/31/24 . Planned Procedure Time: __12:15PM .? Time changes happen often and if your time is changed the preop area will call you the afternoon before. - You and your visitor will be asked to self-screen and do not enter if you have any COVID symptoms. Please call surgeon if you need to reschedule. - A mask is optional within the hospital at this time. Patients may have clear liquids (water, carbonated beverages, clear teas, apple juice) until 3 hours prior to surgery with a maximum of 20 ounces. - No food from midnight until time of surgery and no smoking. This includes no chewing gum, candy or mints. Take only the following medications with a SIP of water on the morning of surgery: __CARBIDOPA-LEVODOPA, DILTIAZEM, LAMOTRIGINE, SERTRALINE, VRAYLAR AND DIAZEPAM NEEDED. DO NOT STOP ANY OF YOUR OTHER PRESCRIPTION MEDICATIONS PRIOR TO SURGERY EXCEPT THE FOLLOWING Medications to discontinue per physician ___HOLD IBUPROFEN AND VITAMINS/SUPPLEMENTS 7 DAYS PRE-OP PER DR RUSSELL Date to take last dose 08/23/24 Please no make-up, nail ghanaian, hairspray, perfume, deodorant, or body powder the day of surgery.? No jewelry (including any body piercings) or valuables the day of surgery, leave them at home.? Please take a shower or bath the night before, or the morning of, surgery with an antibacterial soap.? Wear comfortable, loose fitting clothing.? - Jewelry must be removed prior to entering the operating room.? Rings and piercings that are not removed may be cut off. - The hospital will not accept responsibility for valuables.? - Please leave all valuables, including medications, at home the day of surgery. If you are going home after surgery, a licensed package car driver must drive you home.? - NO public transportation without another adult if you receive anesthesia. - We recommend that an adult stay with you for 24 hours following discharge. - We also recommend that you do not drive, make important decision, drink alcoholic beverages, or take any drugs that were not prescribed by your health care provider for at least 24 hours after your discharge time. Follow any additional instructions given to you from your surgeon. Telephone instructions given to ____PATIENT'S , DBRYL and asked if any additional questions and then verbalized understanding. Patient advised to call surgeon office or pre surgery nurse liaison [phone] if any additional questions.
[2024-08-31] VITALS (8 sets, daily range): BP systolic 116–148; BP diastolic 58–72; PULSE 52–80; RESP 15–19; TEMP 36.3–36.8; O2SAT 93–99
--- NOTE | ~2024-08-31 | XR_ITS ---
EXAMINATION: XR retrograde pyelo w/stent BI DATE: 08/31/2024 12:36 INDICATION: Bilateral internal ureteral stent exchange TECHNIQUE: Fluoroscopic images from a bilateral internal ureteral stent exchange are submitted for re view. 61 of fluoroscopy time. 72 fluoroscopic images FINDINGS: There are bilateral double-J internal ureteral stent projecting in expected position, with proximal C ope loop at the level of the renal pelvis and distal loop in the pelvis within the bladder lumen. Lef t renal stones are present. IMPRESSION: 1. Bilateral internal ureteral stent exchange. Please refer to real-time procedural findings for de tails. Reviewed, dictated and finalized at location B. MONITOR IMPRESSION: 1. Bilateral internal ureteral stent exchange. Please refer to real-time proc edural findings for details.
--- NOTE | 2024-08-31 06:08 | WPDHPUPDATE1 ---
History and Physical Update Update Date/Time: 08/31/24 06:08 History and Physical has been reviewed, including an updated exam of the patient. There are NO changes in the patient's condition. Risks, benefits, and alternatives have been discussed and questions answered. Patient agrees to proceed with procedure.
--- NOTE | 2024-08-31 11:23 | P.PNAN_ITS ---
Anes - Initial Pre Proc Eval Procedure: Operation Date: 08/31/24 12:15 Proposed Procedures p Cystoscopy, Right Ureteroscopy, Holmium Laser Lithotripsy, Right Stone Extraction, Possible Right Retrograde Pyelogram, Bilateral Ureteral Stent Exchange - Brian Pires MD Date/Time: 08/31/24 11:23 Surgeon: Brian Pires MD Pre Op Diagnosis: Right Renal Calculous Patient Data Age: 74 Gender: F Height: 1.5 m Weight: 60.3 kg Last Vital Signs Temp 36.8 C 08/31/24 10:45 Pulse 80 08/31/24 10:45 Resp 16 08/31/24 10:45 BP 124/72 08/31/24 10:45 Pulse Ox 96 08/31/24 10:45 Allergies Allergy/AdvReac Type Severity Reaction Status Date / Time codeine AdvReac Intermediate Confusion, Verified 08/31/24 10:46 NAUSEA Home Medications ?Medication ?Instructions ?Recorded ?Confirmed ?Type diazepam 5 mg tablet 5 mg PO PRN PRN Anxiety 10/12/19 08/31/24 History lamotrigine 200 mg tablet 200 mg PO Q12H 10/12/19 08/31/24 History cariprazine 6 mg capsule (Vraylar) 6 mg PO QAM 05/26/21 08/31/24 History carbidopa 25 mg-levodopa 100 mg 1 tablet PO QID 06/16/21 08/31/24 History tablet cholecalciferol (vitamin D3) 50 50 mcg PO DAILY 12/29/21 08/31/24 History mcg (2,000 unit) capsule sertraline 100 mg tablet 200 mg PO QAM 06/21/22 08/31/24 History acetaminophen 500 mg tablet 1,000 mg PO Q6H PRN pain 1-3/fever 03/15/23 08/22/24 History memantine 28 mg capsule 28 mg PO QAM 03/16/23 08/31/24 History sprinkle,extended release 24hr docusate sodium 100 mg capsule 100 mg PO PRN PRN Constipation 10/14/23 08/22/24 History rosuvastatin 10 mg tablet 10 mg PO DAILY #90 tabs 02/10/24 08/31/24 Rx ibuprofen 200 mg tablet 600 mg PO Q6H PRN Pain 06/01/24 08/22/24 History hydrocodone 5 mg-acetaminophen 325 1 - 2 tablet PO Q6H PRN pain #20 06/08/24 08/22/24 Rx mg tablet tabs omeprazole 20 mg capsule,delayed 20 mg PO DAILY GERD #90 caps 07/05/24 08/31/24 Rx release ondansetron 4 mg disintegrating 4 mg PO Q6H PRN nausea and 07/05/24 08/31/24 Rx tablet vomiting #30 tabs polyethylene glycol 3350 17 17 g PO DAILY #510 grams 07/05/24 08/22/24 Rx gram/dose oral powder (Miralax) diltiazem HCl 240 mg 240 mg PO QAM #90 caps 07/31/24 08/31/24 Rx capsule,extended release 24 hr potassium chloride 10 mEq 10 meq PO DAILY #90 tabs 07/31/24 08/22/24 Rx tablet,extended release phenazopyridine 200 mg tablet 200 mg PO Q8H PRN pain 08/22/24 08/22/24 History Patient hx anesthesia problems: none Family hx anesthesia problems: none Results Review: All pre-operative results and documents have been reviewed as part of the pre- operative evaluation. [facility] Past Medical History Medical History Chronic idiopathic constipation Vitamin D deficiency History of CVA (cerebrovascular accident) Dementia PAM (obstructive sleep apnea) non compliant with CPAP Hyperlipidemia TIA (transient ischemic attack) Cardiomegaly Parkinson disease Hypertrophic obstructive cardiomyopathy Bipolar affective disorder History of right breast cancer Left renal mass Renal calculus Meniere disease Breast cancer 03/2012 Dyslipidemia Essential (primary) hypertension Anxiety Unspecified osteoarthritis, unspecified site Surgical History Surgical History Hx of cholecystectomy Hx of total knee arthroplasty (Unknown) H/O total hysterectomy with bilateral salpingo-oophorectomy (BSO) (Unknown) Hx of section (Unknown) History of partial mastectomy 2011 History of breast surgery 03/2012 Family History Family History Father Family history of diabetes mellitus in first degree relative, Onset Age: 77 Mother Family history of malignant neoplasm of ovary, Onset Age: 62 Grandparent Diabetes mellitus, Onset Age: 80 Other Hypertension Social History Social History Social History: The patient is and she is retired. The patient lives with her Damon who is her durable power assistant professor nurse education for healthcare. The patient is a full code. She is a lifelong nonsmoker. The patient tells me that she is retired from [employer]. She has 2 children. Smoking status: Never smoker Second hand tobacco smoke exposure: No Alcohol intake: never Substance use: never Substance use type: does not use Lack of Transportation: No Lack of Food: Never True Current Housing: I Have Housing Concerned About Future Housing: No Difficulty Paying Gas/Electric Bills: No Difficulty Paying for Meds: No Currently Unemployed: No Education: High School Diploma/GED Difficulty w/ Childcare or Family Care: No Living arrangements: with family Additional living arrangements comments: HUSB Spiritual care concerns: No Anes - Eval Final PreProcedure Day of Procedure 08/31/24 11:23 Patient weight: overweight Heart: regular rate and rhythm Lungs: decreased breath sounds Airway: Mallampati scale class II Neurological: alert and oriented Last oral intake: >/= 8 hours ASA classification: IV Emergent: no Anesthetic plan: proceed Anesthesia type and monitoring: general LMA and standard monitoring Results Review: All pre-operative results and documents have been reviewed as part of the pre- operative evaluation. Informed Consent: The patient's anesthetic plan and its attendant risks and benefits were discussed with the patient/family/POA. Questions were solicited and answers provided to the satisfaction of the patient/family/POA.
[2024-08-31] MEDS: ceFAZolin 2 GM/D5W 50 ML 2 GM/50 ML BAG IVPB (11:28)
[2024-08-31] MEDS: LACTATED RINGERS 1,000 ML 30 ML IV CONT (11:30)
[2024-08-31] MEDS: LIDOCAINE 2% GEL UROJET 10 ML PKG MUCOUS MEM (11:56)
--- NOTE | 2024-08-31 12:33 | W.PM.PROC2 ---
Procedure Note - Detailed Date of Procedure 08/31/24 Pre-op Diagnosis Bilateral Renal Calculi Post-op Diagnosis Same Procedure Performed Cystoscopy, bilateral ureteral stent exchange, right retrograde pyelography, right ureteroscopy with laser lithotripsy renal calculi Surgeon Brian Pires MD Anesthesia General Description of Procedure Patient is brought to the operative suite she was prepped draped in routine sterile fashion while dorsal lithotomy position after the uneventful induction of a general LMA anesthetic. Cystoscopy was undertaken with a 21 F rigid cystoscope. Both ureteral stents are extracted with ease. I placed a 6 F variable length stent in her left renal pelvis with the proximal coil in the renal pelvis and the distal coil in the bladder. This was placed over 0.035 in glidewire. On the right side I dilated the ureter with an 8 F 10 F dilator and placed a 11 F/ 13 F access sheath with a safety wire in place. Using a 7.5 F flexible ureteral scope she has several stones in the right kidney which were fractured using a 200 micron Italo laser fiber. Stone fragments were estimated to be less than 3 mm throughout. Several fragments washed spontaneously down the access sheath. I did not use a basket to extract any stone specifically. Ureteral scope was removed and a 4.8 F variable length stent was placed on the right. Patient tolerated the procedure well was taken recovery room good condition. Pathology None sent Complications No immediate complications Condition Stable
== END 2024-08-31 14:45 | disposition home or self-care (01) ==
PROVIDERS: PCP Family Medicine; Visit Provider Urology
PROC: (CPT 52352; principal; 2024-08-31 12:15)
DX: N20.0 Calculus of kidney (principal); N28.89 Other specified disorders of kidney and ureter; E78.5 Hyperlipidemia, unspecified; I10 Essential (primary) hypertension; G47.33 Obstructive sleep apnea (adult) (pediatric); F41.9 Anxiety disorder, unspecified; F31.9 Bipolar disorder, unspecified; K59.04 Chronic idiopathic constipation; G20.A1 Parkinson's disease without dyskinesia, without mention of fluctuations; F03.90 Unspecified dementia, unspecified severity, without behavioral disturbance, psychotic disturbance, mood disturbance, and anxiety; I42.1 Obstructive hypertrophic cardiomyopathy; E55.9 Vitamin D deficiency, unspecified; M19.90 Unspecified osteoarthritis, unspecified site; Z79.1 Long term (current) use of non-steroidal anti-inflammatories (NSAID); Z79.891 Long term (current) use of opiate analgesic; Z98.890 Other specified postprocedural states; Z90.49 Acquired absence of other specified parts of digestive tract; Z86.79 Personal history of other diseases of the circulatory system; Z85.3 Personal history of malignant neoplasm of breast; Z86.73 Personal history of transient ischemic attack (TIA), and cerebral infarction without residual deficits; Z80.41 Family history of malignant neoplasm of ovary
CPT/HCPCS: 52356; 74420; C1769; C1894; C2617; J0690; J2405; J2704; J3010; J7120; Q9966

== ENCOUNTER 2024-10-04 09:01 | Outpatient (CLI) | payer MEDICARE, OTHER, SELFPAY ==
--- NOTE | ~2024-10-04 | CT_ITS ---
EXAMINATION: CT chest abdomen pelvis w con DATE: 10/04/2024 09:31 INDICATION: Abnormal weight loss. Epigastric abdominal pain. Atypical chest pain. TECHNIQUE: Computed tomography (CT) of the chest, abdomen, and pelvis was performed with 100 mL Omnip aque 350 intravenous contrast. Automated exposure control and iterative reconstruction technique were employed. The dose-length product was 345.62 mGy-cm. COMPARISON: CT abdomen and pelvis 03/03/2023, chest CT 06/21/2022, 07/12/18 FINDINGS: CHEST CT: There is mild scarring in paraspinal right lower lobe. There is mild peripheral radiation fibrosis in right upper lobe and right middle lobe. There is an 8 mm nodule in right lower lobe, stable from . There is a 3 mm nodule in right upper lobe. There are multiple nodules in left upper lobe car uring up to 4 mm. These nodules are all stable from 03/03/23. No pleural effusion. There are nodules i n the thyroid measuring up to 7 mm, likely not clinically significant. Cardiomegaly is noted. There a re coronary artery calcifications. No pericardial effusion. There are surgical clips in right breast. There is mild thoracic spondylosis. There are chronic compression fractures of T4, T5, and T6. ABDOMEN/PELVIS CT: There is mild intrahepatic biliary duct dilatation, likely secondary to cholecystectomy. The spleen, pancreas, and adrenal glands are normal. There is severe right hydronephrosis. There is cortical thin rocio of the kidneys. There are greater than 10 stones in right kidney measuring up to 5 mm. There is a right internal ureteral stent in expected position. There is a left internal ureteral stent in expe cted position. There is a 9 mm stone in mid left ureter. There are stones in left kidney measuring up to 2.2 cm including a staghorn calculus. There is a 4.5 cm enhancing mass in left kidney, stable fro m 03/03/23. There is a 2.2 cm enhancing mass in left kidney, stable from 03/03/23. There is diverticulo sis of the colon without evidence of diverticulitis. There are no dilated loops of bowel. The appendi x is not visualized. There are no pathologically enlarged lymph nodes. There is no free intraperitone al fluid. There is mild lumbar spondylosis. IMPRESSION: 1. Two stable left kidney masses, consistent with renal cell carcinoma. 2. Severe right hydronephrosis with right internal ureteral stent in expected position. Multiple nono bstructing right kidney stones. 3. Stone in mid left ureter with left internal ureteral stent in expected position. Nonobstructing le ft kidney stones including a staghorn calculus. Reviewed, dictated and finalized at location B. CYCLE ASSESSMENT ANALYST IMPRESSION: 1. Two stable left kidney masses, consistent with renal cell carcinoma. 2. Severe right hydronephrosis with right internal ureteral stent in expected p osition. Multiple nonobstructing right kidney stones. 3. Stone in mid left ureter with left internal ureteral stent in expected posit ion. Nonobstructing left kidney stones including a staghorn calculus.
[2024-10-04 09:24] LABS: Estimated Glomerular Filt Rate 40
== END 2024-10-04 09:02 | disposition home or self-care (01) ==
PROVIDERS: PCP Family Medicine; Visit Provider Nurse Practitioner
DX: R63.4 Abnormal weight loss (principal); R10.13 Epigastric pain; R11.0 Nausea; R07.89 Other chest pain
CPT/HCPCS: 71260; 74177; Q9967

== ENCOUNTER 2024-11-14 11:15 | Outpatient (CLI) | payer MEDICARE, OTHER, SELFPAY ==
[2024-11-14 12:21] LABS: Partial Thromboplastin Time 29.7 Seconds (22.3-36.8); Prothrombin Time 13.1 Seconds (11.1-14.7)
[2024-11-14 12:51] LABS: Anion Gap 10 mmol/L (4-12); Blood Urea Nitrogen 23 mg/dL (7-17); Calcium 9.2 mg/dL (8.4-10.2); Carbon Dioxide 27 mmol/L (22-30); Chloride 104 mmol/L (98-107); Estimated Glomerular Filt Rate 48; Glucose 161 mg/dL (65-110); Potassium 4.1 mmol/L (3.4-5.0); Sodium 141 mmol/L (137-145)
== END 2024-11-14 11:16 | disposition home or self-care (01) ==
LOC: ANHSURGERY 11:20
PROVIDERS: Anesthesiology; PCP Family Medicine; Visit Provider Urology
DX: Z01.818 Encounter for other preprocedural examination (principal); N28.9 Disorder of kidney and ureter, unspecified
CPT/HCPCS: 36415; 80048; 85610; 85730

== ENCOUNTER 2024-11-23 00:35 | Day surgery (SDC) | payer MEDICARE, OTHER, SELFPAY ==
--- NOTE | 2024-11-06 13:34 | PC.NURSE ---
Report to the Outpatient Waiting Room, entrance under the green pavilion located off [facility], at time __7:30 AM on date 11/23/24 . Planned Procedure Time: _9:30 AM .? Time changes happen often and if your time is changed the preop area will call you the afternoon before. - You and your visitor will be asked to self-screen and do not enter if you have any COVID symptoms. Please call surgeon if you need to reschedule. - A mask is optional within the hospital at this time. Patients may have clear liquids (water, carbonated beverages, clear teas, apple juice) until 3 hours prior to surgery ( 6:30 AM) with a maximum of 20 ounces. - No food from midnight until time of surgery and no smoking, or chewing tobacco (or any form of nicotine). No chewing gum, candy or mints. - Infants may have breast milk until 4 hours before surgery, infant formula 6 hours prior to surgery. - Children will be allowed to drink immediately following surgery.? If applicable, please bring a bottle or sippy cup to assist with drinking. Juice, water, soda, and popsicles are readily available.? For infants on formula, please bring formula the day of surgery.? Pacifiers are allowed. Take only the following medications with a SIP of water on the morning of surgery: __SERTRALINE_,DILTIAZEM,VRAYLAR_,CARBIDOPA-LEVODOPA,LAMOTRIGINE,__MEMANTINE_DIAZEPAM IF NEEDED DO NOT STOP ANY OF YOUR OTHER PRESCRIPTION MEDICATIONS PRIOR TO SURGERY EXCEPT THE FOLLOWING Medications to discontinue per physician ____SPOUSE [place] HOLD VITAMINS 7 DAYS PRE OP PER DR RUSSELL Date to take last dose____11/19/24 Please no make-up, nail central african, hairspray, perfume, deodorant, or body powder the day of surgery.? No jewelry (including any body piercings) or valuables the day of surgery, leave them at home.? Please take a shower or bath the night before, or the morning of, surgery with an antibacterial soap.? Wear comfortable, loose fitting clothing.? Children are encouraged to wear pajamas. - Jewelry must be removed prior to entering the operating room.? Rings and piercings that are not removed may be cut off. - The hospital will not accept responsibility for valuables.? - Please leave all valuables, including medications, at home the day of surgery. If you are going home after surgery, a licensed warehouse delivery driver must drive you home.? - NO public transportation without another adult if you receive anesthesia. - We recommend that an adult stay with you for 24 hours following discharge. - We also recommend that you do not drive, make important decision, drink alcoholic beverages, or take any drugs that were not prescribed by your health care provider for at least 24 hours after your discharge time. For Pediatric surgeries, we recommend two adults accompany the child home. Follow any additional instructions given to you from your surgeon. Telephone instructions given to __SPOUSE ENRIQUE and asked if any additional questions and then verbalized understanding. Patient advised to call surgeon office or pre surgery nurse liaison [phone] if any additional questions.
[2024-11-06 13:51] VITALS: BMI 27.3
--- NOTE | 2024-11-10 08:22 | PM.HPGS ---
History of Present Illness History of Present Illness Consent: Risks, benefits, and alternatives have been discussed and questions answered. Patient agrees to proceed with procedure. Chief complaint: right renal calculus Narrative: Karina Arroyo is a 73 year old female well known to our practice. She has a left renal staghorn calculus and a mass in her left kidney which he has opted not to treat surgically. In light of that we have opted to manage her left kidney and simply with chronic indwelling stent. She has increasing stone burden on the right, answer decision for cystoscopy with right ureteroscopy and laser lithotripsy with stone extraction. Stents were last changed on 08/31/2025. On that occasion we did right ureteroscopy with laser lithotripsy and cleared stones on her right side. Review of Systems Review of Systems: All systems reviewed & are unremarkable except as noted in HPI and below PMFSH Past Medical History Medical History Chronic idiopathic constipation Vitamin D deficiency History of CVA (cerebrovascular accident) Dementia PAM (obstructive sleep apnea) non compliant with CPAP Hyperlipidemia TIA (transient ischemic attack) Cardiomegaly Parkinson disease Hypertrophic obstructive cardiomyopathy Bipolar affective disorder History of right breast cancer Left renal mass Renal calculus Meniere disease Breast cancer 03/2012 Dyslipidemia Essential (primary) hypertension Anxiety Unspecified osteoarthritis, unspecified site Surgical History Surgical History Hx of cholecystectomy Hx of total knee arthroplasty (Unknown) H/O total hysterectomy with bilateral salpingo-oophorectomy (BSO) (Unknown) Hx of section (Unknown) History of partial mastectomy 2011 History of breast surgery 03/2012 Family History Family History Father Family history of diabetes mellitus in first degree relative, Onset Age: 77 Mother Family history of malignant neoplasm of ovary, Onset Age: 62 Grandparent Diabetes mellitus, Onset Age: 80 Other Hypertension Social History Social History Social History: The patient is and she is retired. The patient lives with her Damon who is her durable power refrigeration mechanic helper for healthcare. The patient is a full code. She is a lifelong nonsmoker. The patient tells me that she is retired from [employer]. She has 2 children. Smoking status: Never smoker Second hand tobacco smoke exposure: No Alcohol intake: never Substance use: never Substance use type: does not use Lack of Transportation: No Lack of Food: Never True Current Housing: I Have Housing Concerned About Future Housing: No Difficulty Paying Gas/Electric Bills: No Difficulty Paying for Meds: No Currently Unemployed: No Education: High School Diploma/GED Difficulty w/ Childcare or Family Care: No Living arrangements: with family [facility] Spiritual care concerns: No Meds Home Medications and Allergies Home Medications ?Medication ?Instructions ?Recorded ?Confirmed ?Type diazepam 5 mg tablet 5 mg PO PRN PRN Anxiety 10/12/19 11/06/24 History lamotrigine 200 mg tablet 200 mg PO Q12H 10/12/19 11/06/24 History cariprazine 6 mg capsule (Vraylar) 6 mg PO QAM 05/26/21 11/06/24 History carbidopa 25 mg-levodopa 100 mg 1 tablet PO QID 06/16/21 11/06/24 History tablet cholecalciferol (vitamin D3) 50 50 mcg PO DAILY 12/29/21 11/06/24 History mcg (2,000 unit) capsule sertraline 100 mg tablet 200 mg PO QAM 06/21/22 11/06/24 History acetaminophen 500 mg tablet 1,000 mg PO Q6H PRN pain 1-3/fever 03/15/23 11/06/24 History memantine 28 mg capsule 28 mg PO QAM 03/16/23 11/06/24 History sprinkle,extended release 24hr docusate sodium 100 mg capsule 100 mg PO PRN PRN Constipation 10/14/23 11/06/24 History diltiazem HCl 240 mg 240 mg PO QAM #90 caps 07/31/24 11/06/24 Rx capsule,extended release 24 hr potassium chloride 10 mEq 10 meq PO DAILY #90 tabs 07/31/24 11/06/24 Rx tablet,extended release phenazopyridine 200 mg tablet 200 mg PO Q8H PRN pain 08/22/24 11/06/24 History rosuvastatin 10 mg tablet 10 mg PO DAILY #90 tabs 09/19/24 11/06/24 Rx famotidine 40 mg tablet (Pepcid) 40 mg PO BID #60 tabs 09/20/24 11/06/24 Rx ondansetron HCl 4 mg tablet 4 mg PO Q8H PRN nausea and 09/20/24 11/06/24 Rx vomiting #60 tabs polyethylene glycol 3350 17 17 g PO DAILY #510 grams 09/20/24 11/06/24 Rx gram/dose oral powder (Miralax) Allergies Allergy/AdvReac Type Severity Reaction Status Date / Time codeine AdvReac Intermediate Confusion, Verified 11/06/24 13:36 NAUSEA Exam Const: General: no acute distress Resp: Effort & Inspection: normal respiratory effort GI: Inspection: non-distended GI Palp: No abdominal tenderness and No Guarding due to palpation present (GI) Auscultation: normal bowel sounds Assessment and Plan Assessment and plan (1) Bilateral renal stones: Code(s): N20.0 - Calculus of kidney Status: Acute Assessment and Plan: Cystoscopy, bilateral ureteral stent exchange, possible right stent removal
--- NOTE | ~2024-11-23 | XR_ITS ---
EXAMINATION: XR abdomen/kub 1V DATE: 11/23/2024 08:23 INDICATION: Kidney stone. TECHNIQUE: A supine view of the abdomen was obtained. COMPARISON: Abdomen radiographs 02/17/24, CT abdomen and pelvis 10/04/2024 FINDINGS: There are no dilated loops of bowel. There is a large volume of stool in the colon. There a re bilateral internal ureteral stents in expected positions. There are numerous stones in the right r enal pelvis measuring up to 6 mm. There are numerous stones in left kidney and left renal pelvis car uring up to 2.8 cm. There is an 8 mm stone in mid left ureter. There are phleboliths in the pelvis. IMPRESSION: 1. Stones in the right renal pelvis, left kidney and left renal pelvis, and mid left ureter with bila teral internal ureteral stents in expected positions. Reviewed, dictated and finalized at location B. IMPRESSION: 1. Stones in the right renal pelvis, left kidney and left renal pelvis, and mid left ureter with bilateral internal ureteral stents in expected positions.
--- NOTE | ~2024-11-23 | XR_ITS ---
EXAMINATION: XR retrograde pyelo w/stent BI DATE: 11/23/2024 09:48 INDICATION: Bilateral kidney stones. TECHNIQUE: 64 intraoperative fluoroscopic views of the abdomen and pelvis were obtained. I was not pr esent. Fluoroscopy exposure time was 37 seconds. COMPARISON: CT abdomen and pelvis 10/04/2024 FINDINGS: The windows vmware administrator images demonstrates bilateral internal ureteral stents. There are stones in the k idneys and left ureter. The bilateral retrograde pyelograms demonstrate bilateral hydronephrosis. The re are new ureteral stents. IMPRESSION: 1. Stones in the kidneys and left ureter with bilateral hydronephrosis. 2. Bilateral internal ureteral stent exchange. Reviewed, dictated and finalized at location B.
--- OUTSIDE RECORDS SUMMARY | 2024-11-23 00:39 | XMS_ITS | Clinical Summary ---
Author Organization [facility] [address] Address [address] [place] [address] Care Team Providers Care Needle Straightener Name Role Phone Mando De Los Santos MD Primary Care Provider Mike Robbins MD Unavailable [phone] Allergies Active Allergy Reactions Criticality Noted Date Comments Codeine Nausea only Low 11/18/2017 Opioids - Morphine Analogues Nausea only Low 2012 Medications diazePAM (VALIUM) 5 mg tablet Take 5 mg by mouth 2 (two) times a day. 1 8 Active dilTIAZem XR (dilTIAZem CD) 240 mg 24 hr capsule Take 240 mg by mouth daily. Active rosuvastatin (CRESTOR) 10 mg tablet Take 1 tablet (10 mg total) by mouth daily. 30 tablet 11 8 Active aspirin 81 mg tabletIndications:Ce rebral Thromboembolism Prevention Take 1 tablet (81 mg total) by mouth daily. 30 tablet 11 8 Active lamoTRIgine (LaMICtal) 25 mg tablet Take 2 tablets (50 mg total) by mouth daily. 60 tablet 11 8 Active memantine-donepezil 14-10 mg capsule,sprinkle,ER 24hr Take 14 mg by mouth daily 30 capsule 04/30/201 9 Active cariprazine (VRAYLAR) 4.5 mg capsule Take 4.5 mg by mouth daily Active Active Problems Problem Noted Date Diagnosed Date Malignant neoplasm of upper- outer quadrant of right breast in female, estrogen receptor positive 12/23/2018 SOB (shortness of breath) 12/20/2018 Other fatigue 12/20/2018 Nonrheumatic aortic valve stenosis 05/26/2018 Meniere's disease of left ear 03/03/2018 Sensorineural hearing loss, asymmetrical 018 HOCM (hypertrophic obstructive cardiomyopathy) 0 02/11/2018 Orthostasis 02/11/2018 Morbid obesity with BMI of 45.0-49.9, adult 09/2017 PAM (obstructive sleep apnea) 02/11/2018 History of CVA (cerebrovascular accident) 2017 Resolved Problems Problem Noted Date Diagnosed Date Resolved Date 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 with restricted hearing of right ear 02/18/2018 03/03/2018 Mitral valve stenosis and ao rtic valve stenosis 02/11/2018 12/20/2018 Medical History Medical History Date Comments HL (hearing loss) Family History Medical History Relation Name Comments Diabetes Father Heart attack Father Hyperlipidemia Father Cancer Mother Hyperlipidemia Mother Stroke Paternal Grandfather Diabetes Paternal Grandmother Relation Name Status Comments Father Mother Paternal Grandfather Paternal Grandmother Social History Tobacco Use Types Packs/Day Years Used Date Smoking Tobacco: Passive Smo ke Exposure - Never Smoker Smokeless Tobacco: Never Alcohol Use Standard Drinks/Week Comments No 0 (1 standard drink = 0.6 oz pur e alcohol) Personal Safety Answer Date Recorded Getting School Help Needed Not on file 11/27 Comments Unknown Sex and Gender Information Value Date Recorded Sex Assigned at Not on file Legal Sex Female 11:57 AM CENTRAL SERVICE TECH Gender Identity Not on file Sexual Orientation Not on file Obstetrics History Last Filed Vital Signs Vital Sign Reading Time Taken Comments Blood Pressure 102/64 01/13/2019 11:16 AM CDT Pulse 57 01/13/2019 11:16 AM CDT Temperature 37 C (98.6 F) 05/11/2017 1:51 PM CDT Respiratory Rate - - Oxygen Saturation 91% 01/13/2019 11:16 AM CDT Inhaled Oxygen Concentration - - Weight 100.7 kg (222 lb) 01/13/2019 11:16 AM CDT Height 152.4 cm (5') 01/13/2019 11:16 AM CDT Body Mass Index 43.36 01/13/2019 11:16 AM CDT Plan of Treatment Not on file Insurance Spare Backup [facility] MEDICARE [facility] CHOICE PLUS [facility] HMO/PPO Address: [address] [address] [place] [address] Advance Directives For more information, please contact: [phone] Documents on File Type Date Recorded Patient House Officer Expl anation ADVANCE DIRECTIVE 01/08/2015 12:00 AM ALESIA Schreiber OF LEAD QUALITY CONTROL TECHNICIAN FINANCIAL/MEDICAL Care Teams Needle Straightener Relationship Specialty Start Date End Date Mando De Los Santos MD PCP - General Family Practice 02/11/18 Mike Robbins MD Medical Oncologist/Health Information Administrator Hematology and Oncology 12/14/18
--- OUTSIDE RECORDS SUMMARY | 2024-11-23 00:39 | XMS_ITS | Encounter Summary ---
Author Organization [facility] Facility Care Team Providers Care Human Resources Benefits Administrator Name Role Phone Kash Herrera MD Primary Care Provider [phone] Mando De Los Santos MD Primary Care Provider Unknown, Notinfile Primary Care Provider Unavail able Mando De Los Santos MD Primary Care Provider Mike Robbins MD Unavailable [phone] Encounter Details Date Type Department Care Team (Latest Contact Info) Description 04/29/2017 Orders Only [facility] CLINCONV ProviderMaylin MD [address] [place] [id number] Social History Tobacco Use Types Packs/Day Years Used Date Smoking Tobacco: Never Assessed Comments Unknown Sex and Gender Information Value Date Recorded Sex Assigned at Not on file Legal Sex Female 11:57 AM LOW PRESSURE FIRER Gender Identity Not on file Sexual Orientation Not on file documented as of this encounter Plan of Treatment Not on file documented as of this encounter Procedures Procedure Name Priority Date/Time Associated Diagnosis Comments SCAN - LABS 05/18/2017 12:00 AM CDT documented in this encounter Results * SCAN - LABS (05/18/2017 12:00 AM CDT) Narrative 05/18/2017 12:00 AM CDT Ordered by an unspecified provider. us Historical Provider Final Res ult documented in this encounter Visit Diagnoses Not on filedocumented in this encounter Care Teams Human Resources Benefits Administrator Relationship Specialty Start Date End Date Kash Herrera MD [address] [place] [address] PCP - General 01/17/15 11/17/17 Mando De Los Santos MD [address] [place] [address] PCP - General Family Practice 11/18/17 02/01/18 Unknown, Notinfile PCP - General 02/02/18 02/10/18 Mando De Los Santos MD [address] [place] [place] [address] PCP - General Family Practice 02/11/18 Mike Robbins MD Medical Oncologist/Hematologis t Hematology and Oncology 12/14/18 documented as of this encounter
--- OUTSIDE RECORDS SUMMARY | 2024-11-23 00:39 | XMS_ITS | Encounter Summary ---
Author Organization [facility] Healthcare Address [address] [place] [address] Care Team Providers Care Head Animal Keeper Name Role Phone Mando De Los Santos MD Primary Care Provider Unknown, Notinfile Primary Care Provider Unavail able Mando De Los Santos MD Primary Care Provider Mike Robbins MD Unavailable [phone] Encounter Details Date Type Department Care Team (Late st Contact Info) Description 11/20/2017 Orders Only [facility] Health Information Management [address] [place] [id number] Scanning, Provider Social History Tobacco Use Types Packs/Day Years Used Date Smoking Tobacco: Never Smokeless Tobacco: Never Alcohol Use Standard Drinks/Week Comments No 0 (1 standard drink = 0.6 oz pur e alcohol) Comments Unknown Sex and Gender Information Value Date Recorded Sex Assigned at Not on file Legal Sex Female 11:57 AM LENS MOUNTER Gender Identity Not on file Sexual Orientation Not on file documented as of this encounter Plan of Treatment Not on file documented as of this encounter Procedures Procedure Name Priority Date/Time Associated Diagnosis Comments SCAN - RADIOLOGY/IMAGING 11/20/2017 1:20 AM LENS MOUNTER SCAN - RADIOLOGY/IMAGING 11/20/2017 1:20 AM LENS MOUNTER SCAN - RADIOLOGY/IMAGING 11/20/2017 1:20 AM LENS MOUNTER SCAN - LABS 11/20/2017 1:20 AM LENS MOUNTER documented in this encounter Results * SCAN - LABS (11/20/2017 1:20 AM LENS MOUNTER) us Provider Scanning Final Result * SCAN - RADIOLOGY/IMAGING (11/20/2017 1:20 AM LENS MOUNTER) Anatomical Region Laterality Modality Other us Provider Scanning Final Result * SCAN - RADIOLOGY/IMAGING (11/20/2017 1:20 AM LENS MOUNTER) Anatomical Region Laterality Modality Other us Provider Scanning Final Result * SCAN - RADIOLOGY/IMAGING (11/20/2017 1:20 AM LENS MOUNTER) Anatomical Region Laterality Modality Other us Provider Scanning Final Result documented in this encounter Visit Diagnoses Not on filedocumented in this encounter Care Teams Head Animal Keeper Relationship Specialty Start Date End Date Mando De Los Santos MD PCP - General Family Practice 11/18/17 02/01/18 Unknown, Notinfile PCP - General 02/02/18 02/10/18 Mando De Los Santos MD PCP - General Family Practice 02/11/18 Mike Robbins MD Medical Oncologist/K 9 Police Officer Hematology and Oncology 12/14/18 documented as of this encounter
--- OUTSIDE RECORDS SUMMARY | 2024-11-23 00:39 | XMS_ITS | Referral Summary ---
Author Organization [facility] [employer] Address [address] [place] [address] Care Team Providers Care Impregnator Electrolytic Capacitors Name Role Phone Mando De Los Santos MD Primary Care Provider Source Comments [facility] [employer],non-owned Affiliates and Associated Physician Practices is amultiple site organization consisting of ambulatory clinics and hospital sitesin [place], [place], [place] and [place]. This disclosure is being madepursuant to the Care Everywhere program and may not contain all information available regarding this patient. Last updated 18.[facility] [employer] Allergies Active Allergy Reactions Criticality Noted Date Comments Codeine Nausea and/or Vomiting Low 11/18/2017 other [Other] Nausea and/or Vomiting Low 07/10/2013 Received name: Opioids - Morphine Analogues Medications * Be aware that medications may not be up to date on this document. Alwaysverify current medications with the patient. Medication Sig Dispensed Refills Start Date End Date Status VRAYLAR 4.5 MG capsule TK 1 C PO QAM 1 03/29/2019 Active diazePAM (VALIUM) 5 MG tablet TK 1 T PO QAM AND 1 T AT 3PM 03/28/2019 Active dilTIAZem coated beads 24hr (CARDIZEM CD) 240 MG capsule TK 1 C PO QD 1 01/30/2019 Acti ve lamoTRIgine (LAMICTAL) 200 MG tablet TK 1 T PO D IN THE MORNING 03/17/2019 Active memantine ER 24 hr (NAMENDA XR) 28 MG capsule TK ONE C PO QAM 1 03/28/2019 Active rosuvastatin (CRESTOR) 10 MG tablet TK 1 T PO QD HS 2 02/23/2019 Active aspirin (ASPIRIN) 81 MG tablet Take 81 mg by mouth once daily Active Multiple Vitamins-Minerals (CENTRUM SILVER) TABS Take 1 tablet by mouth daily with food Active carbidopa-levodopa (Sinemet) 25-100 MG tablet Take 1 (one) tablet by mouth 4 times daily 120 tablet 11 12/28/2022 Active Active Problems Problem Noted Date Diagnosed Date Abnormal weight loss 07/01/2020 Parkinson disease 07/12/2019 Basal ganglia stroke 07/12/2019 Unsteadiness 07/12/2019 Neuropathy Resolved Problems Problem Noted Date Diagnosed Date Resolved Date Myasthenia gravis 07/12/2019 Social History Tobacco Use Types Packs/Day Years Used Date Smoking Tobacco: Never Smokeless Tobacco: Never Alcohol Use Standard Drinks/Week Comments No 0 (1 standard drink = 0.6 oz pur e alcohol) Sex and Gender Information Value Date Recorded Sex Assigned at Not on file Gender Identity Not on file Sexual Orientation Not on file Last Filed Vital Signs Vital Sign Reading Time Taken Comments Blood Pressure 129/77 08/23/2019 8:38 AM ESTATE MANAGER Pulse 67 08/23/2019 8:38 AM ESTATE MANAGER Temperature - - Respiratory Rate - - Oxygen Saturation - - Inhaled Oxygen Concentration - - Weight 84.8 kg (187 lb) 08/23/2019 8:38 AM ESTATE MANAGER Height 152.4 cm (5') 08/23/2019 8:38 AM ESTATE MANAGER Body Mass Index 36.52 08/23/2019 8:38 AM ESTATE MANAGER Plan of Treatment Not on file Procedures Procedure Name Priority Date/Time Associated Diagnosis Comments HEMOGLOBIN A1C Routine 07/12/2019 11:04 AM CDT Gait abnormality from Last 3 Months or Most Recently Relevant to Health Maintenance Results * HEMOGLOBIN A1C (07/12/2019 11:04 AM CDT) [facility] Hemoglobin A1c 5.0 4.4 - 6.3 % 07/13/2019 9:15 AM [facility] Estimated Average Glucose 97 mg/dL 07/13/2019 9:15 AM [facility] Comment: HbA1c Interpretation: Treatment target values recommended by ADA and other clinical organizations should be used to evaluate metabolic control in patients. Treatment Target Values: Normal : < 5.7% Pre-diabetes: 5.7-6.4% Diabetes: Equal to or greater than 6.5% Reference: [place] [employer] Standards of Care in Diabetes -2014 In patients 70 years and older consider HbA1c target range of 7.0-7.5% Reference: Diabetes Mellitus in Older People: Position Statement on behalf of the International Association of Gerontology and Geriatrics (IAGG), the Diabetes Working Green Party for Older People (EDWPOP), and the International Task Force of Experts in Diabetes. Raymond Gautam et al. J [place] [employer] Association. 2012 Test results diagnostic of diabetes should be repeated for confirmation. The Sebia Capillary 2 assay for the measurement of HbA1c is a National Glycohemoglobin Standardization Program (NGSP)certified method. Blood BLOOD SPECIMEN / Unknown Lab Venipuncture / Unknown 07/12/2019 11:04 AM CDT 07/12/2019 11:46 AM CDT Yolette Aguiar MD LAB - CHEMISTRY [facility] Organization Address City/State/[facility] Co de Phone Number [address] [phone] from Last 3 Months or Most Recently Relevant to Health Maintenance Care Teams Impregnator Electrolytic Capacitors Relationship Specialty Start Date End Date Mando De Los Santos MD [address] [place] [address] PCP - General 04/13/19
--- OUTSIDE RECORDS SUMMARY | 2024-11-23 00:39 | XMS_ITS | Clinical Summary ---
Author Organization [facility] [employer] Address [address] [place] [address] Care Team Providers Care Director Of Restaurants Name Role Phone Mando De Los Santos MD Primary Care Provider Source Comments [facility] [employer],non-owned Affiliates and Associated Physician Practices is amultiple site organization consisting of ambulatory clinics and hospital sitesin [place], [place], [place] and [place]. This disclosure is being madepursuant to the Care Everywhere program and may not contain all information available regarding this patient. Last updated 18.[facility] [employer] Allergies Active Allergy Reactions Criticality Noted Date [...] Comments Blood Pressure 129/77 08/23/2019 8:38 AM REGULATORY LEADER Pulse 67 08/23/2019 8:38 AM REGULATORY LEADER Temperature - - Respiratory Rate - - Oxygen Saturation - - Inhaled Oxygen Concentration - - Weight 84.8 kg (187 lb) 08/23/2019 8:38 AM REGULATORY LEADER Height 152.4 cm (5') 08/23/2019 8:38 AM REGULATORY LEADER Body Mass Index 36.52 08/23/2019 8:38 AM REGULATORY LEADER Plan of Treatment Health Maintenance Due Date Last Done Comments BONE DENSITY TESTING 1949 COLOGUARD (AGES 45-75) - COL ON CA SCREENING 1949 COLON MONITORING 1949 COLONOSCOPY - COLON CA SCREENING 1949 CT COLONOGRAPHY - COLON CA SCREENING 1950 Colorectal Cancer Screening 1949 FIT - COLON CA SCREENING 1949 FLEX SIG - COLON CA SCREENING 1949 MEDICARE AWV 12 MONTHS 1949 HEPATITIS C SCREENING 08/15/1967 DTAP/TDAP/TD VACCINES (1 - Tdap) 1968 PNEUMOCOCCAL VACCINE 50+ (1 of 1 - PCV) 1999 ZOSTER VACCINE (1 of 2) 1999 MAMMOGRAM 01/22/2018 01/23/2016 SCREENING FOR DIABETES 07/12/2022 9, 07/12/2019 COVID-19 VACCINE (2023-2 5 season) 2024 INFLUENZA VACCINE (#1) 2024 Respiratory Syncytial Virus (RSV) Vaccine Pt: or over 60 yrs (1 - 1-dose 75+ series) 2024 DEPRESSION SCREENING 09/13/2024 HEPATITIS B VACCINE Aged Out No longe r eligible based on patient's age to complete this topic HIB VACCINE Aged Out No longer eligi ble based on patient's age to complete this topic HPV VACCINE Aged Out No longer eligi ble based on patient's age to complete this topic MENINGOCOCCAL (Group B) VACCINE SHARED DECISION-MAKING Aged Out No longer eligible based on patient's age to complete this topic MENINGOCOCCAL GROUPS A/C/Y/W VACCINE Aged Out No longer eligible b ased on patient's age to complete this topic Procedures Procedure Name Priority Date/Time Associated Diagnosis Comments HEMOGLOBIN A1C Routine 07/12/2019 11:04 AM CDT Gait abnormality from Last 3 Months or Most Recently Relevant to Health Maintenance Results * HEMOGLOBIN A1C (07/12/2019 11:04 AM CDT) Hemoglobin A1c 5.0 4.4 - 6.3 % 07/13/2019 9:15 AM CDT [facility] Estimated Average Glucose 97 mg/dL 07/13/2019 9:15 AM T [facility] Comment: HbA1c Interpretation: Treatment target values recommended by ADA and other clinical organizations should be used to evaluate metabolic control in patients. Treatment Target Values: Normal : < 5.7% Pre-diabetes: 5.7-6.4% Diabetes: Equal to or greater than 6.5% Reference: [place] [employer] Standards of Care in Diabetes -2014 In patients 70 years and older consider HbA1c target range of 7.0-7.5% Reference: Diabetes Mellitus in Older People: Position Statement on behalf of the International Association of Gerontology and Geriatrics (IAGG), the Diabetes Working Republican for Older People (EDWPOP), and the International Task Force of Experts in Diabetes. Raymond Gautam, et al. J [place] [employer] Association. 2012 Test results diagnostic of diabetes should be repeated for confirmation. The Sebia Capillary 2 assay for the measurement of HbA1c is a National Glycohemoglobin Standardization Program (NGSP)certified method. Blood BLOOD SPECIMEN / Unknown Lab Venipuncture / Unknown 07/12/2019 11:04 AM CDT 07/12/2019 11:46 AM CDT Yolette Aguiar MD LAB - CHEMISTRY [place] Organization Address City/State/ZIP Co de Phone Number [facility] [address] [phone] from Last 3 Months or Most Recently Relevant to Health Maintenance Care Teams Director Of Restaurants Relationship Specialty Start Date End Date Mando De Los Santos MD [address] [place] [address] PCP - General 04/13/19
--- OUTSIDE RECORDS SUMMARY | 2024-11-23 00:39 | XMS_ITS | Clinical Summary ---
Author Organization [facility] Address [address] [place] [address] Phone Care Team Providers Care Telecommunication Engineer Name Role Phone Mando De Los Santos MD Primary Care Provider Allergies Active Allergy Reactions Criticality Noted Date Comments Codeine Nausea and Vomiting Low 11/18/2017 Medications diazePAM (VALIUM) 5 mg tablet Take 5 mg by mouth. 10/18/2017 Active diltiaZEM (DILACOR XR) 240 mg Extended Release capsule Take 240 mg by mouth. Active OLANZapine-FLUo xetine (SYMBYAX) 3-25 mg Capsule Take 1 Capsule by mouth. Active VRAYLAR 3 mg Capsule capsule TK ONE C PO QAM 1 10/26/2018 Active rosuvastatin (CRESTOR) 10 mg tablet TK 1 T PO QD HS 2 08/31/2018 Active Active Problems Problem Noted Date Diagnosed Date Morbid obesity with body mass index of 40.0-49.9 11/04/2018 Malignant neoplasm of upper- outer quadrant of right breast in female, estrogen receptor positive 11/04/2018 SERM use (selective estrogen receptor modulator) 11/04/2018 History of external beam radiation therapy 11/04 Social History Tobacco Use Types Packs/Day Years Used Date Smoking Tobacco: Never Smokeless Tobacco: Never Alcohol Use Standard Drinks/Week Comments No 0 (1 standard drink = 0.6 oz pur e alcohol) Comments No Sex and Gender Information Value Date Recorded Sex Assigned at Not on file Legal Sex Female 10:00 AM CDT Gender Identity Not on file Sexual Orientation Not on file Last Filed Vital Signs Vital Sign Reading Time Taken Comments Blood Pressure 123/57 11/03/2018 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 Pulse 56 11/03/2018 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 Temperature 36.5 C (97.7 F) 11/03/2018 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 Respiratory Rate - - Oxygen Saturation 92% 11/03/2018 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 Inhaled Oxygen Concentration - - Weight 109.3 kg (241 lb) 11/03/2018 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 Height 152.4 cm (5') 11/03/2018 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 Body Mass Index 47.07 11/03/2018 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 Plan of Treatment Health Maintenance Due Date Last Done Comments DTAP/TDAP/TD VACCINES (1 - Tdap) 1968 COLORECTAL SCREENING 1994 Colorectal Cancer Screening 1994 FIT-DNA Q 3 years 1994 FIT/FOBT Q 1 year 1994 Flex Sig/CT Colonography Q 5 years 1994 PNEUMOCOCCAL VACCINE 50+ YEARS (1 of 1 - PCV) 08/19/19 99 ZOSTER VACCINE (1 of 2) 1999 OSTEOPOROSIS SCREENING 2014 INFLUENZA VACCINE (#1) 2024 RSV VACCINE (60+ or ) (1 - 1-dose 75+ series) 2024 Insurance MEDICARE PART A AND B [place] [id number] Care Teams Telecommunication Engineer Relationship Specialty Start Date End Date Mando De Los Santos MD [address] [place] [phone] PCP - General Family Practice 11/03/18
--- OUTSIDE RECORDS SUMMARY | 2024-11-23 00:39 | XMS_ITS | Referral Summary ---
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 Gender Identity Not on file Sexual Orientation [...] Plan of Treatment Not on file Insurance [employer] GENERIC MEDICARE [facility] CHOICE PLUS [facility] HMO/PPO Address: [facility] [id number] [place] [id number] Advance Directives For more information, please contact: [phone] Documents on File Type Date Recorded 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
--- OUTSIDE RECORDS SUMMARY | 2024-11-23 00:39 | XMS_ITS | Patient Health Summary ---
Author Organization [facility], [facility] Address [address] [place] [address] Care Team Providers Care Adjunct Faculty Instructor Name Role Phone Mando De Los Santos MD Primary Care Provider Note from [facility],non-owned Affiliates and Associated Physician Practices is amultiple site organization consisting of ambulatory clinics and hospital sitesin [place], [place], [place] and [place]. This disclosure is being madepursuant to the Care Everywhere program and may not contain all information available regarding this patient. Last updated 18.[facility] Allergies * Codeine(Nausea and/or Vomiting) -Low Criticality * other [Other](Nausea and/or Vomiting) -Low Criticality Medications * Be aware that medications may not be up to date on this document. Alwaysverify current medications with the patient. * VRAYLAR 4.5 MG capsule(Started 03/29/2019) TK 1 C PO QAM 1 refill left * diazePAM (VALIUM) 5 MG tablet(Started 03/28/2019) TK 1 T PO QAM AND 1 T AT 3PM 1 refill left * dilTIAZem coated beads 24hr (CARDIZEM CD) 240 MG capsule(Started 01/30/2019) TK 1 C PO QD 1 refill left * lamoTRIgine (LAMICTAL) 200 MG tablet(Started 03/17/2019) TK 1 T PO D IN THE MORNING 1 refill left * memantine ER 24 hr (NAMENDA XR) 28 MG capsule(Started 03/28/2019) TK ONE C PO QAM 1 refill left * rosuvastatin (CRESTOR) 10 MG tablet(Started 02/23/2019) TK 1 T PO QD HS 2 refills left * aspirin (ASPIRIN) 81 MG tablet Take 81 mg by mouth once daily * Multiple Vitamins-Minerals (CENTRUM SILVER) TABS Take 1 tablet by mouth daily with food * carbidopa-levodopa (Sinemet) 25-100 MG tablet(Started 12/28/2022) Take 1 (one) tablet by mouth 4 times daily 11 refills by 12/28/2023 Active Problems Problem Noted Date Diagnosed Date [...] Comments Blood Pressure 129/77 08/23/2019 8:38 AM CORRESPONDENCE SPECIALIST Pulse 67 08/23/2019 8:38 AM CORRESPONDENCE SPECIALIST Temperature - - Respiratory Rate - - Oxygen Saturation - - Inhaled Oxygen Concentration - - Weight 84.8 kg (187 lb) 08/23/2019 8:38 AM CORRESPONDENCE SPECIALIST Height 152.4 cm (5') 08/23/2019 8:38 AM CORRESPONDENCE SPECIALIST Body Mass Index 36.52 08/23/2019 8:38 AM CORRESPONDENCE SPECIALIST Procedures * MRI BRAIN WO CONTRAST(Performed 08/07/2019) Performed for Basal ganglia stroke (HCC), Gait abnormality * CT ANGIO BRAIN AND NECK(Performed 08/07/2019) Performed for Basal ganglia stroke (HCC) * NANCY STAINING PATTERNS REFLEXED(Performed 07/12/2019) Performed for Gait abnormality * T4 FREE(Performed 07/12/2019) Performed for Gait abnormality * COPPER BLOOD(Performed 07/12/2019) Performed for Gait abnormality * DAYO BLOOD SCREEN W/REFLEX TITER(Performed 07/12/2019) Performed for Gait abnormality * COMPREHENSIVE METABOLIC PANEL(Performed 07/12/2019) Performed for Gait abnormality * HEMOGLOBIN A1C(Performed 07/12/2019) Performed for Gait abnormality * VITAMIN B12(Performed 07/12/2019) Performed for Gait abnormality * VITAMIN B1(Performed 07/12/2019) Performed for Gait abnormality * TSH(Performed 07/12/2019) Performed for Gait abnormality * LAB MISC TEST(Performed 04/13/2019) Performed for Neuropathy * LAB MISC TEST(Performed 04/13/2019) Performed for Neuropathy * MRI BREAST BILAT WWO CONTRAST(Performed 03/04/2012) Performed for 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 I, Dr. GERMAINE HORNE have personally reviewed and interpreted this examination/study. This report was electronically signed by GERMAINE HORNE on 08/07/2019 2:54 PM . Narrative 08/07/2019 2:54 PM CORRESPONDENCE SPECIALIST MRI BRAIN WITHOUT CONTRAST CLINICAL INFORMATION:concern for stroke TECHNIQUE: MRI of the brain was performed without intravenous contrast according to standard protocol. COMPARISON: CTA head and neck dated 08/07/2019. FINDINGS: There is no infarction or hemorrhage. There is no intracranial mass or mass effect. Minimal periventricular white matter T2 FLAIR hyperintensities are nonspecific but likely represent chronic small vessel ischemic disease. There is no hydrocephalus or extra-axial fluid collection. The sella and posterior fossa structures are within normal limits. Flow voids of major intracranial vessels are noted. There is opacification of dependent left mastoid air cells. The paranasal sinuses and mastoid air cells are otherwise clear. Procedure Note Germaine Horne MD - 08/07/2019 MRI BRAIN WITHOUT CONTRAST CLINICAL INFORMATION:concern for stroke TECHNIQUE: MRI of the brain was performed without intravenous contrast according to standard protocol. COMPARISON: CTA head and neck dated 08/07/2019. FINDINGS: There is no infarction or hemorrhage. There is no intracranial mass or mass effect. Minimal periventricular white matter T2 FLAIR hyperintensities are nonspecific but likely represent chronic smallvessel ischemic disease. There is no hydrocephalus or extra-axial fluid collection. The sella and posterior fossa structures are within normal limits. Flow voids of major intracranial vessels are noted. There is opacification of dependent left mastoid air cells. Theparanasal sinuses and mastoid air cells are otherwise clear. IMPRESSION: No MR evidence of infarction or hemorrhage. I, Dr. GERMAINE HORNE have personally reviewed and interpreted this examination/study. This report was electronically signed by GERMAINE HORNE on 08/07/2019 2:54 PM . Yolette Aguiar MD MR ORDERABLES * CT ANGIO BRAIN AND NECK (08/07/2019 11:28 AM CORRESPONDENCE SPECIALIST) Anatomical Region Laterality Modality Head Computed Tomogra phy 08/07/2019 1:12 PM CORRESPONDENCE SPECIALIST Addenda Addendum by Germaine Horne MD on 08/07/2019 1:33 PM CORRESPONDENCE SPECIALIST ORIGINAL REPORT EXAMINATION: 1. CT scan of the head without contrast 2. CT angiography of the brain 3. CT angiography of the neck HISTORY: concern for stroke TECHNIQUE: CT of the head was performed without contrast according to standard protocol. Then CT angiography of the head and neck was obtained after the uneventful administration of mL Isovue 370 intravenous contrast. Three dimensional postprocessing was performed by the technologist and sent to the workstation for review. NASCET criteria was utilized for evaluation of carotid stenosis. COMPARISON: No prior study is available for comparison at the time of this dictation. FINDINGS: Brain: There is no CT evidence of acute infarct. There is no acute hemorrhage. There is no significant parenchymal abnormality. There is no hydrocephalus, midline shift or extra-axial fluid collection. The visualized paranasal sinuses, orbits and mastoid air cells do not demonstrate significant finding. CTA findings: The common and internal carotid arteries are patent bilaterally without hemodynamically significant stenosis. There is scattered calcification of the carotid bulb and proximal ICAs bilaterally. The anterior and middle cerebral arteries are within normal limits. There is a normal anterior communicating artery. The vertebral arteries are normal in intracranial and extracranial course. The basilar artery is normal. The posterior cerebral arteries are within normal limits. The right posterior communicating artery is visualized. Neck soft tissue findings: There is a 1 x 1.6 cm cm ill-defined left thyroid nodule. IMPRESSION: No acute intracranial abnormality. No significant abnormality of the intracranial or cervical vessels. 1 x 1.6 cm cm ill-defined left thyroid nodule. Nonemergent sonographic evaluation is suggested. This report was electronically signed by GERMAINE HORNE on 08/07/2019 1:20 PM . ADDENDUM #1 50 mL of Isovue-370 was administered intravenously. This report was electronically signed by GERMAINE HORNE on 08/07/2019 1:29 PM . Impressions 08/07/2019 1:20 PM CORRESPONDENCE SPECIALIST IMPRESSION: No acute intracranial abnormality. No significant abnormality of the intracranial or cervical vessels. 1 x 1.6 cm cm ill-defined left thyroid nodule. Nonemergent sonographic evaluation is suggested. This report was electronically signed by GERMAINE HORNE on 08/07/2019 1:20 PM . Narrative 08/07/2019 1:20 PM CORRESPONDENCE SPECIALIST EXAMINATION: 1. CT scan of the head without contrast 2. CT angiography of the brain 3. CT angiography of the neck HISTORY: concern for stroke TECHNIQUE: CT of the head was performed without contrast according to standard protocol. Then CT angiography of the head and neck was obtained after the uneventful administration of mL Isovue 370 intravenous contrast. Three dimensional postprocessing was performed by the technologist and sent to the workstation for review. NASCET criteria was utilized for evaluation of carotid stenosis. COMPARISON: No prior study is available for comparison at the time of this dictation. FINDINGS: Brain: There is no CT evidence of acute infarct. There is no acute hemorrhage. There is no significant parenchymal abnormality. There is no hydrocephalus, midline shift or extra-axial fluid collection. The visualized paranasal sinuses, orbits and mastoid air cells do not demonstrate significant finding. CTA findings: The common and internal carotid arteries are patent bilaterally without hemodynamically significant stenosis. There is scattered calcification of the carotid bulb and proximal ICAs bilaterally. The anterior and middle cerebral arteries are within normal limits. There is a normal anterior communicating artery. The vertebral arteries are normal in intracranial and extracranial course. The basilar artery is normal. The posterior cerebral arteries are within normal limits. The right posterior communicating artery is visualized. Neck soft tissue findings: There is a 1 x 1.6 cm cm ill-defined left thyroid nodule. Procedure Note Germaine Horne MD - 08/07/2019 EXAMINATION: 1. CT scan of the head without contrast 2. CT angiography of the brain 3. CT angiography of the neck HISTORY: concern for stroke TECHNIQUE: CT of the head was performed without contrast according to standard protocol. Then CT angiography of the head and neck was obtained after the uneventful administration of mL Isovue 370 intravenous contrast. Three dimensional postprocessing was performed by the technologist and sent to the workstation for review. NASCET criteria was utilized for evaluation of carotid stenosis. COMPARISON: No prior study is available for comparison at the time ofthis dictation. FINDINGS: Brain: There is no CT evidence of acute infarct. There is no acute hemorrhage. There is no significant parenchymal abnormality. There is no hydrocephalus, midline shift or extra-axial fluidcollection. The visualized paranasal sinuses, orbits and mastoid air cells do not demonstrate significant finding. CTA findings: The common and internal carotid arteries are patent bilaterally without hemodynamically significant stenosis. There is scattered calcificationof the carotid bulb and proximal ICAs bilaterally. The anterior and middle cerebral arteries are within normal limits. There is a normal anterior communicating artery. The vertebral arteries are normal in intracranial and extracranialcourse. The basilar artery is normal. The posterior cerebral arteries arewithin normal limits. The right posterior communicating artery is visualized. Neck soft tissue findings: There is a 1 x 1.6 cm cm ill-defined left thyroid nodule. IMPRESSION: No acute intracranial abnormality. No significant abnormality of the intracranial or cervical vessels. 1 x 1.6 cm cm ill-defined left thyroid nodule. Nonemergent sonographic evaluation is suggested. This report was electronically signed by GERMAINE HORNE on 08/07/2019 1:20 PM . Yolette Aguiar MD CT ORDERABLES * NANCY STAINING PATTERNS REFLEXED (07/12/2019 11:04 AM CDT) Homogeneous Pattern 1:80 07/14/2019 1:08 PM CDT [facility] ([facility]) Note Comment 07/14/2019 1:08 PM CDT [facility] ([facility]) Comment: A positive DAYO result may occur in healthy individuals (low titer) or be associated with a variety of diseases. See interpretation chart which is not all inclusive: Pattern Antigen Detected Suggested Disease Association Homogeneous DNA(ds,ss), SLE - High titers Nucleosomes, Histones Drug-induced SLE Speckled Sm, TELLER VAULT, SCL-70, SLE,MCTD,PSS (diffuse form), SS-A/SS-B Sjogrens Nucleolar SCL-70, PM-1/SCL High titers Scleroderma, PM/DM Centromere Centromere PSS (limited form) w/Crest syndrome variable Nuclear Dot [id number] Primary Biliary Cirrhosis Nuclear GP210, Primary Biliary Cirrhosis Membrane emily A,B,C Blood BLOOD SPECIMEN / Unknown Lab Venipuncture / Unknown 07/12/2019 11:04 AM CDT 07/12/2019 11:46 AM CDT Narrative [facility] ([facility]) - 07/14/2019 1:08 PM CDT Performed at: [address] [place] [id number] Family Therapist: Fermin Lopez PhD, Phone: [phone] Yolette Aguair MD LAB - PATHOLOGY/CYTO LOGY ORDERABLES Performing Organization Address [facility] de Phone Number [facility] ([facility]) [address] [place] [phone] * (ABNORMAL) DAYO BLOOD SCREEN W/REFLEX TITER (07/12/2019 11:04 AM CDT) Pathologist [facility] DAYO Positive(A ) 07/14/2019 1:08 PM CDT [facility] ([facility]) Comment: Negative <1:80 Borderline 1:80 Positive >1:80 Blood BLOOD SPECIMEN / Unknown Lab Venipuncture / Unknown 07/12/2019 11:04 AM CDT 07/12/2019 11:46 AM CDT [facility]) - 07/14/2019 1:08 PM CDT Performed at: [address] [place] [id number] Family Therapist: Fermin Lopez PhD, Phone: [phone] Yolette Aguiar MD LAB - CHEMISTRY ORDE RABLES Performing Organization Address [facility] Co de Phone Number [facility] ([facility]) [address] [place] [phone], [place] * VITAMIN B1 (07/12/2019 11:04 AM CDT) Pathologist [facility] Vitamin B1 Whole Blood 91.5 66.5 - 200.0 nmol/L 07/16/2019 1:07 PM [facility] ([facility]) Blood BLOOD SPECIMEN / Unknown Lab Venipuncture / Unknown 07/12/2019 11:04 AM CDT 07/12/2019 11:46 AM CDT Narrative [facility] ([facility]) - 07/16/2019 1:07 PM CORRESPONDENCE SPECIALIST Test(s) [id number]-[id number]. B1, Whole Blood was developed and its performance characteristics determined by [facility]. It has not been cleared or approved by the Food and Drug Administration. Performed at: 01 - [address] [id number] Family Therapist: Diamond Lance MD, Phone: [phone] Yolette Aguiar MD LAB - CHEMISTRY ORDSanthosh SYLVESTER Performing Organization Address City/[facility]/ZIP Co de Phone Number [facility] ([facility]) [address] [place] [address] * HEMOGLOBIN A1C (07/12/2019 11:04 AM CDT) Hemoglobin A1c 5.0 4.4 - 6.3 % 07/13/2019 9:15 AM CDT [facility] Estimated Average Glucose 97 mg/dL 07/13/2019 9:15 AM CDT [facility] Comment: HbA1c Interpretation: Treatment target values recommended by ADA and other clinical organizations should be used to evaluate metabolic control in patients. Treatment Target Values: Normal : < 5.7% Pre-diabetes: 5.7-6.4% Diabetes: Equal to or greater than 6.5% Reference: [place] Diabetes Association Standards of Care in Diabetes -2014 In patients 70 years and older consider HbA1c target range of 7.0-7.5% Reference: Diabetes Mellitus in Older People: Position Statement on behalf of the International Association of Gerontology and Geriatrics (IAGG), the Diabetes Working Libertarian for Older People (EDWPOP), and the International Task Force of Experts in Diabetes. Raymond Gautam, et al. J [place] [employer] Association. 2012 Test results diagnostic of diabetes should be repeated for confirmation. The Sebia Capillary 2 assay for the measurement of HbA1c is a National Glycohemoglobin Standardization Program (NGSP)certified method. Blood BLOOD SPECIMEN / Unknown Lab Venipuncture / Unknown 07/12/2019 11:04 AM CDT 07/12/2019 11:46 AM CDT Yolette Aguiar MD LAB - CHEMISTRY SANTOS SYLVESTER [facility] [address] [phone] * (ABNORMAL) COPPER BLOOD (07/12/2019 11:04 AM CDT) Copper 170(H) 72 - 166 ug/dL 07/14/2019 8:12 AM CDT [facility] ([facility]) Comment:Detection Limit = 5 Blood BLOOD SPECIMEN / Unknown Lab Venipuncture / Unknown 07/12/2019 11:04 AM CDT 07/12/2019 11:46 AM CDT Narrative [facility] ([facility]) - 07/14/2019 8:12 AM CDT Test(s) [id number], Serum was developed and its performance characteristics determined by [facility]. It has not been cleared or approved by the Food and Drug Administration. Performed at: - [address] [id number] Family Therapist: Diamond Lance MD, Phone: [phone] Yolette Aguiar MD LAB - CHEMISTRY SANTOS SYLVESTER [facility] ([facility]) [address] [place] [phone] * (ABNORMAL) COMPREHENSIVE METABOLIC PANEL (07/12/2019 11:04 AM CDT) BUN 15 7 - 26 mg/dL 07/12/2019 12:33 PM CDT [facility] Creatinine 1.1 0.6 - 1.2 mg/dL 07/12/2019 12:33 PM CDT [facility] Sodium 145 136 - 145 mmol/L 07/12/2019 12:33 PM CDT [facility] Potassium 3.7 3.5 - 4.5 mmol/L 07/12/2019 12:33 PM CDT [facility] Chloride 106 98 - 107 mmol/L 07/12/2019 12:33 PM CDT [facility] CO2 31(H) 22 - 29 mmol/L 07/12/2019 12:33 PM CDT [facility] Glucose 88 70 - 115 mg/dL 07/12/2019 12:33 PM CDT [facility] Calcium 10.3(H) 8.4 - 10.2 mg/dL 07/12/2019 12:33 PM [facility] Protein Total 7.3 6.0 - 8.3 g/dL 07/12/2019 12:33 PM [facility] Albumin 4.2 3.4 - 5.0 g/dL 07/12/2019 12:33 PM [facility] Bilirubin Total 0.9 0.2 - 1.2 mg/dL 07/12/2019 12:33 PM [facility] Alkaline Phosphatase 115 40 - 150 Units/L 07/12/2019 12:33 PM [facility] ALT 27 0 - 55 Units/L 07/12/2019 12:33 PM [facility] AST 32 5 - 34 Units/L 07/12/2019 12:33 PM [facility] Anion Gap 12 8 - 18 07/12/2019 12:33 PM [facility] BUN/Creatinine Ratio 14 7 - 23 07/12/2019 12:33 PM [facility] Osmolality Calculated 300 270 - 300 mOsm/kg 07/12/2019 12:33 PM [facility] Albumin/Globulin Ratio 1.4 1.1 - 2.3 07/12/2019 12:33 PM [facility] eGFR 49(L) >60 mL/min/1.7 3 m2 07/12/2019 12:33 PM [facility] Blood BLOOD SPECIMEN / Unknown Lab Venipuncture / Unknown 07/12/2019 11:04 AM CDT 07/12/2019 11:46 AM T Yolette Aguiar MD LAB - CHEMISTRY SANTOS SYLVESTER [facility] Organization Address City/State/ZIP Co de Phone Number [address] [phone] * VITAMIN B12 (07/12/2019 11:04 AM T) Vitamin B12 537 213 - 816 pg/mL 07/12/2019 1:04 PM [facility] Blood BLOOD SPECIMEN / Unknown Lab Venipuncture / Unknown 07/12/2019 11:04 AM CDT 07/12/2019 11:46 AM CDT Yolette Aguiar MD LAB - CHEMISTRY SANTOS SYLVESTER Performing Organization Address [facility]/ZIP Co de Phone Number [address] [phone] * (ABNORMAL) TSH (07/12/2019 11:04 AM CDT) TSH 6.911(H) 0.350 - 4.940 uIU/mL 07/12/2019 1:04 PM CDT [facility] Blood BLOOD SPECIMEN / Unknown Lab Venipuncture / Unknown 07/12/2019 11:04 AM CDT 07/12/2019 11:46 AM CDT Yolette Aguiar MD LAB - CHEMISTRY SANTOS SYLVESTER Performing Organization Address [facility] [place] [address], [facility] [phone] * T4 FREE (07/12/2019 11:04 AM CDT) Pathologist [facility] T4 Free 0.7 0.7 - 1.5 ng/dL 07/12/2019 1:51 PM CDT [facility] Blood BLOOD SPECIMEN / Unknown Lab Venipuncture / Unknown 07/12/2019 11:04 AM CDT 07/12/2019 11:46 AM CDT Yolette Aguiar MD LAB - CHEMISTRY SANTOS SYLVESTER Performing Organization Address [facility]/[place] [address], [facility] [phone] * LAB MISC TEST (04/13/2019 11:46 AM CDT) Only the most recent of2 resultswithin the time period is included. Test Name SEE SCANNED REPORT 05/16/2019 4:17 PM CDT [facility] Flud Blood BLOOD SPECIMEN / Unknown Lab Venipuncture / Unknown 04/13/2019 11:46 AM CDT 04/13/2019 3:15 PM CDT Deniz Frederick MD LAB [place] [address] * MRI BREAST W/WO CONTRAST BILAT (03/04/2012 3:49 PM CDT) Anatomical Region Laterality Modality Breast Bilateral Magnetic Resonan ce 03/07/2012 3:32 PM CDT Narrative 03/07/2012 5:41 PM CDT MRI OF THE BREASTS WITHOUT AND WITH IV CONTRAST INDICATION: Right breast cancer upper outer quadrant TECHNIQUE: Standard multiplanar, multisequence images of the bilateral breasts are performed without and with IV contrast. Comparison is made to the patient's outside ultrasound and mammogram studies from [place], [place] dated 02/05/2012, ultrasound 02/15/2012. FINDINGS: There is a biopsy cavity in the upper outer quadrant of the right breast with blood products obscuring visualization of the mass identified mammographically. There is a small amount of metallic clip artifact identified within this area. There is some residual enhancement, again distorted by the blood products. However, just anterior and lateral to this is a small nodular density which shows brisk contrast enhancement with a washout pattern. This measures 1.0 X 0.7 cm. This could possibly represent an adjacent node or focus of mass. This is best seen on series 701 approximately images 790 through 800. There are no additional sites of abnormal enhancement in the right breast. There are no enlarged axillary lymph nodes. Left breast: There is no abnormal enhancement. Density is predominantly fatty. There is no abnormal axillary adenopathy. There are no extramammary findings. ASSESSMENT: BI-RADS Category 0: Incomplete - Needs additional imaging. RECOMMENDATION: Second look ultrasound with consideration of biopsy for small nodular focus of enhancement just inferolateral to the biopsy site right upper outer quadrant. Procedure Note Tana Monroe MD - 03/07/2012 MRI OF THE BREASTS WITHOUT AND WITH IV CONTRAST INDICATION: Right breast cancer upper outer quadrant TECHNIQUE: Standard multiplanar, multisequence images of the bilateral breasts are performed without and with IV contrast. Comparison is made to the patient's outside ultrasound and mammogram studies from [place], [place] dated 02/05/2012, ultrasound 02/15/2012. FINDINGS: There is a biopsy cavity in the upper outer quadrant of the right breast with blood products obscuring visualization of the mass identified mammographically. There is a small amount of metallic clip artifact identified within this area. There is some residual enhancement, again distorted by the blood products. However, just anterior and lateral to this is a small nodular density which shows brisk contrast enhancement with a washout pattern. This measures 1.0 X 0.7 cm. This could possibly represent an adjacent node or focus of mass. This is best seen on series 701 approximately images 790 through 800. There are no additional sites of abnormal enhancement in the right breast. There are no enlarged axillary lymph nodes. Left breast: There is no abnormal enhancement. Density is predominantly fatty. There is no abnormal axillary adenopathy. There are no extramammary findings. ASSESSMENT: BI-RADS Category 0: Incomplete - Needs additional imaging. RECOMMENDATION: Second look ultrasound with consideration of biopsy for small nodular focus of enhancement just inferolateral to the biopsy site right upper outer quadrant. Ritu Hendrickson DO MR ORDERABLES * BUN+CREATININE BLOOD PNL - POINT OF CARE (03/04/2012 2:37 PM CDT) BUN POCT 14 7 - 17 mg/dL [facility] Creatinine POCT 0.8 0.7 - 1.2 mg/dL [facility] QC Verified yes Yes [facility] POC T TESTING Blood specimen (specimen) BLOOD SPECIMEN / Unknown 03/04/2012 2:37 PM CDT Ritu Hendrickson DO LAB - POINT OF CARE ORDERABLES [facility] POCT TEST[facility] [address] [id number] Care Teams Adjunct Faculty Instructor Relationship Specialty Start Date End Date Mando De Los Santos MD [address] [place] [address] PCP - General 04/13/19
--- OUTSIDE RECORDS SUMMARY | 2024-11-23 00:39 | XMS_ITS | Clinical Summary ---
Author Organization [facility] Address [address] [place] [address] Care Team Providers Care Dairy Lab Technician Name Role Phone Osmel Herrera MD Primary Care Provider [phone] Allergies Active Allergy Reactions Criticality Noted Date Comments Codeine Nausea and Vomiting,Nausea Only Low 04/2018 Morphine Nausea Only Low 07/10/2013 Medications * This document contains information received from the source organization and may not represent a complete record from that organization. aspirin EC 81 MG tablet Take 81 mg by mouth daily. 11/18/2017 Active diazepam 5 MG tablet Take 5 mg by mouth 2 (two) times daily. 10/18/2017 Active rosuvastatin 10 MG tablet Take 10 mg by mouth daily. 11/18/2017 Active memantine ER 28 MG 24 hr capsule Take 28 mg by mouth daily. Active metoprolol succinate ER 25 MG 24 hr tablet Take 25 mg by mouth daily. 11 09/21/2018 Active dilTIAZem CD 240 MG 24 hr capsule TK 1 C PO QD 01/30/2019 Active CARBIDOPA-LEVODO PA OR 25-1000 mg PO QID Active Cariprazine HCl (VRAYLAR) 6 MG Cap Take 6 mg by mouth daily. Active sertraline 50 MG tablet Take 50 mg by mouth daily. Active lamoTRIgine 200 MG tablet Take 200 mg by mouth 2 (two) times daily. Active Social History Tobacco Use Types Packs/Day Years Used Date Smoking Tobacco: Never Assessed Comments Unknown Sex and Gender Information Value Date Recorded Sex Assigned at Not on file Legal Sex Female 7:13 PM CDT Gender Identity Not on file Sexual Orientation Not on file Last Filed Vital Signs Vital Sign Reading Time Taken Comments Blood Pressure 112/60 11/14/2019 8:20 AM YARN DRY ROOM WORKER Pulse 68 11/14/2019 8:20 AM YARN DRY ROOM WORKER Temperature 36.4 C (97.6 F) 11/14/2019 8:20 AM YARN DRY ROOM WORKER Respiratory Rate 20 11/14/2019 8:20 AM YARN DRY ROOM WORKER Oxygen Saturation - - Inhaled Oxygen Concentration - - Weight 79.8 kg (176 lb) 11/14/2019 8:20 AM YARN DRY ROOM WORKER Height 152.4 cm (5') 11/14/2019 8:20 AM YARN DRY ROOM WORKER Body Mass Index 34.37 11/14/2019 8:20 AM YARN DRY ROOM WORKER Plan of Treatment Health Maintenance Due Date Last Done Comments Colorectal Cancer Screening Colonoscopy (10 Years) 1949 Hepatitis C 1967 DTaP, Tdap and Td Vaccines ( 1 - Tdap) 1968 Zoster Vaccines (1 of 2) 1999 Annual Medicare Wellness Visit 2014 Dexa Scan (General) 2014 Pneumococcal Vaccine: 65+ Ye ars (1 of 1 - PCV) 2014 COVID-19 Vaccine (2023-2 5 season) 2024 Influenza Adult (#1) 2024 07/07/2018 RSV Immunization or 60+ Years (1 - 1-dose 75+ series) 2024 Meningococcal B Vaccine Aged Out No l onger eligible based on patient's age to complete this topic Meningococcal Vaccine Aged Out No jaqueline adri eligible based on patient's age to complete this topic RSV Immunizations Under 20 Months Aged Out No longer eligible based on patient's age to complete this topic Insurance MEDICARE [facility] Care Teams Dairy Lab Technician Relationship Specialty Start Date End Date Osmel Herrera MD [address] [place] [address] PCP - General FAMILY PRACTICE 02/19/19
--- OUTSIDE RECORDS SUMMARY | 2024-11-23 00:39 | XMS_ITS | Encounter Summary ---
Author Organization [facility] Care Team Providers Care Retail Account Executive Name Role Phone Kash Herrera MD Primary Care Provider [phone] Mando De Los Santos MD Primary Care Provider Unknown, Notinfile Primary Care Provider Unavail able Mando De Los Santos MD Primary Care Provider Mike Robbins MD Unavailable [phone] Encounter Details Date Type Department Care Team (Latest Contact Info) Description 05/12/2017 Orders Only [facility] ProviderMaylin MD [address] [place] [id number] Social History Tobacco Use Types Packs/Day Years Used Date Smoking Tobacco: Never Assessed Comments Unknown Sex and Gender Information Value Date Recorded Sex Assigned at Not on file Legal Sex Female 11:57 AM MANUFACTURING MANAGEMENT ASSOCIATE Gender Identity Not on file Sexual Orientation Not on file documented as of this encounter Plan of Treatment Not on file documented as of this encounter Procedures Procedure Name Priority Date/Time Associated Diagnosis Comments PROCEDURE - RESULT 05/12/2017 12 :00 AM CDT documented in this encounter Results * PROCEDURE - RESULT (05/12/2017 12:00 AM CDT) Narrative 05/12/2017 12:00 AM CDT Ordered by an unspecified provider. us Historical Provider Final Res ult documented in this encounter Visit Diagnoses Not on filedocumented in this encounter Care Teams Retail Account Executive Relationship Specialty Start Date End Date Kash Herrera MD [address] [place] [address] PCP - General 01/17/15 11/17/17 Mando De Los Santos MD [address] [place] [address] PCP - General Family Practice 11/18/17 02/01/18 Unknown, Notinfile PCP - General 02/02/18 02/10/18 Mando De Los Santos MD [address] [place] [address] PCP - General Family Practice 02/11/18 Mike Robbins MD Medical Oncologist/Hematologis t Hematology and Oncology 12/14/18 documented as of this encounter
--- NOTE | 2024-11-23 06:25 | WPDHPUPDATE1 ---
History and Physical Update Update Date/Time: 11/23/24 06:25 History and Physical has been reviewed, including an updated exam of the patient. There are NO changes in the patient's condition. Risks, benefits, and alternatives have been discussed and questions answered. Patient agrees to proceed with procedure.
--- NOTE | 2024-11-23 08:41 | WPDANESEPPF ---
Anes - Initial Pre Proc Eval Procedure: Operation Date: 11/23/24 09:30 Proposed Procedures p Cystoscopy, Bilateral Ureteral Stent Exchange, Possible Right Stent Removal - Brian Pires MD Date/Time: 11/23/24 08:41 Surgeon: Brian Pires MD Pre Op Diagnosis: right renal calculus Patient Data Age: 74 Gender: F Height: 1.52 m Weight: 63.55 kg Allergies Allergy/AdvReac Type Severity Reaction Status Date / Time codeine AdvReac Intermediate Confusion, Verified 11/23/24 08:07 NAUSEA Home Medications ?Medication ?Instructions ?Recorded ?Confirmed ?Type diazepam 5 mg tablet 5 mg PO PRN PRN Anxiety 10/12/19 11/06/24 History lamotrigine 200 mg tablet 200 mg PO Q12H 10/12/19 11/06/24 History cariprazine 6 mg capsule (Vraylar) 6 mg PO QAM 05/26/21 11/06/24 History carbidopa 25 mg-levodopa 100 mg 1 tablet PO QID 06/16/21 11/06/24 History tablet cholecalciferol (vitamin D3) 50 50 mcg PO DAILY 12/29/21 11/06/24 History mcg (2,000 unit) capsule sertraline 100 mg tablet 200 mg PO QAM 06/21/22 11/06/24 History acetaminophen 500 mg tablet 1,000 mg PO Q6H PRN pain 1-3/fever 03/15/23 11/06/24 History memantine 28 mg capsule 28 mg PO QAM 03/16/23 11/06/24 History sprinkle,extended release 24hr docusate sodium 100 mg capsule 100 mg PO PRN PRN Constipation 10/14/23 11/06/24 History diltiazem HCl 240 mg 240 mg PO QAM #90 caps 07/31/24 11/06/24 Rx capsule,extended release 24 hr potassium chloride 10 mEq 10 meq PO DAILY #90 tabs 07/31/24 11/06/24 Rx tablet,extended release phenazopyridine 200 mg tablet 200 mg PO Q8H PRN pain 08/22/24 11/06/24 History rosuvastatin 10 mg tablet 10 mg PO DAILY #90 tabs 09/19/24 11/06/24 Rx famotidine 40 mg tablet (Pepcid) 40 mg PO BID #60 tabs 01/08/25 02/24/25 Rx ondansetron HCl 4 mg tablet 4 mg PO Q8H PRN nausea and 09/20/24 11/06/24 Rx vomiting #60 tabs polyethylene glycol 3350 17 17 g PO DAILY #510 grams 09/20/24 11/06/24 Rx gram/dose oral powder (Miralax) Patient hx anesthesia problems: none Family hx anesthesia problems: none Results Review: All pre-operative results and documents have been reviewed as part of the pre-operative evaluation. [facility] Past Medical History Medical History Chronic idiopathic constipation Vitamin D deficiency History of CVA (cerebrovascular accident) Dementia PAM (obstructive sleep apnea) non compliant with CPAP Hyperlipidemia TIA (transient ischemic attack) Cardiomegaly Parkinson disease Hypertrophic obstructive cardiomyopathy Bipolar affective disorder History of right breast cancer Left renal mass Renal calculus Meniere disease Breast cancer 03/2012 Dyslipidemia Essential (primary) hypertension Anxiety Unspecified osteoarthritis, unspecified site Surgical History Surgical History Hx of cholecystectomy Hx of total knee arthroplasty (Unknown) H/O total hysterectomy with bilateral salpingo-oophorectomy (BSO) (Unknown) Hx of section (Unknown) History of partial mastectomy 2011 History of breast surgery 03/2012 Family History Family History Father Family history of diabetes mellitus in first degree relative, Onset Age: 77 Mother Family history of malignant neoplasm of ovary, Onset Age: 62 Grandparent Diabetes mellitus, Onset Age: 80 Other Hypertension Social History Social History Social History: The patient is and she is retired. The patient lives with her Damon who is her durable power commercial real estate attorney for healthcare. The patient is a full code. She is a lifelong nonsmoker. The patient tells me that she is retired from [employer]. She has 2 children. Smoking status: Never smoker Second hand tobacco smoke exposure: No Alcohol intake: never Substance use: never Substance use type: does not use Lack of Transportation: No Lack of Food: Never True Current Housing: I Have Housing Concerned About Future Housing: No Difficulty Paying Gas/Electric Bills: No Difficulty Paying for Meds: No Currently Unemployed: No Education: High School Diploma/GED Difficulty w/ Childcare or Family Care: No Living arrangements: with family Additional living arrangements comments: TIFF Spiritual care concerns: No Anes - Eval Final PreProcedure Day of Procedure 11/23/24 08:41 Patient weight: overweight Heart: regular rate and rhythm Lungs: clear to auscultation Airway: Mallampati scale class II Neurological: alert and oriented Last oral intake: >/= 8 hours ASA classification: III Emergent: no Anesthetic plan: proceed Anesthesia type and monitoring: general GIVS and standard monitoring Results Review: All pre-operative results and documents have been reviewed as part of the pre-operative evaluation. Informed Consent: The patient's anesthetic plan and its attendant risks and benefits were discussed with the patient/family/POA. Questions were solicited and answers provided to the satisfaction of the patient/family/POA.
[2024-11-23] MEDS: LACTATED RINGERS 1,000 ML 30 ML IV CONT (08:45)
[2024-11-23 08:47] VITALS: BP 116/63; PULSE 65; RESP 16; TEMP 36.6; O2SAT 98
[2024-11-23] MEDS: ceFAZolin 2 GM/D5W 50 ML 2 GM/50 ML BAG IVPB (09:22)
[2024-11-23] MEDS: LIDOCAINE 2% GEL UROJET 10 ML PKG MUCOUS MEM (09:31)
[2024-11-23 09:48] VITALS: BP 99/45; PULSE 53; RESP 16; O2SAT 97
--- NOTE | 2024-11-23 09:50 | W.PM.PROC2 ---
Procedure Note - Detailed Date of Procedure 11/23/24 Pre-op Diagnosis Bilateral renal calculi Post-op Diagnosis Same Procedure Performed Cystoscopy, bilateral retrograde pyelography, bilateral ureteral stent exchange Surgeon Brian Pires MD Anesthesia General Description of Procedure Patient is brought to the operative suite where she is prepped and draped in routine sterile fashion while in dorsal lithotomy position after the uneventful administration of systemic sedation. Cystoscopy undertaken with a 21 F rigid cystoscope. Her bladder mucosa is normal with the exception of mild hyperemia around her indwelling ureteral stents. There is no intravesical foreign body or neoplasm other than the stents. Each stent is grasped and removed with ease. [place] catheter was used to obtain bilateral retrograde pyelogram to ensure appropriate placement of new 4.8 F variable length stents over a 0.035 in glidewire. This patient has a large staghorn calculus and mass in her left kidney. She is not deemed to be a candidate for either nephrectomy or percutaneous nephrolithotomy. She has small stones in right renal pelvis which we will also manage with indwelling stent with periodic changes. Drains No Packing No Pathology None sent Complications No immediate complications
[2024-11-23 10:15] VITALS: BP 113/49; PULSE 50; RESP 16; O2SAT 95
[2024-11-23 10:35] VITALS: BP 110/48; PULSE 52; RESP 16; O2SAT 95
== END 2024-11-23 10:50 | disposition home or self-care (01) ==
PROVIDERS: PCP Family Medicine; Visit Provider Urology
PROC: (CPT 52352; principal; 2024-11-23 09:30)
DX: N20.0 Calculus of kidney (principal); N28.9 Disorder of kidney and ureter, unspecified
CPT/HCPCS: 52332; 74018; 74420; C1758; C1769; C2617; J0690; J2003; J2405; J2704; J3010; J7120; Q9966

== ENCOUNTER 2025-01-16 11:33 | Outpatient (CLI) | payer MEDICARE, OTHER, SELFPAY ==
--- NOTE | ~2025-01-16 | XR_ITS ---
Supine and upright views of the abdomen Clinical history: Kidney stones COMPARISON: 11/23/2024 Findings: Bowel gas pattern is nonspecific. No evidence for obstruction or free air. Bilateral ureter al stents are present. Stable large staghorn left renal calculus. Suspected additional 12 mm ovoid ca lculus at the mid to distal left ureter, unchanged. Probable additional pelvic phleboliths. Multiple stones are present at the right renal pelvis region, largest measuring 7 mm in diameter. Osseous stru ctures are intact. Impression: Bilateral ureter stents. Stable staghorn left renal calculus and probable 12 mm mid to distal left ureteral stone. Multiple stones at the right renal pelvis region/proximal ureter, as above. Reviewed, dictated and finalized at location . Impression: Bilateral ureter stents. Stable staghorn left renal calculus and probable 12 mm mid to distal left urete ral stone. Multiple stones at the right renal pelvis region/proximal ureter, as above.
--- OUTSIDE RECORDS SUMMARY | 2025-01-16 12:17 | XMS_ITS | Clinical Summary ---
Author Organization [facility] Address [address] [place] [address] Care Team Providers Care Stem Dryer Maintainer Name Role Phone Osmel Herrera MD Primary Care Provider [phone] Allergies Active Allergy Reactions Criticality Noted Date [...] Comments Blood Pressure 112/60 11/14/2019 8:20 AM CIGARETTE MAKER Pulse 68 11/14/2019 8:20 AM CIGARETTE MAKER Temperature 36.4 C (97.6 F) 11/14/2019 8:20 AM CIGARETTE MAKER Respiratory Rate 20 11/14/2019 8:20 AM CIGARETTE MAKER Oxygen Saturation - - Inhaled Oxygen Concentration - - Weight 79.8 kg (176 lb) 11/14/2019 8:20 AM CIGARETTE MAKER Height 152.4 cm (5') 11/14/2019 8:20 AM CIGARETTE MAKER Body Mass Index 34.37 11/14/2019 8:20 AM CIGARETTE MAKER Plan of Treatment Health Maintenance Due Date Last Done Comments Colorectal Cancer Screening Colonoscopy (10 Years) 1949 Hepatitis C 1967 DTaP, Tdap and Td Vaccines ( 1 - Tdap) 1968 Pneumococcal Vaccine: 50+ Ye ars (1 of 1 - PCV) 1999 Zoster Vaccines (1 of 2) 1999 Annual Medicare Wellness Visit 2014 Dexa Scan (General) 2014 COVID-19 Vaccine ( - 2023-2 5 season) 2024 RSV Immunization or 60+ Years (1 - [...] age to complete this topic Insurance MEDICARE [facility] Care Teams Stem Dryer Maintainer Relationship Specialty Start Date End Date Osmel Herrera MD [address] [place] [address] PCP - General FAMILY PRACTICE 02/19/19
--- OUTSIDE RECORDS SUMMARY | 2025-01-16 12:17 | XMS_ITS | Clinical Summary ---
Author Organization [facility] [place] [address] Address [address] [place] [address] Care Team Providers Care Ramp Supervisor Name Role Phone Mando De Los Santos MD Primary Care Provider Mike Robbins MD Unavailable [phone] Allergies Active Allergy Reactions Criticality Noted Date [...] on file Legal Sex Female 11:57 AM RACECAR DRIVER Gender Identity Not on file Sexual Orientation [...] Plan of Treatment Not on file Insurance [employer] [facility] MEDICARE [facility] CHOICE PLUS Advance Directives For more information, please contact: [phone] Documents on File Type Date Recorded Patient Casing Wringer Operator Expl anation ADVANCE DIRECTIVE 01/08/2015 12:00 AM ALESIA Schreiber OF OPERATIONS EXECUTIVE FINANCIAL/MEDICAL Care Teams Ramp Supervisor Relationship Specialty Start Date End Date Mando De Los Santos MD PCP - General Family Practice 02/11/18 Mike Robbins MD Medical Oncologist/Finish Opener Hematology and Oncology 12/14/18
--- OUTSIDE RECORDS SUMMARY | 2025-01-16 12:17 | XMS_ITS | Encounter Summary ---
Author Organization [facility] Address [address] [place] [address] Care Team Providers Care Tool Programmer Name Role Phone Mando De Los Santos MD Primary Care Provider Unknown, Notinfile Primary Care Provider Unavail able Mando De Los Santos MD Primary Care Provider Mike Robbins MD Unavailable [phone] Encounter Details Date Type Department Care Team (Late st Contact Info) Description 11/20/2017 Orders Only [facility] [place] [facility] Information Management [address] [place] [id number] Scanning, Provider Social History Tobacco Use Types Packs/Day Years Used Date Smoking Tobacco: Never Smokeless Tobacco: Never Alcohol Use Standard Drinks/Week Comments No 0 (1 standard drink = 0.6 oz pur e alcohol) Comments Unknown Sex and Gender Information Value Date Recorded Sex Assigned at Not on file Legal Sex Female 11:57 AM GROUP FITNESS MANAGER Gender Identity Not on file Sexual Orientation Not on file documented as of this encounter Plan of Treatment Not on file documented as of this encounter Procedures Procedure Name Priority Date/Time Associated Diagnosis Comments SCAN - RADIOLOGY/IMAGING 11/20/2017 1:20 AM GROUP FITNESS MANAGER SCAN - RADIOLOGY/IMAGING 11/20/2017 1:20 AM GROUP FITNESS MANAGER SCAN - RADIOLOGY/IMAGING 11/20/2017 1:20 AM GROUP FITNESS MANAGER SCAN - LABS 11/20/2017 1:20 AM GROUP FITNESS MANAGER documented in this encounter Results * SCAN - LABS (11/20/2017 1:20 AM GROUP FITNESS MANAGER) us Provider Scanning Final Result * SCAN - RADIOLOGY/IMAGING (11/20/2017 1:20 AM GROUP FITNESS MANAGER) Anatomical Region Laterality Modality Other us Provider Scanning Final Result * SCAN - RADIOLOGY/IMAGING (11/20/2017 1:20 AM GROUP FITNESS MANAGER) Anatomical Region Laterality Modality Other us Provider Scanning Final Result * SCAN - RADIOLOGY/IMAGING (11/20/2017 1:20 AM GROUP FITNESS MANAGER) Anatomical Region Laterality Modality Other us Provider Scanning Final Result documented in this encounter Visit Diagnoses Not on filedocumented in this encounter Care Teams Tool Programmer Relationship Specialty Start Date End Date Mando De Los Santos MD PCP - General Family Practice 11/18/17 02/01/18 Unknown, Notinfile PCP - General 02/02/18 02/10/18 Mando De Los Santos MD PCP - General Family Practice 02/11/18 Mike Robbins MD Medical Oncologist/Human Capital Consultant Hematology and Oncology 12/14/18 documented as of this encounter
--- OUTSIDE RECORDS SUMMARY | 2025-01-16 12:17 | XMS_ITS | Referral Summary ---
Author Organization [facility] [place] [address] Address [address] [place] [address] Care Team Providers Care Server Manager Name Role Phone Mando De Los Santos MD Primary Care Provider Mike Robbins MD Unavailable [phone] Allergies Active Allergy Reactions Criticality Noted Date [...] on file Legal Sex Female 11:57 AM MIGRATORY FARM HAND Gender Identity Not on file Sexual Orientation [...] Plan of Treatment Not on file Insurance [employer] GENERIC MEDICARE [facility] CHOICE PLUS Advance Directives For more information, please contact: [phone] Documents on File Type Date Recorded Patient Call Manager Expl anation ADVANCE DIRECTIVE 01/08/2015 12:00 AM ALESIA R OF TIME ANALYSIS CLERK FINANCIAL/MEDICAL Care Teams Server Manager Relationship Specialty Start Date End Date Mando De Los Santos MD PCP - General Family Practice 02/11/18 Mike Robbins MD Medical Oncologist/Retirement Specialist Hematology and Oncology 12/14/18
--- OUTSIDE RECORDS SUMMARY | 2025-01-16 12:17 | XMS_ITS | Clinical Summary ---
Author Organization [facility] Address [address] [place] [address] Care Team Providers Care Jewelry Designer Name Role Phone Mando De Los Santos MD Primary Care Provider Source Comments [facility],non-owned Affiliates and Associated Physician Practices is amultiple site organization consisting of ambulatory clinics and hospital sitesin [place], [place], [place] and [place]. This disclosure is being madepursuant to the Care Everywhere program and may not contain all information available regarding this patient. Last updated 18.[facility] Allergies Active Allergy Reactions Criticality Noted Date Comments Codeine Nausea and/or Vomiting Low 11/18/2017 other [Other] Nausea and/or Vomiting Low 07/10/2013 Received name: Opioids - Morphine Analogues Medications * Be aware that medications may not be up to date on this document. Alwaysverify current medications with the patient. VRAYLAR 4.5 MG capsule TK 1 C PO QAM 1 03/29/2019 Active diazePAM (VALIUM) 5 MG tablet TK 1 T PO QAM AND 1 T AT 3PM 03/28/2019 Active dilTIAZem coated beads 24hr (CARDIZEM CD) 240 MG capsule TK 1 C PO QD 1 01/30/2019 Active lamoTRIgine (LAMICTAL) 200 MG tablet TK 1 T PO D IN THE MORNING 03/17/2019 Active memantine ER 24 hr (NAMENDA XR) 28 MG capsule TK ONE C PO QAM 1 03/28/2019 Active rosuvastatin (CRESTOR) 10 MG tablet TK 1 T PO QD HS 2 02/23/2019 Active aspirin (ASPIRIN) 81 MG tablet Take 81 mg by mouth once daily Active Multiple Vitamins-Minera ls (CENTRUM SILVER) TABS Take 1 tablet by mouth daily with food Active carbidopa-levod opa (Sinemet) 25-100 MG tablet Take 1 (one) [...] at Not on file Legal Sex Female 1:47 PM TENDER LABOR Gender Identity Not on file Sexual Orientation Not on file Last Filed Vital Signs Vital Sign Reading Time Taken Comments Blood Pressure 129/77 08/23/2019 8:38 AM TENDER LABOR Pulse 67 08/23/2019 8:38 AM TENDER LABOR Temperature - - Respiratory Rate - - Oxygen Saturation - - Inhaled Oxygen Concentration - - Weight 84.8 kg (187 lb) 08/23/2019 8:38 AM TENDER LABOR Height 152.4 cm (5') 08/23/2019 8:38 AM TENDER LABOR Body Mass Index 36.52 08/23/2019 8:38 AM TENDER LABOR Plan of Treatment Health Maintenance Due Date [...] ZOSTER VACCINE (1 of 2) 1999 MAMMOGRAM 03/15/2019 03/15/2017, 01/23/2016, 01/20/2016 SCREENING FOR DIABETES 07/12/2022 9, 07/12/2019 COVID-19 VACCINE (2023-2 5 season) 2024 Respiratory Syncytial Virus (RSV) Vaccine Pt: or over 60 yrs (1 - 1-dose 75+ series) 2024 DEPRESSION SCREENING 09/13/2024 INFLUENZA VACCINE (Season Ended) 2025 HEPATITIS B VACCINE Aged Out No longe [...] * HEMOGLOBIN A1C (07/12/2019 11:04 AM CDT) [facility] Hemoglobin A1c 5.0 4.4 - 6.3 % 07/13/2019 9:15 AM CDT [facility] Estimated Average Glucose 97 mg/dL 07/13/2019 9:15 AM [facility] Comment: HbA1c Interpretation: Treatment target values recommended by ADA and other clinical organizations should be used to evaluate metabolic control in patients. Treatment Target Values: Normal : < 5.7% Pre-diabetes: 5.7-6.4% Diabetes: Equal to or greater than 6.5% Reference: [place] Diabetes Association Standards of Care in Diabetes -2014 In patients 70 years and older consider HbA1c target range of 7.0-7.5% Reference: Diabetes Mellitus in Older People: Position Statement on behalf of the International Association of Gerontology and Geriatrics (IAGG), the Diabetes Working Libertarian for Older People (EDWPOP), and the International Task Force of Experts in Diabetes. Andrade A, et al. J [place] Medical Directors Association. 2012 Test results diagnostic of diabetes should be repeated for confirmation. The Sebia Capillary 2 assay for the measurement of HbA1c is a National Glycohemoglobin Standardization Program (NGSP)certified method. Blood BLOOD SPECIMEN / Unknown Lab Venipuncture / Unknown 07/12/2019 11:04 AM CDT 07/12/2019 11:46 AM CDT us Yolette Aguiar MD LAB - CHEMISTRY ORDERABLES Fin al Result [address] [phone] from Last 3 Months or Most Recently Relevant to Health Maintenance Insurance MEDICARE [facility] MEDICARE [facility] SELF PAY NO INSURANCE Member Subscriber Plan / Payer (Ef fective for All Dates) Name:Afia Arroyo Member ID:Not on file Relation to Subscriber:Not on file Name:AFIA ARROYO Subscriber ID:Not on file (Home) Address: [address] [place] [address] Payer ID:Not on file Group ID:Not on file Type:Self Pay Address: [place], [place] MEDICARE Care Teams Jewelry Designer Relationship Specialty Start Date End Date Mando De Los Santos MD [address] [place] [address] [place] [address] PCP - General 04/13/19
--- OUTSIDE RECORDS SUMMARY | 2025-01-16 12:17 | XMS_ITS | Clinical Summary ---
Author Organization [facility] Address [address] [place] [address] Phone Care Team Providers Care Box Office Clerk Name Role Phone Mando De Los Santos [...] Comments Blood Pressure 123/57 11/03/2018 10:23 AM PACKAGING CLERK Pulse 56 11/03/2018 10:23 AM PACKAGING CLERK Temperature 36.5 C (97.7 F) 11/03/2018 10:23 AM PACKAGING CLERK Respiratory Rate - - Oxygen Saturation 92% 11/03/2018 10:23 AM PACKAGING CLERK Inhaled Oxygen Concentration - - Weight 109.3 kg (241 lb) 11/03/2018 10:23 AM PACKAGING CLERK Height 152.4 cm (5') 11/03/2018 10:23 AM PACKAGING CLERK Body Mass Index 47.07 11/03/2018 10:23 AM PACKAGING CLERK Plan of Treatment Health Maintenance Due Date [...] 2024 Insurance MEDICARE PART A AND B [place] [id number] Care Teams Box Office Clerk Relationship Specialty Start Date End Date Mando De Los Santos MD [address] [place] [address] PCP - General Family Practice 11/03/18
--- OUTSIDE RECORDS SUMMARY | 2025-01-16 12:17 | XMS_ITS | Encounter Summary ---
Author Organization [facility] Care Team Providers Care Utility Bagger Name Role Phone Kash Herrera MD Primary Care Provider [phone] Mando De Los Santos MD Primary Care Provider Unknown, Notinfile Primary Care Provider Unavail able Mando De Los Santos MD Primary Care Provider Mike Robbins MD Unavailable [phone] Encounter Details Date Type Department Care Team (Latest Contact Info) Description 05/12/2017 Orders Only [facility] CLINCONV ProviderMaylin MD [address] [place] [id number] Social History Tobacco Use Types Packs/Day Years Used Date Smoking Tobacco: Never Assessed Comments Unknown Sex and Gender Information Value Date Recorded Sex Assigned at Not on file Legal Sex Female 11:57 AM PORTER SAMPLE CASE Gender Identity Not on file Sexual Orientation [...] on filedocumented in this encounter Care Teams Utility Bagger Relationship Specialty Start Date End Date Kash Herrera MD [address] [place] [address] PCP - General 01/17/15 11/17/17 Mando De Los Santos MD [address] [place] [address] PCP - General Family Practice 11/18/17 02/01/18 Unknown, Notinfile PCP - General 02/02/18 02/10/18 Mando De Los Santos MD [address] [place] [address] PCP - General Family Practice 02/11/18 Mike Robbins MD Medical Oncologist/Hematologis t Hematology and Oncology 12/14/18 documented as of this encounter
--- OUTSIDE RECORDS SUMMARY | 2025-01-16 12:17 | XMS_ITS | Encounter Summary ---
Author Organization [facility] Care Team Providers Care Naval Marine Engineer Name Role Phone Kash Herrera MD Primary Care Provider [phone] Mando De Los Santos MD Primary Care Provider Unknown, Notinfile Primary Care Provider Unavail able Mando De Los Santos MD Primary Care Provider Mike Robbins MD Unavailable [phone] Encounter Details Date Type Department Care Team (Latest Contact Info) Description 04/29/2017 Orders Only [facility] CLINCONV ProviderMaylin MD [address] [place] [id number] Social History Tobacco Use Types Packs/Day Years Used Date Smoking Tobacco: Never Assessed Comments Unknown Sex and Gender Information Value Date Recorded Sex Assigned at Not on file Legal Sex Female 11:57 AM CUSTOMER SUPPORT REPRESENTATIVE Gender Identity Not on file Sexual Orientation [...] on filedocumented in this encounter Care Teams Naval Marine Engineer Relationship Specialty Start Date End Date Kash Herrera MD [address] [place] [address] PCP - General 01/17/15 11/17/17 Mando De Los Santos MD [address] [place] [address] PCP - General Family Practice 11/18/17 02/01/18 Unknown, Notinfile PCP - General 02/02/18 02/10/18 Mando De Los Santos MD [address] [place] [address] PCP - General Family Practice 02/11/18 Mike Robbins MD Medical Oncologist/Hematologis t Hematology and Oncology 12/14/18 documented as of this encounter
== END 2025-01-16 11:34 | disposition home or self-care (01) ==
LOC: ANHIMG 11:37
PROVIDERS: PCP Family Medicine; Visit Provider Urology
DX: N20.2 Calculus of kidney with calculus of ureter (principal); Z96.0 Presence of urogenital implants
CPT/HCPCS: 74018

== ENCOUNTER 2025-04-24 02:12 | Inpatient (IN) | payer MEDICARE, OTHER, SELFPAY ==
[2025-04-24] VITALS (23 sets, daily range): BP systolic 100–137; BP diastolic 51–70; PULSE 61–83; RESP 12–29; TEMP 36.7–38.2; O2SAT 91–96; BMI 24.3
--- NOTE | ~2025-04-24 | CT_ITS ---
EXAMINATION: CT abdomen pelvis w con DATE: 04/24/2025 03:44 INDICATION: Weakness. UTI. TECHNIQUE: Computed tomography (CT) of the abdomen and pelvis was performed with 100 cc Omnipaque 350 intravenous contrast. The dose-length product was 891.50 mGy-cm. Automated exposure control and iter ative reconstruction technique were employed. COMPARISON: CT dated 10/04/2024. FINDINGS: Dependent atelectasis. Stable right lower lobe nodule measuring 7 mm, likely benign status post cholecystectomy with intrahepatic biliary dilatation. The spleen, pancreas, adrenal glands are u nremarkable. There are bilateral renal stones. There are bilateral internal ureteral stents in expect ed position. There is bilateral hydronephrosis. There is a 7 mm distal left ureteral stone. There is severe right hydronephrosis. There are 2 solid left renal masses measuring 4.6 cm laterally and 3.1 c m posteriorly, consistent with renal cell carcinoma until proven otherwise. There is mild periuretera l stranding. Cannot exclude ascending urinary tract infection. Nonobstructive bowel gas pattern. Mode rate colonic fecal loading. No free air or free fluid. There is a staghorn calculus in the left renal pelvis. Moderate lumbar and lower thoracic spondylosis. No focal lytic or blastic lesions.. IMPRESSION: 1. Solid left renal masses, consistent with renal cell carcinoma. 2: Persistent severe hydronephrosis of the right kidney with internal ureteral stent in expected posi tion. There is left internal ureteral stent as well. Bilateral nephrolithiasis. Distal left ureteral stone. Mild stranding surrounding the right renal pelvis and ureters bilaterally. Cannot exclude asce nding urinary tract infection. Reviewed, dictated and finalized at location A. IMPRESSION: 1. Solid left renal masses, consistent with renal cell carcinoma. 2: Persistent severe hydronephrosis of the right kidney with internal ureteral stent in expected position. There is left internal ureteral stent as well. Bila teral nephrolithiasis. Distal left ureteral stone. Mild stranding surrounding t he right renal pelvis and ureters bilaterally. Cannot exclude ascending urinary tract infection.
--- NOTE | ~2025-04-24 | CT_ITS ---
EXAMINATION: CT brain wo con DATE: 04/24/2025 03:43 INDICATION: Weakness. TECHNIQUE: Computed tomography (CT) of the head was performed without intravenous contrast. The dose- length product was 681.00 mGy-cm. Automated exposure control and iterative reconstruction technique w ere employed. COMPARISON: CT dated 07/17/2023 FINDINGS: Generalized atrophy. No ventriculomegaly or midline shift. Basilar cisterns are patent. No acute infarction, hemorrhage, mass or mass effect. Normal barlow-white differentiation. Paranasal sinus es and mastoids are pneumatized. IMPRESSION: 1. No acute intracranial abnormality. Reviewed, dictated and finalized at location A.
--- NOTE | ~2025-04-24 | CT_ITS ---
EXAMINATION: CT abdomen pelvis w con DATE: 04/27/2025 10:20 INDICATION: Worsening abdominal pain TECHNIQUE: Computed tomography (CT) of the abdomen and pelvis was performed with intravenous contrast . The dose-length product was 353.96 mGy-cm. COMPARISON: 04/24/2025 FINDINGS: Small opacities in the lower lungs similar to the prior study likely atelectasis or scarring. Stable 7 mm right lower lobe nodule. Liver is grossly unchanged. Mild intrahepatic biliary duct dilatation, unchanged, which may be second zaid to previous cholecystectomy. Spleen, adrenal glands and pancreas are grossly in changed. Abdominal aorta is not aneurysmal. There is atherosclerotic disease in the abdominal aorta. No dilated bowel loops. Grossly stable size and configuration of the left renal masses. Stable left kidney stones. Bilateral double-J ureteral stents with the distal loops in the bladder and the proximal loops in sim ilar location as compared to the study from 04/24/2025. Grossly stable bilateral hydronephrosis. Stable 7 mm distal left ureteral stone. There is fat stranding about the ureters which has slightly worsened as compared to the study from 2024. Osseous structures are similar to the prior study. Bones appear osteopenic. IMPRESSION: 1. Grossly stable size and configuration of the left renal masses. 2.There is fat stranding about the ureters which has slightly worsened as compared to the study from April 24, 2025. An infectious process is possible. Correlate clinically. 3. Stable 7 mm distal left ureteral stone. 4. Bilateral hydronephrosis similar to the prior study from April 24, 2025. Severe right-sided hydro nephrosis, unchanged. Reviewed, dictated and finalized at location A. IMPRESSION: 1. Grossly stable size and configuration of the left renal masses. 2.There is fat stranding about the ureters which has slightly worsened as daniele red to the study from April 24, 2025. An infectious process is possible. Corre late clinically. 3. Stable 7 mm distal left ureteral stone. 4. Bilateral hydronephrosis similar to the prior study from April 24, 2025. Se genna right-sided hydronephrosis, unchanged.
--- NOTE | 2025-04-24 02:27 | ECG_ITS ---
Test Date: 2025-04-24 02:50:26 Measurements Intervals [place] Rate: 78 P: -16 MN: 161 QRS: -36 QRSD: 109 T: 16 QT: 423 QTc: 483 Interpretive Statements SINUS RHYTHM WITH SINUS ARRHYTHMIA POSSIBLE LEFT ATRIAL ENLARGEMENT POOR R WAVE PROGRESSION INFERIOR INFARCT, AGE INDETERMINATE BASELINE ARTIFACT- V5 ABNORMAL ECG Compared to ECG 08/30/2024 11:50:27 NO SIGNIFICANT CHANGE Electronically Signed On 04-24-2025 06:13:13 CDT by Shola Weiss D.O.
--- NOTE | 2025-04-24 02:29 | PC.NURSE ---
pt ambulatory to bathroom with even and steady gait.
[2025-04-24 02:51] LABS: Hematocrit 33.5 % (37.0-47.0); Hemoglobin 10.5 g/dL (12.0-15.0); Immature Granulocyte Percent A 0.4 % (0-0.5); Lymphocytes Absolute Auto 0.99 K/mm3 (0.9-3.2); Mean Corpuscular HGB Conc 31.3 g/dl (32-36); Mean Corpuscular Hemoglobin 29.0 pg (26-34); Mean Corpuscular Volume 92.5 fl (80-100); Nucleated Red Blood Cells Absolute Auto 0.000 K/mm3 (0.0-0.012); Nucleated Red Blood Cells Perc 0.0 % (0.0-0.2); Platelet Count Result 177 k/mm3 (150-375); Red Blood Count 3.62 M/mm3 (4.2-5.4); White Blood Count 6.7 K/mm3 (4.5-10.0)
--- NOTE | 2025-04-24 02:52 | ED.FALL ---
HPI - Fall General Chief Complaint: Fall Stated Complaint: fall Time Seen by Provider: 04/24/25 02:17 History of Present Illness HPI Narrative: 74-year-old female with complex urological history including previous kidney stones, staghorn calculi, ureteral stents with exchanges, renal masses consistent with RCC, chronic UTIs. Patient also has Parkinson's dementia, bipolar disorder, hypertension hyperlipidemia. She presents to the emergency department for generalized malaise and weakness. Family states she has also had a fever today. Family provides the majority collateral information as patient is more confused than normal. Patient states she just feels globally weak and have difficulty walking. She normally ambulates with a walker but sometimes needs a wheelchair to get around. Patient denies any falls or injuries today but almost fell to the ground while she was trying to get into her walker. saw this and was able to catch her before she landed on the ground. Patient's family states that she gets these presentations frequently attributed to urinary infections and gets weak, gets admitted, goes to rehab and feels better afterwards. Related Data Home Medications ?Medication ?Instructions ?Recorded ?Confirmed ?Last Taken ?Type diazepam 5 mg tablet 5 mg PO PRN PRN Anxiety 10/12/19 11/28/24 08/31/24 History lamotrigine 200 mg tablet 200 mg PO Q12H 10/12/19 11/28/24 08/31/24 History cariprazine 6 mg capsule (Vraylar) 6 mg PO QAM 05/26/21 11/28/24 08/31/24 History carbidopa 25 mg-levodopa 100 mg 1 tablet PO QID 06/16/21 11/28/24 08/30/24 History tablet cholecalciferol (vitamin D3) 50 50 mcg PO DAILY 12/29/21 11/28/24 08/24/24 History mcg (2,000 unit) capsule sertraline 100 mg tablet 200 mg PO QAM 06/21/22 11/28/24 08/31/24 History acetaminophen 500 mg tablet 1,000 mg PO Q6H PRN pain 1-3/fever 03/15/23 11/28/24 02/16/24 History memantine 28 mg capsule 28 mg PO QAM 03/16/23 11/28/24 08/30/24 History sprinkle,extended release 24hr docusate sodium 100 mg capsule 100 mg PO PRN PRN Constipation 10/14/23 03/14/25 02/16/24 History phenazopyridine 200 mg tablet 200 mg PO Q8H PRN pain 08/22/24 11/28/24 Unknown History Allergies Allergy/AdvReac Type Severity Reaction Status Date / Time codeine AdvReac Intermediate Confusion, Verified 03/14/25 10:04 NAUSEA Review of Systems Review of Systems: As reviewed above in [facility] Past Medical History Medical History Chronic idiopathic constipation Vitamin D deficiency History of CVA (cerebrovascular accident) Dementia PAM (obstructive sleep apnea) non compliant with CPAP Hyperlipidemia TIA (transient ischemic attack) Cardiomegaly Parkinson disease Hypertrophic obstructive cardiomyopathy Bipolar affective disorder History of right breast cancer Left renal mass Renal calculus Meniere disease Breast cancer 03/2012 Dyslipidemia Essential (primary) hypertension Anxiety Unspecified osteoarthritis, unspecified site Surgical History Surgical History Hx of cholecystectomy Hx of total knee arthroplasty (Unknown) H/O total hysterectomy with bilateral salpingo-oophorectomy (BSO) (Unknown) Hx of section (Unknown) History of partial mastectomy 2011 History of breast surgery 03/2012 Family History Family History Father Family history of diabetes mellitus in first degree relative, Onset Age: 77 Mother Family history of malignant neoplasm of ovary, Onset Age: 62 Grandparent Diabetes mellitus, Onset Age: 80 Other Hypertension Social History Social History Social History: The patient is and she is retired. The patient lives with her Damon who is her durable power assistant district attorney for healthcare. The patient is a full code. She is a lifelong nonsmoker. The patient tells me that she is retired from [employer]. She has 2 children. Smoking status: Never smoker Second hand tobacco smoke exposure: No Alcohol intake: never Substance use: never Substance use type: does not use Lack of Transportation: No Lack of Food: Never True Current Housing: I Have Housing Concerned About Future Housing: No Difficulty Paying Gas/Electric Bills: No Difficulty Paying for Meds: No Currently Unemployed: No Education: High School Diploma/GED Difficulty w/ Childcare or Family Care: No Living arrangements: with family Additional living arrangements comments: HUSB Spiritual care concerns: No Exam Narrative: GENERAL: Chronically ill-appearing, not in any acute distress HEAD: [Normocephalic, atraumatic.] EYES: [PERRLA and EOMI.] ENT: Nares clear, no rhinorrhea or epistaxis. Mucous membranes moist. NECK: Supple. CHEST: [Clear to auscultation. No respiratory distress.] HEART: [Regular rate and rhythm]. No murmur heard. [Normal peripheral pulses.] ABDOMEN: [Soft, nondistended], mild tenderness to palpation the right lower quadrant, [No rigidity or guarding] EXTREMITIES: Normal range of motion. [No edema.] SKIN: Warm, dry, no rash. NEURO: Slow to respond to questioning. Alert and oriented x3. Moving all extremities, good strength in bilateral lower and upper extremities, sensation intact globally. No slurring speech, no facial asymmetry. PSYCH: [Normal mood and affect.] Course Vital Signs Vital signs: Vital Signs Temperature 38.2 C H 04/24/25 02:11 Pulse Rate 83 04/24/25 02:11 Respiratory Rate 18 04/24/25 02:11 Blood Pressure 137/70 04/24/25 02:11 Pulse Oximetry 92 04/24/25 02:11 Oxygen Delivery Room Air 04/24/25 02:11 Temperature 38.2 C H 04/24/25 02:11 Pulse Rate 83 04/24/25 02:11 Respiratory Rate 18 04/24/25 02:11 Blood Pressure 137/70 04/24/25 02:11 Pulse Oximetry 92 04/24/25 02:11 Oxygen Delivery Room Air 04/24/25 02:11 MDM - Fall MDM Narrative Medical decision making narrative: 74-year-old female with complex urological history including previous kidney stones, staghorn calculi, ureteral stents with exchanges, renal masses consistent with RCC, chronic UTIs. Patient also has Parkinson's dementia, bipolar disorder, hypertension hyperlipidemia. She presents to the emergency department for generalized malaise and weakness. Family states she has also had a fever today. Family provides the majority collateral information as patient is more confused than normal. Patient states she just feels globally weak and have difficulty walking. She normally ambulates with a walker but sometimes needs a wheelchair to get around. Patient denies any falls or injuries today but almost fell to the ground while she was trying to get into her walker. saw this and was able to catch her before she landed on the ground. Patient's family states that she gets these presentations frequently attributed to urinary infections and gets weak, gets admitted, goes to rehab and feels better afterwards. Patient is not any acute distress, family states she is confused, but she is able to answer orientation questions at this time. She is febrile at 38.2, no tachycardia, tachypnea or fever. Patient has good strength on neurological evaluation without any lateralizing deficits. Differential was broad but given her classical history for potential infectious process with fever and generalized weakness and her history of recurrent UTIs this is most likely a urinary tract infection versus sepsis versus infected kidney stone versus bacteremia per less likely other intra-abdominal process or less likely intracranial process such as stroke or hemorrhage. Septic bundle was initiated she was given a fluid bolus, Tylenol and started on Rocephin while workup underway with urinary analysis, blood cultures, lactic acid, laboratory studies and a CT of the head and CT of the abdomen pelvis. Patient placed on cardiac cath technician and pulse oximetry. CT scan report shows hydronephrosis in the right-sided with signs of urinary tract infection, bilateral ureteric stents are in place, bilateral renal stones again redemonstrated with large left for staghorn calculus also chronic. Compared to prior CT scans in the EMR very similar in appearance without any acute interval changes. Patient is on Rocephin for urinary tract infection and received Tylenol for her fever. She remains hemodynamically stable here without any significant derangements or signs of sepsis. No tachycardia or leukocytosis. She has an acute kidney injury on top of chronic kidney disease. She was given fluids. Urology consult placed and patient will be admitted to the hospitalist service. Discussed the case with the hospitalist and we went over patient's clinical exam, historical features and plan going forward. Patient accepted to the hospital at this time. Medical Records Attestation: I reviewed the patient's medical records. Lab Data Attestation: I reviewed the patient's lab results. 04/24/25 02:42 04/24/25 02:42 Labs: Lab Results 04/24/25 Range/Units 02:42 WBC 6.7 (4.5-10.0) K/mm3 RBC 3.62 L (4.2-5.4) M/mm3 Hgb 10.5 L (12.0-15.0) g/dL Hct 33.5 L (37.0-47.0) % MCV 92.5 (80-100) fl MCH 29.0 (26-34) pg MCHC 31.3 L (32-36) g/dl RDW 12.3 (11.5-14.5) % Plt Count 177 (150-375) k/mm3 MPV 9.1 (7.4-10.4) fl Immature Gran % (Auto) 0.4 (0-0.5) % Neut % (Auto) 68.0 (45.5-73.1) % Lymph % (Auto) 14.7 L (18.3-44.2) % Parker % (Auto) 15.5 H (2.6-8.5) % Eos % (Auto) 1.0 (0-4.4) % Baso % (Auto) 0.4 (0.2-1.2) % Lymph # (Auto) 0.99 (0.9-3.2) K/mm3 Parker # (Auto) 1.0 H (0.1-0.6) K/mm3 Eos # (Auto) 0.1 (0-0.3) K/mm3 Baso # (Auto) 0.0 (0.0-0.1) K/mm3 Abs Immat Gran (auto) 0.03 (0.00-0.031) K/mm3 Absolute Neuts (auto) 4.6 (1.3-6.7) K/mm3 Absolute Nucleated RBC 0.000 (0.0-0.012) K/mm3 Nucleated RBC % 0.0 (0.0-0.2) % Sodium 137 (137-145) mmol/L Potassium 4.0 (3.4-5.0) mmol/L Chloride 103 (98-107) mmol/L Carbon Dioxide 26 (22-30) mmol/L Anion Gap 8 (4-12) mmol/L BUN 25 H (7-17) mg/dL Creatinine 1.69 H (0.7-1.0) mg/dL Estim Creat Clear Calc 23 ml/min Estimated GFR 30 L (59 - ) Glucose 117 H (65-110) mg/dL Lactic Acid 0.9 (0.7-2.0) mmol/L Calcium 9.0 (8.4-10.2) mg/dL Total Bilirubin 0.8 (0.2-1.3) mg/dL AST 41 H (14-36) U/L ALT 19 (6-35) U/L Alkaline Phosphatase 122 (38-126) U/L Total Protein 7.3 (6.3-8.2) g/dL Albumin 4.0 (3.5-5.1) g/dL Urine Color Yellow (Yellow) Urine Appearance Cloudy H (Clear) Urine pH 7.5 (5.0-9.0) Ur Specific [place] 1.014 (1.001-1.035) Urine Protein 3+ H (Negative) mg/dL Urine Glucose (UA) Negative (Negative) mg/dL Urine Ketones Negative (Negative) mg/dL Ur Blood (Man) 3+ H (Negative) Urine Nitrate Positive H (Negative) Urine Bilirubin Negative (Negative) Urine Urobilinogen 1.0 (<2.0) mg/dL Leukocyte Esterase Rfl 3+ H (Negative) BEV/UL Urine RBC >100 H (0-2) /hpf Urine WBC >100 H (0-3) /hpf Ur Squamous Epith Cells None seen (Few) /hpf Urine Bacteria 4+ H /hpf Urine Casts 0-2 Imaging Data Attestation: I personally reviewed and interpreted this imaging study as follows: My impression: Chronic hydronephrosis, chronic staghorn calculus, solitary renal mass consistent with rcc similar to prior Critical Care Time Critical Care Time Critical Care Time: Yes Total Critical Care Time: 35 Discharge Plan Discharge Clinical Impression: Acute confusion due to infection, Left renal mass, Parkinson disease, General weakness, Acute kidney injury superimposed on chronic kidney disease, Acute UTI, Ureteral stent present, Staghorn calculus, Fever Patient Disposition: Still a Patient Condition: Stable Patient Language: Korean Prescriptions: No Action diazepam 5 mg tablet 5 mg PO PRN PRN (Reason: Anxiety) lamotrigine 200 mg tablet 200 mg PO Q12H ondansetron HCl 4 mg tablet 4 mg PO Q8H PRN (Reason: nausea and vomiting) Qty: 60 1RF polyethylene glycol 3350 [Miralax] 17 gram/dose powder 17 g PO DAILY Qty: 510 0RF Patient Comments: STATES TAKING PRN FOR CONSTIPATION CURRENTLY carbidopa-levodopa 25-100 mg tablet 1 tablet PO QID cholecalciferol (vitamin D3) 50 mcg (2,000 unit) Capsule 50 mcg PO DAILY sertraline 100 mg tablet 200 mg PO QAM Vraylar 6 mg Capsule 6 mg PO QAM docusate sodium 100 mg capsule 100 mg PO PRN PRN (Reason: Constipation) Patient Comments: TAKES PRN. patient stated doesnt take phenazopyridine 200 mg tablet 200 mg PO Q8H PRN (Reason: pain) cephalexin 500 mg capsule 500 mg PO Q8H Qty: 15 0RF diltiazem HCl 240 mg capsule,extended release 24hr 240 mg PO QAM Qty: 90 1RF famotidine 40 mg tablet See Rx Instructions .ROUTE .COMPLEX Qty: 60 12RF Dose Instruction: TAKE 1 TABLET BY MOUTH TWICE DAILY Rx Instructions: TAKE 1 TABLET BY MOUTH TWICE DAILY potassium chloride 10 mEq tablet extended release 10 meq PO DAILY Qty: 90 0RF Rx Instructions: NEEDS APPOINTMENT FOR FURTHER REFILLS rosuvastatin 10 mg tablet 10 mg PO DAILY Qty: 90 0RF Rx Instructions: NEEDS APPOINTMENT FOR FURTHER REFILLS acetaminophen 500 mg tablet 1,000 mg PO Q6H PRN (Reason: pain 1-3/fever) memantine 28 mg capsule,sprinkle,ER 24hr 28 mg PO QAM Follow-up/Referrals: Kelsie De Los Santos MD [Primary Care Provider] - Time of Disposition: 04:50
[2025-04-24 02:53] LABS: Add Urine Microscopic? YES; Appearance Urine Cloudy (Clear); Glucose Urine UA Negative (Negative); Leukocyte Esterase Ur 3+ LEU/UL (Negative); Nitrate Urine Positive (Negative); Non Pathogenic Casts 0-2; Specific Grav Ur 1.014 (1.001-1.035)
[2025-04-24] MEDS: cefTRIAXone 1 GM in SODIUM CHLORIDE 0.9% IV 50 ML 100 ML IVPB ×2 (03:00→20:20)
[2025-04-24] MEDS: ACETAMINOPHEN 500 MG TABLET 1000 MG PO (03:01)
[2025-04-24 03:03] LABS: Alanine Aminotransferase 19 U/L (6-35); Albumin Level 4.0 g/dL (3.5-5.1); Alkaline Phosphatase 122 U/L (38-126); Anion Gap 8 mmol/L (4-12); Aspartate Amino Transferase 41 U/L (14-36); Bilirubin,Total 0.8 mg/dL (0.2-1.3); Blood Urea Nitrogen 25 mg/dL (7-17); Calcium 9.0 mg/dL (8.4-10.2); Carbon Dioxide 26 mmol/L (22-30); Chloride 103 mmol/L (98-107); Estimated CRCL calculation 23 ml/min; Estimated Glomerular Filt Rate 30; Glucose 117 mg/dL (65-110); Potassium 4.0 mmol/L (3.4-5.0); Sodium 137 mmol/L (137-145); Total Protein 7.3 g/dL (6.3-8.2)
--- OUTSIDE RECORDS SUMMARY | 2025-04-24 03:40 | XMS_ITS | Clinical Summary ---
Author Organization [facility] [place] Address [address] [place] [address] Phone Care Team Providers Care Congressional Aide Name Role Phone Mando De Los Santos [...] Comments Blood Pressure 123/57 11/03/2018 10:23 AM RN UNIT MANAGER Pulse 56 11/03/2018 10:23 AM RN UNIT MANAGER Temperature 36.5 C (97.7 F) 11/03/2018 10:23 AM RN UNIT MANAGER Respiratory Rate - - Oxygen Saturation 92% 11/03/2018 10:23 AM RN UNIT MANAGER Inhaled Oxygen Concentration - - Weight 109.3 kg (241 lb) 11/03/2018 10:23 AM RN UNIT MANAGER Height 152.4 cm (5') 11/03/2018 10:23 AM RN UNIT MANAGER Body Mass Index 47.07 11/03/2018 10:23 AM RN UNIT MANAGER Plan of Treatment Health Maintenance Due Date Last Done Comments DTAP/TDAP/TD VACCINES (1 - Tdap) 1968 COLORECTAL SCREENING 1994 Colorectal Cancer Screening 1994 FIT-DNA Q 3 years 1994 FIT/FOBT Q 1 year 1994 Flex Sig/CT Colonography Q 5 years 1994 PNEUMOCOCCAL VACCINE 50+ YEARS (1 of 1 - PCV) 08/19/19 99 ZOSTER VACCINE (1 of 2) 1999 OSTEOPOROSIS SCREENING 2014 RSV VACCINE (60+ or ) (1 - 1-dose 75+ series) 2024 INFLUENZA VACCINE (#1) 2025 Insurance MEDICARE PART A AND B [facility] OPT[place] [id number] Care Teams Congressional Aide Relationship Specialty Start Date End Date Mando De Los Santos MD [address] [place] [address] PCP - General Family Practice 11/03/18
--- OUTSIDE RECORDS SUMMARY | 2025-04-24 03:41 | XMS_ITS | Clinical Summary ---
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 MEDICARE [facility]ICE [facility] HMO/PPO Address: [address] [address] [place] [address] Advance Directives For more information, please contact: [phone] Documents on File Type Date Recorded Patient Electric Repair Supervisor Expl anation ADVANCE DIRECTIVE 01/08/2015 12:00 AM ALESIA Schreiber OF [employer] Care Teams Fine Craft Artist Relationship Specialty Start Date End Date Mando De Los Santos MD PCP - General Family Practice 02/11/18 Mike Robbins MD Medical Oncologist/Photographer'S Model Hematology and Oncology 12/14/18
--- OUTSIDE RECORDS SUMMARY | 2025-04-24 03:41 | XMS_ITS | Patient Health Record ---
Author Organization [facility] Address [address] [facility] [address] [place] [address] Care Team Providers Care Ramp Agent Name Role Phone Adan Tanner Unavailable [phone] Reason For Referral No Information Medications Medication SIG (Take, Route, Frequency, Duration) Notes Start Date End Date Status Azithromycin 250 MG Oral Active SEROquel 100 MG Oral Acti ve diazePAM 5 MG Oral Active busPIRone HCl 5 MG Oral A ctive Sertraline HCl 25 MG Oral Active FLUoxetine HCl 20 MG Oral Active Lunesta 2 MG Oral Active Perphenazine-Amitripty line 4-25 mg Oral Active Crestor 10 MG Oral Active Cymbalta 60 MG Oral Activ e Fluconazole 150 MG Oral A ctive B-12 250 mcg Oral Active traZODone HCl 50 MG Oral Active buPROPion HCl ER (SR) 100 MG Oral Active TRIAMTERENE W/HCTZ 37.5 MG-25 MG TABLET *Reorder from [employer] NLG for eRx and Interaction Alerts* Active Pristiq 100 MG Oral Activ e SEROquel XR 150 MG Oral A ctive Rexulti 0.5 MG Oral Activ e Matzim LA 240 mg Oral Act sam Ativan 0.5 MG Oral Active Triamterene-HCTZ 37.5-25 MG Oral Active buPROPion HCl ER (SR) 200 MG Oral Active DULoxetine HCl 30 MG Oral Active Desvenlafaxine ER 50 mg Oral Active Vilazodone HCl 10 MG Oral Active buPROPion HCl ER (XL) 300 MG Oral Active Rexulti 1 mg Oral Active Plan Of Treatment No Information
--- OUTSIDE RECORDS SUMMARY | 2025-04-24 03:41 | XMS_ITS | Encounter Summary ---
Author Organization [facility] Healthcare Address [address] [place] [address] Care Team Providers Care Leaflet Or Newspaper Deliverer Name Role Phone Mando De Los Santos MD Primary Care Provider Unknown, Notinfile Primary Care Provider Unavail able Mando De Los Santos MD Primary Care Provider Mike Robbins MD Unavailable Encounter Details Date Type Department Care Team (Late st Contact Info) Description 11/20/2017 [place] Only [facility] [place] [address] [place] [address] Scanning, Provider Social History Tobacco Use Types Packs/Day Years Used Date Smoking Tobacco: Never Smokeless Tobacco: Never Alcohol Use Standard Drinks/Week Comments No 0 (1 standard drink = 0.6 oz pur e alcohol) Comments Unknown Sex and Gender Information Value Date Recorded Sex Assigned at Not on file 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 Gender Identity Not on file Sexual Orientation Not on file documented as of this encounter Plan of Treatment Not on file documented as of this encounter Procedures Procedure Name Priority Date/Time Associated Diagnosis Comments SCAN - RADIOLOGY/IMAGING 11/20/2017 1:20 AM TIER TRUCK DRIVER SCAN - RADIOLOGY/IMAGING 11/20/2017 1:20 AM TIER TRUCK DRIVER SCAN - RADIOLOGY/IMAGING 11/20/2017 1:20 AM TIER TRUCK DRIVER SCAN - LABS 11/20/2017 1:20 AM TIER TRUCK DRIVER documented in this encounter Results * SCAN - LABS (11/20/2017 1:20 AM TIER TRUCK DRIVER) us Provider Scanning Final Result * SCAN - RADIOLOGY/IMAGING (11/20/2017 1:20 AM TIER TRUCK DRIVER) Anatomical Region Laterality Modality Other us Provider Scanning Final Result * SCAN - RADIOLOGY/IMAGING (11/20/2017 1:20 AM TIER TRUCK DRIVER) Anatomical Region Laterality Modality Other us Provider Scanning Final Result * SCAN - RADIOLOGY/IMAGING (11/20/2017 1:20 AM TIER TRUCK DRIVER) Anatomical Region Laterality Modality Other us Provider Scanning Final Result documented in this encounter Visit Diagnoses Not on filedocumented in this encounter Care Teams Leaflet Or Newspaper Deliverer Relationship Specialty Start Date End Date Mando De Los Santos MD PCP - General Family Practice 11/18/17 02/01/18 Unknown, Notinfile PCP - General 02/02/18 02/10/18 Mando De Los Santos MD PCP - General Family Practice 02/11/18 Mike Robbins MD Medical Oncologist/Sales Enablement Analyst Hematology and Oncology 12/14/18 documented as of this encounter
--- OUTSIDE RECORDS SUMMARY | 2025-04-24 03:42 | XMS_ITS | Clinical Summary ---
Author Organization [facility] Address [address] [place] [address] Care Team Providers Care Outreach Educator Name Role Phone Osmel Herrera MD Primary Care Provider [phone] Allergies Active Allergy Reactions Criticality Noted Date [...] Comments Blood Pressure 112/60 11/14/2019 8:20 AM INSIDE SALES MANAGER Pulse 68 11/14/2019 8:20 AM INSIDE SALES MANAGER Temperature 36.4 C (97.6 F) 11/14/2019 8:20 AM INSIDE SALES MANAGER Respiratory Rate 20 11/14/2019 8:20 AM INSIDE SALES MANAGER Oxygen Saturation - - Inhaled Oxygen Concentration - - Weight 79.8 kg (176 lb) 11/14/2019 8:20 AM INSIDE SALES MANAGER Height 152.4 cm (5') 11/14/2019 8:20 AM INSIDE SALES MANAGER Body Mass Index 34.37 11/14/2019 8:20 AM INSIDE SALES MANAGER Plan of Treatment Health Maintenance Due [...] age to complete this topic Insurance MEDICARE [facility] Care Teams Outreach Educator Relationship Specialty Start Date End Date Osmel Herrera MD [address] [place] [address] PCP - General FAMILY PRACTICE 02/19/19
--- OUTSIDE RECORDS SUMMARY | 2025-04-24 03:42 | XMS_ITS | Encounter Summary ---
Author Organization [facility] Facility Care Team Providers Care Gis Instructor Name Role Phone Kash Herrera MD Primary Care Provider [phone] Mando De Los Santos MD Primary Care Provider Unknown, Notinfile Primary Care Provider Unavail able Mando De Los Santos MD Primary Care Provider Mike Robbins MD Unavailable [phone] Encounter Details Date Type Department Care Team (Latest Contact Info) Description 05/12/2017 Orders Only [facility] ProviderMaylin MD [address] [place] [address] Social History Tobacco Use Types Packs/Day Years Used Date Smoking Tobacco: Never Assessed Comments Unknown Sex and Gender Information Value Date Recorded Sex Assigned at Not on file 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 Gender Identity Not on file Sexual Orientation [...] on filedocumented in this encounter Care Teams Gis Instructor Relationship Specialty Start Date End Date Kash Herrera MD [address] [place] [place] [address] PCP - General 01/17/15 11/17/17 Mando De Los Santos MD [address] [place] [address] PCP - General Family Practice 11/18/17 02/01/18 Unknown, Notinfile PCP - General 02/02/18 02/10/18 Mando De Los Santos MD [address] [place] [place] [address] PCP - General Family Practice 02/11/18 Mike Robbins MD Medical Oncologist/Hematologis t Hematology and Oncology 12/14/18 documented as of this encounter
--- OUTSIDE RECORDS SUMMARY | 2025-04-24 03:42 | XMS_ITS | Encounter Summary ---
Author Organization [facility] Facility Care Team Providers Care Piano Mechanic Name Role Phone Kash Herrera MD Primary Care Provider [phone] Mando De Los Santos MD Primary Care Provider Unknown, Notinfile Primary Care Provider Unavail able Mando De Los Santos MD Primary Care Provider Mike Robbins MD Unavailable [phone] Encounter Details Date Type Department Care Team (Latest Contact Info) Description 04/29/2017 Orders Only [facility]IN[facility] ProviderMaylin MD [address] [place] [address] Social History Tobacco Use Types Packs/Day Years Used Date Smoking Tobacco: Never Assessed Comments Unknown Sex and Gender Information Value Date Recorded Sex Assigned at Not on file 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 Gender Identity Not on file Sexual Orientation [...] on filedocumented in this encounter Care Teams Piano Mechanic Relationship Specialty Start Date End Date Kash Herrera MD [address] [place] [place] [address] PCP - General 01/17/15 11/17/17 Mando De Los Santos MD [address] [place] [place] [address] PCP - General Family Practice 11/18/17 02/01/18 Unknown, Notinfile PCP - General 02/02/18 02/10/18 Mando De Los Santos MD [address] [place] [address] PCP - General Family Practice 02/11/18 Mike Robbins MD Medical Oncologist/Hematologis t Hematology and Oncology 12/14/18 documented as of this encounter
[2025-04-24] MEDS: LACTATED RINGERS 1,000 ML 125 ML IV CONT ×3 (04:54→20:38)
--- NOTE | 2025-04-24 06:12 | ADMGEN ---
This patient, Karina Arroyo, was admitted to Medical Room 341-01. Patient/family oriented to hospital policies and general routines including ID bracelet, bed and alarms, visiting hours, pain management, procedures, bathroom and other care routines, personal items, smoking policy, room service/diet, and visiting hours. Information on how to activate the Rapid Response Team has been discussed. Patient/Family are encouraged to report perceived risks to care and to ask questions if they do not understand what they are told or what they should do.
--- NOTE | 2025-04-24 09:44 | P.HP_ITS ---
H&P: HPI History of Present Illness Date/Time: 04/24/25 09:44 Chief Complaint: Fall Narrative: Karina Arroyo is a 74-year-old female with a past medical history of previous kidney stones, ureteral stents with extenders, renal masses consistent with RCC, chronic UTIs, staghorn calculi, Parkinson's dementia, bipolar disorder, hypertension, hyperlipidemia, who presents to the hospital with generalized weakness and malaise. Patient is accompanied by who states that Wednesday afternoon, the patient started complaining of worsening generalized weakness, especially in the lower extremities. No known injury or trauma. also states that the patient has seemed more confused than usual, on exam patient is A&O x3 but slow to answer questions. Patient denies any falls, by states that he had to get a wheelchair to prevent her from falling. Patient follows with Urology closely in the outpatient setting due to frequent urinary tract infections, and has a an extensive history with similar presentation of generalized weakness with associated urinary tract infection requiring hospital stays and acute rehab post discharge. ED workup: 38.2? C, 83 HR, 18 RR, 137/70, 92% on room air WBC 6.7, HGB 10.5, HCT 33.5, PLT count 177, sodium 137, potassium 4.0, chloride 103, BUN 25, creatinine 1.69, GFR 30, glucose 117, calcium 9.0, AST 41, ALT 19, alkaline phosphatase 122 UA: 3+ urine blood, positive nitrates, 3+ leukocyte esterase, >100 RBC and WBC, 4+ bacteria Head CT: No acute intracranial abnormality Abdomen/pelvis CT: Solid left renal masses consistent with RCC, persistent severe hydronephrosis of right kidney with internal ureteral stent in expected position, left internal ureteral stent as well. Bilateral nephrolithiasis, distal left ureteral stone, mild stranding surrounding the right renal pelvis and ureters bilaterally, cannot exclude ascending urinary tract infection Review of Systems Review of Systems: All systems reviewed & are unremarkable except as noted in HPI and below PMFSH Past Medical History Medical History Chronic idiopathic constipation Vitamin D deficiency History of CVA (cerebrovascular accident) Dementia PAM (obstructive sleep apnea) non compliant with CPAP Hyperlipidemia TIA (transient ischemic attack) Cardiomegaly Parkinson disease Hypertrophic obstructive cardiomyopathy Bipolar affective disorder History of right breast cancer Left renal mass Renal calculus Meniere disease Breast cancer 03/2012 Dyslipidemia Essential (primary) hypertension Anxiety Unspecified osteoarthritis, unspecified site Surgical History Surgical History Hx of cholecystectomy Hx of total knee arthroplasty (Unknown) H/O total hysterectomy with bilateral salpingo-oophorectomy (BSO) (Unknown) Hx of section (Unknown) History of partial mastectomy 2011 History of breast surgery 03/2012 Family History Family History Father Family history of diabetes mellitus in first degree relative, Onset Age: 77 Mother Family history of malignant neoplasm of ovary, Onset Age: 62 Grandparent Diabetes mellitus, Onset Age: 80 Other Hypertension Social History Social History Social History: The patient is and she is retired. The patient lives with her Damon who is her durable power patent prosecution attorney for healthcare. The patient is a full code. She is a lifelong nonsmoker. The patient tells me that she is retired from [employer]. She has 2 children. Smoking status: Never smoker Second hand tobacco smoke exposure: No Alcohol intake: never Substance use: never Substance use type: does not use Lack of Transportation: No Lack of Food: Never True Current Housing: I Have Housing Concerned About Future Housing: No Difficulty Paying Gas/Electric Bills: No Difficulty Paying for Meds: No Currently Unemployed: No Education: High School Diploma/GED Difficulty w/ Childcare or Family Care: No Living arrangements: with family Additional living arrangements comments: [facility] Spiritual care concerns: No Meds Home Medications and Allergies Home Medications ?Medication ?Instructions ?Recorded ?Confirmed ?Type diazepam 5 mg tablet 5 mg PO PRN PRN Anxiety 10/12/19 04/24/25 History lamotrigine 200 mg tablet 200 mg PO Q12H 10/12/19 04/24/25 History cariprazine 6 mg capsule (Vraylar) 6 mg PO QAM 05/26/21 04/24/25 History carbidopa 25 mg-levodopa 100 mg 1 tablet PO QID 06/16/21 04/24/25 History tablet cholecalciferol (vitamin D3) 50 50 mcg PO DAILY 12/29/21 04/24/25 History mcg (2,000 unit) capsule sertraline 100 mg tablet 200 mg PO QAM 06/21/22 04/24/25 History acetaminophen 500 mg tablet 1,000 mg PO Q6H PRN pain 1-3/fever 03/15/23 04/24/25 History memantine 28 mg capsule 28 mg PO QAM 03/16/23 04/24/25 History sprinkle,extended release 24hr docusate sodium 100 mg capsule 100 mg PO PRN PRN Constipation 10/14/23 04/24/25 History phenazopyridine 200 mg tablet 200 mg PO Q8H PRN pain 08/22/24 04/24/25 History ondansetron HCl 4 mg tablet 4 mg PO Q8H PRN nausea and 09/20/24 04/24/25 Rx vomiting #60 tabs diltiazem HCl 240 mg 240 mg PO QAM #90 caps 12/05/24 04/24/25 Rx capsule,extended release 24 hr famotidine 40 mg tablet See Rx Instructions .Route 02/13/25 04/24/25 Rx .COMPLEX #60 tabs potassium chloride 10 mEq 10 meq PO DAILY #90 tabs 03/14/25 04/24/25 Rx tablet,extended release rosuvastatin 10 mg tablet 10 mg PO DAILY #90 tabs 04/11/25 04/24/25 Rx mirabegron 50 mg tablet,extended 50 mg PO DAILY 04/24/25 04/24/25 History release 24 hr (Myrbetriq) polyethylene glycol 3350 17 17 g PO DAILY PRN constipation 04/24/25 04/24/25 History gram/dose oral powder (Miralax) Allergies Allergy/AdvReac Type Severity Reaction Status Date / Time codeine AdvReac Intermediate Confusion, Verified 03/14/25 10:04 NAUSEA Vital Signs Vital Signs - 24 hr 04/24/25 02:11 04/24/25 02:20 04/24/25 02:21 Temperature 100.8 F H Pulse Rate 83 83 Respiratory Rate 18 29 H Blood Pressure 137/70 137/70 Pulse Oximetry 92 91 91 Oxygen Delivery Room Air 04/24/25 02:33 04/24/25 02:49 04/24/25 03:03 Temperature Pulse Rate 79 76 76 Respiratory Rate 12 13 Blood Pressure Pulse Oximetry 95 Oxygen Delivery 04/24/25 03:29 04/24/25 03:49 04/24/25 04:05 Temperature Pulse Rate 71 77 72 Respiratory Rate 16 20 Blood Pressure Pulse Oximetry 91 Oxygen Delivery 04/24/25 04:15 04/24/25 04:16 04/24/25 04:49 Temperature Pulse Rate 70 70 64 Respiratory Rate 19 19 17 Blood Pressure 112/58 L Pulse Oximetry 91 92 91 Oxygen Delivery 04/24/25 05:07 04/24/25 05:15 04/24/25 05:16 Temperature Pulse Rate 67 63 65 Respiratory Rate 17 17 19 Blood Pressure 110/63 Pulse Oximetry 93 92 92 Oxygen Delivery 04/24/25 05:48 04/24/25 07:00 Temperature 98.1 F Pulse Rate 63 69 Respiratory Rate 18 18 Blood Pressure 100/51 L Pulse Oximetry 94 96 Oxygen Delivery Exam Narrative: Gen -chronically ill appearing female in no acute respiratory distress who is nontoxic-appearing lying semi recumbent in bed HEENT - normocephalic. Atraumatic. Pupils equal round and reactive. Extraocular motions intact. Sclera clear and anicteric. Nares patent. Oropharynx was clear. Dry mucous membranes. Tongue was midline. No facial asymmetry. Neck - neck was supple. No dominant adenopathy, thyromegaly or masses. Chest - lungs are clear to auscultation bilaterally. No wheezes or crackles. CV - heart was regular rate and rhythm. S1-S2. No murmurs gallops or rubs. Abd -TTP to the RLQ, abdomen was soft. Nondistended. Positive bowel sounds. No organomegaly or masses. Ext - no clubbing, cyanosis or edema. 2+ DP pulses bilaterally. Neuro - patient is alert and oriented x4. Cranial nerves 2-12 are intact. Speech is clear but slow, no slurring Psych - normal mood and affect. Patient is pleasant and cooperative. Skin - warm and dry. No rashes noted. H&P: Results Labs Labs: Short CBC 04/24/25 Range/Units 02:42 WBC 6.7 (4.5-10.0) K/mm3 Hgb 10.5 L (12.0-15.0) g/dL Hct 33.5 L (37.0-47.0) % Plt Count 177 (150-375) k/mm3 BMP 04/24/25 02:42 Sodium 137 Potassium 4.0 Chloride 103 Carbon Dioxide 26 BUN 25 H Creatinine 1.69 H Glucose 117 H Calcium 9.0 Liver Function 04/24/25 Range/Units 02:42 Total Bilirubin 0.8 (0.2-1.3) mg/dL AST 41 H (14-36) U/L ALT 19 (6-35) U/L Alkaline Phosphatase 122 (38-126) U/L Albumin 4.0 (3.5-5.1) g/dL Urine 04/24/25 Range/Units 02:42 Urine Color Yellow (Yellow) Urine Appearance Cloudy H (Clear) Urine pH 7.5 (5.0-9.0) Ur Specific Powers 1.014 (1.001-1.035) Urine Protein 3+ H (Negative) mg/dL Urine Glucose (UA) Negative (Negative) mg/dL Assessment and Plan Assessment and plan (1) Acute UTI: Code(s): N39.0 - Urinary tract infection, site not specified Status: Acute Assessment and Plan: * UA: 3+ blood, Positive nitrates, 3+ leukocyte esterase, >100 RBC, >100 WBC, 4+ bacteria * UC obtained on 04/24 * started on Ceftriaxone, continue IV antibiotics until cultures have resulted * Abdomen/Pelvis CT * Solid left renal masses, consistent with renal cell carcinoma. * Persistent severe hydronephrosis of the right kidney with internal ureteral stent in expected position. There is left internal ureteral stent as well. Bilateral nephrolithiasis. Distal left ureteral stone. Mild stranding surrounding the right renal pelvis and ureters bilaterally. Cannot exclude ascending urinary tract infection.' * Urology consult pending, appreciate further recommendations * IV fluid rehydration (2) Acute confusion due to infection: Code(s): F05 - Delirium due to known physiological condition Status: Acute Assessment and Plan: * Baseline dementia with A&O status of 2-3 at baseline * Likely 2/2 to underlying dementia, underlying UTI * Head CT: No acute intracranial abnormality (3) General weakness: Code(s): R53.1 - Weakness Status: Acute Assessment and Plan: * See above (4) Acute kidney injury superimposed on chronic kidney disease: Code(s): N17.9 - Acute kidney failure, unspecified; N18.9 - Chronic kidney disease, unspecified Status: Acute Assessment and Plan: * Creatinine: 1.69, GFR: 30, BUN: 25 * IV Fluids: LR 125 mL/hour * Trend renal function * Trend electrolytes, correct as needed * avoid NSAIDs or morphine for pain control (5) Left renal mass: Code(s): N28.89 - Other specified disorders of kidney and ureter Status: Acute Assessment and Plan: * Known previous imaging * Follows closed with urology in the outpatient setting * Has opted to not treat surgically (6) Parkinson disease: Code(s): G20 - Parkinson's disease Status: Acute Assessment and Plan: * Continue carbidopa levodopa (7) Essential (primary) hypertension: Code(s): I10 - Essential (primary) hypertension Status: Acute Assessment and Plan: * Patient's blood pressure was reviewed on 04/24 * Blood pressure remains well controlled. * Will continue current medications (8) Dyslipidemia: Code(s): E78.5 - Hyperlipidemia, unspecified Status: Acute Assessment and Plan: * Continue rosuvastatin 10 mg Quality VTE Prophylaxis VTE prophylaxis: mechanical ordered
--- NOTE | 2025-04-24 15:41 | WPDURCON ---
Assessment and Plan Assessment and plan (1) Left ureteral calculus: Code(s): N20.1 - Calculus of ureter Status: Acute (2) Acute UTI: Code(s): N39.0 - Urinary tract infection, site not specified Status: Acute Assessment and Plan: Present on admission (3) Ureteral stent present: Code(s): Z96.0 - Presence of urogenital implants Status: Chronic (4) BLAKE (acute kidney injury): Code(s): N17.9 - Acute kidney failure, unspecified Status: Acute Plan 74yoF with UTI, left ureteral stone and chronic indwelling bilateral ureteral stents. Also noted is an acute kidney injury on chronic kidney disease. Other active problems include bilateral nephrolithiasis with left staghorn calculus, untreated left renal cell carcinoma, Parkinson's dementia, and chronic constipation with fecal incontinence. - Agree with IV hydration and IV ceftriaxone pending urine and blood culture results. - A PureWick catheter is in place for urinary output monitoring. - Will contact Dr. Pires to discuss the plan for the bilateral ureteral stents and the new left ureteral stone, specifically whether to proceed with stent exchange and ureteroscopy while an inpatient versus completing the antibiotic course and proceeding with the already scheduled outpatient procedure on 05/10/2025. - Recommend scheduled bowel regimen Urology Consult Note HPI Date Seen: 04/24/25 Requesting Physician: Jose Be MD Primary Care Provider: Mando De Los Santos MD Consult Narrative Reason for consult: Ureteral stone, UTI Narrative: This is a 74-year-old female with a complex urologic and medical history who presented to the emergency department with generalized malaise, weakness, and fever. She is noted to have a new left ureteral stone in addition to her known bilateral nephrolithiasis, left-sided staghorn calculus, and bilateral indwelling ureteral stents. Her history is significant for renal cell carcinoma (declines surgical treatment), Parkinson's dementia, bipolar disorder, hypertension, and hyperlipidemia. She reports suprapubic pain that is sharp and radiates to her low back and vaginal area, consistent with a urinary tract infection. She denies nausea, vomiting, or feeling feverish, though she was febrile on admission. She also reports chronic constipation with bowel movements every seven days and associated fecal incontinence. -PERTINENT LABS: 04/24/2025 - WBC: 6.7, Hgb: 10.5, Cr: 1.69 (baseline 1.1 in 11/2024), Lactic Acid: 0.9. 04/24/2025 - Urinalysis: 3+ leukocyte esterase, positive nitrates, 3+ blood, >100 RBC, >100 WBC, 4+ bacteria. -PERTINENT IMAGIN04/24/2025 CT Abdomen/Pelvis with contrast - Solid left renal masses consistent with RCC. Persistent severe hydronephrosis of the right kidney. Bilateral internal ureteral stents in expected position. Bilateral nephrolithiasis, including a left staghorn calculus. A 7 mm distal left ureteral stone is present. Mild stranding surrounds the right renal pelvis and ureters bilaterally, which cannot exclude an ascending urinary tract infection. Moderate colonic fecal loading is noted. Review of Systems Constitutional: Constitutional: Reports lethargy ENT: Reports Normal hearing present Cardiovascular: Cardiovascular: Denies chest pain Respiratory: Respiratory: Denies dyspnea Gastrointestinal: Gastrointestinal: Reports as per HPI Genitourinary: Genitourinary: Reports as per HPI [facility] Past Medical History Medical History Chronic idiopathic constipation Vitamin D deficiency History of CVA (cerebrovascular accident) Dementia PAM (obstructive sleep apnea) non compliant with CPAP Hyperlipidemia TIA (transient ischemic attack) Cardiomegaly Parkinson disease Hypertrophic obstructive cardiomyopathy Bipolar affective disorder History of right breast cancer Left renal mass Renal calculus Meniere disease Breast cancer 03/2012 Dyslipidemia Essential (primary) hypertension Anxiety Unspecified osteoarthritis, unspecified site Surgical History Surgical History Hx of cholecystectomy Hx of total knee arthroplasty (Unknown) H/O total hysterectomy with bilateral salpingo-oophorectomy (BSO) (Unknown) Hx of section (Unknown) History of partial mastectomy 2011 History of breast surgery 03/2012 Family History Family History Father Family history of diabetes mellitus in first degree relative, Onset Age: 77 Mother Family history of malignant neoplasm of ovary, Onset Age: 62 Grandparent Diabetes mellitus, Onset Age: 80 Other Hypertension Social History Social History Social History: The patient is and she is retired. The patient lives with her Damon who is her durable power employee benefits attorney for healthcare. The patient is a full code. She is a lifelong nonsmoker. The patient tells me that she is retired from [employer]. She has 2 children. Smoking status: Never smoker Second hand tobacco smoke exposure: No Alcohol intake: never Substance use: never Substance use type: does not use Lack of Transportation: No Lack of Food: Never True Current Housing: I Have Housing Concerned About Future Housing: No Difficulty Paying Gas/Electric Bills: No Difficulty Paying for Meds: No Currently Unemployed: No Education: High School Diploma/GED Difficulty w/ Childcare or Family Care: No Living arrangements: with family Additional living arrangements comments: HUSB Spiritual care concerns: No Meds Home Medications and Allergies Home Medications ?Medication ?Instructions ?Recorded ?Confirmed ?Type diazepam 5 mg tablet 5 mg PO PRN PRN Anxiety 10/12/19 04/24/25 History lamotrigine 200 mg tablet 200 mg PO Q12H 10/12/19 04/24/25 History cariprazine 6 mg capsule (Vraylar) 6 mg PO QAM 05/26/21 04/24/25 History carbidopa 25 mg-levodopa 100 mg 1 tablet PO QID 06/16/21 04/24/25 History tablet cholecalciferol (vitamin D3) 50 50 mcg PO DAILY 12/29/21 04/24/25 History mcg (2,000 unit) capsule sertraline 100 mg tablet 200 mg PO QAM 06/21/22 04/24/25 History acetaminophen 500 mg tablet 1,000 mg PO Q6H PRN pain 1-3/fever 03/15/23 04/24/25 History memantine 28 mg capsule 28 mg PO QAM 03/16/23 04/24/25 History sprinkle,extended release 24hr docusate sodium 100 mg capsule 100 mg PO PRN PRN Constipation 10/14/23 04/24/25 History phenazopyridine 200 mg tablet 200 mg PO Q8H PRN pain 08/22/24 04/24/25 History ondansetron HCl 4 mg tablet 4 mg PO Q8H PRN nausea and 09/20/24 04/24/25 Rx vomiting #60 tabs diltiazem HCl 240 mg 240 mg PO QAM #90 caps 12/05/24 04/24/25 Rx capsule,extended release 24 hr famotidine 40 mg tablet See Rx Instructions .Route 02/13/25 04/24/25 Rx .COMPLEX #60 tabs potassium chloride 10 mEq 10 meq PO DAILY #90 tabs 03/14/25 04/24/25 Rx tablet,extended release rosuvastatin 10 mg tablet 10 mg PO DAILY #90 tabs 04/11/25 04/24/25 Rx mirabegron 50 mg tablet,extended 50 mg PO DAILY 04/24/25 04/24/25 History release 24 hr (Myrbetriq) polyethylene glycol 3350 17 17 g PO DAILY PRN constipation 04/24/25 04/24/25 History gram/dose oral powder (Miralax) Allergies Allergy/AdvReac Type Severity Reaction Status Date / Time codeine AdvReac Intermediate Confusion, Verified 03/14/25 10:04 NAUSEA Vital Signs Vital Signs - 24 hr 04/24/25 02:11 04/24/25 02:20 04/24/25 02:21 Temperature 100.8 F H Pulse Rate 83 83 Respiratory Rate 18 29 H Blood Pressure 137/70 137/70 Pulse Oximetry 92 91 91 Oxygen Delivery Room Air 04/24/25 02:33 04/24/25 02:49 04/24/25 03:03 Temperature Pulse Rate 79 76 76 Respiratory Rate 12 13 Blood Pressure Pulse Oximetry 95 Oxygen Delivery 04/24/25 03:29 04/24/25 03:49 04/24/25 04:05 Temperature Pulse Rate 71 77 72 Respiratory Rate 16 20 Blood Pressure Pulse Oximetry 91 Oxygen Delivery 04/24/25 04:15 04/24/25 04:16 04/24/25 04:49 Temperature Pulse Rate 70 70 64 Respiratory Rate 19 19 17 Blood Pressure 112/58 L Pulse Oximetry 91 92 91 Oxygen Delivery 04/24/25 05:07 04/24/25 05:15 04/24/25 05:16 Temperature Pulse Rate 67 63 65 Respiratory Rate 17 17 19 Blood Pressure 110/63 Pulse Oximetry 93 92 92 Oxygen Delivery 04/24/25 05:48 04/24/25 07:00 04/24/25 08:00 Temperature 98.1 F Pulse Rate 63 69 Respiratory Rate 18 18 Blood Pressure 100/51 L Pulse Oximetry 94 96 96 Oxygen Delivery Room Air 04/24/25 14:00 Temperature 98.6 F Pulse Rate 76 Respiratory Rate 16 Blood Pressure 112/56 L Pulse Oximetry 96 Oxygen Delivery Exam Const: General: comfortable and no acute distress Resp: Effort & Inspection: normal respiratory effort GI: Inspection: non-distended Urinary Catheter: Urinary Catheter: urine cloudy and other (PureWick, cloudy naresh urine) Skin: General skin exam: normal color Neuro: Speech: normal speech Psych: Affect: normal affect Results Labs 04/24/25 02:42 04/24/25 02:42 Labs: Short CBC 04/24/25 Range/Units 02:42 WBC 6.7 (4.5-10.0) K/mm3 Hgb 10.5 L (12.0-15.0) g/dL Hct 33.5 L (37.0-47.0) % Plt Count 177 (150-375) k/mm3 BMP 04/24/25 02:42 Sodium 137 Potassium 4.0 Chloride 103 Carbon Dioxide 26 BUN 25 H Creatinine 1.69 H Glucose 117 H Calcium 9.0 Liver Function 04/24/25 Range/Units 02:42 Total Bilirubin 0.8 (0.2-1.3) mg/dL AST 41 H (14-36) U/L ALT 19 (6-35) U/L Alkaline Phosphatase 122 (38-126) U/L Albumin 4.0 (3.5-5.1) g/dL Urine 04/24/25 Range/Units 02:42 Urine Color Yellow (Yellow) Urine Appearance Cloudy H (Clear) Urine pH 7.5 (5.0-9.0) Ur Specific [place] 1.014 (1.001-1.035) Urine Protein 3+ H (Negative) mg/dL Urine Glucose (UA) Negative (Negative) mg/dL
[2025-04-24] MEDS: CARBIDOPA/LEVODOPA 25/100 MG TABLET 1 TABLET PO ×3 (17:24→20:20)
[2025-04-24] MEDS: MIRABEGRON 50 MG ER TABLET PO (17:24)
[2025-04-24] MEDS: FAMOTIDINE 20 MG TABLET 40 MG BY MOUTH (17:25)
[2025-04-24] MEDS: dilTIAZem HCL CD 240 MG CAP.24HR PO (17:25)
[2025-04-24] MEDS: CHOLECALCIFEROL (VITAMIN D3) 25 MCG (1,000 UNITS) TABLET 50 MCG PO (17:25)
[2025-04-24] MEDS: ROSUVASTATIN 10 MG TABLET PO (17:25)
[2025-04-24] MEDS: POTASSIUM CHLORIDE 10 MEQ ER TABLET PO (17:25)
[2025-04-24] MEDS: MEMANTINE HCL XR 28 MG CAP PO (17:26)
[2025-04-24] MEDS: SERTRALINE HCL 50 MG TABLET 200 MG PO (17:26)
[2025-04-25] VITALS (9 sets, daily range): BP systolic 96–118; BP diastolic 52–54; PULSE 62–80; RESP 16–17; TEMP 36.6–36.7; O2SAT 94–95
[2025-04-25] MEDS: LACTATED RINGERS 1,000 ML 125 ML IV CONT ×2 (05:51→12:01)
[2025-04-25 06:01] LABS: Hematocrit 33.4 % (37.0-47.0); Hemoglobin 10.1 g/dL (12.0-15.0); Immature Granulocyte Percent A 0.3 % (0-0.5); Lymphocytes Absolute Auto 1.30 K/mm3 (0.9-3.2); Mean Corpuscular HGB Conc 30.2 g/dl (32-36); Mean Corpuscular Hemoglobin 28.5 pg (26-34); Mean Corpuscular Volume 94.4 fl (80-100); Nucleated Red Blood Cells Absolute Auto 0.000 K/mm3 (0.0-0.012); Nucleated Red Blood Cells Perc 0.0 % (0.0-0.2); Platelet Count Result 171 k/mm3 (150-375); Red Blood Count 3.54 M/mm3 (4.2-5.4); White Blood Count 5.8 K/mm3 (4.5-10.0)
[2025-04-25 06:26] LABS: Alanine Aminotransferase 6 U/L (6-35); Albumin Level 3.7 g/dL (3.5-5.1); Alkaline Phosphatase 124 U/L (38-126); Anion Gap 6 mmol/L (4-12); Aspartate Amino Transferase 46 U/L (14-36); Bilirubin,Total 0.6 mg/dL (0.2-1.3); Blood Urea Nitrogen 17 mg/dL (7-17); Calcium 9.2 mg/dL (8.4-10.2); Carbon Dioxide 25 mmol/L (22-30); Chloride 106 mmol/L (98-107); Estimated CRCL calculation 28 ml/min; Estimated Glomerular Filt Rate 39; Glucose 85 mg/dL (65-110); Potassium 3.9 mmol/L (3.4-5.0); Sodium 137 mmol/L (137-145); Total Protein 6.8 g/dL (6.3-8.2)
--- NOTE | 2025-04-25 08:22 | P.PNIM_ITS ---
Progress Note: A&P Assessment and Plan (1) Acute UTI: Code(s): N39.0 - Urinary tract infection, site not specified Status: Acute Assessment and Plan: * UA: 3+ blood, Positive nitrates, 3+ leukocyte esterase, >100 RBC, >100 WBC, 4+ bacteria * UC obtained on 04/24 * started on Ceftriaxone, continue IV antibiotics until cultures have resulted * Abdomen/Pelvis CT * Solid left renal masses, consistent with renal cell carcinoma. * Persistent severe hydronephrosis of the right kidney with internal ureteral stent in expected position. There is left internal ureteral stent as well. Bilateral nephrolithiasis. Distal left ureteral stone. Mild stranding surrounding the right renal pelvis and ureters bilaterally. Cannot exclude ascending urinary tract infection.' * Urology consult pending, appreciate further recommendations * Unable to move up stent replacement - maintain plan for ureteral stent replacement on 05/10 * IV fluid rehydration * Monitor blood/urine cultures * Remains afebrile without leukocytosis (2) Delirium superimposed on dementia: Code(s): F05 - Delirium due to known physiological condition Status: Acute Assessment and Plan: * Baseline dementia with A&O status of 2-3 at baseline * Likely 2/2 to underlying dementia, underlying UTI * Head CT: No acute intracranial abnormality * See above (3) General weakness: Code(s): R53.1 - Weakness Status: Acute Assessment and Plan: * See above (4) Acute kidney injury superimposed on chronic kidney disease: Code(s): N17.9 - Acute kidney failure, unspecified; N18.9 - Chronic kidney disease, unspecified Status: Acute Assessment and Plan: * Creatinine: 1.69, GFR: 30, BUN: 25 * IV Fluids: LR 125 mL/hour * Trend renal function * Trend electrolytes, correct as needed * avoid NSAIDs or morphine for pain control * 04/25: 1.69 -> 1.33 (5) Left renal mass: Code(s): N28.89 - Other specified disorders of kidney and ureter Status: Acute Assessment and Plan: * Known previous imaging * Follows closed with urology in the outpatient setting * Has opted to not treat surgically (6) Parkinson disease: Code(s): G20 - Parkinson's disease Status: Acute Assessment and Plan: * Continue carbidopa levodopa (7) Essential (primary) hypertension: Code(s): I10 - Essential (primary) hypertension Status: Acute Assessment and Plan: * Patient's blood pressure was reviewed on 04/24 * Blood pressure remains well controlled. * Will continue current medications * 118/54 (8) Dyslipidemia: Code(s): E78.5 - Hyperlipidemia, unspecified Status: Acute Assessment and Plan: * Continue rosuvastatin 10 mg Subjective Date/time seen: 04/25/25 08:22 Interval history: 74-year-old female with a past medical history of previous kidney stones, ureteral stents with extenders, renal masses consistent with RCC, chronic UTIs, staghorn calculi, Parkinson's dementia, bipolar disorder, hypertension, hyperlipidemia, who presents to the hospital with generalized weakness and malaise. 04/25/2025 Patient sitting comfortably in bed at time of diagnosis. Denies any chest pain, n/v, or shortness of breath. Still complaining of RLQ abdominal pain but not as bad as today. Seen by urology - no plan for cystoscopy/stent replacement while in hospital - currently scheduled on 05/10, will keep this scheduled as they are unable to move her up in the OR. Pending urine/blood cultures but blood work looks reassuring so far - no leukocytosis or fever. Review of Systems Review of Systems: All systems reviewed & are unremarkable except as noted in HPI and below Exam Narrative: Gen -chronically ill appearing female in no acute respiratory distress who is nontoxic-appearing lying semi recumbent in bed HEENT - normocephalic. Atraumatic. Pupils equal round and reactive. Extraocular motions intact. Sclera clear and anicteric. Nares patent. Oropharynx was clear. Dry mucous membranes. Tongue was midline. No facial asymmetry. Neck - neck was supple. No dominant adenopathy, thyromegaly or masses. Chest - lungs are clear to auscultation bilaterally. No wheezes or crackles. CV - heart was regular rate and rhythm. S1-S2. No murmurs gallops or rubs. Abd -TTP to the RLQ, abdomen was soft. Nondistended. Positive bowel sounds. No organomegaly or masses. Ext - no clubbing, cyanosis or edema. 2+ DP pulses bilaterally. Neuro - patient is alert and oriented x4. Cranial nerves 2-12 are intact. Speech is clear but slow, no slurring Psych - normal mood and affect. Patient is pleasant and cooperative. Skin - warm and dry. No rashes noted. Objective Data Vital Signs Vital Signs: Vital Signs - 24 hr 04/24/25 12:00 04/24/25 14:00 04/24/25 16:00 Temperature 98.6 F Pulse Rate 71 76 75 Respiratory Rate 16 Blood Pressure 112/56 L Pulse Oximetry 96 04/24/25 19:54 04/24/25 20:00 04/25/25 00:00 Temperature 98.4 F Pulse Rate 80 83 75 Respiratory Rate 16 Blood Pressure 131/65 Pulse Oximetry 92 04/25/25 04:00 04/25/25 05:10 Temperature 98.0 F Pulse Rate 80 73 Respiratory Rate 16 Blood Pressure 118/54 L Pulse Oximetry 95 Intake/Output Intake/Output: Intake & Output 04/22/25 04/23/25 04/24/25 04/25/25 23:59 23:59 23:59 23:59 Intake Total 2230 1000 Output Total 500 1100 Balance 1730 -100 Meds/Results Medications: Active Medications Generic Name Dose Route Start Last Admin Trade Name Freq PRN Reason Stop Dose Admin Acetaminophen 1,000 mg 04/24/25 13:21 Acetaminophen 500 Mg Tablet PO Q6H PRN pain 1-3/fever Carbidopa/Levodopa 1 tablet 04/24/25 13:00 04/24/25 20:20 Carbidopa/Levodopa 25/100 Mg Tablet PO 1 tablet QID MARGE Administration Diazepam 5 mg 04/24/25 14:18 Diazepam (*Crx) 5 Mg Tablet PO Q6H PRN Anxiety Diltiazem HCl 240 mg 04/24/25 13:55 04/24/25 17:25 Diltiazem Hcl Cd 240 Mg Cap.24hr PO 240 mg QAM MARGE Administration Docusate Sodium 100 mg 04/24/25 14:18 Docusate Sodium 100 Mg Capsule PO Q12HR PRN Constipation Famotidine 40 mg 04/24/25 14:20 04/24/25 17:25 Famotidine 20 Mg Tablet BY MOUTH 40 mg QAM MARGE Administration Lactated Ringer's 1,000 mls @ 125 mls/hr 04/24/25 04:40 04/25/25 05:51 Lr - Lactated Ringers Iv IV CONT 125 mls/hr .Q8H MARGE Administration Ceftriaxone Sodium 1 gm/ 50 mls @ 100 mls/hr 04/24/25 21:00 04/24/25 20:20 Sodium Chloride IVPB 05/01/25 20:59 100 mls/hr Q24H MARGE Administration Lamotrigine 200 mg 04/24/25 13:25 04/24/25 20:21 Lamotrigine 100 Mg Tablet PO 200 mg Q12HR MARGE Administration Memantine 28 mg 04/24/25 13:55 04/24/25 17:26 Memantine Hcl Xr 28 Mg Cap PO 28 mg QAM MARGE Administration Mirabegron 50 mg 04/24/25 13:55 04/24/25 17:24 Mirabegron 50 Mg Er Tablet PO 50 mg DAILY MARGE Administration Miscellaneous Information 0 each 04/24/25 00:01 Nonformulary Drug (Cariprazine [Vraylar] 6 Mg Capsule) Please Use Home Med XX 05/24/25 00:00 CLARIFY MARGE Non-Formulary Medication 6 mg 04/25/25 09:00 Cariprazine [Vraylar] PO 05/25/25 08:59 QAM [facility] Ondansetron HCl 4 mg 04/24/25 04:40 Ondansetron Inj 4 Mg/2 Ml Vial IV PUSH Q4H PRN Nausea Ondansetron HCl 4 mg 04/24/25 13:21 Ondansetron Hcl Odt 4 Mg Tablet PO Q8H PRN nausea and vomiting Phenazopyridine HCl 200 mg 04/24/25 13:21 Phenazopyridine Hcl 100 Mg Tablet PO Q8H PRN pain Polyethylene Glycol 17 gm 04/24/25 13:21 Polyethylene Glycol 3350 17 Gm Powd.Pack PO DAILY PRN constipation Potassium Chloride 10 meq 04/24/25 13:55 04/24/25 17:25 Potassium Chloride 10 Meq Er Tablet PO 10 meq DAILY MARGE Administration Rosuvastatin Calcium 10 mg 04/24/25 13:55 04/24/25 17:25 Rosuvastatin 10 Mg Tablet PO 10 mg DAILY MARGE Administration Sertraline HCl 200 mg 04/24/25 13:55 04/24/25 17:26 Sertraline Hcl 50 Mg Tablet PO 200 mg QAM [facility] Administration Vitamin D 50 mcg 04/24/25 13:55 04/24/25 17:25 Cholecalciferol (Vitamin D3) 25 Mcg (1,000 Units) Tablet PO 50 mcg DAILY MARGE Administration Radiology Results: ITS Impressions Head CT 04/24/25 06:11 IMPRESSION: 1. No acute intracranial abnormality. Abdomen/Pelvis CT 04/24/25 06:15 IMPRESSION: 1. Solid left renal masses, consistent with renal cell carcinoma. 2: Persistent severe hydronephrosis of the right kidney with internal ureteral stent in expected position. There is left internal ureteral stent as well. Bilateral nephrolithiasis. Distal left ureteral stone. Mild stranding surrounding the right renal pelvis and ureters bilaterally. Cannot exclude ascending urinary tract infection. Labs Labs: Laboratory Results - last 24 hr 04/25/25 05:25 WBC 5.8 RBC 3.54 L Hgb 10.1 L Hct 33.4 L MCV 94.4 MCH 28.5 MCHC 30.2 L RDW 12.2 Plt Count 171 MPV 9.4 Immature Gran % (Auto) 0.3 Neut % (Auto) 62.9 Lymph % (Auto) 22.4 [place] % (Auto) 12.2 H Eos % (Auto) 1.9 Baso % (Auto) 0.3 Lymph # (Auto) 1.30 [place] # (Auto) 0.7 H Eos # (Auto) 0.1 Baso # (Auto) 0.0 Abs Immat Gran (auto) 0.02 Absolute Neuts (auto) 3.6 Absolute Nucleated RBC 0.000 Nucleated RBC % 0.0 Sodium 137 Potassium 3.9 Chloride 106 Carbon Dioxide 25 Anion Gap 6 BUN 17 Creatinine 1.33 H Estim Creat Clear Calc 28 Estimated GFR 39 L Glucose 85 Calcium 9.2 Total Bilirubin 0.6 AST 46 H ALT 6 Alkaline Phosphatase 124 Total Protein 6.8 Albumin 3.7 Quality VTE Prophylaxis VTE prophylaxis: mechanical ordered
[2025-04-25] MEDS: SERTRALINE HCL 50 MG TABLET 200 MG PO (08:24)
[2025-04-25] MEDS: MIRABEGRON 50 MG ER TABLET PO (08:24)
[2025-04-25] MEDS: dilTIAZem HCL CD 240 MG CAP.24HR PO (08:25)
[2025-04-25] MEDS: ROSUVASTATIN 10 MG TABLET PO (08:25)
[2025-04-25] MEDS: CHOLECALCIFEROL (VITAMIN D3) 25 MCG (1,000 UNITS) TABLET 50 MCG PO (08:25)
[2025-04-25] MEDS: MEMANTINE HCL XR 28 MG CAP PO (08:25)
[2025-04-25] MEDS: POTASSIUM CHLORIDE 10 MEQ ER TABLET PO (08:26)
[2025-04-25] MEDS: CARBIDOPA/LEVODOPA 25/100 MG TABLET 1 TABLET PO ×4 (08:26→20:27)
[2025-04-25] MEDS: FAMOTIDINE 20 MG TABLET 40 MG BY MOUTH (08:26)
[2025-04-25] MEDS: PHENAZOPYRIDINE HCL 100 MG TABLET 200 MG PO (09:20)
--- NOTE | 2025-04-25 09:34 | P.PNUR_ITS ---
Progress Note: A&P Assessment and Plan (1) Hydronephrosis, right: Code(s): N13.30 - Unspecified hydronephrosis Status: Acute (2) Left renal mass: Code(s): N28.89 - Other specified disorders of kidney and ureter Status: Acute Assessment and Plan: * Patient with chronic bilateral ureteral stents. I considered moving upper hattie nt exchange to coincide with this admission but, unfortunately, there is no time in the OR. We will simply keep our plans to change her ureteral stents on 05/10/2025 Subjective Subjective Date/Time Seen: 04/25/25 09:34 Interval history: Reports mild suprapubic discomfort, likely due to cystitis Review of Systems Cardiovascular: Cardiovascular: Denies chest pain, Denies lightheadedness, Denies palpitations and Denies dyspnea Respiratory: Respiratory: Denies dyspnea Gastrointestinal: Gastrointestinal: Denies diarrhea, Denies nausea and Denies vomiting Genitourinary: Genitourinary: Denies hematuria and Denies dysuria Endocrine: Endocrine: Denies palpitations Exam Const: General: no acute distress Resp: Effort & Inspection: normal respiratory effort GI: Inspection: non-distended GI Palp: No abdominal tenderness and No Guarding due to palpation present (GI) Auscultation: normal bowel sounds Objective Data Vital Signs Vital Signs: Vital Signs - 24 hr 04/24/25 12:00 04/24/25 14:00 04/24/25 16:00 Temperature 98.6 F Pulse Rate 71 76 75 Respiratory Rate 16 Blood Pressure 112/56 L Pulse Oximetry 96 04/24/25 19:54 04/24/25 20:00 04/25/25 00:00 Temperature 98.4 F Pulse Rate 80 83 75 Respiratory Rate 16 Blood Pressure 131/65 Pulse Oximetry 92 04/25/25 04:00 04/25/25 05:10 Temperature 98.0 F Pulse Rate 80 73 Respiratory Rate 16 Blood Pressure 118/54 L Pulse Oximetry 95 Intake/Output Intake/Output: Intake & Output 04/22/25 04/23/25 04/24/25 04/25/25 23:59 23:59 23:59 23:59 Intake Total 2230 1000 Output Total 500 1100 Balance 1730 -100 Meds/Results Medications: Active Medications Generic Name Dose Route Start Last Admin Trade Name Freq PRN Reason Stop Dose Admin Acetaminophen 1,000 mg 08/12/25 13:21 Acetaminophen 500 Mg Tablet PO Q6H PRN pain 1-3/fever Carbidopa/Levodopa 1 tablet 04/24/25 13:00 04/25/25 08:26 Carbidopa/Levodopa 25/100 Mg Tablet PO 1 tablet QID MARGE Administration Diazepam 5 mg 04/24/25 14:18 Diazepam (*Crx) 5 Mg Tablet PO Q6H PRN Anxiety Diltiazem HCl 240 mg 04/24/25 13:55 04/25/25 08:25 Diltiazem Hcl Cd 240 Mg Cap.24hr PO 240 mg QAM MARGE Administration Docusate Sodium 100 mg 04/24/25 14:18 Docusate Sodium 100 Mg Capsule PO Q12HR PRN Constipation Famotidine 40 mg 04/24/25 14:20 04/25/25 08:26 Famotidine 20 Mg Tablet BY MOUTH 40 mg QAM [facility] Administration Lactated Ringer's 1,000 mls @ 125 mls/hr 04/24/25 04:40 04/25/25 05:51 Lr - Lactated Ringers Iv IV CONT 125 mls/hr .Q8H MARGE Administration Ceftriaxone Sodium 1 gm/ 50 mls @ 100 mls/hr 04/24/25 21:00 04/24/25 20:20 Sodium Chloride IVPB 05/01/25 20:59 100 mls/hr Q24H MARGE Administration Lamotrigine 200 mg 04/24/25 13:25 04/25/25 08:25 Lamotrigine 100 Mg Tablet PO 200 mg Q12HR MARGE Administration Memantine 28 mg 04/24/25 13:55 04/25/25 08:25 Memantine Hcl Xr 28 Mg Cap PO 28 mg QAM [facility] Administration Mirabegron 50 mg 04/24/25 13:55 04/25/25 08:24 Mirabegron 50 Mg Er Tablet PO 50 mg DAILY MARGE Administration Miscellaneous Information 0 each 04/24/25 00:01 Nonformulary Drug (Cariprazine [Vraylar] 6 Mg Capsule) Please Use Home Med XX 05/24/25 00:00 CLARIFY MARGE Non-Formulary Medication 6 mg 04/25/25 09:00 Cariprazine [Vraylar] PO 05/25/25 08:59 QAM [facility] Ondansetron HCl 4 mg 04/24/25 04:40 Ondansetron Inj 4 Mg/2 Ml Vial IV PUSH Q4H PRN Nausea Ondansetron HCl 4 mg 04/24/25 13:21 Ondansetron Hcl Odt 4 Mg Tablet PO Q8H PRN nausea and vomiting Phenazopyridine HCl 200 mg 04/24/25 13:21 04/25/25 09:20 Phenazopyridine Hcl 100 Mg Tablet PO 200 mg Q8H PRN Administration pain Polyethylene Glycol 17 gm 04/24/25 13:21 Polyethylene Glycol 3350 17 Gm Powd.Pack PO DAILY PRN constipation Potassium Chloride 10 meq 04/24/25 13:55 04/25/25 08:26 Potassium Chloride 10 Meq Er Tablet PO 10 meq DAILY MARGE Administration Rosuvastatin Calcium 10 mg 04/24/25 13:55 04/25/25 08:25 Rosuvastatin 10 Mg Tablet PO 10 mg DAILY MARGE Administration Sertraline HCl 200 mg 04/24/25 13:55 04/25/25 08:24 Sertraline Hcl 50 Mg Tablet PO 200 mg QAM [facility] Administration Vitamin D 50 mcg 04/24/25 13:55 04/25/25 08:25 Cholecalciferol (Vitamin D3) 25 Mcg (1,000 Units) Tablet PO 50 mcg DAILY MARGE Administration Radiology Results: ITS Impressions Head CT 04/24/25 06:11 IMPRESSION: 1. No acute intracranial abnormality. Abdomen/Pelvis CT 04/24/25 06:15 IMPRESSION: 1. Solid left renal masses, consistent with renal cell carcinoma. 2: Persistent severe hydronephrosis of the right kidney with internal ureteral stent in expected position. There is left internal ureteral stent as well. Bilateral nephrolithiasis. Distal left ureteral stone. Mild stranding surrounding the right renal pelvis and ureters bilaterally. Cannot exclude ascending urinary tract infection. Labs Labs: Laboratory Results - last 24 hr 04/25/25 05:25 WBC 5.8 RBC 3.54 L Hgb 10.1 L Hct 33.4 L MCV 94.4 MCH 28.5 MCHC 30.2 L RDW 12.2 Plt Count 171 MPV 9.4 Immature Gran % (Auto) 0.3 Neut % (Auto) 62.9 Lymph % (Auto) 22.4 [place] % (Auto) 12.2 H Eos % (Auto) 1.9 Baso % (Auto) 0.3 Lymph # (Auto) 1.30 [place] # (Auto) 0.7 H Eos # (Auto) 0.1 Baso # (Auto) 0.0 Abs Immat Gran (auto) 0.02 Absolute Neuts (auto) 3.6 Absolute Nucleated RBC 0.000 Nucleated RBC % 0.0 Sodium 137 Potassium 3.9 Chloride 106 Carbon Dioxide 25 Anion Gap 6 BUN 17 Creatinine 1.33 H Estim Creat Clear Calc 28 Estimated GFR 39 L Glucose 85 Calcium 9.2 Total Bilirubin 0.6 AST 46 H ALT 6 Alkaline Phosphatase 124 Total Protein 6.8 Albumin 3.7
--- NOTE | 2025-04-25 09:35 | P.CDI_ITS ---
CDI Query Clarification Request 1) Please clarify the relationship, if any, between the patient's UTI and the chronic ureteral stents? * UTI due to/associated with ureteral stent * UTI not due to ureteral stent * Unable to determine * Other, please specify 2) Can you clarify the diagnosis that best describes the patients acute mental status change? * Acute metabolic encephalopathy superimpose on dementia due to UTI * Delirium superimposed on dementia due to UTI * Other encephalopathy, please specify type and cause * Acute confusion, not encephalopathy or delirium * Unable to determine The medical chart reflects the following: Hospitalist: (1) Acute UTI: Code(s): N39.0 - Urinary tract infection, site not specified Status: Acute Assessment and Plan: * UA: 3+ blood, Positive nitrates, 3+ leukocyte esterase, >100 RBC, >100 WBC, 4+ bacteria * UC obtained on 04/24 * started on Ceftriaxone, continue IV antibiotics until cultures have resulted * Abdomen/Pelvis CT * Solid left renal masses, consistent with renal cell carcinoma. * Persistent severe hydronephrosis of the right kidney with internal ureteral stent in expected position. There is left internal ureteral stent as well. Bilateral nephrolithiasis. Distal left ureteral stone. Mild stranding surrounding the right renal pelvis and ureters bilaterally. Cannot exclude ascending urinary tract infection.' * Urology consult pending, appreciate further recommendations * IV fluid rehydration(2) Acute confusion due to infection: Code(s): F05 - Delirium due to known physiological condition Status: Acute Assessment and Plan: * Baseline dementia with A&O status of 2-3 at baseline * Likely 2/2 to underlying dementia, underlying UTI * Head CT: No acute intracranial abnormality * Patient with chronic bilateral ureteral stents. I considered moving upper stent exchange to coincide with this admission but, unfortunately, there is no time in the OR. We will simply keep our plans to change her ureteral stents on 05/10/2025 Urology documented: (1) Left ureteral calculus: Code(s): N20.1 - Calculus of ureter Status: Acute (2) Acute UTI: Code(s): N39.0 - Urinary tract infection, site not specified Status: Acute Assessment and Plan: Present on admission (3) Ureteral stent present: Code(s): Z96.0 - Presence of urogenital implants Status: Chronic (4) BLAKE (acute kidney injury): Code(s): N17.9 - Acute kidney failure, unspecified Status: Acute Plan 74yoF with UTI, left ureteral stone and chronic indwelling bilateral ureteral stents. Also noted is an acute kidney injury on chronic kidney disease. Other active problems include bilateral nephrolithiasis with left staghorn calculus, untreated left renal cell carcinoma, Parkinson's dementia, and chronic constipation with fecal incontinence. - Agree with IV hydration and IV ceftriaxone pending urine and blood culture results. - A PureWick catheter is in place for urinary output monitoring. - Will contact Dr. Pires to discuss the plan for the bilateral ureteral stents and the new left ureteral stone, specifically whether to proceed with stent exchange and ureteroscopy while an inpatient versus completing the antibiotic course and proceeding with the already scheduled outpatient procedure on 05/10/2025. - Recommend scheduled bowel regimen <Shama Perry RN - Last Filed: 04/25/25 09:49> Clarified Diagnosis Clarified Diagnosis: 1) UTI cause - unable to be determined 2) Delirium superimposed on dementia due to UTI <Juan Fofana PA-C - Last Filed: 04/25/25 11:03>
--- NOTE | 2025-04-25 09:38 | PHAR ---
Home medication identified and returned to [facility] nursing unit. Vraylar 6mg capsules
[2025-04-25] MEDS: CARIPRAZINE 6 MG 6 EACH PO (11:51)
[2025-04-25] MEDS: ACETAMINOPHEN 500 MG TABLET 1000 MG PO (11:52)
[2025-04-25] MEDS: cefTRIAXone 1 GM in SODIUM CHLORIDE 0.9% IV 50 ML 100 ML IVPB (20:28)
[2025-04-26] VITALS (9 sets, daily range): BP systolic 123–142; BP diastolic 63–75; PULSE 59–77; RESP 16–17; TEMP 36.5–36.6; O2SAT 91–96
[2025-04-26] MEDS: LACTATED RINGERS 1,000 ML 125 ML IV CONT ×3 (04:06→21:11)
[2025-04-26 05:52] LABS: Hematocrit 32.9 % (37.0-47.0); Hemoglobin 10.2 g/dL (12.0-15.0); Immature Granulocyte Percent A 0.2 % (0-0.5); Lymphocytes Absolute Auto 1.20 K/mm3 (0.9-3.2); Mean Corpuscular HGB Conc 31.0 g/dl (32-36); Mean Corpuscular Hemoglobin 28.5 pg (26-34); Mean Corpuscular Volume 91.9 fl (80-100); Nucleated Red Blood Cells Absolute Auto 0.000 K/mm3 (0.0-0.012); Nucleated Red Blood Cells Perc 0.0 % (0.0-0.2); Platelet Count Result 184 k/mm3 (150-375); Red Blood Count 3.58 M/mm3 (4.2-5.4); White Blood Count 6.0 K/mm3 (4.5-10.0)
[2025-04-26 06:16] LABS: Albumin Level 3.6 g/dL (3.5-5.1); Alkaline Phosphatase 133 U/L (38-126); Anion Gap 6 mmol/L (4-12); Aspartate Amino Transferase 44 U/L (14-36); Bilirubin,Total 0.5 mg/dL (0.2-1.3); Blood Urea Nitrogen 15 mg/dL (7-17); Calcium 9.2 mg/dL (8.4-10.2); Carbon Dioxide 28 mmol/L (22-30); Chloride 105 mmol/L (98-107); Estimated CRCL calculation 27 ml/min; Estimated Glomerular Filt Rate 37; Glucose 84 mg/dL (65-110); Potassium 4.0 mmol/L (3.4-5.0); Sodium 139 mmol/L (137-145); Total Protein 6.6 g/dL (6.3-8.2)
[2025-04-26 06:21] LABS: Alanine Aminotransferase < 6 U/L (6-35)
[2025-04-26 06:26] LABS: INR 0.9; Prothrombin Time 12.8 Seconds (11.1-14.7)
[2025-04-26 06:27] LABS: Partial Thromboplastin Time 36.7 Seconds (22.3-36.8)
[2025-04-26] MEDS: CARBIDOPA/LEVODOPA 25/100 MG TABLET 1 TABLET PO ×4 (09:47→21:12)
[2025-04-26] MEDS: FAMOTIDINE 20 MG TABLET 40 MG BY MOUTH (09:47)
[2025-04-26] MEDS: CHOLECALCIFEROL (VITAMIN D3) 25 MCG (1,000 UNITS) TABLET 50 MCG PO (09:47)
[2025-04-26] MEDS: PHENAZOPYRIDINE HCL 100 MG TABLET 200 MG PO (09:47)
[2025-04-26] MEDS: POTASSIUM CHLORIDE 10 MEQ ER TABLET PO (09:47)
[2025-04-26] MEDS: ROSUVASTATIN 10 MG TABLET PO (09:47)
[2025-04-26] MEDS: MEMANTINE HCL XR 28 MG CAP PO (09:47)
[2025-04-26] MEDS: dilTIAZem HCL CD 240 MG CAP.24HR PO (09:47)
--- NOTE | 2025-04-26 09:47 | P.PNUR_ITS ---
Progress Note: A&P Assessment and Plan (1) Hydronephrosis, right: Code(s): N13.30 - Unspecified hydronephrosis Status: Acute (2) Left renal mass: Code(s): N28.89 - Other specified disorders of kidney and ureter Status: Acute Assessment and Plan: * Patient with chronic bilateral ureteral stents. * Urine culture final showed no growth. * WBC wnl * We are unable to move up the stent exchange during this admission. Keep scheduled ureteral stent change on 05/10/2025 * continue mirabegron and pyridium for bladder pain. Subjective Subjective Date/Time Seen: 04/26/25 09:47 Interval history: 74-year-old female with a past medical history of previous kidney stones, ureteral stents with extenders, renal masses consistent with RCC, chronic UTIs, staghorn calculi, Parkinson's dementia, bipolar disorder, hypertension, hyperlipidemia, who presents to the hospital with generalized weakness and malaise. 04/25/2025 Patient sitting comfortably in bed. afebrile. no acute events overnight. adequate uop Review of Systems Constitutional: Comments: reports bladder spasms ENT: Reports Normal hearing present Cardiovascular: Cardiovascular: Denies chest pain, Denies lightheadedness, Denies palpitations and Denies dyspnea Respiratory: Respiratory: Denies dyspnea Gastrointestinal: Gastrointestinal: Reports as per HPI, Denies diarrhea, Denies nausea and Denies vomiting Genitourinary: Genitourinary: Reports as per HPI, Denies hematuria and Denies dysuria Neurologic: Reports Normal hearing present Endocrine: Endocrine: Denies palpitations Exam Const: General: comfortable and no acute distress Resp: Effort & Inspection: normal respiratory effort GI: Inspection: non-distended Auscultation: normal bowel sounds Urinary Catheter: Urinary Catheter: urine cloudy and other (PureWick, cloudy naresh urine) Skin: General skin exam: normal color Neuro: Cranial nerves: Yes Normal hearing present Speech: normal speech Psych: Affect: normal affect Objective Data Vital Signs Vital Signs: Vital Signs - 24 hr 04/25/25 12:00 04/25/25 13:48 04/25/25 16:00 Temperature 97.9 F Pulse Rate 71 68 63 Respiratory Rate 17 Blood Pressure 96/52 L Pulse Oximetry 95 04/25/25 19:47 04/25/25 21:38 04/26/25 00:00 Temperature 98.0 F Pulse Rate 63 62 70 Respiratory Rate 16 Blood Pressure 113/54 L Pulse Oximetry 94 04/26/25 04:00 04/26/25 04:48 Temperature 97.7 F Pulse Rate 63 68 Respiratory Rate 17 Blood Pressure 142/66 H Pulse Oximetry 91 Intake/Output Intake/Output: Intake & Output 04/23/25 04/24/25 04/25/25 04/26/25 23:59 23:59 23:59 23:59 Intake Total 2280 3240.8 1237.5 Output Total 500 3900 1100 Balance 1780 -659.2 137.5 Meds/Results Medications: Active Medications Generic Name Dose Route Start Last Admin Trade Name Freq PRN Reason Stop Dose Admin Acetaminophen 1,000 mg 04/24/25 13:21 04/25/25 11:52 Acetaminophen 500 Mg Tablet PO 1,000 mg Q6H PRN Administration pain 1-3/fever Carbidopa/Levodopa 1 tablet 04/24/25 13:00 04/25/25 20:27 Carbidopa/Levodopa 25/100 Mg Tablet PO 1 tablet QID [facility]GE Administration Diazepam 5 mg 04/24/25 14:18 Diazepam (*Crx) 5 Mg Tablet PO Q6H PRN Anxiety Diltiazem HCl 240 mg 04/24/25 13:55 04/25/25 08:25 Diltiazem Hcl Cd 240 Mg Cap.24hr PO 240 mg QAM [facility] Administration Docusate Sodium 100 mg 04/24/25 14:18 Docusate Sodium 100 Mg Capsule PO Q12HR PRN Constipation Famotidine 40 mg 04/24/25 14:20 04/25/25 08:26 Famotidine 20 Mg Tablet BY MOUTH 40 mg QAM [facility] Administration Lactated Ringer's 1,000 mls @ 125 mls/hr 04/24/25 04:40 04/26/25 06:00 Lr - Lactated Ringers Iv IV CONT 125 mls/hr .Q8H [facility]GE Infusion Ceftriaxone Sodium 1 gm/ 50 mls @ 100 mls/hr 04/24/25 21:00 04/25/25 20:28 Sodium Chloride IVPB 05/01/25 20:59 100 mls/hr Q24H [facility] Administration Lamotrigine 200 mg 04/24/25 13:25 08/13/25 20:27 Lamotrigine 100 Mg Tablet PO 200 mg Q12HR [facility] Administration Memantine 28 mg 04/24/25 13:55 04/25/25 08:25 Memantine Hcl Xr 28 Mg Cap PO 28 mg QAM [facility] Administration Mirabegron 50 mg 04/24/25 13:55 04/25/25 08:24 Mirabegron 50 Mg Er Tablet PO 50 mg DAILY [facility] Administration Cariprazine [Vraylar 6 mg 04/25/25 10:10 04/25/25 11:51 ] 6 Mg Capsule *Use PO 05/25/25 10:09 6 mg Home Supply QAM [facility] Administration Ondansetron HCl 4 mg 04/24/25 04:40 Ondansetron Inj 4 Mg/2 Ml Vial IV PUSH Q4H PRN Nausea Ondansetron HCl 4 mg 04/24/25 13:21 Ondansetron Hcl Odt 4 Mg Tablet PO Q8H PRN nausea and vomiting Phenazopyridine HCl 200 mg 04/24/25 13:21 04/25/25 09:20 Phenazopyridine Hcl 100 Mg Tablet PO 200 mg Q8H PRN Administration pain Polyethylene Glycol 17 gm 04/24/25 13:21 Polyethylene Glycol 3350 17 Gm Powd.Pack PO DAILY PRN constipation Potassium Chloride 10 meq 04/24/25 13:55 04/25/25 08:26 Potassium Chloride 10 Meq Er Tablet PO 10 meq DAILY [facility] Administration Rosuvastatin Calcium 10 mg 04/24/25 13:55 04/25/25 08:25 Rosuvastatin 10 Mg Tablet PO 10 mg DAILY [facility] Administration Sertraline HCl 200 mg 04/24/25 13:55 04/25/25 08:24 Sertraline Hcl 50 Mg Tablet PO 200 mg QAM [facility] Administration Vitamin D 50 mcg 04/24/25 13:55 04/25/25 08:25 Cholecalciferol (Vitamin D3) 25 Mcg (1,000 Units) Tablet PO 50 mcg DAILY [facility] Administration Radiology Results: ITS Impressions Head CT 04/24/25 06:11 IMPRESSION: 1. No acute intracranial abnormality. Abdomen/Pelvis CT 04/24/25 06:15 IMPRESSION: 1. Solid left renal masses, consistent with renal cell carcinoma. 2: Persistent severe hydronephrosis of the right kidney with internal ureteral stent in expected position. There is left internal ureteral stent as well. Bilateral nephrolithiasis. Distal left ureteral stone. Mild stranding surrou nding the right renal pelvis and ureters bilaterally. Cannot exclude ascending urinary tract infection. Labs Labs: Laboratory Results - last 24 hr 04/26/25 05:25 WBC 6.0 RBC 3.58 L Hgb 10.2 L Hct 32.9 L MCV 91.9 MCH 28.5 MCHC 31.0 L RDW 12.2 Plt Count 184 MPV 9.0 Immature Gran % (Auto) 0.2 Neut % (Auto) 66.3 Lymph % (Auto) 19.9 [place] % (Auto) 10.5 H Eos % (Auto) 2.8 Baso % (Auto) 0.3 Lymph # (Auto) 1.20 [place] # (Auto) 0.6 Eos # (Auto) 0.2 Baso # (Auto) 0.0 Abs Immat Gran (auto) 0.01 Absolute Neuts (auto) 4.0 Absolute Nucleated RBC 0.000 Nucleated RBC % 0.0 PT 12.8 INR 0.9 APTT 36.7 Sodium 139 Potassium 4.0 Chloride 105 Carbon Dioxide 28 Anion Gap 6 BUN 15 Creatinine 1.38 H Estim Creat Clear Calc 27 Estimated GFR 37 L Glucose 84 Calcium 9.2 Total Bilirubin 0.5 AST 44 H ALT < 6 L Alkaline Phosphatase 133 H Total Protein 6.6 Albumin 3.6
[2025-04-26] MEDS: SERTRALINE HCL 50 MG TABLET 200 MG PO (09:48)
[2025-04-26] MEDS: MIRABEGRON 50 MG ER TABLET PO (09:48)
[2025-04-26] MEDS: CARIPRAZINE 6 MG 6 EACH PO (09:50)
[2025-04-26 10:27] LABS: Ammonia < 9 umol/L (9-30)
--- NOTE | 2025-04-26 11:18 | P.PNIM_ITS ---
Progress Note: A&P Assessment and Plan (1) Acute UTI: Code(s): N39.0 - Urinary tract infection, site not specified Status: Ruled-out Assessment and Plan: * UA: 3+ blood, Positive nitrates, 3+ leukocyte esterase, >100 RBC, >100 WBC, 4+ bacteria * UC obtained on 04/24 * started on Ceftriaxone, continue IV antibiotics until cultures have resulted * Abdomen/Pelvis CT * Solid left renal masses, consistent with renal cell carcinoma. * Persistent severe hydronephrosis of the right kidney with internal ureteral stent in expected position. There is left internal ureteral stent as well. Bilateral nephrolithiasis. Distal left ureteral stone. Mild stranding surrounding the right renal pelvis and ureters bilaterally. Cannot exclude ascending urinary tract infection.' * Urology consult pending, appreciate further recommendations * Unable to move up stent replacement - maintain plan for ureteral stent replacement on 05/10 * IV fluid rehydration * Monitor blood/urine cultures * Remains afebrile without leukocytosis * Urine culture negative Ruled-out (2) Delirium superimposed on dementia: Code(s): F05 - Delirium due to known physiological condition Status: Acute Assessment and Plan: * Baseline dementia with A&O status of 2-3 at baseline * Likely 2/2 to underlying dementia, underlying UTI * Head CT: No acute intracranial abnormality * See above * Ammonia wnl * WBC normal * Blood cultures - still pending (3) General weakness: Code(s): R53.1 - Weakness Status: Acute Assessment and Plan: * See above (4) Acute kidney injury superimposed on chronic kidney disease: Code(s): N17.9 - Acute kidney failure, unspecified; N18.9 - Chronic kidney disease, unspecified Status: Acute Assessment and Plan: * Creatinine: 1.69, GFR: 30, BUN: 25 * IV Fluids: LR 125 mL/hour * Trend renal function * Trend electrolytes, correct as needed * avoid NSAIDs or morphine for pain control * 04/26: 1.69 -> 1.38 (5) Left renal mass: Code(s): N28.89 - Other specified disorders of kidney and ureter Status: Acute Assessment and Plan: * Known previous imaging * Follows closed with urology in the outpatient setting * Has opted to not treat surgically (6) Parkinson disease: Code(s): G20 - Parkinson's disease Status: Acute Assessment and Plan: * Continue carbidopa levodopa (7) Essential (primary) hypertension: Code(s): I10 - Essential (primary) hypertension Status: Acute Assessment and Plan: * Patient's blood pressure was reviewed on 04/24 * Blood pressure remains well controlled. * Will continue current medications * 142/66 (8) Dyslipidemia: Code(s): E78.5 - Hyperlipidemia, unspecified Status: Acute Assessment and Plan: * Continue rosuvastatin 10 mg Subjective Date/time seen: 04/26/25 11:18 Interval history: 74-year-old female with a past medical history of previous kidney stones, ureteral stents with extenders, renal masses consistent with RCC, chronic UTIs, staghorn calculi, Parkinson's dementia, bipolar disorder, hypertension, hyperlipidemia, who presents to the hospital with generalized weakness and malaise. 04/26/2025 Patient sitting comfortably in bed. afebrile. no acute events overnight. Urine culture negative for growth, blood cultures still pending. Will continue to monitor cultures until we can get preliminary result. Seen by urology this am, no plans for acute intervention at this time. Review of Systems Review of Systems: All systems reviewed & are unremarkable except as noted in HPI and below Exam Narrative: Gen -chronically ill appearing female in no acute respiratory distress who is nontoxic-appearing lying semi recumbent in bed HEENT - normocephalic. Atraumatic. Pupils equal round and reactive. Extraocular motions intact. Sclera clear and anicteric. Nares patent. Oropharynx was clear. Dry mucous membranes. Tongue was midline. No facial asymmetry. Neck - neck was supple. No dominant adenopathy, thyromegaly or masses. Chest - lungs are clear to auscultation bilaterally. No wheezes or crackles. CV - heart was regular rate and rhythm. S1-S2. No murmurs gallops or rubs. Abd -TTP to the RLQ, abdomen was soft. Nondistended. Positive bowel sounds. No organomegaly or masses. Ext - no clubbing, cyanosis or edema. 2+ DP pulses bilaterally. Neuro - patient is alert and oriented x4. Cranial nerves 2-12 are intact. Speech is clear but slow, no slurring Psych - normal mood and affect. Patient is pleasant and cooperative. Skin - warm and dry. No rashes noted. Objective Data Vital Signs Vital Signs: Vital Signs - 24 hr 08/13/25 12:00 04/25/25 13:48 04/25/25 16:00 Temperature 97.9 F Pulse Rate 71 68 63 Respiratory Rate 17 Blood Pressure 96/52 L Pulse Oximetry 95 Oxygen Delivery 04/25/25 19:47 04/25/25 21:38 04/26/25 00:00 Temperature 98.0 F Pulse Rate 63 62 70 Respiratory Rate 16 Blood Pressure 113/54 L Pulse Oximetry 94 Oxygen Delivery 04/26/25 04:00 04/26/25 04:48 04/26/25 08:00 Temperature 97.7 F Pulse Rate 63 68 Respiratory Rate 17 Blood Pressure 142/66 H Pulse Oximetry 91 Oxygen Delivery Room Air 04/26/25 09:27 Temperature Pulse Rate Respiratory Rate Blood Pressure Pulse Oximetry Oxygen Delivery Room Air Intake/Output Intake/Output: Intake & Output 04/23/25 04/24/25 04/25/25 04/26/25 23:59 23:59 23:59 23:59 Intake Total 2280 3240.8 1357.5 Output Total 500 3900 1100 Balance 1780 -659.2 257.5 Meds/Results Medications: Active Medications Generic Name Dose Route Start Last Admin Trade Name Freq PRN Reason Stop Dose Admin Acetaminophen 1,000 mg 04/24/25 13:21 04/25/25 11:52 Acetaminophen 500 Mg Tablet PO 1,000 mg Q6H PRN Administration pain 1-3/fever Carbidopa/Levodopa 1 tablet 04/24/25 13:00 04/26/25 09:47 Carbidopa/Levodopa 25/100 Mg Tablet PO 1 tablet QID MARGE Administration Diazepam 5 mg 04/24/25 14:18 Diazepam (*Crx) 5 Mg Tablet PO Q6H PRN Anxiety Diltiazem HCl 240 mg 04/24/25 13:55 04/26/25 09:47 Diltiazem Hcl Cd 240 Mg Cap.24hr PO 240 mg QAM [facility] Administration Docusate Sodium 100 mg 04/24/25 14:18 Docusate Sodium 100 Mg Capsule PO Q12HR PRN Constipation Famotidine 40 mg 04/24/25 14:20 04/26/25 09:47 Famotidine 20 Mg Tablet BY MOUTH 40 mg QAM [facility] Administration Lactated Ringer's 1,000 mls @ 125 mls/hr 04/24/25 04:40 04/26/25 06:00 Lr - Lactated Ringers Iv IV CONT 125 mls/hr .Q8H [facility]GE Infusion Ceftriaxone Sodium 1 gm/ 50 mls @ 100 mls/hr 04/24/25 21:00 04/25/25 20:28 Sodium Chloride IVPB 05/01/25 20:59 100 mls/hr Q24H [facility] Administration Lamotrigine 200 mg 04/24/25 13:25 04/26/25 09:47 Lamotrigine 100 Mg Tablet PO 200 mg Q12HR [facility] Administration Memantine 28 mg 04/24/25 13:55 04/26/25 09:47 Memantine Hcl Xr 28 Mg Cap PO 28 mg QAM [facility] Administration Mirabegron 50 mg 04/24/25 13:55 04/26/25 09:48 Mirabegron 50 Mg Er Tablet PO 50 mg DAILY [facility] Administration Cariprazine [Vraylar 6 mg 04/25/25 10:10 04/26/25 09:50 ] 6 Mg Capsule *Use PO 05/25/25 10:09 6 mg Home Supply QAM [facility] Administration Ondansetron HCl 4 mg 04/24/25 04:40 Ondansetron Inj 4 Mg/2 Ml Vial IV PUSH Q4H PRN Nausea Ondansetron HCl 4 mg 04/24/25 13:21 Ondansetron Hcl Odt 4 Mg Tablet PO Q8H PRN nausea and vomiting Phenazopyridine HCl 200 mg 04/24/25 13:21 04/26/25 09:47 Phenazopyridine Hcl 100 Mg Tablet PO 200 mg Q8H PRN Administration pain Polyethylene Glycol 17 gm 04/24/25 13:21 Polyethylene Glycol 3350 17 Gm Powd.Pack PO DAILY PRN constipation Potassium Chloride 10 meq 04/24/25 13:55 04/26/25 09:47 Potassium Chloride 10 Meq Er Tablet PO 10 meq DAILY [facility] Administration Rosuvastatin Calcium 10 mg 04/24/25 13:55 04/26/25 09:47 Rosuvastatin 10 Mg Tablet PO 10 mg DAILY [facility] Administration Sertraline HCl 200 mg 04/24/25 13:55 04/26/25 09:48 Sertraline Hcl 50 Mg Tablet PO 200 mg QAM [facility] Administration Vitamin D 50 mcg 04/24/25 13:55 04/26/25 09:47 Cholecalciferol (Vitamin D3) 25 Mcg (1,000 Units) Tablet PO 50 mcg DAILY [facility]GE Administration Radiology Results: ITS Impressions Head CT 04/24/25 06:11 IMPRESSION: 1. No acute intracranial abnormality. Abdomen/Pelvis CT 04/24/25 06:15 IMPRESSION: 1. Solid left renal masses, consistent with renal cell carcinoma. 2: Persistent severe hydronephrosis of the right kidney with internal ureteral stent in expected position. There is left internal ureteral stent as well. Bilateral nephrolithiasis. Distal left ureteral stone. Mild stranding surrounding the right renal pelvis and ureters bilaterally. Cannot exclude ascending urinary tract infection. Labs Labs: Laboratory Results - last 24 hr 04/26/25 04/26/25 05:25 10:11 WBC 6.0 RBC 3.58 L Hgb 10.2 L Hct 32.9 L MCV 91.9 MCH 28.5 MCHC 31.0 L RDW 12.2 Plt Count 184 MPV 9.0 Immature Gran % (Auto) 0.2 Neut % (Auto) 66.3 Lymph % (Auto) 19.9 [place] % (Auto) 10.5 H Eos % (Auto) 2.8 Baso % (Auto) 0.3 Lymph # (Auto) 1.20 [place] # (Auto) 0.6 Eos # (Auto) 0.2 Baso # (Auto) 0.0 Abs Immat Gran (auto) 0.01 Absolute Neuts (auto) 4.0 Absolute Nucleated RBC 0.000 Nucleated RBC % 0.0 PT 12.8 INR 0.9 APTT 36.7 Sodium 139 Potassium 4.0 Chloride 105 Carbon Dioxide 28 Anion Gap 6 BUN 15 Creatinine 1.38 H Estim Creat Clear Calc 27 Estimated GFR 37 L Glucose 84 Calcium 9.2 Total Bilirubin 0.5 AST 44 H ALT < 6 L Alkaline Phosphatase 133 H Ammonia < 9 L Total Protein 6.6 Albumin 3.6 Quality VTE Prophylaxis VTE prophylaxis: mechanical ordered
[2025-04-26] MEDS: DOCUSATE SODIUM 100 MG CAPSULE PO (13:06)
[2025-04-26] MEDS: ACETAMINOPHEN 500 MG TABLET 1000 MG PO (13:07)
[2025-04-26] MEDS: TAMSULOSIN HCL 0.4 MG CAPSULE PO (13:10)
[2025-04-26] MEDS: cefTRIAXone 1 GM in SODIUM CHLORIDE 0.9% IV 50 ML 100 ML IVPB (21:12)
[2025-04-27] VITALS (10 sets, daily range): BP systolic 96–129; BP diastolic 46–64; PULSE 61–78; RESP 16–18; TEMP 36.3–36.9; O2SAT 93–97
[2025-04-27] MEDS: LACTATED RINGERS 1,000 ML 125 ML IV CONT ×2 (06:31→17:43)
[2025-04-27 07:01] LABS: Hematocrit 32.0 % (37.0-47.0); Hemoglobin 9.7 g/dL (12.0-15.0); Immature Granulocyte Percent A 0.6 % (0-0.5); Lymphocytes Absolute Auto 1.10 K/mm3 (0.9-3.2); Mean Corpuscular HGB Conc 30.3 g/dl (32-36); Mean Corpuscular Hemoglobin 28.4 pg (26-34); Mean Corpuscular Volume 93.8 fl (80-100); Nucleated Red Blood Cells Absolute Auto 0.000 K/mm3 (0.0-0.012); Nucleated Red Blood Cells Perc 0.0 % (0.0-0.2); Platelet Count Result 176 k/mm3 (150-375); Red Blood Count 3.41 M/mm3 (4.2-5.4); White Blood Count 5.4 K/mm3 (4.5-10.0)
[2025-04-27 07:36] LABS: Albumin Level 3.3 g/dL (3.5-5.1); Alkaline Phosphatase 112 U/L (38-126); Anion Gap 6 mmol/L (4-12); Aspartate Amino Transferase 31 U/L (14-36); Bilirubin,Total 0.3 mg/dL (0.2-1.3); Blood Urea Nitrogen 13 mg/dL (7-17); Calcium 9.1 mg/dL (8.4-10.2); Carbon Dioxide 26 mmol/L (22-30); Chloride 108 mmol/L (98-107); Estimated CRCL calculation 30 ml/min; Estimated Glomerular Filt Rate 41; Glucose 86 mg/dL (65-110); Potassium 3.6 mmol/L (3.4-5.0); Sodium 140 mmol/L (137-145); Total Protein 6.3 g/dL (6.3-8.2)
[2025-04-27 07:37] LABS: Alanine Aminotransferase < 6 U/L (6-35)
[2025-04-27] MEDS: dilTIAZem HCL CD 240 MG CAP.24HR PO (08:45)
[2025-04-27] MEDS: TAMSULOSIN HCL 0.4 MG CAPSULE PO (08:45)
[2025-04-27] MEDS: SERTRALINE HCL 50 MG TABLET 200 MG PO (08:45)
[2025-04-27] MEDS: ROSUVASTATIN 10 MG TABLET PO (08:46)
[2025-04-27] MEDS: POTASSIUM CHLORIDE 10 MEQ ER TABLET PO (08:46)
[2025-04-27] MEDS: FAMOTIDINE 20 MG TABLET 40 MG BY MOUTH (08:46)
[2025-04-27] MEDS: CARBIDOPA/LEVODOPA 25/100 MG TABLET 1 TABLET PO ×4 (08:46→20:02)
[2025-04-27] MEDS: MIRABEGRON 50 MG ER TABLET PO (08:46)
[2025-04-27] MEDS: CHOLECALCIFEROL (VITAMIN D3) 25 MCG (1,000 UNITS) TABLET 50 MCG PO (08:46)
[2025-04-27] MEDS: MEMANTINE HCL XR 28 MG CAP PO (08:46)
[2025-04-27] MEDS: CARIPRAZINE 6 MG 6 EACH PO (08:47)
[2025-04-27] MEDS: ACETAMINOPHEN 500 MG TABLET 1000 MG PO (09:06)
[2025-04-27] MEDS: ONDANSETRON HCL ODT 4 MG TABLET PO (11:22)
--- NOTE | 2025-04-27 11:30 | PCOTNOTE ---
Attempted to see Patient at this time. Patient states she just finished PT services, got back to bed, having some increased dizziness and declines OT services at this time. Will check back this P.M.
[2025-04-27] MEDS: PHENAZOPYRIDINE HCL 100 MG TABLET 200 MG PO ×2 (12:50→17:42)
--- NOTE | 2025-04-27 12:57 | P.PNUR_ITS ---
Progress Note: A&P Assessment and Plan (1) Hydronephrosis, right: Code(s): N13.30 - Unspecified hydronephrosis Status: Acute (2) Left renal mass: Code(s): N28.89 - Other specified disorders of kidney and ureter Status: Acute Assessment and Plan: * Patient with chronic bilateral ureteral stents. * Urine culture final showed no growth. * cr continues to improve today at 1.26 * WBC wnl * We are unable to move up the stent exchange during this admission. Keep scheduled ureteral stent change on 05/10/2025 * continue mirabegron and tamsulosin for bladder/stent pain. Change pyridium to TID scheduled as she hasnt had it for three days. Subjective Subjective Date/Time Seen: 04/27/25 12:57 Interval history: no acute events overnight. She has not been getting the pyridium as ordered PRN. this would be helpful with her urinary pain. Review of Systems Review of Systems: reports continued bladder pain. Cardiovascular: Cardiovascular: Denies chest pain, Denies lightheadedness, Denies palpitations and Denies dyspnea Gastrointestinal: Gastrointestinal: Reports as per HPI, Denies diarrhea, Denies nausea and Denies vomiting Genitourinary: Genitourinary: Reports as per HPI Exam Narrative: reports continued sp pain Const: General: no acute distress Resp: Effort & Inspection: normal respiratory effort GI: Inspection: non-distended Auscultation: normal bowel sounds Urinary Catheter: Urinary Catheter: urine cloudy and other (PureWick, cloudy naresh urine) Skin: General skin exam: normal color Neuro: Cranial nerves: Yes Normal hearing present Speech: normal speech Objective Data Vital Signs Vital Signs: Vital Signs - 24 hr 04/26/25 14:00 04/26/25 16:00 04/26/25 19:40 Temperature 97.9 F 97.9 F Pulse Rate 72 68 62 Respiratory Rate 16 17 Blood Pressure 140/75 123/63 Pulse Oximetry 96 95 Oxygen Delivery 04/26/25 20:00 04/27/25 00:00 04/27/25 04:00 Temperature Pulse Rate 59 L 75 69 Respiratory Rate Blood Pressure Pulse Oximetry Oxygen Delivery 04/27/25 05:03 04/27/25 09:01 Temperature 97.6 F Pulse Rate 78 Respiratory Rate 16 Blood Pressure 129/64 Pulse Oximetry 94 93 Oxygen Delivery Room Air Intake/Output Intake/Output: Intake & Output 04/24/25 04/25/25 04/26/25 04/27/25 23:59 23:59 23:59 23:59 Intake Total 2280 3290.8 4240.0 1236.0 Output Total 500 3900 2060 800 Balance 1780 -609.2 2180.0 436.0 Meds/Results Medications: Active Medications Generic Name Dose Route Start Last Admin Trade Name Freq PRN Reason Stop Dose Admin Acetaminophen 1,000 mg 04/24/25 13:21 04/27/25 09:06 Acetaminophen 500 Mg Tablet PO 1,000 mg Q6H PRN Administration pain 1-3/fever Amoxicillin/Clavulanate Potassium 1 tablet 04/27/25 21:00 Amoxicillin/Clavulanate K 875-125 Mg Tab PO 04/30/25 09:01 Q12HR MARGE Carbidopa/Levodopa 1 tablet 04/24/25 13:00 04/27/25 12:50 Carbidopa/Levodopa 25/100 Mg Tablet PO 1 tablet QID [facility] Administration Diazepam 5 mg 04/24/25 14:18 Diazepam (*Crx) 5 Mg Tablet PO Q6H PRN Anxiety Diltiazem HCl 240 mg 04/24/25 13:55 04/27/25 08:45 Diltiazem Hcl Cd 240 Mg Cap.24hr PO 240 mg QAM [facility] Administration Docusate Sodium 100 mg 04/24/25 14:18 04/26/25 13:06 Docusate Sodium 100 Mg Capsule PO 100 mg Q12HR PRN Administration Constipation Famotidine 40 mg 04/24/25 14:20 04/27/25 08:46 Famotidine 20 Mg Tablet BY MOUTH 40 mg QAM [facility] Administration Lactated Ringer's 1,000 mls @ 125 mls/hr 04/24/25 04:40 04/27/25 06:31 Lr - Lactated Ringers Iv IV CONT 125 mls/hr .Q8H [facility] Administration Lamotrigine 200 mg 04/24/25 13:25 04/27/25 08:45 Lamotrigine 100 Mg Tablet PO 200 mg Q12HR [facility] Administration Memantine 28 mg 04/24/25 13:55 04/27/25 08:46 Memantine Hcl Xr 28 Mg Cap PO 28 mg QAM [facility] Administration Mirabegron 50 mg 04/24/25 13:55 04/27/25 08:46 Mirabegron 50 Mg Er Tablet PO 50 mg DAILY [facility] Administration Cariprazine [Vraylar 6 mg 04/25/25 10:10 04/27/25 08:47 ] 6 Mg Capsule *Use PO 05/25/25 10:09 6 mg Home Supply QAM [facility] Administration Ondansetron HCl 4 mg 04/24/25 04:40 Ondansetron Inj 4 Mg/2 Ml Vial IV PUSH Q4H PRN Nausea Ondansetron HCl 4 mg 04/24/25 13:21 04/27/25 11:22 Ondansetron Hcl Odt 4 Mg Tablet PO 4 mg Q8H PRN Administration nausea and vomiting Phenazopyridine HCl 200 mg 04/27/25 13:00 04/27/25 12:50 Phenazopyridine Hcl 100 Mg Tablet PO 200 mg TID [facility] Administration Polyethylene Glycol 17 gm 04/24/25 13:21 04/26/25 13:07 Polyethylene Glycol 3350 17 Gm Powd.Pack PO 17 gm DAILY PRN Administration constipation Potassium Chloride 10 meq 04/24/25 13:55 04/27/25 08:46 Potassium Chloride 10 Meq Er Tablet PO 10 meq DAILY [facility] Administration Rosuvastatin Calcium 10 mg 04/24/25 13:55 04/27/25 08:46 Rosuvastatin 10 Mg Tablet PO 10 mg DAILY [facility] Administration Sertraline HCl 200 mg 04/24/25 13:55 04/27/25 08:45 Sertraline Hcl 50 Mg Tablet PO 200 mg QAM [facility] Administration Tamsulosin HCl 0.4 mg 04/26/25 12:20 04/27/25 08:45 Tamsulosin Hcl 0.4 Mg Capsule PO 0.4 mg QAM [facility] Administration Vitamin D 50 mcg 04/24/25 13:55 04/27/25 08:46 Cholecalciferol (Vitamin D3) 25 Mcg (1,000 Units) Tablet PO 50 mcg DAILY [facility] Administration Radiology Results: ITS Impressions Head CT 04/24/25 06:11 IMPRESSION: 1. No acute intracranial abnormality. Abdomen/Pelvis CT 04/27/25 11:35 IMPRESSION: 1. Grossly stable size and configuration of the left renal masses. 2.There is fat stranding about the ureters which has slightly worsened as compared to the study from April 24, 2025. An infectious process is possible. Correlate clinically. 3. Stable 7 mm distal left ureteral stone. 4. Bilateral hydronephrosis similar to the prior study from April 24, 2025. Severe right-sided hydronephrosis, unchanged. Labs Labs: Laboratory Results - last 24 hr 04/27/25 06:01 WBC 5.4 RBC 3.41 L Hgb 9.7 L Hct 32.0 L MCV 93.8 MCH 28.4 MCHC 30.3 L RDW 12.3 Plt Count 176 MPV 9.1 Immature Gran % (Auto) 0.6 H Neut % (Auto) 65.6 Lymph % (Auto) 20.5 [place] % (Auto) 8.8 H Eos % (Auto) 3.9 Baso % (Auto) 0.6 Lymph # (Auto) 1.10 [place] # (Auto) 0.5 Eos # (Auto) 0.2 Baso # (Auto) 0.0 Abs Immat Gran (auto) 0.03 Absolute Neuts (auto) 3.5 Absolute Nucleated RBC 0.000 Nucleated RBC % 0.0 Sodium 140 Potassium 3.6 Chloride 108 H Carbon Dioxide 26 Anion Gap 6 BUN 13 Creatinine 1.26 H Estim Creat Clear Calc 30 Estimated GFR 41 L Glucose 86 Calcium 9.1 Total Bilirubin 0.3 AST 31 ALT < 6 L Alkaline Phosphatase 112 Total Protein 6.3 Albumin 3.3 L
[2025-04-27 13:27] LABS: Add Urine Microscopic? YES; Appearance Urine Cloudy (Clear); Non Pathogenic Casts 0-2
--- NOTE | 2025-04-27 15:00 | P.PNIM_ITS ---
Progress Note: A&P Assessment and Plan (1) Acute UTI: Code(s): N39.0 - Urinary tract infection, site not specified Status: Ruled-out Assessment and Plan: * UA: 3+ blood, Positive nitrates, 3+ leukocyte esterase, >100 RBC, >100 WBC, 4+ bacteria * UC obtained on 04/24 * started on Ceftriaxone, continue IV antibiotics until cultures have resulted * Abdomen/Pelvis CT * Solid left renal masses, consistent with renal cell carcinoma. * Persistent severe hydronephrosis of the right kidney with internal ureteral stent in expected position. There is left internal ureteral stent as well. Bilateral nephrolithiasis. Distal left ureteral stone. Mild stranding surrounding the right renal pelvis and ureters bilaterally. Cannot exclude ascending urinary tract infection.' * Urology consult pending, appreciate further recommendations * Unable to move up stent replacement - maintain plan for ureteral stent replacement on 05/10 * IV fluid rehydration * Monitor blood/urine cultures * Remains afebrile without leukocytosis * Urine culture negative * Continues to endorse pelvic pain with lower abdominal discomfort * Repeat CT abdomen/pelvis: * Grossly stable size and configuration of the left renal masses. * There is fat stranding about the ureters which has slightly worsened as compared to the study from April 24, 2025. An infectious process is possible. Correlate clinically. * Stable 7 mm distal left ureteral stone. * Bilateral hydronephrosis similar to the prior study from April 24, 2025. Severe right-sided hydronephrosis, unchanged. * Will repeat urinalysis as well, patient still experiencing urinary symptoms in the absence of positive urinary cultures * Treatment still indicated at this time (2) Delirium superimposed on dementia: Code(s): F05 - Delirium due to known physiological condition Status: Acute Assessment and Plan: * Baseline dementia with A&O status of 2-3 at baseline * Likely 2/2 to underlying dementia, underlying UTI * Head CT: No acute intracranial abnormality * See above * Ammonia wnl * WBC normal * Blood cultures - still pending (3) General weakness: Code(s): R53.1 - Weakness Status: Acute Assessment and Plan: * See above (4) Acute kidney injury superimposed on chronic kidney disease: Code(s): N17.9 - Acute kidney failure, unspecified; N18.9 - Chronic kidney disease, unspecified Status: Acute Assessment and Plan: * Creatinine: 1.69, GFR: 30, BUN: 25 * IV Fluids: LR 125 mL/hour * Trend renal function * Trend electrolytes, correct as needed * avoid NSAIDs or morphine for pain control * 04/27: 1.69 -> 1.38 -> 1.26 * Improved (5) Left renal mass: Code(s): N28.89 - Other specified disorders of kidney and ureter Status: Acute Assessment and Plan: * Known previous imaging * Follows closed with urology in the outpatient setting * Has opted to not treat surgically (6) Parkinson disease: Code(s): G20 - Parkinson's disease Status: Acute Assessment and Plan: * Continue carbidopa levodopa (7) Essential (primary) hypertension: Code(s): I10 - Essential (primary) hypertension Status: Acute Assessment and Plan: * Patient's blood pressure was reviewed on 04/24 * Blood pressure remains well controlled. * 96/46 * Continue to monitor * IVF hydration (8) Dyslipidemia: Code(s): E78.5 - Hyperlipidemia, unspecified Status: Acute Assessment and Plan: * Continue rosuvastatin 10 mg Subjective Date/time seen: 04/27/25 15:00 Interval history: 74-year-old female with a past medical history of previous kidney stones, ureteral stents with extenders, renal masses consistent with RCC, chronic UTIs, staghorn calculi, Parkinson's dementia, bipolar disorder, hypertension, hyperlipidemia, who presents to the hospital with generalized weakness and malaise. 04/27/2025 Patient sitting in bed at time examination. Endorsing urinary pain and lower abdominal pain, no other complaints. Will repeat CT abdomen/pelvis given continued abdominal/pelvis discomfort. Urinalysis obtained as nursing staff reported that urine looks darker than previous days. Patient remains afebrile without leukocytosis or any electrolyte abnormalities. Seen by Urology, will add Pyridium for urinary pain. Will continue to monitor over the next 24 hours with possible discharge tomorrow, working with care coordination regarding placement possibly to [facility]. Review of Systems Review of Systems: All systems reviewed & are unremarkable except as noted in HPI and below Exam Narrative: Gen -chronically ill appearing female in no acute respiratory distress who is nontoxic-appearing lying semi recumbent in bed HEENT - normocephalic. Atraumatic. Pupils equal round and reactive. Extraocular motions intact. Sclera clear and anicteric. Nares patent. Oropharynx was clear. Dry mucous membranes. Tongue was midline. No facial asymmetry. Neck - neck was supple. No dominant adenopathy, thyromegaly or masses. Chest - lungs are clear to auscultation bilaterally. No wheezes or crackles. CV - heart was regular rate and rhythm. S1-S2. No murmurs gallops or rubs. Abd -TTP to the RLQ, abdomen was soft. Nondistended. Positive bowel sounds. No organomegaly or masses. Ext - no clubbing, cyanosis or edema. 2+ DP pulses bilaterally. Neuro - patient is alert and oriented x4. Cranial nerves 2-12 are intact. Speech is clear but slow, no slurring Psych - normal mood and affect. Patient is pleasant and cooperative. Skin - warm and dry. No rashes noted. Objective Data Vital Signs Vital Signs: Vital Signs - 24 hr 04/26/25 16:00 04/26/25 19:40 04/26/25 20:00 Temperature 97.9 F Pulse Rate 68 62 59 L Respiratory Rate 17 Blood Pressure 123/63 Pulse Oximetry 95 Oxygen Delivery 04/27/25 00:00 04/27/25 04:00 04/27/25 05:03 Temperature 97.6 F Pulse Rate 75 69 78 Respiratory Rate 16 Blood Pressure 129/64 Pulse Oximetry 94 Oxygen Delivery 04/27/25 08:50 04/27/25 08:50 04/27/25 09:01 Temperature Pulse Rate 78 Respiratory Rate Blood Pressure Pulse Oximetry 93 Oxygen Delivery Room Air Room Air 04/27/25 14:00 Temperature 97.4 F L Pulse Rate 63 Respiratory Rate 16 Blood Pressure 96/46 L Pulse Oximetry 96 Oxygen Delivery Intake/Output Intake/Output: Intake & Output 04/24/25 04/25/25 04/26/25 04/27/25 23:59 23:59 23:59 23:59 Intake Total 2280 3290.8 4240.0 1906.0 Output Total 500 3900 2060 800 Balance 1780 -609.2 2180.0 1106.0 Meds/Results Medications: Active Medications Generic Name Dose Route Start Last Admin Trade Name Freq PRN Reason Stop Dose Admin Acetaminophen 1,000 mg 04/24/25 13:21 04/27/25 09:06 Acetaminophen 500 Mg Tablet PO 1,000 mg Q6H PRN Administration pain 1-3/fever Amoxicillin/Clavulanate Potassium 1 tablet 04/27/25 21:00 Amoxicillin/Clavulanate K 875-125 Mg Tab PO 04/30/25 09:01 Q12HR MARGE Carbidopa/Levodopa 1 tablet 04/24/25 13:00 04/27/25 12:50 Carbidopa/Levodopa 25/100 Mg Tablet PO 1 tablet QID MARGE Administration Diazepam 5 mg 04/24/25 14:18 Diazepam (*Crx) 5 Mg Tablet PO Q6H PRN Anxiety Diltiazem HCl 240 mg 04/24/25 13:55 04/27/25 08:45 Diltiazem Hcl Cd 240 Mg Cap.24hr PO 240 mg QAM MARGE Administration Docusate Sodium 100 mg 04/24/25 14:18 04/26/25 13:06 Docusate Sodium 100 Mg Capsule PO 100 mg Q12HR PRN Administration Constipation Famotidine 40 mg 04/24/25 14:20 04/27/25 08:46 Famotidine 20 Mg Tablet BY MOUTH 40 mg QAM MARGE Administration Lactated Ringer's 1,000 mls @ 125 mls/hr 04/24/25 04:40 04/27/25 06:31 Lr - Lactated Ringers Iv IV CONT 125 mls/hr .Q8H MARGE Administration Lamotrigine 200 mg 04/24/25 13:25 04/27/25 08:45 Lamotrigine 100 Mg Tablet PO 200 mg Q12HR MARGE Administration Memantine 28 mg 04/24/25 13:55 04/27/25 08:46 Memantine Hcl Xr 28 Mg Cap PO 28 mg QAM MARGE Administration Mirabegron 50 mg 04/24/25 13:55 04/27/25 08:46 Mirabegron 50 Mg Er Tablet PO 50 mg DAILY MARGE Administration Cariprazine [Vraylar 6 mg 04/25/25 10:10 04/27/25 08:47 ] 6 Mg Capsule *Use PO 05/25/25 10:09 6 mg Home Supply QAM MARGE Administration Ondansetron HCl 4 mg 04/24/25 04:40 Ondansetron Inj 4 Mg/2 Ml Vial IV PUSH Q4H PRN Nausea Ondansetron HCl 4 mg 04/24/25 13:21 04/27/25 11:22 Ondansetron Hcl Odt 4 Mg Tablet PO 4 mg Q8H PRN Administration nausea and vomiting Phenazopyridine HCl 200 mg 04/27/25 13:00 04/27/25 12:50 Phenazopyridine Hcl 100 Mg Tablet PO 200 mg TID MARGE Administration Polyethylene Glycol 17 gm 04/24/25 13:21 04/26/25 13:07 Polyethylene Glycol 3350 17 Gm Powd.Pack PO 17 gm DAILY PRN Administration constipation Potassium Chloride 10 meq 04/24/25 13:55 04/27/25 08:46 Potassium Chloride 10 Meq Er Tablet PO 10 meq DAILY MARGE Administration Rosuvastatin Calcium 10 mg 04/24/25 13:55 04/27/25 08:46 Rosuvastatin 10 Mg Tablet PO 10 mg DAILY MARGE Administration Sertraline HCl 200 mg 04/24/25 13:55 04/27/25 08:45 Sertraline Hcl 50 Mg Tablet PO 200 mg QAM MARGE Administration Tamsulosin HCl 0.4 mg 04/26/25 12:20 04/27/25 08:45 Tamsulosin Hcl 0.4 Mg Capsule PO 0.4 mg QAM MARGE Administration Vitamin D 50 mcg 04/24/25 13:55 04/27/25 08:46 Cholecalciferol (Vitamin D3) 25 Mcg (1,000 Units) Tablet PO 50 mcg DAILY MARGE Administration Radiology Results: ITS Impressions Head CT 04/24/25 06:11 IMPRESSION: 1. No acute intracranial abnormality. Abdomen/Pelvis CT 04/27/25 11:35 IMPRESSION: 1. Grossly stable size and configuration of the left renal masses. 2.There is fat stranding about the ureters which has slightly worsened as com pared to the study from April 24, 2025. An infectious process is possible. Correlate clinically. 3. Stable 7 mm distal left ureteral stone. 4. Bilateral hydronephrosis similar to the prior study from April 24, 2025. Severe right-sided hydronephrosis, unchanged. Labs Labs: Laboratory Results - last 24 hr 04/27/25 04/27/25 06:01 13:05 WBC 5.4 RBC 3.41 L Hgb 9.7 L Hct 32.0 L MCV 93.8 MCH 28.4 MCHC 30.3 L RDW 12.3 Plt Count 176 MPV 9.1 Immature Gran % (Auto) 0.6 H Neut % (Auto) 65.6 Lymph % (Auto) 20.5 [place] % (Auto) 8.8 H Eos % (Auto) 3.9 Baso % (Auto) 0.6 Lymph # (Auto) 1.10 [place] # (Auto) 0.5 Eos # (Auto) 0.2 Baso # (Auto) 0.0 Abs Immat Gran (auto) 0.03 Absolute Neuts (auto) 3.5 Absolute Nucleated RBC 0.000 Nucleated RBC % 0.0 Sodium 140 Potassium 3.6 Chloride 108 H Carbon Dioxide 26 Anion Gap 6 BUN 13 Creatinine 1.26 H Estim Creat Clear Calc 30 Estimated GFR 41 L Glucose 86 Calcium 9.1 Total Bilirubin 0.3 AST 31 ALT < 6 L Alkaline Phosphatase 112 Total Protein 6.3 Albumin 3.3 L Urine Color [place] H Urine Appearance Cloudy H Urine pH TNP Ur Specific [place] TNP Urine Protein TNP Urine Glucose (UA) TNP Urine Ketones TNP Ur Blood (Man) TNP Urine Nitrate TNP Urine Bilirubin TNP Urine Urobilinogen TNP Ur Leukocyte Esterase TNP Urine RBC 21-50 H Urine WBC >100 H Ur Squamous Epith Cells Occasional Urine Bacteria 4+ H Urine Casts 0-2 Quality VTE Prophylaxis VTE prophylaxis: mechanical ordered
[2025-04-28] VITALS: PULSE 63
[2025-04-28] MEDS: LACTATED RINGERS 1,000 ML 125 ML IV CONT ×2 (03:23→09:15)
[2025-04-28 04:00] VITALS: PULSE 65
[2025-04-28 05:49] LABS: Hematocrit 29.8 % (37.0-47.0); Hemoglobin 9.1 g/dL (12.0-15.0); Immature Granulocyte Percent A 0.6 % (0-0.5); Lymphocytes Absolute Auto 1.43 K/mm3 (0.9-3.2); Mean Corpuscular HGB Conc 30.5 g/dl (32-36); Mean Corpuscular Hemoglobin 28.8 pg (26-34); Mean Corpuscular Volume 94.3 fl (80-100); Nucleated Red Blood Cells Absolute Auto 0.000 K/mm3 (0.0-0.012); Nucleated Red Blood Cells Perc 0.0 % (0.0-0.2); Platelet Count Result 174 k/mm3 (150-375); Red Blood Count 3.16 M/mm3 (4.2-5.4); White Blood Count 5.3 K/mm3 (4.5-10.0)
[2025-04-28 06:00] VITALS: BP 117/60; PULSE 70; RESP 18; TEMP 36.8; O2SAT 93
[2025-04-28 06:18] LABS: Albumin Level 3.2 g/dL (3.5-5.1); Alkaline Phosphatase 98 U/L (38-126); Anion Gap 6 mmol/L (4-12); Aspartate Amino Transferase 30 U/L (14-36); Bilirubin,Total 0.4 mg/dL (0.2-1.3); Blood Urea Nitrogen 15 mg/dL (7-17); Calcium 8.8 mg/dL (8.4-10.2); Carbon Dioxide 26 mmol/L (22-30); Chloride 106 mmol/L (98-107); Estimated CRCL calculation 28 ml/min; Estimated Glomerular Filt Rate 39; Glucose 84 mg/dL (65-110); Potassium 3.7 mmol/L (3.4-5.0); Sodium 138 mmol/L (137-145); Total Protein 5.9 g/dL (6.3-8.2)
[2025-04-28 06:37] LABS: Alanine Aminotransferase < 6 U/L (6-35)
[2025-04-28] MEDS: SERTRALINE HCL 50 MG TABLET 200 MG PO (09:01)
[2025-04-28] MEDS: MEMANTINE HCL XR 28 MG CAP PO (09:01)
[2025-04-28] MEDS: CARBIDOPA/LEVODOPA 25/100 MG TABLET 1 TABLET PO ×3 (09:01→16:30)
[2025-04-28] MEDS: PHENAZOPYRIDINE HCL 100 MG TABLET 200 MG PO ×3 (09:01→16:31)
[2025-04-28] MEDS: dilTIAZem HCL CD 240 MG CAP.24HR PO (09:01)
[2025-04-28] MEDS: TAMSULOSIN HCL 0.4 MG CAPSULE PO (09:02)
[2025-04-28] MEDS: POTASSIUM CHLORIDE 10 MEQ ER TABLET PO (09:02)
[2025-04-28] MEDS: CARIPRAZINE 6 MG 6 EACH PO (09:02)
[2025-04-28] MEDS: MIRABEGRON 50 MG ER TABLET PO (09:02)
[2025-04-28] MEDS: ROSUVASTATIN 10 MG TABLET PO (09:02)
[2025-04-28] MEDS: CHOLECALCIFEROL (VITAMIN D3) 25 MCG (1,000 UNITS) TABLET 50 MCG PO (09:02)
[2025-04-28] MEDS: FAMOTIDINE 20 MG TABLET 40 MG BY MOUTH (09:02)
--- NOTE | 2025-04-28 10:03 | P.PNIM_ITS ---
Progress Note: A&P Assessment and Plan (1) Acute UTI: Code(s): N39.0 - Urinary tract infection, site not specified Status: Ruled-out Assessment and Plan: * UA: 3+ blood, Positive nitrates, 3+ leukocyte esterase, >100 RBC, >100 WBC, 4+ bacteria * UC obtained on 04/24 * started on Ceftriaxone, continue IV antibiotics until cultures have resulted * Abdomen/Pelvis CT * Solid left renal masses, consistent with renal cell carcinoma. * Persistent severe hydronephrosis of the right kidney with internal ureteral stent in expected position. There is left internal ureteral stent as well. Bilateral nephrolithiasis. Distal left ureteral stone. Mild stranding surrounding the right renal pelvis and ureters bilaterally. Cannot exclude ascending urinary tract infection.' * Urology consult pending, appreciate further recommendations * Unable to move up stent replacement - maintain plan for ureteral stent replacement on 05/10 * IV fluid rehydration * Monitor blood/urine cultures - NGTD, waiting on final results for placement * Remains afebrile without leukocytosis * Urine culture negative * Continues to endorse pelvic pain with lower abdominal discomfort * Repeat CT abdomen/pelvis: * Grossly stable size and configuration of the left renal masses. * There is fat stranding about the ureters which has slightly worsened as compared to the study from April 24, 2025. An infectious process is possible. Correlate clinically. * Stable 7 mm distal left ureteral stone. * Bilateral hydronephrosis similar to the prior study from April 24, 2025. Severe right-sided hydronephrosis, unchanged. * Treatment still indicated at this time (2) Delirium superimposed on dementia: Code(s): F05 - Delirium due to known physiological condition Status: Acute Assessment and Plan: * Baseline dementia with A&O status of 2-3 at baseline * Likely 2/2 to underlying dementia, underlying UTI * Head CT: No acute intracranial abnormality * See above * Ammonia wnl * WBC normal * Blood cultures - still pending (3) General weakness: Code(s): R53.1 - Weakness Status: Acute Assessment and Plan: * See above (4) Acute kidney injury superimposed on chronic kidney disease: Code(s): N17.9 - Acute kidney failure, unspecified; N18.9 - Chronic kidney disease, unspecified Status: Acute Assessment and Plan: * Creatinine: 1.69, GFR: 30, BUN: 25 * IV Fluids: LR 125 mL/hour * Trend renal function * Trend electrolytes, correct as needed * avoid NSAIDs or morphine for pain control * 04/28: 1.69 -> 1.38 -> 1.34 * Improved (5) Left renal mass: Code(s): N28.89 - Other specified disorders of kidney and ureter Status: Acute Assessment and Plan: * Known previous imaging * Follows closed with urology in the outpatient setting * Has opted to not treat surgically (6) Parkinson disease: Code(s): G20 - Parkinson's disease Status: Acute Assessment and Plan: * Continue carbidopa levodopa (7) Essential (primary) hypertension: Code(s): I10 - Essential (primary) hypertension Status: Acute Assessment and Plan: * Patient's blood pressure was reviewed on 04/24 * Blood pressure remains well controlled. * 117/60 * Continue to monitor * IVF hydration (8) Dyslipidemia: Code(s): E78.5 - Hyperlipidemia, unspecified Status: Acute Assessment and Plan: * Continue rosuvastatin 10 mg Subjective Date/time seen: 04/28/25 10:03 Interval history: 74-year-old female with a past medical history of previous kidney stones, ureteral stents with extenders, renal masses consistent with RCC, chronic UTIs, staghorn calculi, Parkinson's dementia, bipolar disorder, hypertension, hyperlipidemia, who presents to the hospital with generalized weakness and malaise. 04/28/2025 Patient sitting bedside at time examination. Denies any abdominal pain or pelvic pain at this time. Perineum was given yesterday and since then patient denies any symptoms at all. Blood work and vital signs remained stable. Pending placement to [facility] (she has been accepted), waiting on final blood culture results. Preliminary results shows no growth to date, however placement needs final results until patient to be sent to their facility. Patient has no other complaints and feels great today. Review of Systems Review of Systems: All systems reviewed & are unremarkable except as noted in HPI and below Exam Narrative: Gen -chronically ill appearing female in no acute respiratory distress who is nontoxic-appearing lying semi recumbent in bed HEENT - normocephalic. Atraumatic. Pupils equal round and reactive. Extraocular motions intact. Sclera clear and anicteric. Nares patent. Oropharynx was clear. Dry mucous membranes. Tongue was midline. No facial asymmetry. Neck - neck was supple. No dominant adenopathy, thyromegaly or masses. Chest - lungs are clear to auscultation bilaterally. No wheezes or crackles. CV - heart was regular rate and rhythm. S1-S2. No murmurs gallops or rubs. Abd -TTP to the RLQ, abdomen was soft. Nondistended. Positive bowel sounds. No organomegaly or masses. Ext - no clubbing, cyanosis or edema. 2+ DP pulses bilaterally. Neuro - patient is alert and oriented x4. Cranial nerves 2-12 are intact. Speech is clear but slow, no slurring Psych - normal mood and affect. Patient is pleasant and cooperative. Skin - warm and dry. No rashes noted. Objective Data Vital Signs Vital Signs: Vital Signs - 24 hr 04/27/25 12:00 04/27/25 14:00 04/27/25 16:00 Temperature 97.4 F L Pulse Rate 73 63 61 Respiratory Rate 16 Blood Pressure 96/46 L Pulse Oximetry 96 04/27/25 20:00 04/27/25 22:00 04/28/25 00:00 Temperature 98.4 F Pulse Rate 66 62 63 Respiratory Rate 18 Blood Pressure 112/64 Pulse Oximetry 97 04/28/25 04:00 04/28/25 06:00 Temperature 98.2 F Pulse Rate 65 70 Respiratory Rate 18 Blood Pressure 117/60 Pulse Oximetry 93 Intake/Output Intake/Output: Intake & Output 04/25/25 04/26/25 04/27/25 04/28/25 23:59 23:59 23:59 23:59 Intake Total 3290.8 4240.0 3266.0 2213.3 Output Total 3900 2060 800 900 Balance -609.2 2180.0 2466.0 1313.3 Meds/Results Medications: Active Medications Generic Name Dose Route Start Last Admin Trade Name Freq PRN Reason Stop Dose Admin Acetaminophen 1,000 mg 04/24/25 13:21 04/27/25 09:06 Acetaminophen 500 Mg Tablet PO 1,000 mg Q6H PRN Administration pain 1-3/fever Amoxicillin/Clavulanate Potassium 1 tablet 04/27/25 21:00 04/28/25 09:01 Amoxicillin/Clavulanate K 875-125 Mg Tab PO 04/30/25 09:01 1 tablet Q12HR MARGE Administration Carbidopa/Levodopa 1 tablet 04/24/25 13:00 04/28/25 09:01 Carbidopa/Levodopa 25/100 Mg Tablet PO 1 tablet QID MARGE Administration Diazepam 5 mg 04/24/25 14:18 Diazepam (*Crx) 5 Mg Tablet PO Q6H PRN Anxiety Diltiazem HCl 240 mg 04/24/25 13:55 04/28/25 09:01 Diltiazem Hcl Cd 240 Mg Cap.24hr PO 240 mg QAM MARGE Administration Docusate Sodium 100 mg 04/24/25 14:18 04/26/25 13:06 Docusate Sodium 100 Mg Capsule PO 100 mg Q12HR PRN Administration Constipation Famotidine 40 mg 04/24/25 14:20 04/28/25 09:02 Famotidine 20 Mg Tablet BY MOUTH 40 mg QAM MARGE Administration Lactated Ringer's 1,000 mls @ 125 mls/hr 04/24/25 04:40 04/28/25 09:15 Lr - Lactated Ringers Iv IV CONT 125 mls/hr .Q8H MARGE Administration Lamotrigine 200 mg 04/24/25 13:25 04/28/25 09:01 Lamotrigine 100 Mg Tablet PO 200 mg Q12HR MARGE Administration Memantine 28 mg 04/24/25 13:55 04/28/25 09:01 Memantine Hcl Xr 28 Mg Cap PO 28 mg QAM MARGE Administration Mirabegron 50 mg 04/24/25 13:55 04/28/25 09:02 Mirabegron 50 Mg Er Tablet PO 50 mg DAILY MARGE Administration Cariprazine [Vraylar 6 mg 04/25/25 10:10 04/28/25 09:02 ] 6 Mg Capsule *Use PO 05/25/25 10:09 6 mg Home Supply QAM MARGE Administration Ondansetron HCl 4 mg 04/24/25 04:40 Ondansetron Inj 4 Mg/2 Ml Vial IV PUSH Q4H PRN Nausea Ondansetron HCl 4 mg 04/24/25 13:21 04/27/25 11:22 Ondansetron Hcl Odt 4 Mg Tablet PO 4 mg Q8H PRN Administration nausea and vomiting Phenazopyridine HCl 200 mg 04/27/25 13:00 04/28/25 09:01 Phenazopyridine Hcl 100 Mg Tablet PO 200 mg TID MARGE Administration Polyethylene Glycol 17 gm 04/24/25 13:21 04/26/25 13:07 Polyethylene Glycol 3350 17 Gm Powd.Pack PO 17 gm DAILY PRN Administration constipation Potassium Chloride 10 meq 04/24/25 13:55 04/28/25 09:02 Potassium Chloride 10 Meq Er Tablet PO 10 meq DAILY MARGE Administration Rosuvastatin Calcium 10 mg 04/24/25 13:55 04/28/25 09:02 Rosuvastatin 10 Mg Tablet PO 10 mg DAILY MARGE Administration Sertraline HCl 200 mg 04/24/25 13:55 04/28/25 09:01 Sertraline Hcl 50 Mg Tablet PO 200 mg QAM MARGE Administration Tamsulosin HCl 0.4 mg 04/26/25 12:20 04/28/25 09:02 Tamsulosin Hcl 0.4 Mg Capsule PO 0.4 mg QAM MARGE Administration Vitamin D 50 mcg 04/24/25 13:55 04/28/25 09:02 Cholecalciferol (Vitamin D3) 25 Mcg (1,000 Units) Tablet PO 50 mcg DAILY MARGE Administration Radiology Results: ITS Impressions Head CT 04/24/25 06:11 IMPRESSION: 1. No acute intracranial abnormality. Abdomen/Pelvis CT 04/27/25 11:35 IMPRESSION: 1. Grossly stable size and configuration of the left renal masses. 2.There is fat stranding about the ureters which has slightly worsened as compared to the study from April 24, 2025. An infectious process is possible. Correlate clinically. 3. Stable 7 mm distal left ureteral stone. 4. Bilateral hydronephrosis similar to the prior study from April 24, 2025. Severe right-sided hydronephrosis, unchanged. Labs Labs: Laboratory Results - last 24 hr 04/27/25 04/28/25 04/28/25 13:05 04:47 08:34 WBC 5.3 RBC 3.16 L Hgb 9.1 L Hct 29.8 L MCV 94.3 MCH 28.8 MCHC 30.5 L RDW 12.2 Plt Count 174 MPV 9.0 Immature Gran % (Auto) 0.6 H Neut % (Auto) 58.6 Lymph % (Auto) 27.1 [place] % (Auto) 9.5 H Eos % (Auto) 3.8 Baso % (Auto) 0.4 Lymph # (Auto) 1.43 [place] # (Auto) 0.5 Eos # (Auto) 0.2 Baso # (Auto) 0.0 Abs Immat Gran (auto) 0.03 Absolute Neuts (auto) 3.1 Absolute Nucleated RBC 0.000 Nucleated RBC % 0.0 Sodium 138 Potassium 3.7 Chloride 106 Carbon Dioxide 26 Anion Gap 6 BUN 15 Creatinine 1.34 H Estim Creat Clear Calc 28 Estimated GFR 39 L Glucose 84 POC Capillary Glucose 87 Calcium 8.8 Total Bilirubin 0.4 AST 30 ALT < 6 L Alkaline Phosphatase 98 Total Protein 5.9 L Albumin 3.2 L Urine Color [place] H Urine Appearance Cloudy H Urine pH TNP Ur Specific [place] TNP Urine Protein TNP Urine Glucose (UA) TNP Urine Ketones TNP Ur Blood (Man) TNP Urine Nitrate TNP Urine Bilirubin TNP Urine Urobilinogen TNP Ur Leukocyte Esterase TNP Urine RBC 21-50 H Urine WBC >100 H Ur Squamous Epith Cells Occasional Urine Bacteria 4+ H Urine Casts 0-2 Quality VTE Prophylaxis VTE prophylaxis: mechanical ordered
--- NOTE | 2025-04-28 13:49 | PM.DS ---
DS: Admitting Diagnosis Discharge Date 04/28/2025 Admitting Diagnosis Acute UTI DS: Discharge Diagnosis Discharge Diagnosis (1) Acute UTI: Code(s): N39.0 - Urinary tract infection, site not specified Status: Ruled-out (2) Delirium superimposed on dementia: Code(s): F05 - Delirium due to known physiological condition Status: Acute (3) General weakness: Code(s): R53.1 - Weakness Status: Acute (4) Acute kidney injury superimposed on chronic kidney disease: Code(s): N17.9 - Acute kidney failure, unspecified; N18.9 - Chronic kidney disease, unspecified Status: Acute (5) Left renal mass: Code(s): N28.89 - Other specified disorders of kidney and ureter Status: Acute (6) Parkinson disease: Code(s): G20 - Parkinson's disease Status: Acute (7) Essential (primary) hypertension: Code(s): I10 - Essential (primary) hypertension Status: Acute (8) Dyslipidemia: Code(s): E78.5 - Hyperlipidemia, unspecified Status: Acute DS: Summary Hospital Course Reason for hospitalization: fall Hospital Course: Karina Arroyo is a 74-year-old female with a past medical history of previous kidney stones, ureteral stents with extenders, renal masses consistent with RCC, chronic UTIs, staghorn calculi, Parkinson's dementia, bipolar disorder, hypertension, hyperlipidemia, who presents to the hospital with generalized weakness and malaise. Patient is accompanied by who states that Wednesday afternoon, the patient started complaining of worsening generalized weakness, especially in the lower extremities. No known injury or trauma. also states that the patient has seemed more confused than usual, on exam patient is A&O x3 but slow to answer questions. Patient denies any falls, by states that he had to get a wheelchair to prevent her from falling. Patient follows with Urology closely in the outpatient setting due to frequent urinary tract infections, and has a an extensive history with similar presentation of generalized weakness with associated urinary tract infection requiring hospital stays and acute rehab post discharge. ED workup: 38.2? C, 83 HR, 18 RR, 137/70, 92% on room air WBC 6.7, HGB 10.5, HCT 33.5, PLT count 177, sodium 137, potassium 4.0, chloride 103, BUN 25, creatinine 1.69, GFR 30, glucose 117, calcium 9.0, AST 41, ALT 19, alkaline phosphatase 122 UA: 3+ urine blood, positive nitrates, 3+ leukocyte esterase, >100 RBC and WBC, 4+ bacteria Head CT: No acute intracranial abnormality Abdomen/pelvis CT: Solid left renal masses consistent with RCC, persistent severe hydronephrosis of right kidney with internal ureteral stent in expected position, left internal ureteral stent as well. Bilateral nephrolithiasis, distal left ureteral stone, mild stranding surrounding the right renal pelvis and ureters bilaterally, cannot exclude ascending urinary tract infection Per Urology: Agree with IV hydration and IV ceftriaxone pending urine and blood culture results. A PureWick catheter is in place for urinary output monitoring. Will contact Dr. Pires to discuss the plan for the bilateral ureteral stents and the new left ureteral stone, specifically whether to proceed with stent exchange and ureteroscopy while an inpatient versus completing the antibiotic course and proceeding with the already scheduled outpatient procedure on 05/10/2025. Recommend scheduled bowel regimen We are unable to move up the stent exchange during this admission. Keep scheduled ureteral stent change on 05/10/2025 continue mirabegron and pyridium for bladder pain. Pyridium given on 04/27 due to pelvic and lower abdominal discomfort, endorsed complete relief of symptoms by 04/28. Urology continued to follow patient throughout hospitalization - cannot get pt in to change bilateral stents - continue with outpt appointment at the end of april. By 04/28, pt was hemodynamically stable. Discussed with ID that pt still having symptoms despite negative urine culture - will still treat with Augmentin for 7 additional days after discharge. PT/OT recommends continue rehab care - pt accepted [facility]. Preliminary BCs negative - pt safe for d/c at this point. Status at Discharge Functional status at discharge: uses cane/walker Overall status at discharge: patient is progressing back to baseline Time Spent with Patient Time attestation: Total time spent providing and/or coordinating discharge services: Exam Narrative: Gen -chronically ill appearing female in no acute respiratory distress who is nontoxic-appearing lying semi recumbent in bed HEENT - normocephalic. Atraumatic. Pupils equal round and reactive. Extraocular motions intact. Sclera clear and anicteric. Nares patent. Oropharynx was clear. Dry mucous membranes. Tongue was midline. No facial asymmetry. Neck - neck was supple. No dominant adenopathy, thyromegaly or masses. Chest - lungs are clear to auscultation bilaterally. No wheezes or crackles. CV - heart was regular rate and rhythm. S1-S2. No murmurs gallops or rubs. Abd -TTP to the RLQ, abdomen was soft. Nondistended. Positive bowel sounds. No organomegaly or masses. Ext - no clubbing, cyanosis or edema. 2+ DP pulses bilaterally. Neuro - patient is alert and oriented x4. Cranial nerves 2-12 are intact. Speech is clear but slow, no slurring Psych - normal mood and affect. Patient is pleasant and cooperative. Skin - warm and dry. No rashes noted. DS: Data Data Completed and Pending Labs on day of discharge: Labs from last 24 hours 04/28/25 04/28/25 04/28/25 11:54 08:34 04:47 WBC 5.3 RBC 3.16 L Hgb 9.1 L Hct 29.8 L MCV 94.3 MCH 28.8 MCHC 30.5 L RDW 12.2 Plt Count 174 MPV 9.0 Immature Gran % (Auto) 0.6 H Neut % (Auto) 58.6 Lymph % (Auto) 27.1 Mccormick % (Auto) 9.5 H Eos % (Auto) 3.8 Baso % (Auto) 0.4 Lymph # (Auto) 1.43 Mccormick # (Auto) 0.5 Eos # (Auto) 0.2 Baso # (Auto) 0.0 Abs Immat Gran (auto) 0.03 Absolute Neuts (auto) 3.1 Absolute Nucleated RBC 0.000 Nucleated RBC % 0.0 Sodium 138 Potassium 3.7 Chloride 106 Carbon Dioxide 26 Anion Gap 6 BUN 15 Creatinine 1.34 H Estim Creat Clear Calc 28 Estimated GFR 39 L Glucose 84 POC Capillary Glucose 118 H 87 Calcium 8.8 Total Bilirubin 0.4 AST 30 ALT < 6 L Alkaline Phosphatase 98 Total Protein 5.9 L Albumin 3.2 L Preliminary micro results at discharge 04/24/25 02:45 Blood Culture - Preliminary Blood 04/24/25 02:42 Blood Culture - Preliminary Blood Discharge Plan Discharge Attending physician on discharge: Sandra Bar Consulting providers: Juan Fofana; Raul Foote Discharging Clinician: Juan Fofana Anticipated Discharge Date/Time: 04/28/25 13:47 Patient Disposition: [facility] Activity: no straining Diet: heart healthy Discharge Instructions: Discharge disposition: [facility] Take medications as prescribed. You will be prescribed Augmentin for a total of 7 days. Take 1 dose twice daily. Monitor blood pressures Take caution while standing, rising, or moving Change positions slowly taking a break between each position change If you standing feel dizzy sit back down and take a break Encouraged to continue with yearly vaccinations Return to the emergency department if he developed sudden shortness of breath, chest pain, nausea, vomiting, upset stomach or intractable diarrhea Return to the emergency department if you develop fever greater than 101.5 Follow-up with the primary care physician within 1-2 weeks Thank you for choosing [facility] for your healthcare needs Patient Language: Indonesian Follow-up/Referrals: Kelsie De Los Santos MD [Primary Care Provider] - Discharge Medications: Continued diazepam 5 mg tablet 5 mg PO PRN PRN (Reason: Anxiety) lamotrigine 200 mg tablet 200 mg PO Q12H ondansetron HCl 4 mg tablet 4 mg PO Q8H PRN (Reason: nausea and vomiting) Qty: 60 1RF carbidopa-levodopa 25-100 mg tablet 1 tablet PO QID cholecalciferol (vitamin D3) 50 mcg (2,000 unit) Capsule 50 mcg PO DAILY sertraline 100 mg tablet 200 mg PO QAM Vraylar 6 mg Capsule 6 mg PO QAM docusate sodium 100 mg capsule 100 mg PO PRN PRN (Reason: Constipation) Patient Comments: TAKES PRN. patient stated doesnt take phenazopyridine 200 mg tablet 200 mg PO Q8H PRN (Reason: pain) mirabegron [Myrbetriq] 50 mg tablet extended release 24 hr 50 mg PO DAILY polyethylene glycol 3350 [Miralax] 17 gram/dose powder 17 g PO DAILY PRN (Reason: constipation) Patient Comments: STATES TAKING PRN FOR CONSTIPATION CURRENTLY diltiazem HCl 240 mg capsule,extended release 24hr 240 mg PO QAM Qty: 90 1RF famotidine 40 mg tablet See Rx Instructions .ROUTE .COMPLEX Qty: 60 12RF Dose Instruction: TAKE 1 TABLET BY MOUTH TWICE DAILY Rx Instructions: TAKE 1 TABLET BY MOUTH TWICE DAILY potassium chloride 10 mEq tablet extended release 10 meq PO DAILY Qty: 90 0RF Rx Instructions: NEEDS APPOINTMENT FOR FURTHER REFILLS rosuvastatin 10 mg tablet 10 mg PO DAILY Qty: 90 0RF Rx Instructions: NEEDS APPOINTMENT FOR FURTHER REFILLS acetaminophen 500 mg tablet 1,000 mg PO Q6H PRN (Reason: pain 1-3/fever) memantine 28 mg capsule,sprinkle,ER 24hr 28 mg PO QAM No Action amoxicillin-pot clavulanate 875-125 mg tablet 1 tablet PO Q12H Rx Instructions: QTY: 14 Date of admission: 04/24/25 04:40 Primary Care Provider: Kelsie De Los Santos Admitting Provider: Jose Be Attending physician on admission: Jose Be Condition: Stable Quality VTE Prophylaxis VTE prophylaxis: mechanical ordered
[2025-04-28 14:00] VITALS: BP 96/45; PULSE 72; RESP 18; TEMP 36.5; O2SAT 94
--- OUTSIDE RECORDS SUMMARY | 2025-05-07 08:59 | XMS_ITS | Clinical Summary ---
Author Organization [facility] [employer] Address [address] [place] [address] Care Team Providers Care White Lead Filterer Name Role Phone Mando De Los Santos MD Primary Care Provider Source Comments [facility] [employer],non-owned Affiliates and Associated Physician Practices is amultiple site organization consisting of ambulatory clinics and hospital sitesin [place], [place], [place] and [place]. This disclosure is being madepursuant to the Care Everywhere program and may not contain all information available regarding this patient. Last updated 18.[facility] [employer] Allergies Active Allergy Reactions Criticality Noted Date [...] on file Legal Sex Female 1:47 PM NUT PROCESS HELPER Gender Identity Not on file Sexual Orientation Not on file Last Filed Vital Signs Vital Sign Reading Time Taken Comments Blood Pressure 129/77 08/23/2019 8:38 AM NUT PROCESS HELPER Pulse 67 08/23/2019 8:38 AM NUT PROCESS HELPER Temperature - - Respiratory Rate - - Oxygen Saturation - - Inhaled Oxygen Concentration - - Weight 84.8 kg (187 lb) 08/23/2019 8:38 AM NUT PROCESS HELPER Height 152.4 cm (5') 08/23/2019 8:38 AM NUT PROCESS HELPER Body Mass Index 36.52 08/23/2019 8:38 AM NUT PROCESS HELPER Plan of Treatment Health Maintenance Due Date Last Done Comments BONE DENSITY TESTING 1950 COLOGUARD (AGES 45-75) - COLON CA SCREENING 1950 COLON MONITORING 1950 COLONOSCOPY [...] (1 of 2) 1999 MAMMOGRAM 03/15/2019 03/15/2017, 01/11, 01/20/2016 SCREENING FOR DIABETES 07/12/2022 9, 07/12/2019, 12/01/2018, Additional history exists COVID-19 VACCINE (2023- season) 2024 Respiratory Syncytial Virus (RSV) Vaccine Pt: or over 60 yrs (1 - 1-dose 75+ series) 2024 DEPRESSION SCREENING 09/13/2024 INFLUENZA VACCINE (#1) 2025 HEPATITIS B VACCINE Aged Out No [...] A/C/Y/W VACCINE Aged Out No longer eligible based on patient's age to complete this topic Procedures Procedure Name Priority Date/Time Associated Diagnosis Comments HEMOGLOBIN A1C Routine 07/12/2019 11:04 AM CDT Gait abnormality from Last 3 Months or Most Recently Relevant to Health Maintenance Results * HEMOGLOBIN A1C (07/12/2019 11:04 AM CDT) [facility] Hemoglobin A1c 5.0 4.4 - 6.3 % 07/13/2019 9:15 AM CDT [facility] Estimated Average Glucose 97 mg/dL 07/13/2019 9:15 AM [facility] Comment: HbA1c Interpretation: Treatment target values recommended by ADA and other clinical organizations should be used to evaluate metabolic control in patients. Treatment Target Values: Normal : < 5.7% Pre-diabetes: 5.7-6.4% Diabetes: Equal to or greater than 6.5% Reference: [place] Diabetes Association Standards of Care in Diabetes -2014 In patients 70 years and older consider HbA1c target range of 7.0-7.5% Reference: Diabetes Mellitus in Older People: Position Statement on behalf of the International Association of Gerontology and Geriatrics (IAGG), the Diabetes Working Green Party for Older People (EDWPOP), and the International Task Force of Experts in Diabetes. nabil Jeong al. J [place] [employer] Directors Association. 2012 Test results diagnostic of diabetes should be repeated for confirmation. The Sebia Capillary 2 assay for the measurement of HbA1c is a National Glycohemoglobin Standardization Program (NGSP)certified method. Blood BLOOD SPECIMEN / Unknown Lab Venipuncture / Unknown 07/12/2019 11:04 AM CDT 07/12/2019 11:46 AM CDT us Yolette Aguiar MD LAB - CHEMISTRY ORDERABLES Fin al Result [address] [phone] from Last 3 Months or Most Recently Relevant to Health Maintenance Insurance MEDICARE [facility] MEDICARE [facility] SELF PAY NO INSURANCE Member Subscriber Plan / Payer (Ef fective for All Dates) Name:Afia Arroyo Member ID:Not on file Relation to Subscriber:Not on file Name:AFIA ARROYO Subscriber ID:Not on file (Home) Address: [address] [place] [address] Payer ID:Not on file Group ID:Not on file Type:Self Pay Address: [place], [place] MEDICARE Care Teams White Lead Filterer Relationship Specialty Start Date End Date Mando De Los Santos MD [address] [place] [address] PCP - General 04/13/19
--- OUTSIDE RECORDS SUMMARY | 2025-05-07 08:59 | XMS_ITS | Clinical Summary ---
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 Gender Identity Not on file Sexual [...] Plan of Treatment Not on file Insurance [employer] [facility] MEDICARE [facility] CHOICE [facility]US [facility] HMO/PPO Address: [address] [address] [place] [address] Advance Directives For more information, please contact: [phone] Documents on File Type Date Recorded Patient Aquatic Scientist Expl anation ADVANCE DIRECTIVE 01/08/2015 12:00 AM ALESIA Schreiber OF [employer]MEDICAL Care Teams Substance Addiction Coordinator Relationship Specialty Start Date End Date Mando De Los Santos MD PCP - General Family Practice 02/11/18 Mike Robbins MD Medical Oncologist/Terrazzo Worker Helper Hematology and Oncology 12/14/18
--- OUTSIDE RECORDS SUMMARY | 2025-05-07 08:59 | XMS_ITS | Clinical Summary ---
Author Organization [facility] Address [address] [place] [address] Phone Care Team Providers Care Master [employer] Name Role Phone Mando De Los Santos [...] Comments Blood Pressure 123/57 11/03/2018 10:23 AM BOILER TENDERS SUPERVISOR Pulse 56 11/03/2018 10:23 AM BOILER TENDERS SUPERVISOR Temperature 36.5 C (97.7 F) 11/03/2018 10:23 AM BOILER TENDERS SUPERVISOR Respiratory Rate - - Oxygen Saturation 92% 11/03/2018 10:23 AM BOILER TENDERS SUPERVISOR Inhaled Oxygen Concentration - - Weight 109.3 kg (241 lb) 11/03/2018 10:23 AM BOILER TENDERS SUPERVISOR Height 152.4 cm (5') 11/03/2018 10:23 AM BOILER TENDERS SUPERVISOR Body Mass Index 47.07 11/03/2018 10:23 AM BOILER TENDERS SUPERVISOR Plan of Treatment Health Maintenance Due Date [...] 2025 Insurance MEDICARE PART A AND B [facility] OPTIONS [id number] Care Teams Master [employer] Relationship Specialty Start Date End Date Mando De Los Santos MD [address] [place] [address] PCP - General Family Practice 11/03/18
--- OUTSIDE RECORDS SUMMARY | 2025-05-07 09:00 | XMS_ITS | Encounter Summary ---
Author Organization [facility] Care Team Providers Care Bottom Worker Name Role Phone Kash Herrera MD Primary Care Provider [phone] Mando De Los Santos MD Primary Care Provider Unknown, Notinfile Primary Care Provider Unavail able Mando De Los Santos MD Primary Care Provider Mike Robbins MD Unavailable [phone] Encounter Details Date Type Department Care Team (Latest Contact Info) Description 05/12/2017 Orders Only [facility] CLINCONV ProviderMaylin MD [address] [place] [address] Social History Tobacco Use Types Packs/Day Years Used Date Smoking Tobacco: Never Assessed Comments Unknown Sex and Gender Information Value Date Recorded Sex Assigned at Not on file Legal Sex Female 11:57 AM DREDGE PUMP OPERATOR Gender Identity Not on file Sexual Orientation [...] on filedocumented in this encounter Care Teams Bottom Worker Relationship Specialty Start Date End Date Kash Herrera MD [address] [place] [address] PCP - General 01/17/15 11/17/17 Mando De Los Santos MD [address] [place] [address] PCP - General Family Practice 11/18/17 02/01/18 Unknown, Notinfile PCP - General 02/02/18 02/10/18 Mando De Los Santos MD [address] [place] [address] PCP - General Family Practice 02/11/18 Mike Robbins MD Medical Oncologist/Hematologis t Hematology and Oncology 12/14/18 documented as of this encounter
--- OUTSIDE RECORDS SUMMARY | 2025-05-07 09:00 | XMS_ITS | Encounter Summary ---
Author Organization [facility] Care Team Providers Care Marine Habitat Resource Specialist Name Role Phone Kash Herrera MD Primary Care Provider [phone] Mando De Los Santos MD Primary Care Provider Unknown, Notinfile Primary Care Provider Unavail able Mando De Los Santos MD Primary Care Provider Mike Robbins MD Unavailable [phone] Encounter Details Date Type Department Care Team (Latest Contact Info) Description 04/29/2017 Orders Only [facility] CLINCONV ProviderMaylin MD [address] [place] [address] Social History Tobacco Use Types Packs/Day Years Used Date Smoking Tobacco: Never Assessed Comments Unknown Sex and Gender Information Value Date Recorded Sex Assigned at Not on file Legal Sex Female 11:57 AM RACK CLEANER Gender Identity Not on file Sexual Orientation [...] on filedocumented in this encounter Care Teams Marine Habitat Resource Specialist Relationship Specialty Start Date End Date Kash Herrera MD [address] [place] [address] PCP - General 01/17/15 11/17/17 Mando De Los Santos MD [address] [place] [address] PCP - General Family Practice 11/18/17 02/01/18 Unknown, Notinfile PCP - General 02/02/18 02/10/18 Mando De Los Santos MD [address] [place] [address] PCP - General Family Practice 02/11/18 Mike Robbins MD Medical Oncologist/Hematologis t Hematology and Oncology 12/14/18 documented as of this encounter
--- OUTSIDE RECORDS SUMMARY | 2025-05-07 09:00 | XMS_ITS | Clinical Summary ---
Author Organization [facility] Address [address] [place] [address] Care Team Providers Care Bevel Mill Operator Name Role Phone Osmel Herrera MD Primary Care Provider [phone] Allergies Active Allergy Reactions Criticality Noted Date [...] Comments Blood Pressure 112/60 11/14/2019 8:20 AM SOUND CONTROLLER Pulse 68 11/14/2019 8:20 AM SOUND CONTROLLER Temperature 36.4 C (97.6 F) 11/14/2019 8:20 AM SOUND CONTROLLER Respiratory Rate 20 11/14/2019 8:20 AM SOUND CONTROLLER Oxygen Saturation - - Inhaled Oxygen Concentration - - Weight 79.8 kg (176 lb) 11/14/2019 8:20 AM SOUND CONTROLLER Height 152.4 cm (5') 11/14/2019 8:20 AM SOUND CONTROLLER Body Mass Index 34.37 11/14/2019 8:20 AM SOUND CONTROLLER Plan of Treatment Health Maintenance Due Date [...] age to complete this topic Insurance MEDICARE [facility] Care Teams Bevel Mill Operator Relationship Specialty Start Date End Date Osmel Herrera MD [address] [place] [address] PCP - General FAMILY PRACTICE 02/19/19
--- OUTSIDE RECORDS SUMMARY | 2025-05-07 09:00 | XMS_ITS | Patient Health Record ---
Author Organization [facility] [employer] Address [address] [place] [address] Care Team Providers Care Line Haul Truck Driver Name Role Phone Adan Tanner Unavailable [phone] Reason For Referral No Information Medications Medication SIG (Take, Route, Frequency, Duration) Notes Start Date End Date Status Azithromycin 250 MG Tablet Oral Active SEROquel 100 MG Tablet Oral Active diazePAM 5 MG Tablet Oral Active busPIRone HCl 5 MG Tablet Oral Active Sertraline HCl 25 MG Tablet Oral Active FLUoxetine HCl 20 MG Capsule Oral Active Lunesta 2 MG Tablet Oral Active Perphenazine-Amitripty line 4-25 mg Tablet Oral Active Crestor 10 MG Tablet Oral Active Cymbalta 60 MG Capsule Delayed Release Particles Oral Active Fluconazole 150 MG Tablet Oral Active B-12 250 mcg Tablet Oral Active traZODone HCl 50 MG Tablet Oral Active buPROPion HCl ER (SR) 100 MG Tablet Extended Release 12 Hour Oral Active TRIAMTERENE W/HCTZ 37.5 MG-25 MG TABLET *Reorder from [employer] for eRx and Interaction Alerts* Active Pristiq 100 MG Tablet Extended Release 24 Hour Oral Active SEROquel XR 150 MG Tablet Extended Release 24 Hour Oral Active Rexulti 0.5 MG Tablet Oral Active Matzim LA 240 mg Tablet Extended Release 24 Hour Oral Active Ativan 0.5 MG Tablet Oral Active Triamterene-HCTZ 37.5-25 MG Tablet Oral Active buPROPion HCl ER (SR) 200 MG Tablet Extended Release 12 Hour Oral Active DULoxetine HCl 30 MG Capsule Delayed Release Particles Oral Active Desvenlafaxine ER 50 mg Tablet Extended Release 24 Hour Oral Active Vilazodone HCl 10 MG Tablet Oral Active buPROPion HCl ER (XL) 300 MG Tablet Extended Release 24 Hour Oral Active Rexulti 1 mg Tablet Oral Active Plan Of Treatment No Information
--- OUTSIDE RECORDS SUMMARY | 2025-05-07 09:00 | XMS_ITS | Encounter Summary ---
Author Organization [facility] Healthcare Address [address] [place] [address] Care Team Providers Care Crutcher Helper Name Role Phone Mando De Los Santos MD Primary Care Provider Unknown, Notinfile Primary Care Provider Unavail able Mando De Los Santos MD Primary Care Provider Mike Robbins MD Unavailable [phone] Encounter Details Date Type Department Care Team (Late st Contact Info) Description 11/20/2017 Orders Only [facility] Health Information Management [address] [place] [id number] Scanning, Provider Social History Tobacco Use Types Packs/Day Years Used Date Smoking Tobacco: Never Smokeless Tobacco: Never Alcohol Use Standard Drinks/Week Comments No 0 (1 standard drink = 0.6 oz pur e alcohol) Comments Unknown Sex and Gender Information Value Date Recorded Sex Assigned at Not on file Legal Sex Female 11:57 AM PHARMACY ORDER ENTRY TECHNICIAN Gender Identity Not on file Sexual Orientation Not on file documented as of this encounter Plan of Treatment Not on file documented as of this encounter Procedures Procedure Name Priority Date/Time Associated Diagnosis Comments SCAN - RADIOLOGY/IMAGING 11/20/2017 1:20 AM PHARMACY ORDER ENTRY TECHNICIAN SCAN - RADIOLOGY/IMAGING 11/20/2017 1:20 AM PHARMACY ORDER ENTRY TECHNICIAN SCAN - RADIOLOGY/IMAGING 11/20/2017 1:20 AM PHARMACY ORDER ENTRY TECHNICIAN SCAN - LABS 11/20/2017 1:20 AM PHARMACY ORDER ENTRY TECHNICIAN documented in this encounter Results * SCAN - LABS (11/20/2017 1:20 AM PHARMACY ORDER ENTRY TECHNICIAN) us Provider Scanning Final Result * SCAN - RADIOLOGY/IMAGING (11/20/2017 1:20 AM PHARMACY ORDER ENTRY TECHNICIAN) Anatomical Region Laterality Modality Other us Provider Scanning Final Result * SCAN - RADIOLOGY/IMAGING (11/20/2017 1:20 AM PHARMACY ORDER ENTRY TECHNICIAN) Anatomical Region Laterality Modality Other us Provider Scanning Final Result * SCAN - RADIOLOGY/IMAGING (11/20/2017 1:20 AM PHARMACY ORDER ENTRY TECHNICIAN) Anatomical Region Laterality Modality Other us Provider Scanning Final Result documented in this encounter Visit Diagnoses Not on filedocumented in this encounter Care Teams Crutcher Helper Relationship Specialty Start Date End Date Mando De Los Santos MD PCP - General Family Practice 11/18/17 02/01/18 Unknown, Notinfile PCP - General 02/02/18 02/10/18 Mando De Los Santos MD PCP - General Family Practice 02/11/18 Mike Robbins MD Medical Oncologist/Link Trainer Mechanic Hematology and Oncology 12/14/18 documented as of this encounter
== END 2025-04-28 18:49 | DRG 683 ==
LOC: ANHED 04:50 → ANH3MED 09:07
PROVIDERS: Anesthesiology; Admitting Provider Internal Medicine; Emergency Provider Student in an Organized Health Care Education/Training Program; PCP Family Medicine; Visit Provider Physician Assistant
DX: N17.9 Acute kidney failure, unspecified (principal); C64.2 Malignant neoplasm of left kidney, except renal pelvis; I42.1 Obstructive hypertrophic cardiomyopathy; F05 Delirium due to known physiological condition; N18.9 Chronic kidney disease, unspecified; I12.9 Hypertensive chronic kidney disease with stage 1 through stage 4 chronic kidney disease, or unspecified chronic kidney disease; E78.5 Hyperlipidemia, unspecified; E55.9 Vitamin D deficiency, unspecified; N20.0 Calculus of kidney; G47.33 Obstructive sleep apnea (adult) (pediatric); G20.A1 Parkinson's disease without dyskinesia, without mention of fluctuations; F02.80 Dementia in other diseases classified elsewhere, unspecified severity, without behavioral disturbance, psychotic disturbance, mood disturbance, and anxiety; F31.9 Bipolar disorder, unspecified; F41.9 Anxiety disorder, unspecified; Z96.0 Presence of urogenital implants; Z96.659 Presence of unspecified artificial knee joint; Z86.73 Personal history of transient ischemic attack (TIA), and cerebral infarction without residual deficits; Z85.3 Personal history of malignant neoplasm of breast
CPT/HCPCS: 36415; 70450; 74177; 80053; 81001; 82140; 82948; 83605; 85025; 85610; 85730; 87040; 87086; 93005; 96365; 96375; 97110; 97116; 97162; 97166; 97530; 97535; 99285; A9270; J0696; J7120; Q9967

== ENCOUNTER 2025-05-10 01:51 | Day surgery (SDC) | payer MEDICARE, OTHER, SELFPAY ==
--- NOTE | 2025-04-25 07:12 | P.HP_ITS ---
History of Present Illness History of Present Illness Consent: Risks, benefits, and alternatives have been discussed and questions answered. Patient agrees to proceed with procedure. Chief complaint: bilateral ureteral stones Narrative: This is a 74-year-old female with a complex urologic and medical history who presented to the emergency department with generalized malaise, weakness, and fever. She is noted to have a new left ureteral stone in addition to her known bilateral nephrolithiasis, left-sided staghorn calculus, and bilateral indwelling ureteral stents. Her history is significant for renal cell carcinoma (declines surgical treatment), Parkinson's dementia, bipolar disorder, hypertension, and hyperlipidemia. She reports suprapubic pain that is sharp and radiates to her low back and vaginal area, consistent with a urinary tract infection. She denies nausea, vomiting, or feeling feverish, though she was febrile on admission. She also reports chronic constipation with bowel movements every seven days and associated fecal incontinence. Review of Systems Review of Systems: ROS unobtainable: Yes unobtainable due to mental status PMFSH Past Medical History Medical History Chronic idiopathic constipation Vitamin D deficiency History of CVA (cerebrovascular accident) Dementia PAM (obstructive sleep apnea) non compliant with CPAP Hyperlipidemia TIA (transient ischemic attack) Cardiomegaly Parkinson disease Hypertrophic obstructive cardiomyopathy Bipolar affective disorder History of right breast cancer Left renal mass Renal calculus Meniere disease Breast cancer 03/2012 Dyslipidemia Essential (primary) hypertension Anxiety Unspecified osteoarthritis, unspecified site Surgical History Surgical History Hx of cholecystectomy Hx of total knee arthroplasty (Unknown) H/O total hysterectomy with bilateral salpingo-oophorectomy (BSO) (Unknown) Hx of section (Unknown) History of partial mastectomy 2011 History of breast surgery 03/2012 Family History Family History Father Family history of diabetes mellitus in first degree relative, Onset Age: 77 Mother Family history of malignant neoplasm of ovary, Onset Age: 62 Grandparent Diabetes mellitus, Onset Age: 80 Other Hypertension Social History Social History Social History: The patient is and she is retired. The patient lives with her Damon who is her durable power immigration attorney for healthcare. The patient is a full code. She is a lifelong nonsmoker. The patient tells me that she is retired from [employer]. She has 2 children. Smoking status: Never smoker Second hand tobacco smoke exposure: No Alcohol intake: never Substance use: never Substance use type: does not use Lack of Transportation: No Lack of Food: Never True Current Housing: I Have Housing Concerned About Future Housing: No Difficulty Paying Gas/Electric Bills: No Difficulty Paying for Meds: No Currently Unemployed: No Education: High School Diploma/GED Difficulty w/ Childcare or Family Care: No Living arrangements: with family Additional living arrangements comments: TIFF Spiritual care concerns: No Meds Home Medications and Allergies Home Medications ?Medication ?Instructions ?Recorded ?Confirmed ?Type diazepam 5 mg tablet 5 mg PO PRN PRN Anxiety 10/12/19 04/24/25 History lamotrigine 200 mg tablet 200 mg PO Q12H 10/12/19 04/24/25 History cariprazine 6 mg capsule (Vraylar) 6 mg PO QAM 05/26/21 04/24/25 History carbidopa 25 mg-levodopa 100 mg 1 tablet PO QID 06/16/21 04/24/25 History tablet cholecalciferol (vitamin D3) 50 50 mcg PO DAILY 12/29/21 04/24/25 History mcg (2,000 unit) capsule sertraline 100 mg tablet 200 mg PO QAM 06/21/22 04/24/25 History acetaminophen 500 mg tablet 1,000 mg PO Q6H PRN pain 1-3/fever 03/15/23 04/24/25 History memantine 28 mg capsule 28 mg PO QAM 03/16/23 04/24/25 History sprinkle,extended release 24hr docusate sodium 100 mg capsule 100 mg PO PRN PRN Constipation 10/14/23 04/24/25 History phenazopyridine 200 mg tablet 200 mg PO Q8H PRN pain 08/22/24 04/24/25 History ondansetron HCl 4 mg tablet 4 mg PO Q8H PRN nausea and 09/20/24 04/24/25 Rx vomiting #60 tabs diltiazem HCl 240 mg 240 mg PO QAM #90 caps 12/05/24 04/24/25 Rx capsule,extended release 24 hr famotidine 40 mg tablet See Rx Instructions .Route 02/13/25 04/24/25 Rx .COMPLEX #60 tabs potassium chloride 10 mEq 10 meq PO DAILY #90 tabs 03/14/25 04/24/25 Rx tablet,extended release rosuvastatin 10 mg tablet 10 mg PO DAILY #90 tabs 04/11/25 04/24/25 Rx mirabegron 50 mg tablet,extended 50 mg PO DAILY 04/24/25 04/24/25 History release 24 hr (Myrbetriq) polyethylene glycol 3350 17 17 g PO DAILY PRN constipation 04/24/25 04/24/25 History gram/dose oral powder (Miralax) Allergies Allergy/AdvReac Type Severity Reaction Status Date / Time codeine AdvReac Intermediate Confusion, Verified 03/14/25 10:04 NAUSEA Exam Const: General: no acute distress Resp: Effort & Inspection: normal respiratory effort GI: Inspection: non-distended GI Palp: No abdominal tenderness and No Guarding due to palpation present (GI) Auscultation: normal bowel sounds Assessment and Plan Assessment and plan (1) Bilateral renal stones: Code(s): N20.0 - Calculus of kidney Status: Acute (2) Left renal mass: Code(s): N28.89 - Other specified disorders of kidney and ureter Status: Acute Plan * Cystoscopy, bilateral ureteral stent exchange
[2025-04-25 10:08] VITALS: BMI 25.0
--- NOTE | 2025-04-25 10:24 | PC.NURSE ---
Addendum entered by Lashanda Corbett RN 04/25/25 10:39: REVISED and Tubed this note to pt area for /pt for discharge preop info. Take only the following medications with a SIP of water on the morning of surgery: __SERTRALINE_,DILTIAZEM,VRAYLAR_,CARBIDOPA-LEVODOPA,LAMOTRIGINE,__MEMANTINE_DIAZEPAM IF NEEDED, any new Antibiotics if ordered post discharge from hospital too [facility] Original Note: Report to the Outpatient Waiting Room, entrance under the green pavilion located off [address] [facility], at time ___0900am____ on date __05/10/25 . Planned Procedure Time: ____1100am____.? Time changes happen often and if your time is changed the preop area will call you the afternoon before. - You and your visitor will be asked to self-screen and do not enter if you have any COVID symptoms. Please call surgeon if you need to reschedule. - A mask is optional within the hospital at this time. Patients may have clear liquids (water, carbonated beverages, clear teas, apple juice) until 3 hours prior to surgery with a maximum of 20 ounces. - No food from midnight until time of surgery and no smoking, or chewing tobacco (or any form of nicotine). No chewing gum, candy or mints. (0800am) Take only the following medications with a SIP of water on the morning of surgery: ____Carbidopa, Diltiazem, Sertraline, & Tyelenol if needed if pt on antibiotics from hospital, pt is to take them as directed too. DO NOT STOP ANY OF YOUR OTHER PRESCRIPTION MEDICATIONS PRIOR TO SURGERY EXCEPT THE FOLLOWING Hold all vitamins and supplements for [address] Pires Medications to discontinue per physician No aspirin, Motrin, Advil,Ibuprofen for [address] Pires Date to take last dose 05/01/25 Please no make-up, nail pashto, hairspray, perfume, deodorant, or body powder the day of surgery.? No jewelry (including any body piercings) or valuables the day of surgery, leave them at home.? Please take a shower or bath the night before, or the morning of, surgery with an antibacterial soap.? Wear comfortable, loose fitting clothing.? - Jewelry must be removed prior to entering the operating room.? Rings and piercings that are not removed may be cut off. - The hospital will not accept responsibility for valuables.? - Please leave all valuables, including medications, at home the day of surgery. If you are going home after surgery, a licensed hazmat cdl a driver must drive you home.? - NO public transportation without another adult if you receive anesthesia. - We recommend that an adult stay with you for 24 hours following discharge. - We also recommend that you do not drive, make important decision, drink alcoholic beverages, or take any drugs that were not prescribed by your health care provider for at least 24 hours after your discharge time. Follow any additional instructions given to you from your surgeon. Telephone instructions given to _Husband Damon- he will get copy of note at pt DC from hospital or call us if any changes to today plan and asked if any additional questions and then verbalized understanding. Patient advised to call surgeon office or pre surgery nurse liaison [phone] if any additional questions.
--- NOTE | 2025-05-09 18:49 | P.HP_ITS ---
History of Present Illness History of Present Illness Consent: Risks, benefits, and alternatives have been discussed and questions answered. Patient agrees to proceed with procedure. Chief complaint: bilateral ureteral stones Narrative: Karina Arroyo is a 74 year old female well known to our practice. She has a left renal staghorn calculus and a mass in her left kidney which he has opted not to treat surgically. In light of that we have opted to manage her left kidney and simply with chronic indwelling stent. She has increasing stone burden on the right. Stents were last changed on 11/23/2024. Review of Systems Cardiovascular: Cardiovascular: Denies chest pain, Denies lightheadedness, Denies palpitations and Denies dyspnea Respiratory: Respiratory: Denies dyspnea Gastrointestinal: Gastrointestinal: Denies diarrhea, Denies nausea and Denies vomiting Genitourinary: Genitourinary: Denies hematuria and Denies dysuria Endocrine: Endocrine: Denies palpitations [facility] Past Medical History Medical History (Updated 04/29/25 @ 17:01 by Zhane Richardson MD) Renal cell carcinoma Chronic idiopathic constipation Vitamin D deficiency History of CVA (cerebrovascular accident) Dementia PAM (obstructive sleep apnea) non compliant with CPAP Hyperlipidemia TIA (transient ischemic attack) Cardiomegaly Parkinson disease Hypertrophic obstructive cardiomyopathy Bipolar affective disorder History of right breast cancer Left renal mass Renal calculus Meniere disease Breast cancer 03/2012 Dyslipidemia Essential (primary) hypertension Anxiety Unspecified osteoarthritis, unspecified site Surgical History Surgical History Hx of cholecystectomy Hx of total knee arthroplasty (Unknown) H/O total hysterectomy with bilateral salpingo-oophorectomy (BSO) (Unknown) Hx of section (Unknown) History of partial mastectomy 2011 History of breast surgery 03/2012 Family History Family History Father Family history of diabetes mellitus in first degree relative, Onset Age: 77 Mother Family history of malignant neoplasm of ovary, Onset Age: 62 Grandparent Diabetes mellitus, Onset Age: 80 Other Hypertension Social History Social History Social History: The patient is and she is retired. The patient lives with her Damon who is her durable power district attorney for healthcare. The patient is a full code. She is a lifelong nonsmoker. The patient tells me that she is retired from [employer]. She has 2 children. Smoking status: Never smoker Second hand tobacco smoke exposure: Yes Alcohol intake: never Substance use: never Substance use type: does not use Lack of Transportation: No Lack of Food: Never True Current Housing: I Have Housing Concerned About Future Housing: No Difficulty Paying Gas/Electric Bills: No Difficulty Paying for Meds: No Currently Unemployed: No Education: High School Diploma/GED Difficulty w/ Childcare or Family Care: No Living arrangements: with family Additional living arrangements comments: Spiritual care concerns: No Meds Home Medications and Allergies Home Medications ?Medication ?Instructions ?Recorded ?Confirmed ?Type cholecalciferol (vitamin D3) 50 50 mcg PO DAILY 04/28/25 History mcg (2,000 unit) capsule docusate sodium 100 mg capsule 100 mg PO BID PRN Const ipation 10/14/23 04/29/25 History phenazopyridine 200 mg tablet 200 mg PO Q8H PRN pain 1 10/23/23 04/28/25 History ondansetron HCl 4 mg tablet 4 mg PO Q8H PRN nausea and 09/20/24 04/28/25 Rx vomiting #60 tabs diltiazem HCl 240 mg 240 mg PO QAM #90 caps 12/0504/28/25 Rx capsule,extended release 24 hr polyethylene glycol 3350 17 17 g PO DAILY PRN constipa tion 04/24/25 04/28/25 History gram/dose oral powder (Miralax) acetaminophen 500 mg capsule 1,000 mg PO Q6H PRN pain 04/29/25 04/29/25 History carbidopa 25 mg-levodopa 100 mg 1 tablet PO QID #120 t abs 05/04/25 Rx tablet cariprazine 6 mg capsule (Vraylar) 6 mg PO QAM #30 cap s 05/04/25 Rx famotidine 20 mg tablet 20 mg PO DAILY #0 tabs 05/04 Rx lamotrigine 200 mg tablet 200 mg PO Q12H #60 tabs 04/14 11/07 Rx memantine 28 mg capsule 28 mg PO QAM #30 ea 05/04/25 Rx sprinkle,extended release 24hr mirabegron 50 mg tablet,extended 50 mg PO DAILY #30 ta bs 05/04/25 Rx release 24 hr (Myrbetriq) potassium chloride 10 mEq 10 meq PO DAILY #30 tabs Rx tablet,extended release rosuvastatin 10 mg tablet 10 mg PO DAILY #30 tabs 04/14 11/07 Rx sennosides 8.6 mg-docusate sodium 2 tab PO BID #0 tabs 05/04/25 Rx 50 mg tablet (Senokot-S) sertraline 100 mg tablet 200 mg (2 x 100 mg) PO QAM # 30 tabs 05/04/25 Rx diazepam 5 mg tablet 5 mg PO Q6H PRN Anxiety #20 tabs 05/05/25 Rx Allergies Allergy/AdvReac Type Severity Reaction Status Date / Time codeine AdvReac Intermediate Confusion, Verified 04/29/25 12:20 NAUSEA Exam Const: General: no acute distress Resp: Effort & Inspection: normal respiratory effort GI: Inspection: non-distended GI Palp: No abdominal tenderness and No Guarding due to palpation present (GI) Auscultation: normal bowel sounds Assessment and Plan Assessment and plan (1) S/P ureteral stent placement: Code(s): Z96.0 - Presence of urogenital implants Status: Acute (2) Hydronephrosis, left: Code(s): N13.30 - Unspecified hydronephrosis Status: Acute (3) Hydronephrosis, right: Code(s): N13.30 - Unspecified hydronephrosis Status: Acute (4) Staghorn calculus: Code(s): N20.0 - Calculus of kidney Status: Acute Assessment and Plan: * Cystoscopy, bilateral ureteral stent exchange
[2025-05-10] VITALS (7 sets, daily range): BP systolic 134–169; BP diastolic 59–84; PULSE 62–69; RESP 14–18; TEMP 37–37.1; O2SAT 92–100; BMI 27.2
--- NOTE | ~2025-05-10 | XR_ITS ---
EXAMINATION: XR retrograde pyelo w/stent BI DATE: 05/10/2025 11:14 INDICATION: Bilateral ureteral stent exchange TECHNIQUE: Fluoroscopic images from a bilateral ureteral stent exchange are submitted for review. 41 seconds of fluoroscopy. 60 fluoroscopic images. FINDINGS: There is a bilateral double-J internal ureteral stent projecting in expected position, with proximal [place] loop at the level of the renal pelvis and distal loop in the pelvis within the bladder lumen. IMPRESSION: 1. Bilateral internal ureteral stent exchange. Please refer to real-time procedural findings for details. Reviewed, dictated and finalized at location O. IMPRESSION: 1. Bilateral internal ureteral stent exchange. Please refer to real-time proc edural findings for details.
--- NOTE | 2025-05-10 06:04 | WPDHPUPDATE1 ---
History and Physical Update Update Date/Time: 05/10/25 06:04 History and Physical has been reviewed, including an updated exam of the patient. There are NO changes in the patient's condition. Risks, benefits, and alternatives have been discussed and questions answered. Patient agrees to proceed with procedure.
[2025-05-10] MEDS: LACTATED RINGERS 1,000 ML 30 ML IV CONT (09:35)
--- NOTE | 2025-05-10 10:21 | WPDANESEPPF ---
Anes - Initial Pre Proc Eval Procedure: Operation Date: 05/10/25 11:00 Proposed Procedures p Cystoscopy with Bilateral Ureteral Stent exchange - Brian Pires MD Date/Time: 05/10/25 10:21 Surgeon: Brian Pires MD Pre Op Diagnosis: bilateral ureteral stones Patient Data Age: 74 Gender: F Height: 1.52 m Weight: 63.2 kg Last Vital Signs Temp 37.1 C 05/10/25 08:55 Pulse 64 05/10/25 08:55 Resp 14 05/10/25 08:55 BP 135/59 L 05/10/25 08:55 Pulse Ox 95 05/10/25 08:55 Allergies Allergy/AdvReac Type Severity Reaction Status Date / Time codeine AdvReac Intermediate Confusion, Verified 05/10/25 09:44 NAUSEA Home Medications ?Medication ?Instructions ?Recorded ?Confirmed ?Type cholecalciferol (vitamin D3) 50 50 mcg PO DAILY 12/29/21 04/28/25 History mcg (2,000 unit) capsule docusate sodium 100 mg capsule 100 mg PO BID PRN Constipation 10/14/23 04/29/25 History ondansetron HCl 4 mg tablet 4 mg PO Q8H PRN nausea and 09/20/24 04/28/25 Rx vomiting #60 tabs diltiazem HCl 240 mg 240 mg PO QAM #90 caps 12/05/24 04/28/25 Rx capsule,extended release 24 hr polyethylene glycol 3350 17 17 g PO DAILY PRN constipation 04/24/25 04/28/25 History gram/dose oral powder (Miralax) acetaminophen 500 mg capsule 1,000 mg PO Q6H PRN pain 04/29/25 05/10/25 History carbidopa 25 mg-levodopa 100 mg 1 tablet PO QID #120 tabs 05/04/25 05/10/25 Rx tablet cariprazine 6 mg capsule (Vraylar) 6 mg PO QAM #30 caps 05/04/25 05/10/25 Rx famotidine 20 mg tablet 20 mg PO DAILY #0 tabs 05/04/25 05/10/25 Rx lamotrigine 200 mg tablet 200 mg PO Q12H #60 tabs 05/04/25 05/10/25 Rx memantine 28 mg capsule 28 mg PO QAM #30 ea 05/04/25 05/10/25 Rx sprinkle,extended release 24hr mirabegron 50 mg tablet,extended 50 mg PO DAILY #30 tabs 05/04/25 05/10/25 Rx release 24 hr (Myrbetriq) potassium chloride 10 mEq 10 meq PO DAILY #30 tabs 05/04/25 05/10/25 Rx tablet,extended release rosuvastatin 10 mg tablet 10 mg PO DAILY #30 tabs 05/04/25 05/10/25 Rx sennosides 8.6 mg-docusate sodium 2 tab PO BID #0 tabs 05/04/25 05/10/25 Rx 50 mg tablet (Senokot-S) sertraline 100 mg tablet 200 mg (2 x 100 mg) PO QAM #30 tabs 05/04/25 05/10/25 Rx diazepam 5 mg tablet 5 mg PO Q6H PRN Anxiety #20 tabs 05/05/25 05/10/25 Rx Patient hx anesthesia problems: none Family hx anesthesia problems: none Results Review: All pre-operative results and documents have been reviewed as part of the pre-operative evaluation. [facility] Past Medical History Medical History Renal cell carcinoma Chronic idiopathic constipation Vitamin D deficiency History of CVA (cerebrovascular accident) Dementia PAM (obstructive sleep apnea) non compliant with CPAP Hyperlipidemia TIA (transient ischemic attack) Cardiomegaly Parkinson disease Hypertrophic obstructive cardiomyopathy Bipolar affective disorder History of right breast cancer Left renal mass Renal calculus Meniere disease Breast cancer 03/2012 Dyslipidemia Essential (primary) hypertension Anxiety Unspecified osteoarthritis, unspecified site Surgical History Surgical History Hx of cholecystectomy Hx of total knee arthroplasty (Unknown) H/O total hysterectomy with bilateral salpingo-oophorectomy (BSO) (Unknown) Hx of section (Unknown) History of partial mastectomy 2011 History of breast surgery 03/2012 Family History Family History Father Family history of diabetes mellitus in first degree relative, Onset Age: 77 Mother Family history of malignant neoplasm of ovary, Onset Age: 62 Grandparent Diabetes mellitus, Onset Age: 80 Other Hypertension Social History Social History Social History: The patient is and she is retired. The patient lives with her Damon who is her durable power senior attorney for healthcare. The patient is a full code. She is a lifelong nonsmoker. The patient tells me that she is retired from [employer]. She has 2 children. Smoking status: Never smoker Second hand tobacco smoke exposure: Yes Alcohol intake: never Substance use: never Substance use type: does not use Lack of Transportation: No Lack of Food: Never True Current Housing: I Have Housing Concerned About Future Housing: No Difficulty Paying Gas/Electric Bills: No Difficulty Paying for Meds: No Currently Unemployed: No Education: High School Diploma/GED Difficulty w/ Childcare or Family Care: No Living arrangements: with family Additional living arrangements comments: Spiritual care concerns: No Anes - Eval Final PreProcedure Day of Procedure 05/10/25 10:21 Patient weight: overweight Heart: regular rate and rhythm Lungs: clear to auscultation Airway: Mallampati scale class II Neurological: alert and oriented Last oral intake: >/= 8 hours ASA classification: III Emergent: no Anesthetic plan: proceed Anesthesia type and monitoring: general LMA and standard monitoring Results Review: All pre-operative results and documents have been reviewed as part of the pre-operative evaluation. Informed Consent: The patient's anesthetic plan and its attendant risks and benefits were discussed with the patient/family/POA. Questions were solicited and answers provided to the satisfaction of the patient/family/POA.
[2025-05-10] MEDS: ceFAZolin 2 GM in SODIUM CHLORIDE 0.9% IV 50 ML 100 ML IVPB (10:31)
--- NOTE | 2025-05-10 11:15 | P.OP_ITS ---
Procedure Note - Detailed Date of Procedure 05/10/25 Pre-op Diagnosis Bilateral ureteral stones, right UPJ obstruction Post-op Diagnosis Same Procedure Performed Cystoscopy with bilateral retrograde pyelography, bilateral ureteral stent e xchange Surgeon Brian Pires MD Anesthesia General Description of Procedure Patient is brought to the operative suite where she is prepped and draped in routine sterile fashion while in dorsal lithotomy position after the uneventful administration of systemic sedation. Cystoscopy undertaken with a 21 F rigid cystoscope. Her bladder mucosa is normal with the exception of mild hyperemia around her indwelling ureteral stents. There is no intravesical foreign body or neoplasm other than the stents. Each stent is grasped and removed with ease. [place] catheter was used to obtain bilateral retrograde pyelogram to ensure appropriate placement of new 4.8 F variable length stents over a 0.035 in glidewire. This patient has a large staghorn calculus and mass in her left kidney. She is not deemed to be a candidate for either nephrectomy or percutaneous nephrolit hotomy. She has small stones in right renal pelvis which we will also manage with indwelling stent with periodic changes.
== END 2025-05-10 12:41 | disposition home or self-care (01) ==
PROVIDERS: PCP Family Medicine; Visit Provider Urology
PROC: (CPT 52310; principal; 2025-05-10 11:00)
DX: N20.0 Calculus of kidney (principal); N13.30 Unspecified hydronephrosis; E78.5 Hyperlipidemia, unspecified; I10 Essential (primary) hypertension; F41.9 Anxiety disorder, unspecified; K59.04 Chronic idiopathic constipation; E55.9 Vitamin D deficiency, unspecified; G47.33 Obstructive sleep apnea (adult) (pediatric); G20.A1 Parkinson's disease without dyskinesia, without mention of fluctuations; F02.80 Dementia in other diseases classified elsewhere, unspecified severity, without behavioral disturbance, psychotic disturbance, mood disturbance, and anxiety; M19.90 Unspecified osteoarthritis, unspecified site; F31.89 Other bipolar disorder; Z98.890 Other specified postprocedural states; Z90.49 Acquired absence of other specified parts of digestive tract; Z96.0 Presence of urogenital implants; Z85.3 Personal history of malignant neoplasm of breast; Z85.528 Personal history of other malignant neoplasm of kidney; Z86.79 Personal history of other diseases of the circulatory system; Z86.73 Personal history of transient ischemic attack (TIA), and cerebral infarction without residual deficits; Z80.41 Family history of malignant neoplasm of ovary
CPT/HCPCS: 52332; 74420; J0690; C1769; C2617; J1100; J2405; J2704; J7120